=== PATIENT | female | born 1935 | race Caucasian/White ===

== ENCOUNTER → 2016-07-03 | Outpatient (CLI) | payer MEDICARE ==
--- NOTE | 2016-07-03 12:00 | FL ---
EXAMINATION: Cervical and Thoracic Esophagram DATE OF EXAM: 07/03/2016 11:25 AM CLINICAL INDICATION: 80-year-old female with dysphagia, throat irritation, trouble swallowing and cou ghing for a few months. COMPARISON: 03/28/2016 Total Fluoroscopy Time: 2 minutes. FINDINGS: The swallowing mechanism is normal and hypopharyngeal anatomy is preserved. The thoracic portion shows similar prominent contour bulge at the level of the AP window, likely norm al for this patient. Mild tertiary peristalsis is again demonstrated. There is otherwise normal cours e and caliber. The mucosa is normal and no persistent filling defect is encountered. No hiatal hernia is present. No gastroesophageal reflux is identified during the course of the exam. Reflux could not be elicited with Valsalva or positional maneuvers. IMPRESSION: Minimal tertiary peristaltic contractions. Otherwise, no specific abnormality seen.
== END | disposition home or self-care (01) ==
LOC: RADFLWHC 10:50
PROVIDERS: ATTEND Internal Medicine Gastroenterology
DX: R13.10 Dysphagia, unspecified (principal)
CPT/HCPCS: 74220

== ENCOUNTER 2016-10-05 13:24 | Emergency (ER) | payer MEDICARE ==
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
--- NOTE | 2016-10-05 14:16 | CT ---
EXAMINATION TYPE: CT brain jessicaine wo con DATE OF EXAM: 10/05/2016 2:01 PM COMPARISON: 08/27/2012 CT brain HISTORY: fall, large laceration above left eye CT DLP: total 1827.6 mGycm Automated exposure control for dose reduction was used. TECHNIQUE: CT scan of the head and cervical spine are performed without contrast. FINDINGS: There is cerebral cortical atrophy. There is no mass effect nor midline shift. There is n o sign of intracranial hemorrhage. Calvarium is intact. There is mild soft tissue swelling over the l eft frontal bone. The cervical vertebra are fairly normal alignment. There are mild spondylotic changes. There is mild hypertrophic facet arthropathy in the lower cervical spine. Skull base appears intact. There is no ev idence of fracture. There is 3 mm anterior subluxation of C7 in relation to T1. IMPRESSION: Laceration deformity of the left frontal scalp region. No intracranial abnormality. Cerebral atrophy. Brain is unchanged compared to old exam. Spondylotic mild changes in the cervical spine. No fracture.
--- NOTE | 2016-10-05 14:18 | CT ---
EXAMINATION TYPE: CT facial bones wo con DATE OF EXAM: 10/05/2016 2:02 PM COMPARISON: NONE HISTORY: fall, large laceration above left eye CT DLP: total 1827.6 mGycm Automated exposure control for dose reduction was used. TECHNIQUE: CT scan of the sinuses is performed without contrast, axial images are obtained, coronal r eformatted images are also reviewed. FINDINGS: Orbital margins are intact. There is no sign of a blowout fracture. There is fairly normal development and aeration of the paranasal sinuses. Maxilla is intact. There is narrowing and spurring at the temporomandibular joints. Mandible is intact. Zygomatic arches appear normal. There is slight deformity of the nasal bone on the left side suspicious for nondisplaced fracture. There is no evide nce of orbital mass. There is left frontal scalp deformity. IMPRESSION: Laceration deformity of the left frontal scalp region. There is probably a nondisplaced f racture left side of the nasal bone.
--- NOTE | 2016-10-05 14:41 | XR ---
EXAMINATION TYPE: XR chest 2V DATE OF EXAM: 10/05/2016 2:38 PM COMPARISON: 03/05/2015 HISTORY: Pain TECHNIQUE: Frontal and lateral views of the chest are obtained. FINDINGS: Heart is enlarged. There is mild pulmonary vascular congestion. There are no hilar masses. Thoracic aorta is atheromatous. Bony thorax is intact. IMPRESSION: Cardiomegaly and mild heart failure. There is no significant change compared to last exa m. Pulmonary fibrosis.
[2016-10-05 16:11] VITALS: BP 95/76; PULSE 76; RESP 16; TEMP 98
== END 2016-10-05 16:08 | disposition home or self-care (01) ==
LOC: EC 13:24
DX: S01.81XA Laceration without foreign body of other part of head, initial encounter (principal); I27.2 Other secondary pulmonary hypertension; Z87.891 Personal history of nicotine dependence; Z96.652 Presence of left artificial knee joint; Z79.899 Other long term (current) drug therapy; W01.198A Fall on same level from slipping, tripping and stumbling with subsequent striking against other object, initial encounter; Y92.89 Other specified places as the place of occurrence of the external cause
CPT/HCPCS: 12013; 70450; 70486; 71020; 72125; 99284

== ENCOUNTER 2016-10-14 11:42 | Emergency (ER) | payer MEDICARE ==
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
--- NOTE | 2016-10-14 12:53 | XR ---
EXAMINATION TYPE: XR ribs LT w pa chest x-ray DATE OF EXAM ORDERED: 10/14/2016 12:46 PM HISTORY: Pain. COMPARISON: Previous study dated 10/05/2016. FINDINGS: The bones are osteopenic, likely on the basis of osteoporosis. The heart is enlarged. Lung volumes are prominent. There is linear atelectasis at the right lung base . Lungs are otherwise clear. There is some blunting of the left CP angle. I could not exclude a small effusion. No definite displaced rib fracture is seen. There are severe degenerative changes within t he lower dorsal and upper lumbar spines. IMPRESSION: 1. CARDIOMEGALY. 2. COPD. 3. RIGHT BASILAR ATELECTASIS. 4. I COULD NOT EXCLUDE A SMALL LEFT EFFUSION. 5. I DO NOT SEE A DISPLACED RIB FRACTURE AT THIS TIME.
[2016-10-14 13:48] VITALS: BP 102/61; PULSE 96; RESP 18; TEMP 97.9
== END 2016-10-14 13:47 | disposition home or self-care (01) ==
LOC: EC 11:42
DX: S20.212A Contusion of left front wall of thorax, initial encounter (principal); I27.2 Other secondary pulmonary hypertension; I48.91 Unspecified atrial fibrillation; Z79.899 Other long term (current) drug therapy; Z87.891 Personal history of nicotine dependence; W18.30XA Fall on same level, unspecified, initial encounter; Y93.89 Activity, other specified
CPT/HCPCS: 99283

== ENCOUNTER 2016-11-08 21:00 | Emergency (ER) | payer MEDICARE ==
[2016-11-08 21:18] VITALS: RESP 18
--- NOTE | 2016-11-08 21:44 | XR ---
EXAMINATION TYPE: XR chest 1V portable DATE OF EXAM: 11/08/2016 COMPARISON: 10/14/2016 INDICATION: Trauma TECHNIQUE: Single frontal view of the chest is obtained. FINDINGS: The heart size is enlarged. The pulmonary vasculature is normal. No suspicious infiltrates are evident. No pneumothorax is evident. Chronic rotator cuff tear is evident on the right. IMPRESSION: 1. Cardiomegaly. 2. No acute posttraumatic change is evident.
--- NOTE | 2016-11-08 21:45 | XR ---
EXAMINATION TYPE: XR shoulder limited LT DATE OF EXAM: 11/08/2016 COMPARISON: NONE HISTORY: Pain TECHNIQUE: Shoulder examined in 2 FINDINGS: The humeral head articulates with the glenoid. The acromio-clavicular junction is normal. No acute fractures or dislocations are evident. A follow up study can be performed 7-10 days from acute trauma for continued pain. IMPRESSION: 1. Normal two-view shoulder.
--- NOTE | 2016-11-08 21:46 | XR ---
EXAMINATION TYPE: XR knee limited LT DATE OF EXAM: 11/08/2016 COMPARISON: NONE HISTORY: Trauma fall TECHNIQUE: 2 view left knee FINDINGS: Tibial and femoral components remain in position. No acute fractures evident. Small joint f luid may be present. IMPRESSION: 1. Acute fracture not identified. Small joint effusion may be present.
--- NOTE | 2016-11-08 21:47 | XR ---
EXAMINATION TYPE: XR pelvis AP view DATE OF EXAM: 11/08/2016 CLINICAL HISTORY: Fall, pain TECHNIQUE: A single AP view of the pelvis is obtained. COMPARISON: None. FINDINGS: No acute fractures evident. Sacroiliac joints are normal. Degenerative changes are within t he lumbar spine. Degenerative changes are at the symphysis pubis. Some hyperostosis at the greater tr ochanter. IMPRESSION: 1. No acute osseous abnormality.
[2016-11-08] MEDS ORDERED: HYDROcodone/APAP 5-325MG 1 EACH TAB PO STA (21:56)
--- NOTE | 2016-11-08 21:59 | CT ---
EXAMINATION TYPE: CT brain wo con DATE OF EXAM: 11/08/2016 COMPARISON: 10/05/2016 INDICATION: Fall with head injury. DLP: 919.2 mGycm, Automated exposure control for dose reduction was used. CONTRAST: None CT of the brain is performed utilizing 3 mm thick sections through the posterior fossa and 3 mm thick sections through the remaining calvarium. Study is performed within 24 hours of arrival to the hosp [facility]. No abnormal hyperdensity is present to suggest an acute intracranial hemorrhage. No mass lesion is evident. No acute infarcts are evident. Mild white matter ischemic type changes may be present. Ventricles and sulci are appropriate for the patient age. Paranasal sinuses and mastoid air cells within the [id number] are clear. Mild soft tissue swelling is over the left frontal region. No significant change from October 12, 2016 is evident. IMPRESSIONS: 1. No acute intracranial hemorrhage. 2. No acute intracranial process. 3. Chronic white matter ischemic type changes
[2016-11-08 22:03] LABS: Basophils # (A) 0.1 k/uL (0-0.2); Basophils % (A) 1 %; CH 31.3; CHCM 32.8; Eosinophils # (A) 0.3 k/uL (0-0.7); Eosinophils % (A) 5 %; HCT 43.7 % (34.0-46.0); HGB 14.2 gm/dL (11.4-16.0); Luc # (Auto) 0.13; Luc % (Auto) 2; Lymphocytes # (A) 1.8 k/uL (1.0-4.8); Lymphocytes % (A) 34 %; MCH 31.2 pg (25.0-35.0); MCHC 32.6 g/dL (31.0-37.0); MCV 95.9 fL (80.0-100.0); Mean Platelet Volume 6.9; Monocytes # (A) 0.4 k/uL (0-1.0); Monocytes % (A) 7 %; Neutrophils # (A) 2.8 k/uL (1.3-7.7); Neutrophils % (A) 51 %; RBC 4.56 m/uL (3.80-5.40); RDW 13.6 % (11.5-15.5); WBC 5.4 k/uL (3.8-10.6); WBC (Perox) 5.33
[2016-11-08 22:11] LABS: INR 3.2 (<1.1); Partial Thromboplastin Time 29.3 sec (22.0-30.0); Prothrombin Time 30.8 sec (9.0-12.0)
[2016-11-08 22:12] LABS: ALT 30 U/L (9-52); AST 30 U/L (14-36); Alcohol <10 mg/dL; Alkaline Phosphatase 73 U/L (38-126); Amylase 70 U/L (30-110); Anion Gap 11 mmol/L; Blood Urea Nitrogen 15 mg/dL (7-17); Calcium 9.3 mg/dL (8.4-10.2); Carbon Dioxide 27 mmol/L (22-30); Chloride 101 mmol/L (98-107); Glucose 94 mg/dL (74-99); Non-African American GFR(MDRD) >60 (>60 ml/min/1.73 sqM); Potassium 3.5 mmol/L (3.5-5.1); Sodium 139 mmol/L (137-145); Total Bilirubin 0.6 mg/dL (0.2-1.3); Total Protein 6.6 g/dL (6.3-8.2)
[2016-11-08 22:29] LABS: Creatine Kinase 106 U/L (30-135)
[2016-11-08 22:41] LABS: Creatine Kinase MB 2.2 ng/mL (0.0-2.4); Troponin I <0.012 ng/mL (0.000-0.034)
--- NOTE | 2016-11-08 23:38 | ED ---
Fall HPI - General Chief Complaint: Fall Stated Complaint: left shoulder injury/fall Time Seen by Provider: 11/08/16 21:09 Source: patient Mode of arrival: wheelchair - History of Present Illness Initial Comments: This patient is an 80-year-old woman who presents to be evaluated after she had a fall at home. Patient reports slipping on steps and falling down one step. There was no loss consciousness. They did note some swelling. The patient's main complaint is of some swelling and pain over the anterior aspect of the knee. There is also a little bit of pain to the anterior aspect of the shoulder. Patient denies chest pain, dyspnea, diaphoresis, nausea or vomiting. 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, by family Place Fall Occurred: home Loss of Consciousness: none Prolonged Down Time?: no Symptoms Prior to Fall: none Severity: mild Quality: dull Context: tripped/slipped Associated Symptoms: headache - Related Data Home Medications Medication Instructions Recorded Confirmed Ambrisentan [Letairis] 5 mg PO DAILY 03/04/15 11/08/16 Atenolol 25 mg PO DAILY 03/04/15 11/08/16 Calcium Carbonate [Calcium] 600 mg PO DAILY 03/04/15 11/08/16 Furosemide [Lasix] 20 mg PO DAILY 03/04/15 11/08/16 Glucosamine-Chondr 500-400Mg 1 tab PO DAILY 03/04/15 11/08/16 Multivitamins, Thera [Multivitamin 1 tab PO DAILY 03/04/15 11/08/16 (formulary)] Potassium 99 mg PO DAILY 03/04/15 11/08/16 Sildenafil [Revatio] 20 mg PO TID 03/04/15 11/08/16 Verapamil HCl [Verapamil ER] 180 mg PO BID 03/04/15 11/08/16 Escitalopram [Lexapro] 5 mg PO DAILY 10/05/16 11/08/16 Vit C/E/Zn/Coppr/Lutein/Zeaxan 1 cap PO DAILY 10/05/16 11/08/16 [Preservision Areds 2 Softgel] Donepezil [Aricept] 10 mg PO HS 11/08/16 11/08/16 Previous Rx's Medication Instructions Recorded Warfarin [Coumadin] 5 mg PO DAILY #7 tab 03/07/15 traMADol HCl [Ultram] 50 mg PO Q6H PRN #24 tab 11/08/16 Allergies Allergy/AdvReac Type Severity Reaction Status Date / Time No Known Allergies Allergy Verified 11/08/16 22:07 Review of Systems ROS Statement: Those systems with pertinent positive or pertinent negative responses have been documented in the HPI. ROS Other: All systems not noted in ROS Statement are negative. Constitutional: Denies: fever, chills, weakness Eyes: Denies: vision change ENT: Denies: ear pain, hearing loss, epistaxis Respiratory: Denies: cough, dyspnea Cardiovascular: Denies: chest pain, palpitations, syncope Gastrointestinal: Denies: abdominal pain, vomiting Musculoskeletal: Reports: as per HPI. 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 History of Any Multi-Drug Resistant Organisms: None Reported Past Surgical History: Joint Replacement, Orthopedic Surgery, Tonsillectomy Additional Past Surgical History / Comment(s): Broken Femur; L Knee replacement ; L arm plates and screws Past Anesthesia/Blood Transfusion Reactions: No Reported Reaction Past Psychological History: No Psychological Hx Reported Smoking Status: Former smoker Past Alcohol Use History: None Reported Past Drug Use History: None Reported - Past Family History Mother Family Medical History: Cancer Additional Family Medical History / Comment(s): breast cancer General Exam Limitations: no limitations General appearance: alert, in no apparent distress Head exam: Present: normocephalic, other (Scalp contusion) Eye exam: Present: normal appearance, PERRL. Absent: scleral icterus, conjunctival injection ENT exam: Present: normal oropharynx Neck exam: Present: normal inspection, full ROM. Absent: tenderness Respiratory exam: Present: normal lung sounds bilaterally. Absent: respiratory distress, wheezes, rales, rhonchi, stridor, chest wall tenderness Cardiovascular Exam: Present: regular rate, irregular rhythm, normal heart sounds. Absent: systolic murmur, diastolic murmur, rubs, gallop GI/Abdominal exam: Present: soft. Absent: distended, tenderness, guarding, rebound Extremities exam: Present: full ROM, tenderness, normal capillary refill, other (Contusion to the anterior aspect of the knee. No palpable deformity or step- off.) Back exam: Present: normal inspection. Absent: CVA tenderness (R), CVA tenderness (L) Neurological exam: Present: alert, CN II-XII intact. Absent: motor sensory deficit Skin exam: Present: warm, dry, intact, normal color. Absent: rash Course Vital Signs 11/08/16 11/09/16 21:08 00:06 Temperature 97.5 F L 97.9 F Pulse Rate 78 76 Respiratory 18 18 Rate Blood Pressure 131/84 119/75 O2 Sat by Pulse 94 L 92 L Oximetry Medical Decision Making - Medical Decision Making This patient is an 80-year-old woman presenting following a slip and fall from the first step. Patient is taking Coumadin and this was therefore made a trauma category 2. Discussed the case with trauma surgery and workup per their recommendations. The workup is negative and the patient did want to go home. Discussed return parameters. They will have close follow-up with the primary physician to ensure that there is no delayed development of any symptoms. - Lab Data Result diagrams: 11/08/16 21:50 11/08/16 21:50 Lab Results 11/08/16 11/08/16 11/08/16 Range/Units 21:50 21:50 21:50 WBC 5.4 (3.8-10.6) k/uL RBC 4.56 (3.80-5.40) m/uL Hgb 14.2 (11.4-16.0) gm/dL Hct 43.7 (34.0-46.0) % MCV 95.9 (80.0-100.0) fL MCH 31.2 (25.0-35.0) pg MCHC 32.6 (31.0-37.0) g/dL RDW 13.6 (11.5-15.5) % Plt Count 207 (150-450) k/uL Neutrophils % 51 % Lymphocytes % 34 % Monocytes % 7 % Eosinophils % 5 % Basophils % 1 % Neutrophils # 2.8 (1.3-7.7) k/uL Lymphocytes # 1.8 (1.0-4.8) k/uL Monocytes # 0.4 (0-1.0) k/uL Eosinophils # 0.3 (0-0.7) k/uL Basophils # 0.1 (0-0.2) k/uL PT (9.0-12.0) sec INR (<1.1) APTT (22.0-30.0) sec Sodium 139 (137-145) mmol/L Potassium 3.5 (3.5-5.1) mmol/L Chloride 101 (98-107) mmol/L Carbon Dioxide 27 (22-30) mmol/L Anion Gap 11 mmol/L BUN 15 (7-17) mg/dL Creatinine 0.66 (0.52-1.04) mg/dL Est GFR (MDRD) Af Amer >60 (>60 ml/min/1.73 sqM) Est GFR (MDRD) Non-Af >60 (>60 ml/min/1.73 sqM) Glucose 94 (74-99) mg/dL Plasma Lactic Acid Alvin (0.7-2.0) mmol/L Calcium 9.3 (8.4-10.2) mg/dL Total Bilirubin 0.6 (0.2-1.3) mg/dL AST 30 (14-36) U/L ALT 30 (9-52) U/L Alkaline Phosphatase 73 (38-126) U/L Total Creatine Kinase (30-135) U/L CK-MB (CK-2) (0.0-2.4) ng/mL CK-MB (CK-2) Rel Index Troponin I (0.000-0.034) ng/mL Total Protein 6.6 (6.3-8.2) g/dL Albumin 4.3 (3.5-5.0) g/dL Amylase 70 (30-110) U/L Lipase 307 H (23-300) U/L Serum Alcohol <10 mg/dL Blood Type O Positive Blood Type Recheck O Pos Antibody Screen NEGATIVE Spec Expiration Date 11/11/2016 - 234911/08/16 11/08/16 11/08/16 Range/Units 21:50 21:50 21:50 WBC (3.8-10.6) k/uL RBC (3.80-5.40) m/uL Hgb (11.4-16.0) gm/dL Hct (34.0-46.0) % MCV (80.0-100.0) fL MCH (25.0-35.0) pg MCHC (31.0-37.0) g/dL RDW (11.5-15.5) % Plt Count (150-450) k/uL Neutrophils % % Lymphocytes % % Monocytes % % Eosinophils % % Basophils % % Neutrophils # (1.3-7.7) k/uL Lymphocytes # (1.0-4.8) k/uL Monocytes # (0-1.0) k/uL Eosinophils # (0-0.7) k/uL Basophils # (0-0.2) k/uL PT 30.8 H (9.0-12.0) sec INR 3.2 (<1.1) APTT 29.3 (22.0-30.0) sec Sodium (137-145) mmol/L Potassium (3.5-5.1) mmol/L Chloride (98-107) mmol/L Carbon Dioxide (22-30) mmol/L Anion Gap mmol/L BUN (7-17) mg/dL Creatinine (0.52-1.04) mg/dL Est GFR (MDRD) Af Amer (>60 ml/min/1.73 sqM) Est GFR (MDRD) Non-Af (>60 ml/min/1.73 sqM) Glucose (74-99) mg/dL Plasma Lactic Acid Alvin 1.2 (0.7-2.0) mmol/L Calcium (8.4-10.2) mg/dL Total Bilirubin (0.2-1.3) mg/dL AST (14-36) U/L ALT (9-52) U/L Alkaline Phosphatase (38-126) U/L Total Creatine Kinase 106 (30-135) U/L CK-MB (CK-2) 2.2 (0.0-2.4) ng/mL CK-MB (CK-2) Rel Index 2.1 Troponin I <0.012 (0.000-0.034) ng/mL Total Protein (6.3-8.2) g/dL Albumin (3.5-5.0) g/dL Amylase (30-110) U/L Lipase (23-300) U/L Serum Alcohol mg/dL Blood Type Blood Type Recheck Antibody Screen Spec Expiration Date - EKG Data -: EKG Interpreted by Me EKG shows normal: axis (Normal), intervals (Normal), ST-T waves (Normal) Rate: normal Interpretation: other (Patient's underlying rhythm appears to be atrial fibrillation with good rate control.) Critical Care Time Critical Care Time: Yes (30 minutes) Disposition Clinical Impression: Fall, Multiple contusions Disposition: HOME SELF-CARE Condition: Fair Instructions: Fall Prevention for Older Adults (ED), Contusion in Adults (ED) Prescriptions: traMADol HCl [Ultram] 50 mg PO Q6H PRN #24 tab PRN Reason: Pain Referrals: Viola Robledo MD [Primary Care Provider] - 1-2 days
[2016-11-09 00:07] VITALS: BP 119/75; PULSE 76; TEMP 97.9
--- NOTE | 2016-11-12 01:30 | CDI ---
Documentation Clarification OP Dear Sy PACHECO MD Please do addendum to ED report for HPI and physical exam. Thank you, Leonor Mercado Band Saw Operator Cake Cutting If you have any question, Please contact switchboard manager at [phone] [facility]
== END 2016-11-09 00:23 | disposition home or self-care (01) ==
LOC: EC 21:00
DX: S00.03XA Contusion of scalp, initial encounter (principal); S80.02XA Contusion of left knee, initial encounter; S49.92XA Unspecified injury of left shoulder and upper arm, initial encounter; I48.91 Unspecified atrial fibrillation; I27.2 Other secondary pulmonary hypertension; Z87.891 Personal history of nicotine dependence; Z79.899 Other long term (current) drug therapy; W10.9XXA Fall (on) (from) unspecified stairs and steps, initial encounter; Y92.009 Unspecified place in unspecified non-institutional (private) residence as the place of occurrence of the external cause
CPT/HCPCS: 36415; 70450; 71010; 72170; 80053; 80320; 82150; 82550; 82553; 83605; 83690; 84484; 85025; 85610; 85730; 86850; 86900; 86901; 93005; 99284

== ENCOUNTER 2017-06-19 14:13 | Emergency (ER) | payer MEDICARE ==
[2017-06-19 14:57] LABS: Partial Thromboplastin Time 37.5 sec (22.0-30.0); Prothrombin Time 77.5 sec (9.0-12.0)
[2017-06-19 14:59] LABS: INR 8.4 (<1.2)
--- NOTE | 2017-06-19 15:39 | ED ---
General Adult HPI - General Source: patient, family Mode of arrival: ambulatory Limitations: no limitations <Kyle Blackwood - Last Filed: 06/19/17 15:48> <Jay Jay Centeno - Last Filed: 06/19/17 18:22> - General Chief complaint: Recheck/Abnormal Lab/Rx Stated complaint: coumadin levels-sent by - History of Present Illness Initial comments: This 81-year-old white female presents with a complaint of an elevated INR level. She does take Coumadin daily. The patient/family relates that it apparently was elevated several weeks ago and her dose was cut in 2 weeks ago. They're unsure of the exact milligrams strength that she is currently taking. Her pills come in a blister pack and she denies taking more medication than she should have. She does have a history of dementia however but other family members are present to help with history. She relates that 2 days ago she ended up getting some blood around her left eye which is consistent with a some conjunctival hemorrhage. She denies any visual abnormalities. She denies any other bleeding. There hasn't been any hematuria, blood in stool, black tarry stools, or nosebleeds. He has no other symptoms. She states that she feels fine. She had her blood drawn this morning and her INR apparently was 8.4. Dr. Mary Robledo's office did call her and tell her to come to the ER. They are unsure why she is on the Coumadin but believe it is due to a heart and/or lung problems. It does appear that she has atrial fibrillation per EKG. They also relate that she has had blood clots in the past. The Coumadin dosing is done through the primary care physician's office and not the cardiology office. No other complaints or modifying factors. (Kyle Blackwood) - Related Data Home Medications Medication Instructions Recorded Confirmed Atenolol 25 mg PO DAILY 03/04/15 06/19/17 Calcium Carbonate [Calcium] 600 mg PO DAILY 03/04/15 06/19/17 Furosemide [Lasix] 20 mg PO DAILY 03/04/15 06/19/17 Glucosamine-Chondr 500-400Mg 1 tab PO DAILY 03/04/15 06/19/17 Multivitamins, Thera [Multivitamin 1 tab PO DAILY 03/04/15 06/19/17 (formulary)] Potassium 99 mg PO DAILY 03/04/15 06/19/17 Sildenafil [Revatio] 20 mg PO TID 03/04/15 06/19/17 Verapamil HCl [Verapamil ER] 180 mg PO BID 03/04/15 06/19/17 Escitalopram [Lexapro] 5 mg PO DAILY 10/05/16 06/19/17 Vit C/E/Zn/Coppr/Lutein/Zeaxan 1 cap PO DAILY 10/05/16 06/19/17 [Preservision Areds 2 Softgel] Donepezil [Aricept] 10 mg PO HS 11/08/16 06/19/17 Warfarin Sodium [Coumadin] 2.5 mg PO CARTER 06/19/17 06/19/17 Previous Rx's Medication Instructions Recorded Warfarin [Coumadin] 5 mg PO DAILY #7 tab 03/07/15 Allergies Allergy/AdvReac Type Severity Reaction Status Date / Time No Known Allergies Allergy Verified 06/19/17 15:14 Review of Systems ROS Other: All systems not noted in ROS Statement are negative. <Kyle Blackwood - Last Filed: 06/19/17 15:48> ROS Other: All systems not noted in ROS Statement are negative. <Jay Jay Centeno - Last Filed: 06/19/17 18:22> ROS Statement: Those systems with pertinent positive or pertinent negative responses have been documented in the HPI. 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 History of Any Multi-Drug Resistant Organisms: None Reported Past Surgical History: Joint Replacement, Orthopedic Surgery, Tonsillectomy Additional Past Surgical History / Comment(s): Broken Femur; L Knee replacement ; L arm plates and screws Past Anesthesia/Blood Transfusion Reactions: No Reported Reaction Past Psychological History: No Psychological Hx Reported Smoking Status: Former smoker Past Alcohol Use History: None Reported Past Drug Use History: None Reported - Past Family History Mother Family Medical History: Cancer Additional Family Medical History / Comment(s): breast cancer <Kyle Blackwood - Last Filed: 06/19/17 15:48> General Exam Limitations: no limitations <Kyle Blackwood - Last Filed: 06/19/17 15:48> <Jay aJy Centeno - Last Filed: 06/19/17 18:22> - General Exam Comments Initial Comments: GENERAL: The patient is well nourished and well hydrated. VITAL SIGNS: Heart rate, blood pressure, respiratory rate reviewed as recorded in nurse's notes. EYES: Pupils are round and reactive. Extraocular movements are intact. No conjunctival / lid redness or swelling. There is a large left subconjunctival hemorrhage noted. ENT: No external evidence of injury, swelling, or ecchymosis. Airway is patent. Throat is clear. NECK: Nontender. No swelling or evidence of injury. No subcutaneous emphysema. Trachea is midline. No thyroid mass. HEART: Regular rate and rhythm. Good peripheral pulses. LUNGS/CHEST: Breath sounds clear and equal bilaterally. No rales, rhonchi, or wheezes. No ecchymosis, subcutaneous emphysema, or tenderness. ABDOMEN: Abdomen soft without tenderness. No palpable masses or organomegaly. No peritoneal signs. No abdominal wall swelling or ecchymosis. EXTREMITIES: No extremity tenderness. Normal muscle tone and function. No thoracolumbar tenderness. NEUROLOGIC: Sensation is grossly intact. Cranial nerve exam reveals face is symmetrical, tongue is midline, speech is clear. SKIN: No abrasions or ecchymosis is noted. No induration or masses noted. PSYCHIATRIC: Alert and and in no distress, seems slightly demented. Appropriate behavior and judgment. (Kyle Blackwood) Vital Signs 06/19/17 06/19/17 14:18 18:04 Temperature 97.2 F L 98.2 F Pulse Rate 69 74 Respiratory 17 16 Rate Blood Pressure 129/89 124/73 O2 Sat by Pulse 96 94 L Oximetry Medical Decision Making <Kyle Blackwood - Last Filed: 06/19/17 15:48> - Lab Data Result diagrams: 06/19/17 15:35 06/19/17 15:35 <Jay Jay Centeno - Last Filed: 06/19/17 18:22> - Medical Decision Making The patient was seen and examined. Laboratory from this a.m. does show that the INR is 8.4. Additional diagnostics are ordered and are pending. Further care will be passed to oncoming physician. The EKG shows evidence of atrial fibrillation at a rate of 91. There is a QRS duration of 82 and a QTc interval 450. The EKG does not show any acute ST-T wave changes. (Kyle Blackwood) Medical decision making; this is an 81-year-old female here with family. At the officer INR level was elevated. She was sent to the hospital. Our lab reported 9.6 as an outpatient lab she was then told to come to the emergency room. Repeat INR was 8.4. White count 8.8 hemoglobin 14 hematocrit 44. The patient had small subconjunctival hemorrhage no other bleeding. No bruising, no dark stools etc. The patient's steady on her feet. She is on Coumadin for A. fib. I discussed the case with Dr. Leo on-call for Dr. Viola Brandon. He recommends vitamin K in emergency room and then she'll follow up in office tomorrow for repeat INR. She's not to take any Coumadin until instructed to do so by his office. This was explained to the family at bedside. Dr. Centeno ( Jay Jay Centeno) - Lab Data Lab Results 06/19/17 06/19/17 06/19/17 Range/Units 14:25 15:35 15:35 WBC 8.8 (3.8-10.6) k/uL RBC 4.70 (3.80-5.40) m/uL Hgb 14.6 (11.4-16.0) gm/dL Hct 44.4 (34.0-46.0) % MCV 94.5 (80.0-100.0) fL MCH 31.0 (25.0-35.0) pg MCHC 32.8 (31.0-37.0) g/dL RDW 14.2 (11.5-15.5) % Plt Count 297 (150-450) k/uL Neutrophils % 68 % Lymphocytes % 20 % Monocytes % 7 % Eosinophils % 4 % Basophils % 1 % Neutrophils # 6.0 (1.3-7.7) k/uL Lymphocytes # 1.7 (1.0-4.8) k/uL Monocytes # 0.6 (0-1.0) k/uL Eosinophils # 0.3 (0-0.7) k/uL Basophils # 0.1 (0-0.2) k/uL PT 77.5 H (9.0-12.0) sec INR 8.4 H* (<1.2) APTT 37.5 H (22.0-30.0) sec Sodium 141 (137-145) mmol/L Potassium 4.5 (3.5-5.1) mmol/L Chloride 103 (98-107) mmol/L Carbon Dioxide 29 (22-30) mmol/L Anion Gap 9 mmol/L BUN 21 H (7-17) mg/dL Creatinine 0.69 (0.52-1.04) mg/dL Est GFR (MDRD) Af Amer >60 (>60 ml/min/1.73 sqM) Est GFR (MDRD) Non-Af >60 (>60 ml/min/1.73 sqM) Glucose 94 (74-99) mg/dL Calcium 9.8 (8.4-10.2) mg/dL Disposition <Kyle Blackwood - Last Filed: 06/19/17 15:48> Time of Disposition: 18:22 <Jay Jay Centeno - Last Filed: 06/19/17 18:22> Clinical Impression: Coagulopathy, Subconjunctival bleed, Warfarin-induced coagulopathy Disposition: HOME SELF-CARE Condition: Fair Instructions: Warfarin (By mouth) Additional Instructions: Follow up in office tomorrow for repeat INR. Do not take Coumadin until instructed to do so by your family doctor, return emergency room if you have any evidence of bleeding Referrals: Viola Robledo MD [Primary Care Provider] - 1-2 days
[2017-06-19 15:49] LABS: Basophils # (A) 0.1 k/uL (0-0.2); Basophils % (A) 1 %; Eosinophils # (A) 0.3 k/uL (0-0.7); Eosinophils % (A) 4 %; HCT 44.4 % (34.0-46.0); HGB 14.6 gm/dL (11.4-16.0); Lymphocytes # (A) 1.7 k/uL (1.0-4.8); Lymphocytes % (A) 20 %; MCHC 32.8 g/dL (31.0-37.0); MCV 94.5 fL (80.0-100.0); Mean Platelet Volume 7.1; Monocytes # (A) 0.6 k/uL (0-1.0); Monocytes % (A) 7 %; Neutrophils % (A) 68 %; Platelet Count 297 k/uL (150-450); RDW 14.2 % (11.5-15.5); WBC 8.8 k/uL (3.8-10.6)
[2017-06-19 15:57] LABS: Anion Gap 9 mmol/L; Blood Urea Nitrogen 21 mg/dL (7-17); Calcium 9.8 mg/dL (8.4-10.2); Carbon Dioxide 29 mmol/L (22-30); Chloride 103 mmol/L (98-107); Glucose 94 mg/dL (74-99); Potassium 4.5 mmol/L (3.5-5.1); Sodium 141 mmol/L (137-145)
[2017-06-19] MEDS ORDERED: PHYTONADIONE 5 MG in SODIUM CHLORIDE 0.9% 50 ML IVPB STA (17:33)
[2017-06-19 18:04] VITALS: BP 124/73; PULSE 74; RESP 16; TEMP 98.2
== END 2017-06-19 18:35 | disposition home or self-care (01) ==
LOC: EC 14:13
DX: D68.8 Other specified coagulation defects (principal); H11.32 Conjunctival hemorrhage, left eye; I48.91 Unspecified atrial fibrillation; I27.20 Pulmonary hypertension, unspecified; Z87.891 Personal history of nicotine dependence; Z79.01 Long term (current) use of anticoagulants; Z79.899 Other long term (current) drug therapy
CPT/HCPCS: 36415; 93005; 80048; 85025; 85610; 85730; 99283; 96365; J3430

== ENCOUNTER 2017-06-22 20:46 | Emergency (ER) | payer MEDICARE ==
[2017-06-22 21:15] VITALS: BP 130/68; PULSE 68; RESP 16; TEMP 97.4
--- NOTE | 2017-06-22 21:39 | ED ---
Extremity Problem HPI - General Chief complaint: Extremity Problem,Nontraumatic Stated complaint: hand pain Time Seen by Provider: 06/22/17 21:25 Source: patient, RN notes reviewed Mode of arrival: ambulatory Limitations: no limitations - History of Present Illness Initial comments: This is an 81-year-old female who presents to the emergency department with chief complaint of right hand and wrist pain. Patient states that the pain developed last night while she was sleeping. She woke up at 4 AM and was unable to sleep due to the pain. Patient states that she has arthritis and had this same issue in her left hand 2 weeks ago. She was seen by Dr. Gonzalez who gave her a steroid injection which improved the pain in her left hand. Patient denies any specific injuries or trauma. Denies fever, chills, chest pain, shortness of breath, abdominal pain, nausea or vomiting, constipation or diarrhea, dysuria or hematuria, numbness or tingling, headache or vision changes. - Related Data Home Medications Medication Instructions Recorded Confirmed Atenolol 25 mg PO DAILY 03/04/15 06/19/17 Calcium Carbonate [Calcium] 600 mg PO DAILY 03/04/15 06/19/17 Furosemide [Lasix] 20 mg PO DAILY 03/04/15 06/19/17 Glucosamine-Chondr 500-400Mg 1 tab PO DAILY 03/04/15 06/19/17 Multivitamins, Thera [Multivitamin 1 tab PO DAILY 03/04/15 06/19/17 (formulary)] Potassium 99 mg PO DAILY 03/04/15 06/19/17 Sildenafil [Revatio] 20 mg PO TID 03/04/15 06/19/17 Verapamil HCl [Verapamil ER] 180 mg PO BID 03/04/15 06/19/17 Escitalopram [Lexapro] 5 mg PO DAILY 10/05/16 06/19/17 Vit C/E/Zn/Coppr/Lutein/Zeaxan 1 cap PO DAILY 10/05/16 06/19/17 [Preservision Areds 2 Softgel] Donepezil [Aricept] 10 mg PO HS 11/08/16 06/19/17 Warfarin Sodium [Coumadin] 2.5 mg PO CARTER 06/19/17 06/19/17 Previous Rx's Medication Instructions Recorded Warfarin [Coumadin] 5 mg PO DAILY #7 tab 03/07/15 Allergies Allergy/AdvReac Type Severity Reaction Status Date / Time No Known Allergies Allergy Verified 06/19/17 15:14 Review of Systems ROS Statement: Those systems with pertinent positive or pertinent negative responses have been documented in the HPI. ROS Other: All systems not noted in ROS Statement are negative. 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 History of Any Multi-Drug Resistant Organisms: None Reported Past Surgical History: Joint Replacement, Orthopedic Surgery, Tonsillectomy Additional Past Surgical History / Comment(s): Broken Femur; L Knee replacement ; L arm plates and screws Past Anesthesia/Blood Transfusion Reactions: No Reported Reaction Past Psychological History: No Psychological Hx Reported Smoking Status: Former smoker Past Alcohol Use History: None Reported Past Drug Use History: None Reported - Past Family History Mother Family Medical History: Cancer Additional Family Medical History / Comment(s): breast cancer General Exam - General Exam Comments Initial Comments: General: Awake and alert, well-developed; in no apparent distress. is at bedside. HEENT: Head atraumatic, normocephalic. Pupils are equal, round and reactive to light. Extraocular movements intact. Oropharynx moist without erythema or exudate. Neck: Supple. Normal ROM. Cardiovascular: Regular rate and rhythm. No murmurs, rubs or gallops. Chest symmetrical. Respiratory: Lungs clear to auscultation bilaterally. No wheezes, rales or rhonchi. Normal respiratory effort with no use of accessory muscles. Musculoskeletal: Limited range of motion of right wrist due to pain. There is generalized swelling over the left wrist and hand. Tenderness on palpation of left wrist and thumb. Lateral deviation of digits at the MCP joints. Sensation is intact. Radial pulses are 2+ equal and palpable bilaterally. Skin: [place], warm and dry without rashes or lesions. Neurological: Alert and oriented x3. CN II-XII grossly intact. Speech is fluent and answers are appropriate. No focal neuro deficits. Psychiatric: Normal mood and affect. No overt signs of depression or anxiety noted. Limitations: no limitations Course Vital Signs 06/22/17 21:11 Temperature 97.4 F L Pulse Rate 68 Respiratory 16 Rate Blood Pressure 130/68 O2 Sat by Pulse 97 Oximetry Medical Decision Making - Medical Decision Making This is an 81-year-old female who presents to the emergency department with chief complaint of right hand and wrist pain. Patient denies any specific injury or trauma. X-ray did reveal evidence of osteoarthritis and degenerative changes. No acute fractures or dislocations. Patient will be given pain medication. Recommended follow-up with Dr. Gonzalez tomorrow morning. Patient is in agreement with plan and voices understanding. She is in no acute distress. All questions answered. - Radiology Data Radiology results: report reviewed X-ray right wrist and right hand impression: 1. There is no acute fracture or dislocation in the right wrist or hand. 2. Findings most consistent with osteoarthritis without radiographic evidence of erosive osteoarthritis most pronounced within the second distal interphalangeal joint with surrounding soft tissue swelling. 3. Calcification of the triangular fibrocartilage which can be seen in CPPD or other arthropathies. 4. Generalized osseous demineralization. Disposition Clinical Impression: Osteoarthritis Disposition: HOME SELF-CARE Condition: Good Instructions: Osteoarthritis (ED) Additional Instructions: Please follow-up with Dr. Gonzalez tomorrow morning. Please take medications as prescribed. Please follow up with primary care provider within 1-2 days. Return to emergency department if symptoms should worsen or any concerns arise. Referrals: Viola Robledo MD [Primary Care Provider] - 1-2 days Time of Disposition: 22:04
--- NOTE | 2017-06-22 21:53 | XR ---
EXAMINATION TYPE: XR wrist complete RT, XR hand complete RT DATE OF EXAM: 06/22/2017 CLINICAL HISTORY: Right wrist and hand pain with no known injury TECHNIQUE: Frontal, lateral and oblique images of the right wrist and hand are obtained. Scaphoid vi ew was also obtained. COMPARISON: None FINDINGS: There is no acute fracture/dislocation evident in the right wrist or hand. Extensive degen erative changes are seen at the second distal interphalangeal joint with surrounding soft tissue swel ling of the entirety of the digit. There is slight radial subluxation without dislocation at the dist al interphalangeal joint. Joint space narrowing, overhanging edges of marginal osteophytes, and oppos ing surface sclerosis are seen. No erosions. Calcifications of the triangular fibrocartilage are also seen. There is generalized osseous demineralization. Similar degenerative changes but to a much less er degree are seen at the first metacarpal phalangeal joint and fifth distal interphalangeal joint mi ld opposing surface sclerosis is seen of the first, third, and fourth distal interphalangeal joints. Well-circumscribed 3 mm osseous lesion within the proximal phalanx of the fifth digit may represent a bone island. Diffuse mild soft tissue swelling of the wrist is noted. IMPRESSION: 1. There is no acute fracture or dislocation in the right wrist or hand. 2. Findings most consistent with osteoarthritis without radiographic evidence of erosive osteoarthrit is most pronounced within the second distal interphalangeal joint with surrounding soft tissue swelli ng. 3. Calcification of the triangular fibrocartilage which can be seen in CPPD or other arthropathies. 4. Generalized osseous demineralization.
[2017-06-22] MEDS ORDERED: ACET/COD 300 MG/30 MG STARTER PACK 6 TAB BTL PO STA (22:02)
== END 2017-06-22 22:16 | disposition home or self-care (01) ==
LOC: EC 20:46
DX: M19.041 Primary osteoarthritis, right hand (principal); I48.91 Unspecified atrial fibrillation; I27.20 Pulmonary hypertension, unspecified; J84.10 Pulmonary fibrosis, unspecified; Z87.891 Personal history of nicotine dependence; Z96.652 Presence of left artificial knee joint; Z79.01 Long term (current) use of anticoagulants; Z79.899 Other long term (current) drug therapy
CPT/HCPCS: 99283

== ENCOUNTER → 2017-06-23 | Outpatient (CLI) | payer MEDICARE ==
[2017-06-23 13:26] LABS: Basophils # (A) 0.1 k/uL (0-0.2); Basophils % (A) 1 %; Eosinophils # (A) 0.1 k/uL (0-0.7); Eosinophils % (A) 1 %; HCT 45.1 % (34.0-46.0); HGB 14.2 gm/dL (11.4-16.0); Lymphocytes # (A) 1.1 k/uL (1.0-4.8); Lymphocytes % (A) 12 %; MCH 30.3 pg (25.0-35.0); MCHC 31.6 g/dL (31.0-37.0); MCV 95.9 fL (80.0-100.0); Mean Platelet Volume 6.4; Monocytes # (A) 0.7 k/uL (0-1.0); Monocytes % (A) 8 %; Neutrophils # (A) 7.4 k/uL (1.3-7.7); Neutrophils % (A) 79 %; Platelet Count 254 k/uL (150-450); RDW 12.6 % (11.5-15.5); WBC 9.4 k/uL (3.8-10.6)
[2017-06-23 13:31] LABS: ALT 28 U/L (9-52); AST 22 U/L (14-36); Anion Gap 8 mmol/L; Blood Urea Nitrogen 14 mg/dL (7-17); C Reactive Protein 19.8 mg/L (<10.0); Carbon Dioxide 31 mmol/L (22-30); Chloride 98 mmol/L (98-107); Creatine Kinase 46 U/L (30-135); Glucose 96 mg/dL (74-99); Potassium 4.2 mmol/L (3.5-5.1); Sodium 137 mmol/L (137-145); Uric Acid 4.2 mg/dL (3.7-7.4)
[2017-06-23 15:27] LABS: Erythrocyte Sedimentation Rate 8 mm/hr (0-20)
[2017-06-23 19:26] LABS: Rheumatoid Factor 8 IU/mL (0-15)
[2017-06-23 20:20] LABS: Cyclic Citrullinated Pep IgG NEGATIVE (NEGATIVE)
[2017-06-24 05:06] LABS: Angiotensin-1 Converting Enz. 51 U/L (8-52)
[2017-06-24 11:25] LABS: HLA B27 NEGATIVE
== END ==
LOC: LABWHC1 11:49
PROVIDERS: ATTEND Orthopaedic Surgery
DX: M25.531 Pain in right wrist (principal); M02.8 Other reactive arthropathies; M12.831 Other specific arthropathies, not elsewhere classified, right wrist
CPT/HCPCS: 36415; 80048; 82164; 82550; 83520; 84450; 84460; 84550; 85025; 85652; 86038; 86140; 86200; 86431; 86812

== ENCOUNTER 2018-02-18 03:37 | Emergency (ER) | payer MEDICARE ==
--- NOTE | 2018-02-18 04:31 | ED ---
General Adult HPI - General Chief complaint: Upper Respiratory Infection Stated complaint: RADHA,COUGH Time Seen by Provider: 02/18/18 04:30 Source: patient, family Mode of arrival: wheelchair Limitations: no limitations - History of Present Illness Initial comments: Jewels is an 82-year-old female with past medical history of atrial fibrillation , pulmonary embolism and pulmonary hypertension who presents the emergency department today for evaluation of progressively worsening active cough. She reports that over the past 2 days she's developed progressively worsening cough. She reports that she is coughing up green sputum. Patient reports that she usually wears oxygen at night but has felt progressively slightly more short of breath so she's been wearing her oxygen more frequently. She reports that she feels more short of breath with laying flat when she feels more postnasal drip and coughing. Reports subjective fevers but no documented fevers at home. She denies any nausea vomiting chest pain palpitations. Patient reports she has been absolutely compliant with all of her home medications. She has not missed any doses. - Related Data Home Medications Medication Instructions Recorded Confirmed Atenolol 25 mg PO DAILY 03/04/15 02/18/18 Calcium Carbonate [Calcium] 600 mg PO DAILY 03/04/15 02/18/18 Furosemide [Lasix] 20 mg PO DAILY 03/04/15 02/18/18 Glucosamine-Chondr 500-400Mg 1 tab PO DAILY 03/04/15 02/18/18 Multivitamins, Thera [Multivitamin 1 tab PO DAILY 03/04/15 02/18/18 (formulary)] Sildenafil [Revatio] 20 mg PO TID 03/04/15 02/18/18 Verapamil HCl [Verapamil ER] 180 mg PO BID 03/04/15 02/18/18 Escitalopram [Lexapro] 5 mg PO DAILY 10/05/16 02/18/18 Donepezil [Aricept] 10 mg PO HS 11/08/16 02/18/18 Albuterol Sulfate [Proair Hfa] 1 - 2 puff INHALATION Q6HR PRN 02/18/18 02/18/18 Apixaban [Eliquis] 2.5 mg PO BID 02/18/18 02/18/18 Allergies Allergy/AdvReac Type Severity Reaction Status Date / Time No Known Allergies Allergy Verified 06/19/17 15:14 Review of Systems ROS Statement: Those systems with pertinent positive or pertinent negative responses have been documented in the HPI. ROS Other: All systems not noted in ROS Statement are negative. 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 History of Any Multi-Drug Resistant Organisms: None Reported Past Surgical History: Joint Replacement, Orthopedic Surgery, Tonsillectomy Additional Past Surgical History / Comment(s): Broken Femur; L Knee replacement ; L arm plates and screws Past Anesthesia/Blood Transfusion Reactions: No Reported Reaction Past Psychological History: No Psychological Hx Reported Smoking Status: Former smoker Past Alcohol Use History: None Reported Past Drug Use History: None Reported - Past Family History Mother Family Medical History: Cancer Additional Family Medical History / Comment(s): breast cancer General Exam - General Exam Comments Initial Comments: GENERAL: Patient is well-developed and well-nourished. Patient is nontoxic and well- hydrated and is in no distress. Patient wearing oxygen HENT: Normocephalic, Atraumatic. Neck is soft and supple. No significant lymphadenopathy is noted. Oropharynx is clear. Moist mucous membranes. Neck has full range of motion without eliciting any pain. EYES: The sclera were anicteric and conjunctiva were pink and moist. Extraocular movements were intact and pupils were equal round and reactive to light. Eyelids were unremarkable. PULMONARY: Crackles at bilateral bases CARDIOVASCULAR: There is a regular rate and rhythm without any murmurs gallops or rubs. Systolic murmur ABDOMEN: Soft and nontender with normal bowel sounds. SKIN: Skin is clear with no lesions or rashes and otherwise unremarkable. NEUROLOGIC: Patient is alert and oriented x3. Cranial nerves II through XII are grossly intact. Motor and sensory are also intact. Normal speech, volume and content. Symmetrical smile. MUSCULOSKELETAL: Normal extremities with adequate strength and full range of motion. No lower extremity swelling or edema. No calf tenderness. LYMPHATICS: No significant lymphadenopathy is noted PSYCHIATRIC: Normal psychiatric evaluation. Limitations: no limitations Limitations: no limitations Course Vital Signs 02/18/18 02/18/18 02/18/18 03:39 05:17 06:06 Temperature 98.5 F Pulse Rate 72 70 73 Respiratory 20 16 16 Rate Blood Pressure 110/72 106/58 O2 Sat by Pulse 91 L 97 97 Oximetry 02/18/18 06:52 Temperature 98.1 F Pulse Rate 73 Respiratory 16 Rate Blood Pressure 110/65 O2 Sat by Pulse 96 Oximetry Medical Decision Making - Medical Decision Making Labs and imaging consistent with CHF IV lasix ordered Results discussed with patient and family, agreeable with plan for IV lasix and discharge home Will contact Director Supply Chain today for follow up Return parameters discussed Discharged home in stable condition - Lab Data Result diagrams: 02/18/18 04:55 02/18/18 04:55 Lab Results 02/18/18 02/18/18 02/18/18 Range/Units 04:55 04:55 04:55 WBC 8.5 (3.8-10.6) k/uL RBC 4.04 (3.80-5.40) m/uL Hgb 12.2 (11.4-16.0) gm/dL Hct 38.7 (34.0-46.0) % MCV 95.8 (80.0-100.0) fL MCH 30.3 (25.0-35.0) pg MCHC 31.6 (31.0-37.0) g/dL RDW 13.2 (11.5-15.5) % Plt Count 191 (150-450) k/uL Neutrophils % 75 % Lymphocytes % 13 % Monocytes % 8 % Eosinophils % 2 % Basophils % 1 % Neutrophils # 6.4 (1.3-7.7) k/uL Lymphocytes # 1.1 (1.0-4.8) k/uL Monocytes # 0.7 (0-1.0) k/uL Eosinophils # 0.2 (0-0.7) k/uL Basophils # 0.1 (0-0.2) k/uL PT (9.0-12.0) sec INR (<1.2) APTT (22.0-30.0) sec Sodium 138 (137-145) mmol/L Potassium 4.3 (3.5-5.1) mmol/L Chloride 103 (98-107) mmol/L Carbon Dioxide 28 (22-30) mmol/L Anion Gap 7 mmol/L BUN 15 (7-17) mg/dL Creatinine 0.63 (0.52-1.04) mg/dL Est GFR (CKD-EPI)AfAm >90 (>60 ml/min/1.73 sqM) Est GFR (CKD-EPI)NonAf 83 (>60 ml/min/1.73 sqM) Glucose 95 (74-99) mg/dL Plasma Lactic Acid Alvin (0.7-2.0) mmol/L Calcium 9.5 (8.4-10.2) mg/dL Total Bilirubin 0.5 (0.2-1.3) mg/dL AST 27 (14-36) U/L ALT 32 (9-52) U/L Alkaline Phosphatase 48 (38-126) U/L Total Creatine Kinase 66 (30-135) U/L CK-MB (CK-2) 1.1 (0.0-2.4) ng/mL CK-MB (CK-2) Rel Index 1.7 Troponin I <0.012 (0.000-0.034) ng/mL NT-Pro-B Natriuret Pep pg/mL Total Protein 5.8 L (6.3-8.2) g/dL Albumin 3.5 (3.5-5.0) g/dL Urine Color Urine Appearance (Clear) Urine pH (5.0-8.0) Ur Specific [place] (1.001-1.035) Urine Protein (Negative) Urine Glucose (UA) (Negative) Urine Ketones (Negative) Urine Blood (Negative) Urine Nitrite (Negative) Urine Bilirubin (Negative) Urine Urobilinogen (<2.0) mg/dL Ur Leukocyte Esterase (Negative) 02/18/18 02/18/18 02/18/18 Range/Units 04:55 04:55 04:55 WBC (3.8-10.6) k/uL RBC (3.80-5.40) m/uL Hgb (11.4-16.0) gm/dL Hct (34.0-46.0) % MCV (80.0-100.0) fL MCH (25.0-35.0) pg MCHC (31.0-37.0) g/dL RDW (11.5-15.5) % Plt Count (150-450) k/uL Neutrophils % % Lymphocytes % % Monocytes % % Eosinophils % % Basophils % % Neutrophils # (1.3-7.7) k/uL Lymphocytes # (1.0-4.8) k/uL Monocytes # (0-1.0) k/uL Eosinophils # (0-0.7) k/uL Basophils # (0-0.2) k/uL PT 10.7 (9.0-12.0) sec INR 1.1 (<1.2) APTT 22.2 (22.0-30.0) sec Sodium (137-145) mmol/L Potassium (3.5-5.1) mmol/L Chloride (98-107) mmol/L Carbon Dioxide (22-30) mmol/L Anion Gap mmol/L BUN (7-17) mg/dL Creatinine (0.52-1.04) mg/dL Est GFR (CKD-EPI)AfAm (>60 ml/min/1.73 sqM) Est GFR (CKD-EPI)NonAf (>60 ml/min/1.73 sqM) Glucose (74-99) mg/dL Plasma Lactic Acid Alvin 1.3 (0.7-2.0) mmol/L Calcium (8.4-10.2) mg/dL Total Bilirubin (0.2-1.3) mg/dL AST (14-36) U/L ALT (9-52) U/L Alkaline Phosphatase (38-126) U/L Total Creatine Kinase (30-135) U/L CK-MB (CK-2) (0.0-2.4) ng/mL CK-MB (CK-2) Rel Index Troponin I (0.000-0.034) ng/mL NT-Pro-B Natriuret Pep 2530 pg/mL Total Protein (6.3-8.2) g/dL Albumin (3.5-5.0) g/dL Urine Color Urine Appearance (Clear) Urine pH (5.0-8.0) Ur Specific [place] (1.001-1.035) Urine Protein (Negative) Urine Glucose (UA) (Negative) Urine Ketones (Negative) Urine Blood (Negative) Urine Nitrite (Negative) Urine Bilirubin (Negative) Urine Urobilinogen (<2.0) mg/dL Ur Leukocyte Esterase (Negative) 02/18/18 Range/Units 06:03 WBC (3.8-10.6) k/uL RBC (3.80-5.40) m/uL Hgb (11.4-16.0) gm/dL Hct (34.0-46.0) % MCV (80.0-100.0) fL MCH (25.0-35.0) pg MCHC (31.0-37.0) g/dL RDW (11.5-15.5) % Plt Count (150-450) k/uL Neutrophils % % Lymphocytes % % Monocytes % % Eosinophils % % Basophils % % Neutrophils # (1.3-7.7) k/uL Lymphocytes # (1.0-4.8) k/uL Monocytes # (0-1.0) k/uL Eosinophils # (0-0.7) k/uL Basophils # (0-0.2) k/uL PT (9.0-12.0) sec INR (<1.2) APTT (22.0-30.0) sec Sodium (137-145) mmol/L Potassium (3.5-5.1) mmol/L Chloride (98-107) mmol/L Carbon Dioxide (22-30) mmol/L Anion Gap mmol/L BUN (7-17) mg/dL Creatinine (0.52-1.04) mg/dL Est GFR (CKD-EPI)AfAm (>60 ml/min/1.73 sqM) Est GFR (CKD-EPI)NonAf (>60 ml/min/1.73 sqM) Glucose (74-99) mg/dL Plasma Lactic Acid Alvin (0.7-2.0) mmol/L Calcium (8.4-10.2) mg/dL Total Bilirubin (0.2-1.3) mg/dL AST (14-36) U/L ALT (9-52) U/L Alkaline Phosphatase (38-126) U/L Total Creatine Kinase (30-135) U/L CK-MB (CK-2) (0.0-2.4) ng/mL CK-MB (CK-2) Rel Index Troponin I (0.000-0.034) ng/mL NT-Pro-B Natriuret Pep pg/mL Total Protein (6.3-8.2) g/dL Albumin (3.5-5.0) g/dL Urine Color Yellow Urine Appearance Clear (Clear) Urine pH 7.0 (5.0-8.0) Ur Specific [place] 1.015 (1.001-1.035) Urine Protein Negative (Negative) Urine Glucose (UA) Negative (Negative) Urine Ketones Negative (Negative) Urine Blood Negative (Negative) Urine Nitrite Negative (Negative) Urine Bilirubin Negative (Negative) Urine Urobilinogen <2.0 (<2.0) mg/dL Ur Leukocyte Esterase Negative (Negative) - EKG Data EKG Comments: EKG obtained at 5:09 AM, rate is 73, rhythm is atrial fibrillation, no acute ST elevations or depressions no evidence of acute ischemia or infarction Disposition Clinical Impression: CHF (congestive heart failure) Disposition: HOME SELF-CARE Instructions: Heart Failure (DC) Additional Instructions: Clear filling hauler weaving's office today to discuss symptoms and follow up Is patient prescribed a controlled substance at d/c from ED?: No Referrals: Viola Robledo MD [Primary Care Provider] - 1-2 days [facility] [Provider Group] - 1-2 days Time of Disposition: 06:45
[2018-02-18 05:18] VITALS: RESP 16
[2018-02-18 05:35] LABS: Basophils # (A) 0.1 k/uL (0-0.2); Basophils % (A) 1 %; Eosinophils # (A) 0.2 k/uL (0-0.7); Eosinophils % (A) 2 %; HCT 38.7 % (34.0-46.0); HGB 12.2 gm/dL (11.4-16.0); Lymphocytes # (A) 1.1 k/uL (1.0-4.8); Lymphocytes % (A) 13 %; MCH 30.3 pg (25.0-35.0); MCHC 31.6 g/dL (31.0-37.0); MCV 95.8 fL (80.0-100.0); Mean Platelet Volume 6.9; Monocytes # (A) 0.7 k/uL (0-1.0); Monocytes % (A) 8 %; Neutrophils # (A) 6.4 k/uL (1.3-7.7); Neutrophils % (A) 75 %; Platelet Count 191 k/uL (150-450); RBC 4.04 m/uL (3.80-5.40); RDW 13.2 % (11.5-15.5); WBC 8.5 k/uL (3.8-10.6)
[2018-02-18 05:40] LABS: INR 1.1 (<1.2); Partial Thromboplastin Time 22.2 sec (22.0-30.0); Prothrombin Time 10.7 sec (9.0-12.0)
[2018-02-18 05:41] LABS: ALT 32 U/L (9-52); AST 27 U/L (14-36); Albumin 3.5 g/dL (3.5-5.0); Alkaline Phosphatase 48 U/L (38-126); Anion Gap 7 mmol/L; Blood Urea Nitrogen 15 mg/dL (7-17); Calcium 9.5 mg/dL (8.4-10.2); Carbon Dioxide 28 mmol/L (22-30); Chloride 103 mmol/L (98-107); Glucose 95 mg/dL (74-99); Potassium 4.3 mmol/L (3.5-5.1); Sodium 138 mmol/L (137-145); Total Bilirubin 0.5 mg/dL (0.2-1.3); Total Protein 5.8 g/dL (6.3-8.2)
[2018-02-18 05:55] LABS: Creatine Kinase 66 U/L (30-135)
--- NOTE | 2018-02-18 06:04 | XR ---
EXAMINATION TYPE: XR chest 2V DATE OF EXAM: 02/18/2018 COMPARISON: 09/17/2017 HISTORY: Atrial fibrillation TECHNIQUE: Frontal and lateral views of the chest are obtained. FINDINGS: Heart is enlarged. There is mild pulmonary congestion. There is slight blunting of the lef t costophrenic angle. There are chest leads. There is some pulmonary interstitial mild edema. IMPRESSION: There is evidence of mild heart failure. Cardiomegaly. Heart failure appears new compare d to old exam.
[2018-02-18 06:06] LABS: Creatine Kinase MB 1.1 ng/mL (0.0-2.4); Troponin I <0.012 ng/mL (0.000-0.034)
[2018-02-18 06:08] VITALS: PULSE 73
[2018-02-18 06:15] LABS: Appearance,Urine Clear (Clear); Bilirubin,Urine Negative (Negative); Blood,Urine Negative (Negative); Color,Urine Yellow; Glucose,Urine (UA) Negative (Negative); Ketones,Urine Negative (Negative); Leukocyte Esterase,Urine Negative (Negative); Nitrite,Urine Negative (Negative); Protein,Urine Negative (Negative); Specific Gravity,Urine 1.015 (1.001-1.035); Urobilinogen,Urine <2.0 mg/dL (<2.0)
[2018-02-18] MEDS ORDERED: FUROSEMIDE 10 MG/ML 4 ML VIAL IV ONE (06:42)
[2018-02-18 06:54] VITALS: BP 110/65; TEMP 98.1
== END 2018-02-18 07:03 | disposition home or self-care (01) ==
LOC: EC 03:37
DX: I50.9 Heart failure, unspecified (principal); I48.91 Unspecified atrial fibrillation; I27.20 Pulmonary hypertension, unspecified; Z87.891 Personal history of nicotine dependence; Z79.01 Long term (current) use of anticoagulants; Z79.899 Other long term (current) drug therapy; Z87.39 Personal history of other diseases of the musculoskeletal system and connective tissue; Z99.81 Dependence on supplemental oxygen
CPT/HCPCS: 36415; 71046; 80053; 81003; 82550; 82553; 83605; 83880; 84484; 85025; 85610; 85730; 87040; 87086; 93005; 96374; 99285

== ENCOUNTER 2018-11-10 07:59 | Inpatient (IN) | payer MEDICARE ==
--- NOTE | 2018-11-10 08:32 | ED ---
SOB HPI - General Chief Complaint: Shortness of Breath Stated Complaint: SOB Time Seen by Provider: 11/10/18 08:19 Source: patient, RN notes reviewed Mode of arrival: wheelchair - History of Present Illness Initial Comments: This is a 82-year-old female history of pulmonary fibrosis other medical issues who this morning was demonstrating weakness shortness of breath and chills. She denies any overt cough or phlegm production dysuria hematuria headache dizziness blurry vision loss of function to her upper or lower extremities or any other complaints. She does states she just doesn't feel well patient does use oxygen at night and does use inhalers she denies any increased use. MD Complaint: shortness of breath - Related Data Home Medications Medication Instructions Recorded Confirmed Atenolol 25 mg PO DAILY 03/04/15 11/10/18 Furosemide [Lasix] 20 mg PO BID 03/04/15 11/10/18 Sildenafil [Revatio] 20 mg PO TID 03/04/15 11/10/18 Verapamil HCl [Verapamil ER] 180 mg PO BID 03/04/15 11/10/18 Escitalopram [Lexapro] 5 mg PO DAILY 10/05/16 11/10/18 Albuterol Sulfate [Proair Hfa] 1 - 2 puff INHALATION RT-QID PRN 02/18/18 11/10/18 Apixaban [Eliquis] 2.5 mg PO BID 02/18/18 11/10/18 Memantine [Namenda] 10 mg PO BID 11/10/18 11/10/18 Allergies Allergy/AdvReac Type Severity Reaction Status Date / Time No Known Allergies Allergy Verified 11/10/18 10:00 Review of Systems ROS Statement: Those systems with pertinent positive or pertinent negative responses have been documented in the HPI. ROS Other: All systems not noted in ROS Statement are negative. 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 History of Any Multi-Drug Resistant Organisms: None Reported Past Surgical History: Joint Replacement, Orthopedic Surgery, Tonsillectomy Additional Past Surgical History / Comment(s): Broken Femur; L Knee replacement; L arm plates and screws Past Anesthesia/Blood Transfusion Reactions: No Reported Reaction Past Psychological History: No Psychological Hx Reported Smoking Status: Former smoker Past Alcohol Use History: None Reported Past Drug Use History: None Reported - Past Family History Mother Family Medical History: Cancer Additional Family Medical History / Comment(s): breast cancer General Exam - General Exam Comments Initial Comments: This is a well-developed asthenic awake alert oriented 3 General appearance: alert, anxious, in distress Head exam: Present: atraumatic, normocephalic, normal inspection Eye exam: Present: normal appearance, PERRL, EOMI. Absent: scleral icterus, conjunctival injection, periorbital swelling ENT exam: Present: mucous membranes dry Neck exam: Present: normal inspection. Absent: tenderness, meningismus, lymphadenopathy Respiratory exam: Present: decreased breath sounds, other (Tachypnea). Absent: respiratory distress, wheezes, rales, rhonchi, stridor Cardiovascular Exam: Present: irregular rhythm, normal heart sounds. Absent: systolic murmur, diastolic murmur, rubs, gallop, clicks GI/Abdominal exam: Present: soft, normal bowel sounds. Absent: distended, ten derness, guarding, rebound, rigid Extremities exam: Present: normal inspection, full ROM, normal capillary refill. Absent: tenderness, pedal edema, joint swelling, calf tenderness Back exam: Present: normal inspection Neurological exam: Present: alert, oriented X3, CN II-XII intact Psychiatric exam: Present: normal affect, normal mood Skin exam: Present: warm, dry, intact, normal color. Absent: rash Course Vital Signs 11/10/18 11/10/18 11/10/18 08:09 08:41 08:43 Temperature 97.8 F Pulse Rate 70 80 Respiratory 28 H 22 16 Rate Blood Pressure 113/67 115/90 O2 Sat by Pulse 99 98 Oximetry 11/10/18 11/10/18 11/10/18 08:57 09:06 09:36 Temperature Pulse Rate 67 89 Respiratory 22 26 H Rate Blood Pressure 115/69 124/77 O2 Sat by Pulse 100 98 Oximetry 11/10/18 10:18 Temperature Pulse Rate 99 Respiratory 24 Rate Blood Pressure 125/67 O2 Sat by Pulse 99 Oximetry - Reevaluation(s) Reevaluation #1: 11/10/18 10:42 I did reevaluate patient periodically the patient did demonstrate continuation of her dyspnea though her saturations did improve with repositioning of the pulse oximetry probe. X-ray showed cardiomegaly no definite interstitial markings however the BNP was markedly elevated consistent with CHF. Reevaluation #2: 11/10/18 10:43 The patient did demonstrate some evidence of hyperventilation and anxiety. She was treated for this. Reevaluation #3: 11/10/18 10:48 night monitor indications dysrhythmia patient does have atrial fibrillation the rate was about 66 on my initial evaluation. PVCs noted Reevaluation #4: 11/10/18 10:53 Case is discussed with Dr. House Medical Decision Making - Lab Data Result diagrams: 11/10/18 08:32 11/10/18 08:32 Lab Results 11/10/18 11/10/18 11/10/18 Range/Units 08:32 08:32 08:32 WBC 6.5 (3.8-10.6) k/uL RBC 4.79 (3.80-5.40) m/uL Hgb 14.2 (11.4-16.0) gm/dL Hct 44.2 (34.0-46.0) % MCV 92.2 (80.0-100.0) fL MCH 29.7 (25.0-35.0) pg MCHC 32.2 (31.0-37.0) g/dL RDW 14.4 (11.5-15.5) % Plt Count 222 (150-450) k/uL Neutrophils % 70 % Lymphocytes % 18 % Monocytes % 7 % Eosinophils % 2 % Basophils % 1 % Neutrophils # 4.5 (1.3-7.7) k/uL Lymphocytes # 1.2 (1.0-4.8) k/uL Monocytes # 0.5 (0-1.0) k/uL Eosinophils # 0.1 (0-0.7) k/uL Basophils # 0.1 (0-0.2) k/uL PT (9.0-12.0) sec INR (<1.2) APTT (22.0-30.0) sec Sodium 141 (137-145) mmol/L Potassium 3.3 L (3.5-5.1) mmol/L Chloride 104 (98-107) mmol/L Carbon Dioxide 28 (22-30) mmol/L Anion Gap 9 mmol/L BUN 19 H (7-17) mg/dL Creatinine 0.78 (0.52-1.04) mg/dL Est GFR (CKD-EPI)AfAm 81 (>60 ml/min/1.73 sqM) Est GFR (CKD-EPI)NonAf 70 (>60 ml/min/1.73 sqM) Glucose 80 (74-99) mg/dL Calcium 9.5 (8.4-10.2) mg/dL Magnesium 2.1 (1.6-2.3) mg/dL Total Bilirubin 0.6 (0.2-1.3) mg/dL AST 23 (14-36) U/L ALT 19 (9-52) U/L Alkaline Phosphatase 47 (38-126) U/L Troponin I (0.000-0.034) ng/mL NT-Pro-B Natriuret Pep 5160 pg/mL Total Protein 6.3 (6.3-8.2) g/dL Albumin 4.2 (3.5-5.0) g/dL 11/10/18 11/10/18 Range/Units 08:32 08:32 WBC (3.8-10.6) k/uL RBC (3.80-5.40) m/uL Hgb (11.4-16.0) gm/dL Hct (34.0-46.0) % MCV (80.0-100.0) fL MCH (25.0-35.0) pg MCHC (31.0-37.0) g/dL RDW (11.5-15.5) % Plt Count (150-450) k/uL Neutrophils % % Lymphocytes % % Monocytes % % Eosinophils % % Basophils % % Neutrophils # (1.3-7.7) k/uL Lymphocytes # (1.0-4.8) k/uL Monocytes # (0-1.0) k/uL Eosinophils # (0-0.7) k/uL Basophils # (0-0.2) k/uL PT 10.7 (9.0-12.0) sec INR 1.0 (<1.2) APTT 22.2 (22.0-30.0) sec Sodium (137-145) mmol/L Potassium (3.5-5.1) mmol/L Chloride (98-107) mmol/L Carbon Dioxide (22-30) mmol/L Anion Gap mmol/L BUN (7-17) mg/dL Creatinine (0.52-1.04) mg/dL Est GFR (CKD-EPI)AfAm (>60 ml/min/1.73 sqM) Est GFR (CKD-EPI)NonAf (>60 ml/min/1.73 sqM) Glucose (74-99) mg/dL Calcium (8.4-10.2) mg/dL Magnesium (1.6-2.3) mg/dL Total Bilirubin (0.2-1.3) mg/dL AST (14-36) U/L ALT (9-52) U/L Alkaline Phosphatase (38-126) U/L Troponin I <0.012 (0.000-0.034) ng/mL NT-Pro-B Natriuret Pep pg/mL Total Protein (6.3-8.2) g/dL Albumin (3.5-5.0) g/dL - EKG Data -: EKG Interpreted by Me (Atrial fibrillation rate of 66 QRS 90 QT since QTC 40/503 nonspecific anter) - Radiology Data Radiology results: report reviewed (Cardiomegaly no definite increased markings), image reviewed Critical Care Time Critical Care Time: Yes Critical Care Time: 33 minutes of critical care time which includes initial presentation with history physical labs x-rays several reevaluation patient responsive therapy discuss with the patient family members regarding findings discussed with the admitting physician review of old charting that was available admission orders and documentation of the above Disposition Clinical Impression: Systolic congestive heart failure, Adult respiratory distress syndrome, Hyperventilation syndrome, Hypokalemia Disposition: ADMITTED IP TO THIS HOSP Condition: Fair Referrals: Emmanuel Rodney MD [Primary Care Provider] - 1-2 days
[2018-11-10] MEDS ORDERED: IPRATROPIUM-ALBUTEROL 3 ML NEB INHALATION STA (08:33)
--- NOTE | 2018-11-10 08:59 | XR ---
EXAMINATION TYPE: XR chest 2V DATE OF EXAM: 11/10/2018 COMPARISON: Chest x-ray February 18, 2018 HISTORY: Shortness of breath for 3 days. TECHNIQUE: Frontal and lateral views of the chest are obtained. FINDINGS: Elevated left hemidiaphragm is redemonstrated. There is chronic parenchymal changes without suspicious focal air space opacity, pleural effusion, or pneumothorax seen. The cardiac silhouette size is enlarged with atherosclerotic aorta. The osseous structures remain demineralized. Underlyin g dextroconvex scoliosis is redemonstrated. IMPRESSION: Cardiomegaly and chronic changes without acute pulmonary process.
[2018-11-10 09:06] LABS: Basophils # (A) 0.1 k/uL (0-0.2); Basophils % (A) 1 %; Eosinophils # (A) 0.1 k/uL (0-0.7); Eosinophils % (A) 2 %; HCT 44.2 % (34.0-46.0); HGB 14.2 gm/dL (11.4-16.0); Lymphocytes # (A) 1.2 k/uL (1.0-4.8); Lymphocytes % (A) 18 %; MCH 29.7 pg (25.0-35.0); MCHC 32.2 g/dL (31.0-37.0); MCV 92.2 fL (80.0-100.0); Mean Platelet Volume 7.3; Monocytes # (A) 0.5 k/uL (0-1.0); Monocytes % (A) 7 %; Neutrophils # (A) 4.5 k/uL (1.3-7.7); Neutrophils % (A) 70 %; Platelet Count 222 k/uL (150-450); RBC 4.79 m/uL (3.80-5.40); RDW 14.4 % (11.5-15.5); WBC 6.5 k/uL (3.8-10.6)
[2018-11-10 09:08] LABS: Partial Thromboplastin Time 22.2 sec (22.0-30.0); Prothrombin Time 10.7 sec (9.0-12.0)
[2018-11-10 09:11] LABS: Albumin 4.2 g/dL (3.5-5.0); Calcium 9.5 mg/dL (8.4-10.2); Magnesium 2.1 mg/dL (1.6-2.3); Potassium 3.3 mmol/L (3.5-5.1); Total Bilirubin 0.6 mg/dL (0.2-1.3); Total Protein 6.3 g/dL (6.3-8.2)
[2018-11-10] MEDS ORDERED: FUROSEMIDE 10 MG/ML 4 ML VIAL IV STA (09:52)
[2018-11-10] MEDS ORDERED: LORazepam 2 MG/ML INJ IV STA (09:56)
[2018-11-10] MEDS: SODIUM CHLORIDE 0.9% 1,000 ML IV SCH (11:34)
[2018-11-10] MEDS: IPRATROPIUM-ALBUTEROL 3 ML NEB INHALATION SCH ×4 (14:04→23:24)
[2018-11-10] MEDS: SILDENAFIL 20 MG TAB PO SCH ×2 (15:35→21:27)
[2018-11-10] MEDS ORDERED: Potassium Replacement Protocol 1 EACH MISC MISCELLANE PRN ×2 (17:33→17:37)
[2018-11-10] MEDS: POTASSIUM CHLORIDE ER 20 MEQ TAB.ER PO SCH ×2 (17:55→19:17)
[2018-11-10] MEDS ORDERED: FUROSEMIDE 20 MG TAB PO SCH (21:00)
[2018-11-10] MEDS: APIXABAN 2.5 MG TABLET PO SCH (21:27)
[2018-11-10] MEDS: MEMANTINE 10 MG TAB PO SCH (21:27)
[2018-11-10] MEDS: FUROSEMIDE 10 MG/ML 4 ML VIAL IV SCH (21:27)
[2018-11-10] MEDS: VERAPAMIL SR 180 MG TABLET.ER PO SCH (21:27)
[2018-11-10 22:13] VITALS: RESP 18
--- NOTE | 2018-11-10 23:37 | HP ---
HISTORY AND PHYSICAL DATE OF SERVICE: 11/10/2018 CHIEF COMPLAINTS: Shortness of breath. HISTORY OF PRESENT ILLNESS: This 82-year-old woman with a past medical history of multiple medical problems including pulmonary fibrosis, atrial fibrillation, dementia, history of CHF, history of hypertension, history of chronic hypoxic respiratory failure, history of cardiac catheterization, being followed by Dr. Viola Robledo and Dr. Rodney in the outpatient setting was complaining of shortness of breath. The patient had some chills. No cough or sputum was reported. The patient has some dementia and unable to give a coherent history. Most of the history taken from my discussion with staff and review of chart and discussion with the ER physician. The initial white count is normal. Potassium is 3.3. The patient also had a chest x-ray done which reviewed personally by me showed some chronic changes without much acute changes. The patient was given some diuretics and admitted for further evaluation and treatment. There is no history of fever, rigors, chills at this time. NT proBNP is elevated 5160. PAST MEDICAL HISTORY: History of atrial fibrillation, history of dementia, history of memory impairment, history of pulmonary fibrosis, chronic respiratory failure, depression. MEDICATIONS: Prior to admission: 1. Lexapro 5 mg p.o. daily. 2. Atenolol 25 mg p.o. daily. 3. Eliquis 2.5 mg p.o. b.i.d. 4. Verapamil 180 mg p.o. b.i.d. 5. Revatio 20 mg p.o. t.i.d. 6. Namenda 10 mg p.o. b.i.d. 7. Lasix 20 mg p.o. b.i.d. 8. ProAir HFA 1-2 puffs q.i.d. p.r.n. ALLERGIES: None. FAMILY HISTORY: History of breast cancer in the family. SOCIAL HISTORY: Previous history of smoking. No history of alcohol intake. REVIEW OF SYSTEMS: Review of systems could not be taken because of the change in mental status, baseline mental status. PHYSICAL EXAMINATION: Patient is conscious and confused. Pulse 86, blood pressure 101/65, respiration 18, temperature 98.5. Pulse ox 100 percent on non-rebreather mask. HEENT: Conjunctivae normal. Oral mucosa moist. NECK is no jugular venous distention. No carotid bruit. No lymph node enlargement. Accessory muscle respirations acting, breathing efforts are markedly increased. CARDIOVASCULAR system: S1, S2 muffled. RESPIRATORY: Breath sounds diminished in the bases. Bilateral scattered rhonchi and basilar crackles also heard. ABDOMEN: Soft, nontender. No mass palpable. LEGS: No edema. No swelling. NERVOUS SYSTEM: Higher functions as mentioned earlier. Moves all 4 limbs. No focal motor or sensory deficits. LYMPHATICS: No lymph nodes palpable in the neck, axillae or groin. JOINTS: No deforming arthropathy. LABS: At this time shows WBC 6.5, hemoglobin 14.2, potassium 3.3. ASSESSMENT: 1. Shortness of breath, possible congestive heart failure acute exacerbation with acute on chronic systolic dysfunction ejection fraction 40-45 percent. 2. Pulmonary fibrosis. 3. Hypokalemia. 4. History of atrial fibrillation. 5. Dementia. 6. Pulmonary hypertension. 7. Chronic hypoxic respiratory failure on home O2. 8. Severe tricuspid regurgitation. 9. Mild aortic stenosis. 10.History of degenerative joint disease. 11.History of pulmonary embolism. 12.History of superficial deep vein thromboses. 13.History of cardiac catheterization. 14.History of depression. 15.History of degenerative joint disease. RECOMMENDATIONS AND DISCUSSION: In this 82 -year-old woman who presented with multiple complex medical issues, We will monitor the patient closely. Continue the current medications, management and symptomatic treatment. I would recommend bronchodilators. I would also recommend cautious diuretics. Cardiology and Pulmonology consultations. 2D echo with Doppler. Guarded prognosis because of multiple complex medical issues. Further recommendations to follow. A copy of this dictation being forwarded to Dr. Viola Robledo who is the primary physician. MMODL / IJN: [id number] /
[2018-11-11] MEDS: IPRATROPIUM-ALBUTEROL 3 ML NEB INHALATION SCH ×4 (04:11→16:35)
[2018-11-11 07:04] LABS: Basophils # (A) 0.1 k/uL (0-0.2); Basophils % (A) 1 %; Eosinophils # (A) 0.2 k/uL (0-0.7); Eosinophils % (A) 3 %; HCT 43.3 % (34.0-46.0); HGB 13.8 gm/dL (11.4-16.0); Lymphocytes # (A) 1.3 k/uL (1.0-4.8); Lymphocytes % (A) 21 %; MCH 29.7 pg (25.0-35.0); MCHC 31.8 g/dL (31.0-37.0); MCV 93.3 fL (80.0-100.0); Mean Platelet Volume 7.3; Monocytes # (A) 0.5 k/uL (0-1.0); Monocytes % (A) 7 %; Neutrophils # (A) 4.2 k/uL (1.3-7.7); Neutrophils % (A) 67 %; Platelet Count 211 k/uL (150-450); RBC 4.63 m/uL (3.80-5.40); RDW 13.8 % (11.5-15.5); WBC 6.3 k/uL (3.8-10.6)
[2018-11-11 07:22] LABS: Calcium 9.1 mg/dL (8.4-10.2)
[2018-11-11] MEDS: VERAPAMIL SR 180 MG TABLET.ER PO SCH (08:06)
[2018-11-11] MEDS: APIXABAN 2.5 MG TABLET PO SCH (08:06)
[2018-11-11] MEDS: FUROSEMIDE 10 MG/ML 4 ML VIAL IV SCH (08:07)
[2018-11-11] MEDS: MEMANTINE 10 MG TAB PO SCH (08:07)
[2018-11-11] MEDS: SILDENAFIL 20 MG TAB PO SCH ×2 (08:07→15:58)
[2018-11-11 08:14] VITALS: TEMP 98.2
[2018-11-11] MEDS ORDERED: ATENOLOL 25 MG TAB PO SCH (09:00)
[2018-11-11] MEDS ORDERED: ESCITALOPRAM 5 MG TAB PO SCH (09:00)
--- NOTE | 2018-11-11 10:59 | P.CRDCN ---
History of Present Illness Consult date: 11/11/18 Requesting physician: Noble Reece Consult reason: congestive heart failure Chief complaint: Shortness of breath History of present illness: This is an 82-year-old female with known history of paroxysmal atrial fibrillation, pulmonary hypertension, maintained on a Revatio, history of pu lmonary fibrosis, dementia, hypertension, who presented to the hospital with symptoms of progressively worsening shortness of breath. Her initial chest x- ray on presentation here showed cardiomegaly and chronic changes without any acute pulmonary process. EKG showed atrial fibrillation with a controlled ventricular response. Blood pressure 106/70 with a heart rate in the 70s to 80s, 99% on 2 L of oxygen. White blood cell count 6.3, hemoglobin 13.8, platelet count 211. Sodium 143, potassium 4.0, BUN 17 and creatinine 0.8. BNP level 5160 with a troponin of 0.012. Patient was initiated on IV Lasix in the emergency room, diuresed well through the night last night. At the time of my examination this morning she is sitting up in a chair, has no peripheral edema, denies any shortness of breath and appears to be quite comfortable. Past Medical History Past Medical History: Atrial Fibrillation, Dementia, Hearing Disorder / Deafness, Memory Impairment, Pneumonia, Respiratory Disorder Additional Past Medical History / Comment(s): Pulmonary fibrosis, pulmonary HTN, O2 at HS, moderate to severe mitral valve regurgitation, severe tricuspid regurgitation, mild aortic stenosis, DDD, spondylosis, scoliosis, bulging discs, PE in lungs 15 yrs ago, superficial DVTs, varicosities, mild dementia, [place] bilaterally History of Any Multi-Drug Resistant Organisms: None Reported Past Surgical History: Appendectomy, Heart Catheterization, Joint Replacement, Orthopedic Surgery, Tonsillectomy Additional Past Surgical History / Comment(s): L femur fracture with ORIF, L arm fracture with ORIF plate/screws, bilateral rotator cuff repairs, bilateral feet hammer toe corrections, epidural back injections, bilateral cataract removals with lens implants, colonoscopy Past Anesthesia/Blood Transfusion Reactions: No Reported Reaction Smoking Status: Former smoker - Past Family History Father Family Medical History: Musculoskeletal Disorder, Neurologic Disorder Additional Family Medical History / Comment(s): Parkinson's disease. Mother Family Medical History: Cancer Additional Family Medical History / Comment(s): breast cancer Medications and Allergies Home Medications Medication Instructions Recorded Confirmed Type Atenolol 25 mg PO DAILY 03/04/15 11/10/18 History Furosemide [Lasix] 20 mg PO BID 03/04/15 11/10/18 History Sildenafil [Revatio] 20 mg PO TID 03/04/15 11/10/18 History Verapamil HCl [Verapamil ER] 180 mg PO BID 03/04/15 11/10/18 History Escitalopram [Lexapro] 5 mg PO DAILY 10/05/16 11/10/18 History Albuterol Sulfate [Proair Hfa] 1 - 2 puff INHALATION RT-QID PRN 02/18/18 11/10/18 History Apixaban [Eliquis] 2.5 mg PO BID 02/18/18 11/10/18 History Memantine [Namenda] 10 mg PO BID 11/10/18 11/10/18 History Allergies Allergy/AdvReac Type Severity Reaction Status Date / Time No Known Allergies Allergy Verified 11/10/18 10:00 Physical Exam Vitals: Vital Signs Temp Pulse Pulse Resp BP Pulse Ox 11/11/18 08:34 85 11/11/18 08:16 83 93 L 11/11/18 08:00 98.2 F 76 18 105/72 99 11/11/18 04:00 97.4 F L 90 18 115/70 96 11/11/18 00:07 98.3 F 113 H 18 98/66 96 11/10/18 21:03 99 11/10/18 20:52 97 97 11/10/18 20:00 97.9 F 89 18 127/73 99 11/10/18 17:15 87 20 111/68 99 11/10/18 15:28 86 18 11/10/18 15:24 98.5 F 86 18 101/65 100 11/10/18 15:20 93 11/10/18 15:08 93 11/10/18 12:00 97.8 F 80 18 108/72 100 Intake and Output 11/10/18 11/11/18 11/11/18 22:59 06:59 14:59 Intake Total 222 360 Output Total 300 Balance -78 360 Intake: Oral 222 360 Output: Urine 300 Other: Weight 51.8 kg PHYSICAL EXAMINATION: GENERAL: 82-year-old female in no acute distress at the time of my examination HEENT: Head is atraumatic, normocephalic. Pupils equal, round. Sclera anicteric. Conjunctiva are clear. Mucous membranes of the mouth are moist. Neck is supple. There is no elevated jugular venous pressure. No carotid bruit is heard. HEART EXAMINATION: Heart S1 and S2 irregularly irregular systolic murmur. CHEST EXAMINATION: Lungs are clear to auscultation and precussion. No chest wall tenderness is noted on palpation or with deep breathing. ABDOMEN: Soft, nontender. Bowel sounds are heard. No organomegaly noted. EXTREMITIES: 2+ peripheral pulses with no evidence of peripheral edema and no calf tenderness noted. NEUROLOGIC patient is awake, alert and oriented 1 . . Results 11/11/18 06:52 11/11/18 06:52 CBC 11/11/18 Range/Units 06:52 WBC 6.3 (3.8-10.6) k/uL RBC 4.63 (3.80-5.40) m/uL Hgb 13.8 (11.4-16.0) gm/dL Hct 43.3 (34.0-46.0) % Plt Count 211 (150-450) k/uL Comprehensive Metabolic Panel 11/11/18 Range/Units 06:52 Sodium 143 (137-145) mmol/L Potassium 4.0 (3.5-5.1) mmol/L Chloride 104 (98-107) mmol/L Carbon Dioxide 35 H (22-30) mmol/L BUN 17 (7-17) mg/dL Creatinine 0.80 (0.52-1.04) mg/dL Glucose 94 (74-99) mg/dL Calcium 9.1 (8.4-10.2) mg/dL Current Medications Generic Name Dose Route Start Last Admin Trade Name Freq PRN Reason Stop Dose Admin Albuterol/Ipratropium 3 ml 11/10/18 12:00 11/11/18 08:16 Duoneb 0.5 Mg-3 Mg/3 Ml Soln INHALATION 3 ml RT-Q4H RIKKI Administration Apixaban 2.5 mg 11/10/18 21:00 11/11/18 08:06 Eliquis PO 2.5 mg BID RIKKI Administration Atenolol 25 mg 11/11/18 09:00 Tenormin PO DAILY RIKKI Escitalopram Oxalate 5 mg 11/11/18 09:00 11/11/18 08:07 Lexapro PO 5 mg DAILY RIKKI Administration Furosemide 40 mg 11/10/18 21:00 11/11/18 08:07 Lasix IV 40 mg Q12H RIKKI Administration Sodium Chloride 1,000 mls @ 20 mls/hr 11/10/18 11:00 11/10/18 11:34 Saline 0.9% IV Not Given .Q24H RIKKI Memantine 10 mg 11/10/18 21:00 11/11/18 08:07 Namenda PO 10 mg BID RIKKI Administration Miscellaneous Information 1 each 11/10/18 17:33 Potassium Per Protocol MISCELLANE DAILY PRN Per Protocol Protocol Miscellaneous Information 1 each 11/10/18 17:37 Potassium Per Protocol MISCELLANE DAILY PRN Per Protocol Protocol Sildenafil Citrate 20 mg 11/10/18 16:00 11/11/18 08:07 Revatio PO 20 mg TID RIKKI Administration Verapamil HCl 180 mg 11/10/18 21:00 11/11/18 08:06 Isoptin Sr PO 180 mg BID RIKKI Administration Intake and Output 11/10/18 11/11/18 11/11/18 22:59 06:59 14:59 Intake Total 222 360 Output Total 300 Balance -78 360 Intake: Oral 222 360 Output: Urine 300 Other: Weight 51.8 kg 11/11/18 06:52 11/11/18 06:52 EKG Interpretations (text) EKG shows atrial fibrillation with a controlled ventricular response. Assessment and Plan Plan: Assessment and plan #1 systolic congestive heart failure acute on chronic #2 pulmonary fibrosis with a primary pulmonary hypertension #3 hypokalemia #4 paroxysmal atrial fibrillation #5 dementia #6 severe mitral regurgitation and tricuspid regurg #7 history of pulmonary embolism and superficial DVT Plan We will discontinue the IV Lasix and placed the patient back on diuretics as she was on at home. Obtain a repeat echocardiogram with Doppler study. LV function in 2015 was documented to be 45-50%. Further recommendations to follow. DNP note has been reviewed, I agree with a documented findings and plan of care. Patient was seen and examined.
[2018-11-11 11:11] VITALS: BMI 22.3
[2018-11-11] MEDS: SODIUM CHLORIDE 0.9% 1,000 ML IV SCH (12:09)
[2018-11-11 12:39] VITALS: PULSE 130
[2018-11-11 12:52] VITALS: BP 104/66
[2018-11-11] MEDS ORDERED: FUROSEMIDE 20 MG TAB PO SCH (16:00)
--- NOTE | 2018-11-11 20:52 | DS ---
DISCHARGE SUMMARY DATE OF SERVICE: 11/11/2018. FINAL DIAGNOSES: 1. Shortness of breath, possible congestive heart failure acute exacerbation, acute on chronic systolic dysfunction ejection fraction 40-45 percent. 2. Pulmonary fibrosis. 3. Hypokalemia. 4. History atrial fibrillation. 5. Dementia. 6. Pulmonary hypertension. 7. Chronic hypoxic respiratory on home O2. 8. Severe tricuspid regurgitation. 9. Moderate mild aortic stenosis. 10.History of degenerative joint disease. 11.History of pulmonary embolism. 12.History of superficial deep vein thromboses. 13.History of cardiac catheterization. 14.History of depression. 15.History of degenerative joint disease. DISCHARGE DISPOSITION: The patient will be discharged in stable condition with guarded prognosis. HISTORY OF PRESENT ILLNESS: This 82-year-old woman with a past medical history of multiple medical problems was admitted with CHF acute exacerbation. The patient treated with diuretics. Patient improved significantly. Cardiology saw the patient. The patient is extremely keen on going home. Patient and family extremely keen on going home. The patient being discharged in stable with guarded prognosis. On exam, vitals are stable. Cardio system: S1, S2. Respirations: Few scattered rhonchi. ABDOMEN: Soft. NERVOUS SYSTEM: No focal deficits. Okay with cardiology for discharge. DISCHARGE INSTRUCTIONS/MEDICATION: 1. Diet is cardiac diet. 2. Activity limited until followup. 3. Follow up with Dr. Viola Robledo in 2-3 days. 4. Follow up with Dr. Rodney. 5. Follow up with Cardiology as recommended. DISCHARGE MEDICATIONS: 1. Atenolol 25 mg p.o. daily. 2. Eliquis 2.5 mg p.o. b.i.d. 3. Lasix 20 mg p.o. b.i.d. 4. Lexapro 5 mg p.o. daily. 5. Namenda 10 mg p.o. b.i.d. 6. Revatio 20 mg p.o. t.i.d. 7. Verapamil 180 mg p.o. b.i.d. 8. ProAir HFA 1 to 2 puffs daily q.i.d. Once again, the patient being discharged in stable condition. Guarded prognosis. MMODL / IJN: [id number] /
== END 2018-11-11 16:22 | disposition home or self-care (01) | DRG 292 ==
LOC: EC 07:59 → 3SCARD 10:54
PROVIDERS: ADMIT Internal Medicine; ATTEND Internal Medicine
DX: I11.0 Hypertensive heart disease with heart failure (principal); J96.11 Chronic respiratory failure with hypoxia; I50.23 Acute on chronic systolic (congestive) heart failure; J84.10 Pulmonary fibrosis, unspecified; M41.9 Scoliosis, unspecified; I08.3 Combined rheumatic disorders of mitral, aortic and tricuspid valves; I48.0 Paroxysmal atrial fibrillation; F03.90 Unspecified dementia, unspecified severity, without behavioral disturbance, psychotic disturbance, mood disturbance, and anxiety; H91.93 Unspecified hearing loss, bilateral; E87.6 Hypokalemia; F32.9 Major depressive disorder, single episode, unspecified; M47.9 Spondylosis, unspecified; Z79.01 Long term (current) use of anticoagulants; Z79.899 Other long term (current) drug therapy; Z86.711 Personal history of pulmonary embolism; Z87.891 Personal history of nicotine dependence; Z96.652 Presence of left artificial knee joint; Z99.81 Dependence on supplemental oxygen; Z90.49 Acquired absence of other specified parts of digestive tract; Z98.42 Cataract extraction status, left eye; Z98.41 Cataract extraction status, right eye; Z96.1 Presence of intraocular lens; Z80.3 Family history of malignant neoplasm of breast; Z82.0 Family history of epilepsy and other diseases of the nervous system
CPT/HCPCS: 36415; 71046; 80048; 80053; 83735; 83880; 84484; 85025; 85610; 85730; 93005; 94640; 94760; 96374; 96375; 99285

== ENCOUNTER 2019-04-22 09:39 | Emergency (ER) | payer MEDICARE ==
[2019-04-22 09:52] VITALS: TEMP 98.3
[2019-04-22] MEDS ORDERED: LORazepam 2 MG/ML INJ IV STA (10:05)
[2019-04-22] MEDS ORDERED: SODIUM CHLORIDE 0.9% 500 ML 500 ML IV STA (10:06)
--- NOTE | 2019-04-22 10:14 | ED ---
General Adult HPI - General Chief complaint: Shortness of Breath Stated complaint: RADHA Time Seen by Provider: 04/22/19 09:45 Source: patient, family, RN notes reviewed, old records reviewed Mode of arrival: wheelchair Limitations: altered mental status (Patient has significant dementia so though she is altered it is no different than her baseline) - History of Present Illness Initial comments: This is an 83-year-old female presents emergency Department with a past medical history significant for anxiety and dementia. According to the at night when she sleeps she is on oxygen. Today the woke up at 5:00 and was trying to make a pump. I even though she no longer has the mental capacity to do so accordingly to and the patient got extremely anxious. She tried to lay down in bed but it did not help and she became more more anxious to the point where the thought he needed to bring the patient in to the hospital. Tyler soler did at one point time complaining of difficulty breathing though she is no longer complaining that. Patient is a very poor historian. and son are with the patient currently patient denies any recent fever chills or cough. They deny any complaints of chest pain. The patient never look like she was in any respiratory distress according to them. Patient had no vomiting or diarrhea. Patient denies any headache. - Related Data Home Medications Medication Instructions Recorded Confirmed Atenolol 25 mg PO DAILY 03/04/15 11/10/18 Furosemide [Lasix] 20 mg PO BID 03/04/15 11/10/18 Sildenafil [Revatio] 20 mg PO TID 03/04/15 11/10/18 Verapamil HCl [Verapamil ER] 180 mg PO BID 03/04/15 11/10/18 Escitalopram [Lexapro] 5 mg PO DAILY 10/05/16 11/10/18 Apixaban [Eliquis] 2.5 mg PO BID 02/18/18 11/10/18 Memantine [Namenda] 10 mg PO BID 11/10/18 11/10/18 Previous Rx's Medication Instructions Recorded Albuterol Sulfate [Proair Hfa] 1 - 2 puff INHALATION RT-QID #1 11/11/18 Allergies Allergy/AdvReac Type Severity Reaction Status Date / Time No Known Allergies Allergy Verified 04/22/19 09:48 Review of Systems ROS Statement: Those systems with pertinent positive or pertinent negative responses have been documented in the HPI. ROS Other: All systems not noted in ROS Statement are negative. Past Medical History Past Medical History: Atrial Fibrillation, Dementia, Hearing Disorder / Deafness, Memory Impairment, Pneumonia, Respiratory Disorder Additional Past Medical History / Comment(s): Pulmonary fibrosis, pulmonary HTN, O2 at HS, moderate to severe mitral valve regurgitation, severe tricuspid regurgitation, mild aortic stenosis, DDD, spondylosis, scoliosis, bulging discs, PE in lungs 15 yrs ago, superficial DVTs, varicosities, mild dementia, [place] bilaterally History of Any Multi-Drug Resistant Organisms: None Reported Past Surgical History: Appendectomy, Heart Catheterization, Joint Replacement, Orthopedic Surgery, Tonsillectomy Additional Past Surgical History / Comment(s): L femur fracture with ORIF, L arm fracture with ORIF plate/screws, bilateral rotator cuff repairs, bilateral feet hammer toe corrections, epidural back injections, bilateral cataract removals with lens implants, colonoscopy Past Anesthesia/Blood Transfusion Reactions: No Reported Reaction Past Psychological History: Depression Smoking Status: Former smoker Past Alcohol Use History: None Reported Past Drug Use History: None Reported - Past Family History Father Family Medical History: Musculoskeletal Disorder, Neurologic Disorder Additional Family Medical History / Comment(s): Parkinson's disease. Mother Family Medical History: Cancer Additional Family Medical History / Comment(s): breast cancer General Exam - General Exam Comments Initial Comments: GENERAL: Patient is well-developed and well-nourished. Patient is nontoxic and well- hydrated and is in mild distress. ENT: Neck is soft and supple. No significant lymphadenopathy is noted. Oropharynx is clear. Moist mucous membranes. Neck has full range of motion without eliciting any pain. EYES: The sclera were anicteric and conjunctiva were pink and moist. Extraocular movements were intact and pupils were equal round and reactive to light. Eyelids were unremarkable. PULMONARY: Unlabored respirations. Good breath sounds bilaterally. No audible rales rhonchi or wheezing was noted. CARDIOVASCULAR: There is a regular rate and rhythm without any murmurs gallops or rubs. ABDOMEN: Soft and nontender with normal bowel sounds. No palpable organomegaly was noted. There is no palpable pulsatile mass. SKIN: Skin is clear with no lesions or rashes and otherwise unremarkable. NEUROLOGIC: Patient is alert and oriented 1. Cranial nerves II through XII are grossly intact. Motor and sensory are also intact. Normal speech, volume and content. Symmetrical smile. MUSCULOSKELETAL: Normal extremities with adequate strength and full range of motion. LYMPHATICS: No significant lymphadenopathy is noted PSYCHIATRIC: Unable to assess secondary to dementia Limitations: no limitations Course Vital Signs 04/22/19 04/22/19 09:48 11:00 Temperature 98.3 F Pulse Rate 67 70 Respiratory 24 18 Rate Blood Pressure 114/65 111/84 O2 Sat by Pulse 96 96 Oximetry Medical Decision Making - Medical Decision Making EKG shows atrial fibrillation at 74 bpm QRS is 78 QT interval is 450 QTC is 499. Patient's EKG shows no ST segment elevation or depression. Chest x-ray shows no acute changes. I went back in the room patient was feeling better had no complaints at this time wanted to go home because he believe this was her typical anxiety. states she goes through this every single day today was a little bit worse she got up at 5:00 and try to pick those pies - Lab Data Result diagrams: 04/22/19 10:34 04/22/19 10:34 Lab Results 04/22/19 04/22/19 04/22/19 Range/Units 10:34 10:34 10:34 WBC 4.7 (3.8-10.6) k/uL RBC 4.22 (3.80-5.40) m/uL Hgb 13.0 (11.4-16.0) gm/dL Hct 39.0 (34.0-46.0) % MCV 92.3 (80.0-100.0) fL MCH 30.8 (25.0-35.0) pg MCHC 33.3 (31.0-37.0) g/dL RDW 12.5 (11.5-15.5) % Plt Count 240 (150-450) k/uL Neutrophils % 68 % Lymphocytes % 22 % Monocytes % 6 % Eosinophils % 2 % Basophils % 1 % Neutrophils # 3.2 (1.3-7.7) k/uL Lymphocytes # 1.1 (1.0-4.8) k/uL Monocytes # 0.3 (0-1.0) k/uL Eosinophils # 0.1 (0-0.7) k/uL Basophils # 0.0 (0-0.2) k/uL PT (9.0-12.0) sec INR (<1.2) APTT (22.0-30.0) sec Sodium 141 (137-145) mmol/L Potassium 3.4 L (3.5-5.1) mmol/L Chloride 104 (98-107) mmol/L Carbon Dioxide 29 (22-30) mmol/L Anion Gap 8 mmol/L BUN 11 (7-17) mg/dL Creatinine 0.61 (0.52-1.04) mg/dL Est GFR (CKD-EPI)AfAm >90 (>60 ml/min/1.73 sqM) Est GFR (CKD-EPI)NonAf 83 (>60 ml/min/1.73 sqM) Glucose 93 (74-99) mg/dL Calcium 9.3 (8.4-10.2) mg/dL Magnesium 2.0 (1.6-2.3) mg/dL Total Bilirubin 0.9 (0.2-1.3) mg/dL AST 34 (14-36) U/L ALT 45 (9-52) U/L Alkaline Phosphatase 67 (38-126) U/L Troponin I (0.000-0.034) ng/mL NT-Pro-B Natriuret Pep 2350 pg/mL Total Protein 6.0 L (6.3-8.2) g/dL Albumin 3.7 (3.5-5.0) g/dL 04/22/19 04/22/19 Range/Units 10:34 10:34 WBC (3.8-10.6) k/uL RBC (3.80-5.40) m/uL Hgb (11.4-16.0) gm/dL Hct (34.0-46.0) % MCV (80.0-100.0) fL MCH (25.0-35.0) pg MCHC (31.0-37.0) g/dL RDW (11.5-15.5) % Plt Count (150-450) k/uL Neutrophils % % Lymphocytes % % Monocytes % % Eosinophils % % Basophils % % Neutrophils # (1.3-7.7) k/uL Lymphocytes # (1.0-4.8) k/uL Monocytes # (0-1.0) k/uL Eosinophils # (0-0.7) k/uL Basophils # (0-0.2) k/uL PT 11.0 (9.0-12.0) sec INR 1.0 (<1.2) APTT 23.9 (22.0-30.0) sec Sodium (137-145) mmol/L Potassium (3.5-5.1) mmol/L Chloride (98-107) mmol/L Carbon Dioxide (22-30) mmol/L Anion Gap mmol/L BUN (7-17) mg/dL Creatinine (0.52-1.04) mg/dL Est GFR (CKD-EPI)AfAm (>60 ml/min/1.73 sqM) Est GFR (CKD-EPI)NonAf (>60 ml/min/1.73 sqM) Glucose (74-99) mg/dL Calcium (8.4-10.2) mg/dL Magnesium (1.6-2.3) mg/dL Total Bilirubin (0.2-1.3) mg/dL AST (14-36) U/L ALT (9-52) U/L Alkaline Phosphatase (38-126) U/L Troponin I <0.012 (0.000-0.034) ng/mL NT-Pro-B Natriuret Pep pg/mL Total Protein (6.3-8.2) g/dL Albumin (3.5-5.0) g/dL Disposition Clinical Impression: Anxiety Disposition: HOME SELF-CARE Condition: Good Instructions (If sedation given, give patient instructions): Anxiety (ED) Is patient prescribed a controlled substance at d/c from ED?: No Referrals: Emmanuel Rodney MD [Primary Care Provider] - 1-2 days Time of Disposition: 12:21
[2019-04-22 10:46] LABS: Basophils % (A) 1 %; Eosinophils # (A) 0.1 k/uL (0-0.7); Eosinophils % (A) 2 %; Lymphocytes # (A) 1.1 k/uL (1.0-4.8); Lymphocytes % (A) 22 %; MCH 30.8 pg (25.0-35.0); MCHC 33.3 g/dL (31.0-37.0); MCV 92.3 fL (80.0-100.0); Mean Platelet Volume 6.2; Monocytes # (A) 0.3 k/uL (0-1.0); Monocytes % (A) 6 %; Neutrophils # (A) 3.2 k/uL (1.3-7.7); Neutrophils % (A) 68 %; Platelet Count 240 k/uL (150-450); RBC 4.22 m/uL (3.80-5.40); RDW 12.5 % (11.5-15.5); WBC 4.7 k/uL (3.8-10.6)
[2019-04-22 10:54] LABS: Partial Thromboplastin Time 23.9 sec (22.0-30.0)
--- NOTE | 2019-04-22 10:55 | XR ---
EXAMINATION TYPE: XR chest 2V DATE OF EXAM: 04/22/2019 COMPARISON: Prior chest x-ray November 10, 2018. HISTORY: Chest pain. TECHNIQUE: Frontal and lateral views of the chest are obtained. FINDINGS: There is chronic parenchymal change in elevated left hemidiaphragm without new suspicious focal air space opacity, pleural effusion, or pneumothorax seen. The cardiac silhouette size remains enlarged with atherosclerotic aorta. The osseous structures remain demineralized. Underlying scoli osis is present. High riding humeral head suggests chronic rotator cuff tear. IMPRESSION: Chronic changes and cardiomegaly without acute pulmonary process. No significant change from prior.
[2019-04-22 11:00] LABS: ALT 45 U/L (9-52); AST 34 U/L (14-36); African American GFR (CKD) >90 (>60 ml/min/1.73 sqM); Albumin 3.7 g/dL (3.5-5.0); Alkaline Phosphatase 67 U/L (38-126); Anion Gap 8 mmol/L; Blood Urea Nitrogen 11 mg/dL (7-17); Calcium 9.3 mg/dL (8.4-10.2); Carbon Dioxide 29 mmol/L (22-30); Chloride 104 mmol/L (98-107); Glucose 93 mg/dL (74-99); Non-African American GFR(CKD) 83 (>60 ml/min/1.73 sqM); Potassium 3.4 mmol/L (3.5-5.1); Sodium 141 mmol/L (137-145); Total Bilirubin 0.9 mg/dL (0.2-1.3)
[2019-04-22 11:01] VITALS: RESP 18
[2019-04-22 12:57] VITALS: BP 122/78; PULSE 64
== END 2019-04-22 12:40 | disposition home or self-care (01) ==
LOC: EC 09:39
DX: F41.9 Anxiety disorder, unspecified (principal); R06.02 Shortness of breath; I34.0 Nonrheumatic mitral (valve) insufficiency; I07.1 Rheumatic tricuspid insufficiency; I48.91 Unspecified atrial fibrillation; F03.90 Unspecified dementia, unspecified severity, without behavioral disturbance, psychotic disturbance, mood disturbance, and anxiety; I27.20 Pulmonary hypertension, unspecified; I35.0 Nonrheumatic aortic (valve) stenosis; F32.9 Major depressive disorder, single episode, unspecified; Z86.718 Personal history of other venous thrombosis and embolism; Z95.818 Presence of other cardiac implants and grafts; Z96.698 Presence of other orthopedic joint implants; Z87.01 Personal history of pneumonia (recurrent); Z87.891 Personal history of nicotine dependence; Z79.01 Long term (current) use of anticoagulants; Z79.899 Other long term (current) drug therapy; Z53.29 Procedure and treatment not carried out because of patient's decision for other reasons
CPT/HCPCS: 36415; 71046; 80053; 83735; 83880; 84484; 85025; 85610; 85730; 93005; 99285

== ENCOUNTER → 2019-06-16 | Outpatient (CLI) | payer MEDICARE ==
--- NOTE | 2019-06-17 13:37 | MM ---
Reason for exam: screening (asymptomatic). Last mammogram was performed 3 years and 9 months ago. History: Patient is postmenopausal. Family history of breast cancer in mother at age 70. Physical Findings: A clinical breast exam by your physician is recommended on an annual basis and results should be correlated with mammographic findings. MG Screening Mammo w CAD Bilateral CC and MLO view(s) were taken. Prior study comparison: September 27, 2015, bilateral MG 3d screening mammo w/cad. September 21, 2014, bilateral MG screening mammo w CAD. The breast tissue is heterogeneously dense. This may lower the sensitivity of mammography. Stable benign calcifications. There is no discrete abnormality. No significant changes when compared with prior studies. ASSESSMENT: Benign, BI-RAD 2 RECOMMENDATION: Routine screening mammogram of both breasts in 1 year.
== END | disposition home or self-care (01) ==
LOC: RADMAMWWP 14:33
PROVIDERS: ATTEND Family Medicine
DX: Z12.31 Encounter for screening mammogram for malignant neoplasm of breast (principal)
CPT/HCPCS: 77067

== ENCOUNTER 2019-08-06 06:14 | Emergency (ER) | payer MEDICARE ==
[2019-08-06 06:21] VITALS: TEMP 97.6
[2019-08-06] MEDS ORDERED: SODIUM CHLORIDE 0.9% 1,000 ML IV STA (06:32)
--- NOTE | 2019-08-06 06:36 | ED ---
General Adult HPI - General Chief complaint: Shortness of Breath Stated complaint: SOB Time Seen by Provider: 08/06/19 06:25 Source: patient, EMS, RN notes reviewed, old records reviewed Mode of arrival: EMS Limitations: language barrier, altered mental status, physical limitation - History of Present Illness Initial comments: Patient is a 83-year-old female with a history of atrial fibrillation, dementia, memory impairment respiratory disorder primary fibrosis. She presents today with worsening shortness of breath this morning. EMS reported that upon arrival Patient was sick to get significant appear to be suffering from acute anxiety. Patient's breathing down with coaching techniques and patient's been more comfortable since this time. Patient states she has no chest pain at this time. She does not typically wear oxygen. She does have dementia and lives with her . - Related Data Home Medications Medication Instructions Recorded Confirmed Atenolol 25 mg PO DAILY 03/04/15 11/10/18 Furosemide [Lasix] 20 mg PO BID 03/04/15 11/10/18 Sildenafil [Revatio] 20 mg PO TID 03/04/15 11/10/18 Verapamil HCl [Verapamil ER] 180 mg PO BID 03/04/15 11/10/18 Escitalopram [Lexapro] 5 mg PO DAILY 10/05/16 11/10/18 Apixaban [Eliquis] 2.5 mg PO BID 02/18/18 11/10/18 Memantine [Namenda] 10 mg PO BID 11/10/18 11/10/18 Previous Rx's Medication Instructions Recorded Albuterol Sulfate [Proair Hfa] 1 - 2 puff INHALATION RT-QID #1 11/11/18 Allergies Allergy/AdvReac Type Severity Reaction Status Date / Time No Known Allergies Allergy Verified 04/22/19 09:48 Review of Systems ROS Statement: Those systems with pertinent positive or pertinent negative responses have been documented in the HPI. ROS Other: All systems not noted in ROS Statement are negative. Past Medical History Past Medical History: Atrial Fibrillation, Dementia, Hearing Disorder / Deafness, Memory Impairment, Pneumonia, Respiratory Disorder Additional Past Medical History / Comment(s): Pulmonary fibrosis, pulmonary HTN, O2 at HS, moderate to severe mitral valve regurgitation, severe tricuspid regurgitation, mild aortic stenosis, DDD, spondylosis, scoliosis, bulging discs, PE in lungs 15 yrs ago, superficial DVTs, varicosities, mild dementia, [place] bilaterally History of Any Multi-Drug Resistant Organisms: None Reported Past Surgical History: Appendectomy, Heart Catheterization, Joint Replacement, Orthopedic Surgery, Tonsillectomy Additional Past Surgical History / Comment(s): L femur fracture with ORIF, L arm fracture with ORIF plate/screws, bilateral rotator cuff repairs, bilateral feet hammer toe corrections, epidural back injections, bilateral cataract removals with lens implants, colonoscopy Past Anesthesia/Blood Transfusion Reactions: No Reported Reaction Past Psychological History: Depression Smoking Status: Former smoker Past Alcohol Use History: None Reported Past Drug Use History: None Reported - Past Family History Father Family Medical History: Musculoskeletal Disorder, Neurologic Disorder Additional Family Medical History / Comment(s): Parkinson's disease. Mother Family Medical History: Cancer Additional Family Medical History / Comment(s): breast cancer General Exam - General Exam Comments Initial Comments: 83-year-old female. Alert and oriented to self. Suffers from dementia. No distress. Limitations: language barrier, altered mental status, physical limitation General appearance: alert, in no apparent distress, anxious Head exam: Present: atraumatic, normocephalic, normal inspection Eye exam: Present: normal appearance, PERRL, EOMI. Absent: scleral icterus, conjunctival injection, periorbital swelling ENT exam: Present: normal exam, mucous membranes moist Neck exam: Present: normal inspection. Absent: tenderness, meningismus, lymphadenopathy Respiratory exam: Present: normal lung sounds bilaterally. Absent: respiratory distress, wheezes, rales, rhonchi, stridor Cardiovascular Exam: Present: regular rate, normal rhythm, normal heart sounds. Absent: systolic murmur, diastolic murmur, rubs, gallop, clicks Extremities exam: Present: normal inspection, full ROM, normal capillary refill. Absent: tenderness, pedal edema, joint swelling, calf tenderness Back exam: Present: normal inspection Neurological exam: Present: alert, oriented X3, CN II-XII intact Psychiatric exam: Present: normal affect, normal mood Skin exam: Present: warm, dry, intact, normal color. Absent: rash Course Vital Signs 08/06/19 08/06/19 06:16 06:59 Temperature 97.6 F Pulse Rate 63 72 Respiratory 16 16 Rate Blood Pressure 98/72 100/65 O2 Sat by Pulse 95 94 L Oximetry EKG Findings - EKG Comments: EKG Findings:: EKG shows atrial fibrillation, anteroseptal infarct age undetermined. Ventricular rate of 73 bpm. All as undetected. Q spiritism 90 ms. QT QTc is 07/27/1937/482 ms. Medical Decision Making - Medical Decision Making 83-year-old female presents emergency room today with difficulty breathing from initial presentation concerning for anxiety exacerbation. Her breathing had normalized after coaching by EMS staff. Patient does have a history of pulmo nary fibrosis and CHF. Clinical exam her lungs were essentially clear. She has no significant wheezing. Patient is resting comfortably in bed. At this time patient's labwork was reviewed including troponin in this is negative. Patient's chest x-ray shows a large heart but no signs of acute heart failure. Patient BNP is 2000. At this time a reevaluated the Patient with her present and she continued plan no shortness of breath or chest pain. He does agree that seems to be related to anxiety. Patient was advised to follow-up with primary care doctor but otherwise be stable for discharge home. Discussed the case with Dr. Garibay. - Lab Data Result diagrams: 08/06/19 06:23 08/06/19 06:23 Lab Results 08/06/19 08/06/19 08/06/19 Range/Units 06:23 06:23 06:23 WBC 6.0 (3.8-10.6) k/uL RBC 4.50 (3.80-5.40) m/uL Hgb 13.3 (11.4-16.0) gm/dL Hct 41.7 (34.0-46.0) % MCV 92.6 (80.0-100.0) fL MCH 29.6 (25.0-35.0) pg MCHC 31.9 (31.0-37.0) g/dL RDW 12.8 (11.5-15.5) % Plt Count 192 (150-450) k/uL Neutrophils % 64 % Lymphocytes % 24 % Monocytes % 7 % Eosinophils % 2 % Basophils % 1 % Neutrophils # 3.8 (1.3-7.7) k/uL Lymphocytes # 1.5 (1.0-4.8) k/uL Monocytes # 0.4 (0-1.0) k/uL Eosinophils # 0.2 (0-0.7) k/uL Basophils # 0.1 (0-0.2) k/uL PT 10.7 (9.0-12.0) sec INR 1.0 (<1.2) APTT 22.6 (22.0-30.0) sec Sodium 139 (137-145) mmol/L Potassium 3.6 (3.5-5.1) mmol/L Chloride 103 (98-107) mmol/L Carbon Dioxide 30 (22-30) mmol/L Anion Gap 6 mmol/L BUN 20 H (7-17) mg/dL Creatinine 0.73 (0.52-1.04) mg/dL Est GFR (CKD-EPI)AfAm 87 (>60 ml/min/1.73 sqM) Est GFR (CKD-EPI)NonAf 76 (>60 ml/min/1.73 sqM) Glucose 95 (74-99) mg/dL Plasma Lactic Acid Alvin (0.7-2.0) mmol/L Calcium 9.2 (8.4-10.2) mg/dL Magnesium 2.0 (1.6-2.3) mg/dL Total Bilirubin 0.3 (0.2-1.3) mg/dL AST 25 (14-36) U/L ALT 16 (4-34) U/L Alkaline Phosphatase 67 (38-126) U/L Troponin I (0.000-0.034) ng/mL NT-Pro-B Natriuret Pep pg/mL Total Protein 6.2 L (6.3-8.2) g/dL Albumin 3.8 (3.5-5.0) g/dL 08/06/19 08/06/19 08/06/19 Range/Units 06:23 06:23 06:23 WBC (3.8-10.6) k/uL RBC (3.80-5.40) m/uL Hgb (11.4-16.0) gm/dL Hct (34.0-46.0) % MCV (80.0-100.0) fL MCH (25.0-35.0) pg MCHC (31.0-37.0) g/dL RDW (11.5-15.5) % Plt Count (150-450) k/uL Neutrophils % % Lymphocytes % % Monocytes % % Eosinophils % % Basophils % % Neutrophils # (1.3-7.7) k/uL Lymphocytes # (1.0-4.8) k/uL Monocytes # (0-1.0) k/uL Eosinophils # (0-0.7) k/uL Basophils # (0-0.2) k/uL PT (9.0-12.0) sec INR (<1.2) APTT (22.0-30.0) sec Sodium (137-145) mmol/L Potassium (3.5-5.1) mmol/L Chloride (98-107) mmol/L Carbon Dioxide (22-30) mmol/L Anion Gap mmol/L BUN (7-17) mg/dL Creatinine (0.52-1.04) mg/dL Est GFR (CKD-EPI)AfAm (>60 ml/min/1.73 sqM) Est GFR (CKD-EPI)NonAf (>60 ml/min/1.73 sqM) Glucose (74-99) mg/dL Plasma Lactic Acid Alvin 1.3 (0.7-2.0) mmol/L Calcium (8.4-10.2) mg/dL Magnesium (1.6-2.3) mg/dL Total Bilirubin (0.2-1.3) mg/dL AST (14-36) U/L ALT (4-34) U/L Alkaline Phosphatase (38-126) U/L Troponin I <0.012 (0.000-0.034) ng/mL NT-Pro-B Natriuret Pep 2170 pg/mL Total Protein (6.3-8.2) g/dL Albumin (3.5-5.0) g/dL - Radiology Data Radiology results: report reviewed No acute changes. Marked cardiomegaly. Disposition Clinical Impression: Anxiety, Shortness of breath Disposition: HOME SELF-CARE Condition: Good Instructions (If sedation given, give patient instructions): Generalized Anxiety Disorder (ED) Additional Instructions: Please follow up with family doctor if symptoms have not improved over the next two days. Please return to the emergency room if your symptoms increase or w orsen or for any other concerns. Is patient prescribed a controlled substance at d/c from ED?: No Referrals: Viola Robledo MD [Primary Care Provider] - 1-2 days Time of Disposition: 07:57
[2019-08-06 06:47] LABS: Basophils # (A) 0.1 k/uL (0-0.2); Basophils % (A) 1 %; Eosinophils # (A) 0.2 k/uL (0-0.7); Eosinophils % (A) 2 %; HCT 41.7 % (34.0-46.0); HGB 13.3 gm/dL (11.4-16.0); Lymphocytes # (A) 1.5 k/uL (1.0-4.8); Lymphocytes % (A) 24 %; MCH 29.6 pg (25.0-35.0); MCHC 31.9 g/dL (31.0-37.0); MCV 92.6 fL (80.0-100.0); Mean Platelet Volume 7.8; Monocytes # (A) 0.4 k/uL (0-1.0); Monocytes % (A) 7 %; Neutrophils # (A) 3.8 k/uL (1.3-7.7); Neutrophils % (A) 64 %; Platelet Count 192 k/uL (150-450); RDW 12.8 % (11.5-15.5)
[2019-08-06 06:55] LABS: Albumin 3.8 g/dL (3.5-5.0); Calcium 9.2 mg/dL (8.4-10.2); Potassium 3.6 mmol/L (3.5-5.1); Total Bilirubin 0.3 mg/dL (0.2-1.3); Total Protein 6.2 g/dL (6.3-8.2)
[2019-08-06 06:57] LABS: Partial Thromboplastin Time 22.6 sec (22.0-30.0); Prothrombin Time 10.7 sec (9.0-12.0)
--- NOTE | 2019-08-06 07:10 | XR ---
EXAM: XR Chest, 2 Views CLINICAL HISTORY: difficulty breathing TECHNIQUE: Frontal and lateral views of the chest. COMPARISON: April 22, 2019. FINDINGS: Lungs: Mild chronic changes are seen in the lung bases. Pleural space: Unremarkable. No pneumothorax. No pleural fluid. Heart: Marked cardiomegaly. Mediastinum: Unremarkable. Bones/joints: Unremarkable. No acute abnormalities. Other findings: There is no significant change. No acute infiltration. IMPRESSION: No acute changes. Marked cardiomegaly.
[2019-08-06 08:08] VITALS: BP 111/78; PULSE 68; RESP 18
== END 2019-08-06 08:05 | disposition home or self-care (01) ==
LOC: EC 06:14
DX: F41.9 Anxiety disorder, unspecified (principal); I51.7 Cardiomegaly; F03.90 Unspecified dementia, unspecified severity, without behavioral disturbance, psychotic disturbance, mood disturbance, and anxiety; I48.91 Unspecified atrial fibrillation; H91.93 Unspecified hearing loss, bilateral; I27.20 Pulmonary hypertension, unspecified; F32.9 Major depressive disorder, single episode, unspecified; Z87.891 Personal history of nicotine dependence; Z79.01 Long term (current) use of anticoagulants; Z79.899 Other long term (current) drug therapy; Z99.81 Dependence on supplemental oxygen; Z86.79 Personal history of other diseases of the circulatory system; Z87.39 Personal history of other diseases of the musculoskeletal system and connective tissue; Z96.698 Presence of other orthopedic joint implants
CPT/HCPCS: 36415; 71046; 80053; 83605; 83735; 83880; 84484; 85025; 85610; 85730; 93005; 96360; 99285

== ENCOUNTER 2019-11-19 16:30 | Inpatient (IN) | payer MEDICARE ==
[2019-11-19] MEDS ORDERED: MORPHINE SULFATE 4 MG/ML SYRINGE IVP STA ×2 (17:27→20:06)
--- NOTE | 2019-11-19 17:39 | ED ---
Fall HPI - General Chief Complaint: Fall Stated Complaint: fall/knee pain Time Seen by Provider: 11/19/19 17:08 Source: patient Mode of arrival: ambulatory - History of Present Illness Initial Comments: Patient is an 83-year-old female with history of a. fib and stage I Alzheimer's presenting to the emergency department with a chief complaint of a fall. is present in the room to answer questions. Patient states she was attempting to get out of the car when she lost her footing and it inverted both of her feet. States she also took a fall on the left knee and left elbow. States she tends to bruise easily because she is on Eliquis. Patient reports no swelling of the left foot but nothing on the elbow or knee. Reports limited range of motion in the foot due to pain. Denies any head injury or loss of consciousness at time of incident. Denies any light headedness, dizziness, nausea or vomiting. Denies any headaches, blurry vision, one-sided weakness or paresthesias. - Related Data Home Medications Medication Instructions Recorded Confirmed Atenolol 25 mg PO DAILY 03/04/15 11/10/18 Furosemide [Lasix] 20 mg PO BID 03/04/15 11/10/18 Sildenafil [Revatio] 20 mg PO TID 03/04/15 11/10/18 Verapamil HCl [Verapamil ER] 180 mg PO BID 03/04/15 11/10/18 Escitalopram [Lexapro] 5 mg PO DAILY 10/05/16 11/10/18 Apixaban [Eliquis] 2.5 mg PO BID 02/18/18 11/10/18 Memantine [Namenda] 10 mg PO BID 11/10/18 11/10/18 Previous Rx's Medication Instructions Recorded Albuterol Sulfate [Proair Hfa] 1 - 2 puff INHALATION RT-QID #1 11/11/18 Allergies Allergy/AdvReac Type Severity Reaction Status Date / Time No Known Allergies Allergy Verified 11/19/19 16:56 Review of Systems ROS Statement: Those systems with pertinent positive or pertinent negative responses have been documented in the HPI. ROS Other: All systems not noted in ROS Statement are negative. Past Medical History Past Medical History: Atrial Fibrillation, Dementia, Hearing Disorder / Deafness, Memory Impairment, Pneumonia, Respiratory Disorder Additional Past Medical History / Comment(s): Pulmonary fibrosis, pulmonary HTN, O2 at HS, moderate to severe mitral valve regurgitation, severe tricuspid regurgitation, mild aortic stenosis, DDD, spondylosis, scoliosis, bulging discs, PE in lungs 15 yrs ago, superficial DVTs, varicosities, mild dementia, [place] bilaterally History of Any Multi-Drug Resistant Organisms: None Reported Past Surgical History: Appendectomy, Heart Catheterization, Joint Replacement, Orthopedic Surgery, Tonsillectomy Additional Past Surgical History / Comment(s): L femur fracture with ORIF, L arm fracture with ORIF plate/screws, bilateral rotator cuff repairs, bilateral feet hammer toe corrections, epidural back injections, bilateral cataract removals with lens implants, colonoscopy Past Anesthesia/Blood Transfusion Reactions: No Reported Reaction Past Psychological History: Depression Smoking Status: Former smoker Past Alcohol Use History: None Reported Past Drug Use History: None Reported - Past Family History Father Family Medical History: Musculoskeletal Disorder, Neurologic Disorder Additional Family Medical History / Comment(s): Parkinson's disease. Mother Family Medical History: Cancer Additional Family Medical History / Comment(s): breast cancer General Exam Limitations: no limitations General appearance: alert, in no apparent distress Head exam: Present: atraumatic, normocephalic, normal inspection Eye exam: Present: normal appearance, PERRL, EOMI Pupils: Present: normal accommodation ENT exam: Present: normal exam, normal oropharynx, mucous membranes moist, TM's normal bilaterally, normal external ear exam Neck exam: Present: normal inspection, full ROM. Absent: tenderness Respiratory exam: Present: normal lung sounds bilaterally. Absent: respiratory distress, wheezes Cardiovascular Exam: Present: regular rate, normal rhythm, normal heart sounds Extremities exam: Present: tenderness (Midfoot and fifth metatarsal tenderness. Mild tenderness of the malleoli.), normal capillary refill, joint swelling, other. Absent: normal inspection (Multiple ecchymotic regions on bilateral feet , left knee and elbow. Moderate swelling on the left foot and ankle. Abrasion to left knee. Small hematoma on the proximal forearm left.), full ROM (Limited range of motion with plantar and dorsiflexion in the left foot due to pain.), calf tenderness Back exam: Present: normal inspection, full ROM Neurological exam: Present: alert, oriented X3 Psychiatric exam: Present: normal affect, normal mood Skin exam: Present: warm, dry, intact, normal color Course Vital Signs 06/11/19/19 11/19/19 16:54 20:17 21:30 Temperature 98.4 F Pulse Rate 89 118 H 112 H Respiratory 16 22 18 Rate Blood Pressure 135/66 151/103 142/102 O2 Sat by Pulse 95 93 L Oximetry Medical Decision Making - Medical Decision Making Patient is an 83-year-old female with history of A. fib and stage I all symptoms presenting to emergency Department with a chief complaint of a fall. On exam patient appears to have multiple bruises and feet, knee and elbow. X-rays of bilateral feet and ankles reveals no fractures. Patient was initially given morphine for pain but she continued to complain of pain. Subsequently a CT of left foot was ordered and we are most of the swelling is located which revealed soft tissue swelling along with a nondisplaced cuboidal bone fracture. There is also mildly displaced fracture of the medial aspect of the navicular bone. CT of the brain and C-spine is unremarkable. Patient has full range of motion of the left elbow although during her hospital stay, the hematoma has gradually increased in size. X-ray of the left knee reveals small joint effusion that is a change from the most recent exam. CBC and CMP are unremarkable. Patient was given more analgesia while in the ED. The pain is not fully subsiding. EKG also reveals A. fib with RVR. Patient started on metoprolol. Patient will be admitted for further medical management. Case discussed with Admitting is Dr toney. Orthopedics consulted. - Lab Data Result diagrams: 11/19/19 17:53 11/19/19 17:53 Lab Results 11/19/19 11/19/19 Range/Units 17:53 17:53 WBC 7.8 (3.8-10.6) k/uL RBC 4.30 (3.80-5.40) m/uL Hgb 13.0 (11.4-16.0) gm/dL Hct 41.3 (34.0-46.0) % MCV 96.0 (80.0-100.0) fL MCH 30.3 (25.0-35.0) pg MCHC 31.5 (31.0-37.0) g/dL RDW 13.7 (11.5-15.5) % Plt Count 205 (150-450) k/uL Neutrophils % 71 % Lymphocytes % 17 % Monocytes % 7 % Eosinophils % 2 % Basophils % 1 % Neutrophils # 5.6 (1.3-7.7) k/uL Lymphocytes # 1.3 (1.0-4.8) k/uL Monocytes # 0.6 (0-1.0) k/uL Eosinophils # 0.2 (0-0.7) k/uL Basophils # 0.1 (0-0.2) k/uL Sodium 139 (137-145) mmol/L Potassium 4.4 (3.5-5.1) mmol/L Chloride 103 (98-107) mmol/L Carbon Dioxide 29 (22-30) mmol/L Anion Gap 7 mmol/L BUN 19 H (7-17) mg/dL Creatinine 0.74 (0.52-1.04) mg/dL Est GFR (CKD-EPI)AfAm 86 (>60 ml/min/1.73 sqM) Est GFR (CKD-EPI)NonAf 75 (>60 ml/min/1.73 sqM) Glucose 98 (74-99) mg/dL Calcium 9.8 (8.4-10.2) mg/dL Total Bilirubin 0.4 (0.2-1.3) mg/dL AST 28 (14-36) U/L ALT 17 (4-34) U/L Alkaline Phosphatase 75 (38-126) U/L Total Protein 6.9 (6.3-8.2) g/dL Albumin 4.3 (3.5-5.0) g/dL Disposition Clinical Impression: Fall, Fracture of navicular bone of foot, Cuboid fracture, Atrial fibrillation with RVR Disposition: ADMITTED IP TO THIS HOSP Condition: Fair Instructions (If sedation given, give patient instructions): Fall Prevention (ED) Additional Instructions: Patient will be admitted Is patient prescribed a controlled substance at d/c from ED?: No Referrals: Viola Robledo MD [Primary Care Provider] - 1-2 days Time of Disposition: 22:41
[2019-11-19 18:02] LABS: Basophils # (A) 0.1 k/uL (0-0.2); Basophils % (A) 1 %; Eosinophils # (A) 0.2 k/uL (0-0.7); Eosinophils % (A) 2 %; HCT 41.3 % (34.0-46.0); Lymphocytes # (A) 1.3 k/uL (1.0-4.8); Lymphocytes % (A) 17 %; MCH 30.3 pg (25.0-35.0); MCHC 31.5 g/dL (31.0-37.0); Mean Platelet Volume 7.4; Monocytes # (A) 0.6 k/uL (0-1.0); Monocytes % (A) 7 %; Neutrophils # (A) 5.6 k/uL (1.3-7.7); Neutrophils % (A) 71 %; Platelet Count 205 k/uL (150-450); RDW 13.7 % (11.5-15.5); WBC 7.8 k/uL (3.8-10.6)
[2019-11-19 18:12] LABS: Albumin 4.3 g/dL (3.5-5.0); Calcium 9.8 mg/dL (8.4-10.2); Potassium 4.4 mmol/L (3.5-5.1); Total Bilirubin 0.4 mg/dL (0.2-1.3); Total Protein 6.9 g/dL (6.3-8.2)
--- NOTE | 2019-11-19 19:13 | XR ---
EXAMINATION TYPE: XR ankle complete bilateral DATE OF EXAM: 11/19/2019 COMPARISON: NONE HISTORY: Pain TECHNIQUE: 3 views each ankle FINDINGS: There is some osteopenia. There is soft tissue swelling around the left ankle. Ankle mortis e is intact bilaterally. I see no fracture. IMPRESSION: Mild left side soft tissue swelling. No fracture seen of the left and right ankle.
--- NOTE | 2019-11-19 19:15 | XR ---
EXAMINATION TYPE: XR knee complete LT DATE OF EXAM: 11/19/2019 COMPARISON: 11/08/2016 HISTORY: Pain TECHNIQUE: 3 views FINDINGS: There is left knee prosthesis. Components appear in anatomic position. There is small knee joint effusion. There is vascular calcification. IMPRESSION: Small joint effusion unchanged. No fracture seen. There is clearing of the soft tissue sw elling anterior to the patella compared to old exam.
--- NOTE | 2019-11-19 19:18 | XR ---
EXAMINATION TYPE: XR foot complete bilateral DATE OF EXAM: 11/19/2019 COMPARISON: NONE HISTORY: Pain TECHNIQUE: 3 views each foot FINDINGS: There is osteopenia. Metatarsals appear intact. I see no fracture nor dislocation. There ar e no erosions. Tarsal bones appear intact. IMPRESSION: No fracture seen of the right and left foot.
[2019-11-19] MEDS ORDERED: ACET/COD 300 MG/30 MG STARTER PACK 6 TAB BTL PO STA (20:06)
--- NOTE | 2019-11-19 21:18 | CT ---
EXAMINATION TYPE: CT brain cspine wo con DATE OF EXAM: 11/19/2019 COMPARISON: 10/05/2016 HISTORY: fall Headache. Neck pain CT DLP: 1271.8 mGycm Automated exposure control for dose reduction was used. There is cerebral cortical atrophy. There is no mass effect nor midline shift. There is no sign of in tracranial hemorrhage. The calvarium is intact. There is no evidence of cerebral edema. Cervical vertebra have normal alignment. There is degenerative disc space narrowing throughout the ce rvical spine with spurring of the endplates. Facet joints are intact. The skull base is intact. Tempo ral bones are intact. IMPRESSION: Cerebral atrophy. No acute intracranial abnormality. Mild spondylotic changes in the cervical spine. No fracture. No change compared to old exam.
--- NOTE | 2019-11-19 21:51 | CT ---
EXAMINATION TYPE: CT foot LT wo con DATE OF EXAM: 11/19/2019 COMPARISON: None HISTORY: left foot pain, bruising, and swelling following fall CT DLP: 49.4 mGycm Automated exposure control for dose reduction was used. Multiple axial sections were obtained from the distal tibia to the bottom of the foot without contras t. There is osteopenia. Metatarsals appear intact. There is some soft tissue swelling around the foot. T here is nondisplaced fracture of the cuboidal bone. There is a minimally displaced 11 mm chip fractur e of the medial aspect of the navicular. Ankle mortise is anatomic. There is no evidence of a soft ti ssue mass. I see no focal bone destruction. IMPRESSION: Soft tissue swelling. Nondisplaced cuboidal bone fracture. Mildly displaced fracture of the medial as pect of the navicular.
[2019-11-19] MEDS ORDERED: IBUPROFEN 400 MG TAB PO PRN (22:29)
[2019-11-19] MEDS ORDERED: NALOXONE 0.4 MG/ML 1 ML VIAL IV PRN (22:29)
[2019-11-19] MEDS ORDERED: LORazepam 2 MG/ML INJ IV PRN (22:29)
[2019-11-19] MEDS ORDERED: ACETAMINOPHEN TAB 325 MG TAB PO PRN (22:29)
[2019-11-19] MEDS ORDERED: ONDANSETRON 4 MG/2 ML VIAL IVP PRN (22:29)
[2019-11-19] MEDS ORDERED: METOPROLOL SUCCINATE (ER) 25 MG TAB.ER.24H PO ONE (23:00)
[2019-11-19] MEDS: HYDROmorphone 0.5 MG/0.5 ML SYRINGE IVP PRN (23:16)
[2019-11-20] MEDS: SODIUM CHLORIDE 0.9% 1,000 ML IV SCH ×2 (01:34→13:08)
[2019-11-20] MEDS: HYDROmorphone 0.5 MG/0.5 ML SYRINGE IVP PRN ×2 (03:14→07:40)
[2019-11-20 07:23] LABS: Magnesium 2.2 mg/dL (1.6-2.3); Potassium 4.5 mmol/L (3.5-5.1)
[2019-11-20] MEDS: atenoloL 25 MG TAB PO SCH (07:56)
[2019-11-20] MEDS: VERAPAMIL SR 180 MG TABLET.ER PO SCH ×2 (07:57→20:03)
--- NOTE | 2019-11-20 08:32 | P.CNOR ---
<Adriana Sellers - Last Filed: 11/20/19 08:26> History of Present Illness - HPI Consult date: 11/20/19 History of present illness: This is an 83-year-old female who is admitted after a fall. Orthopedics is consulted due to left foot fracture. Patient's past medical history is significant for atrial fibrillation and Alzheimer's. Patient is a poor historian and there is no family present in the room. Per the emergency room note, the patient had a fall getting out of a car on 11/19/2019. X-rays and CT scan done in the emergency room revealed nondisplaced cuboidal bone fracture and mildly displaced fracture of the medial aspect of the navicular of the left foot . Patient is seen and evaluated at bedside today. Patient does complain of pain in the left foot today. Patient denies pain in the left knee and elbow this morning. Patient denies any fever/chills, numbness, weakness, tingling, abdominal pain, shortness of breath or chest pain. Review of Systems See HPI. Past Medical History Past Medical History: Atrial Fibrillation, Dementia, Hearing Disorder / Deafness, Memory Impairment, Pneumonia, Respiratory Disorder Additional Past Medical History / Comment(s): Pulmonary fibrosis, pulmonary HTN, O2 at HS, moderate to severe mitral valve regurgitation, severe tricuspid regurgitation, mild aortic stenosis, DDD, spondylosis, scoliosis, bulging discs, PE in lungs 15 yrs ago, superficial DVTs, varicosities, mild dementia, CADDO porsha aterally History of Any Multi-Drug Resistant Organisms: None Reported Past Surgical History: Appendectomy, Heart Catheterization, Joint Replacement, O rthopedic Surgery, Tonsillectomy Additional Past Surgical History / Comment(s): L femur fracture with ORIF, L arm fracture with ORIF plate/screws, bilateral rotator cuff repairs, bilateral feet hammer toe corrections, epidural back injections, bilateral cataract removals with lens implants, colonoscopy Past Anesthesia/Blood Transfusion Reactions: No Reported Reaction Past Psychological History: Depression Additional Psychological History / Comment(s): Pt resides with her spouse. She uses no assistive device. She no longer drives. She receives her medication in blister packs and spouse assists her with medications too. She wears oxygen at HS. Normally, she is able to perform her own hygiene and dress herself. Smoking Status: Former smoker Past Alcohol Use History: None Reported Additional Past Alcohol Use History / Comment(s): Pt started smoking in 1949 and quit in 1974. Past Drug Use History: None Reported - Past Family History Father Family Medical History: Musculoskeletal Disorder, Neurologic Disorder Additional Family Medical History / Comment(s): Parkinson's disease. Mother Family Medical History: Cancer Additional Family Medical History / Comment(s): breast cancer Medications and Allergies Home Medications Medication Instructions Recorded Confirmed Type Atenolol 25 mg PO DAILY 03/04/15 11/19/19 History Furosemide [Lasix] 20 mg PO BID 03/04/15 11/19/19 History Sildenafil [Revatio] 20 mg PO TID 03/04/15 11/19/19 History Verapamil HCl [Verapamil ER] 180 mg PO BID 03/04/15 11/19/19 History Escitalopram [Lexapro] 5 mg PO DAILY 10/05/16 11/19/19 History Apixaban [Eliquis] 2.5 mg PO BID 02/18/18 11/19/19 History Memantine [Namenda] 10 mg PO BID 11/10/18 11/19/19 History Albuterol Sulfate [Ventolin HFA] 2 puff INHALATION RT-Q4H PRN 11/19/19 11/19/19 History Donepezil HCl [Aricept] 10 mg PO HS 11/19/19 11/19/19 History LORazepam [Ativan] 0.5 mg PO Q8H PRN 11/19/19 11/19/19 History Lisinopril [Zestril] 2.5 mg PO DAILY 11/19/19 11/19/19 History Allergies Allergy/AdvReac Type Severity Reaction Status Date / Time No Known Allergies Allergy Verified 11/19/19 16:56 Physical Examination On exam patient is lying in bed in no acute distress. Patient is alert, but confused. There is swelling of the left foot and ankle along with ecchymosis. There is a small abrasion over the left knee. Patient does attempt to actively flex the left knee, but range of motion is limited due to pain. Compartments are soft. Dorsalis pedis pulse is 2+. Capillary refill is normal at less than 2 seconds. Sensation intact. Neurovascular status and circulatory status are intact. Exam of the head, neck, right upper extremity and right lower extremity are within normal limits. There is a hematoma over the left elbow. Patient has full active and passive range of motion of the left elbow without pain. There is no tenderness to palpation. Skin is intact. Results X-rays of bilateral feet and CT of left foot reveals soft tissue swelling. Nondisplaced cuboidal bone fracture. Mildly displaced fracture of the medial aspect of the navicular. X-rays of the left knee dated 11/19/2019 shows small joint effusion unchanged. No fracture seen. There is clearing of the soft tissue swelling anterior to the patella compared to old exam. X-rays of bilateral ankle stated 11/19/2019 shows: Mild left-sided soft tissue swelling. No fracture seen of the left and right ankle. - Labs Labs: Abnormal Lab Results - Last 24 Hours (Table) 11/19/19 Range/Units 17:53 BUN 19 H (7-17) mg/dL H & H 11/19/19 Range/Units 17:53 Hgb 13.0 (11.4-16.0) gm/dL Hct 41.3 (34.0-46.0) % Result Diagrams: 11/19/19 17:53 11/20/19 06:21 Assessment and Plan (1) Atrial fibrillation with RVR Current Visit: Yes Status: Acute Code(s): I48.91 - UNSPECIFIED ATRIAL F IBRILLATION SNOMED Code(s): 168119935640456 (2) Cuboid fracture Current Visit: Yes Status: Acute Code(s): S92.213A - DISP FX OF CUBOID BONE OF UNSP FOOT, INIT FOR CLOS FX SNOMED Code(s): 410629756 (3) Fall Current Visit: Yes Status: Acute Code(s): W19.XXXA - UNSPECIFIED FALL, INITIAL ENCOUNTER SNOMED Code(s): 4742010 (4) Fracture of navicular bone of foot Current Visit: Yes Status: Acute Code(s): S92.253A - DISP FX OF NAVICULAR OF UNSP FOOT, INIT FOR CLOS FX SNOMED Code(s): 154216821 Plan: 1. Recommend nonweightbearing with premium equalizer boot to the left lower extremity. 2. Rest, ice and elevation. 3. No surgical intervention planned. Will continue to follow the patient closely. <Doyle Jorge - Last Filed: 11/20/19 20:49> Results - Labs Labs: H & H 11/19/19 Range/Units 17:53 Hgb 13.0 (11.4-16.0) gm/dL Hct 41.3 (34.0-46.0) % Result Diagrams: 11/19/19 17:53 11/20/19 06:21 Assessment and Plan Plan: Reviewed and agree with above (amendments/corrections noted below). The patient was subsequently seen and examined by me as well. S: The patient is confused but pleasantly interactive. No family is present at bedside. Discussed with RN. O: The foot is significantly edematous and ecchymotic. The tissues are somewhat tense but only mildly tender to palpation. Small blisters are beginning to form. She is able to perform limited active dorsiflexion and plantar flexion with no obvious demonstration of pain. A: Nondisplaced left cuboid fracture and minimally displaced left navicular fracture status post fall on 11/19/19. Dementia P: Continue ice, elevation and as-needed pain management. Okay to leave the boot off while in bed but it should be reapplied during transfers. We will continue to follow her while inpatient and make further recommendations as appropriate. Thank you for allowing us to participate in the care of this patient. Doyle Jorge D.O. [facility]
[2019-11-20] MEDS: MORPHINE SULFATE 4 MG/ML SYRINGE IV PRN ×2 (09:21→13:01)
[2019-11-20] MEDS: FUROSEMIDE 20 MG TAB PO SCH ×2 (13:01→20:03)
[2019-11-20] MEDS: MEMANTINE 10 MG TAB PO SCH ×2 (13:01→20:03)
[2019-11-20] MEDS: ESCITALOPRAM 5 MG TAB PO SCH (14:04)
[2019-11-20] MEDS ORDERED: LORazepam 0.5 MG TAB PO PRN (15:05)
[2019-11-20] MEDS ORDERED: ALBUTEROL HFA INHALER INHALATION PRN (15:05)
--- NOTE | 2019-11-20 15:31 | XR ---
EXAMINATION TYPE: XR chest 1V portable DATE OF EXAM: 11/20/2019 COMPARISON: 08/06/2019 HISTORY: Difficulty breathing pulmonary fibrosis. TECHNIQUE: FINDINGS: Heart is enlarged. There is no heart failure. Costophrenic angles are clear. There are ches t leads. There is thoracic dextroscoliosis. Thoracic aorta is atheromatous. IMPRESSION: Cardiomegaly. No active cardiopulmonary disease. There is clearing of mild pulmonary leigh estion compared to old exam.
[2019-11-20] MEDS: SILDENAFIL 20 MG TAB PO SCH ×2 (16:22→20:03)
--- NOTE | 2019-11-20 16:32 | HP ---
HISTORY AND PHYSICAL DATE OF SERVICE: 11/20/2019 CHIEF COMPLAINT: Syncope, fall and as well as fractured foot. HISTORY OF PRESENT ILLNESS: This 83-year-old woman with a past medical history of multiple medical problems including atrial fibrillation, history of dementia, history of memory impairment, history of pulmonary fibrosis, pulmonary hypertension, cardiac catheterization, being followed by Dr. Viola Robledo in the outpatient setting, apparently had a fall. The patient was attempting to get out of the car and the patient lost footing and inverted the left foot and the patient was having significant pain and swelling. Foot CT was also done after the x-rays showed nondisplaced cuboidal bone fracture, mildly displaced fracture of the medial aspect of the navicular also. After admission the patient had multiple other Cardiology and showed 2.5 second pause and suspected source of ventricular tachycardia. The patient was monitored closely and is being transferred to [facility] at this time. The CT scan showed only cerebral atrophy. PAST MEDICAL HISTORY: history of atrial fibrillation, dementia, hearing defect, pneumonia, respiratory. PAST SURGICAL HISTORY: Appendectomy. HOME MEDICATIONS: 1. Verapamil ER 180 mg b.i.d. 2.10 mg p.o. t.i.d. 3. Namenda 10 mg p.o. b.i.d. 4. Zestril 2.5 mg p.o. daily. 5. Ativan 0.5 mg q.8 p.r.n. 6. Lasix 20 mg p.o. b.i.d. 7. Lexapro 5 mg p.o. daily. 8. Aricept 10 mg q.h.s. 9. Atenolol 25 mg b.i.d. 10.Eliquis 2.5 mg b.i.d. 11.Albuterol two puffs q.4 p.r.n. ALLERGIES: None. FAMILY HISTORY: History of breast cancer in the family. SOCIAL HISTORY: Previous history of smoking. No history of alcohol intake. REVIEW OF SYSTEMS: Review of systems could not be taken because of change in mental status. PHYSICAL EXAMINATION: The patient is conscious, confused. Pulse 123, irregular. Blood pressure 127/83, respirations 16, temperature 98.6, pulse ox 94% on 4 L. HEENT: Conjunctivae normal. Oral mucosa moist. NECK: No jugular venous distention. No lymph node enlargement. CARDIOVASCULAR: S1, S2 irregular, tachycardiac. No S3, no S4, RESPIRATORY: Diminished breath sounds at the bases. Scattered rhonchi and crackles. ABDOMEN: Soft, nontender. No mass palpable. LEGS: No edema, no swelling. NERVOUS SYSTEM: Higher functions mentioned earlier. Moves all four limbs. No focal motor or sensory deficits. LYMPHATICS: No lymph node in neck or axilla. SKIN: No rash. JOINTS: No active deforming arthropathy. LABS: CBC within normal. BUN is 19. Coronavirus not detected. Otherwise, other x- rays and CT scan reviewed personally. ASSESSMENT: 1. Atrial fibrillation with fast ventricular rate. 2. History of syncope, possibly cardiac arrhythmia. 3. Fall and left foot fracture of the cuboidal bone and medial aspect of the navicular. 4. History of dementia. 5. Change in mental status, acute on chronic metabolic encephalopathy. 6. History of hearing defect. 7. History of pneumonia. 8. History of pulmonary fibrosis. 9. Chronic hypoxic respiratory failure. 10.Moderate to severe mitral regurgitation. 11.Severe tricuspid regurgitation. 12.Mild aortic stenosis. 13.Degenerative joint disease. 14.History of pulmonary embolism. 15.History of superficial deep venous thromboses. 16.History of appendectomy. 17.History of cardiac catheterization. 18.History of depression. 19.Gait dysfunction. 20.FULL CODE. RECOMMENDATIONS AND DISCUSSION: In this 83-year-old woman who presented with multiple complex medical issues, we will monitor the patient closely, continue the current management, continue symptomatic treatment. I would also recommend a baseline chest x-ray and monitor closely. The patient was started on symptomatic treatment and verapamil SR. Guarded prognosis. Further recommendations to follow. MMODL / IJN: [id number] / MTDD
[2019-11-20] MEDS: DONEPEZIL 10 MG TAB PO SCH (20:03)
--- NOTE | 2019-11-20 20:41 | CONS ---
CONSULTATION This is an 83-year-old lady who is admitted to hospital having had a fall with injury to the left ankle and knee with extensive ecchymoses. Cardiology is consulted because of history of atrial fibrillation. The patient has history of Alzheimer's disease. She has left foot swelling. I am not able to obtain any information from her. The patient has had runs of nonsustained VT and also has atrial fibrillation with episodes of 2.5 second pauses. At the time of my evaluation, she is in atrial fibrillation with controlled ventricular rate. Resting comfortably. PAST MEDICAL HISTORY: Significant for permanent atrial fibrillation, hypertension, Alzheimer's. CURRENT MEDICATIONS: Include Lasix 20 b.i.d., sildenafil, atrial 25 daily, verapamil, Lexapro, Eliquis, Namenda. ALLERGIES: No known drug allergies. FAMILY HISTORY: Negative for premature coronary artery disease. SOCIAL HISTORY: Negative for current smoking, EtOH abuse, or drug abuse. REVIEW OF SYSTEMS: I am not able to obtain from the patient who is sleeping. PAST SURGICAL HISTORY: Significant for appendectomy, tonsillectomy. EXAM: Rate is 122 beats per minute, blood pressure is 127/80, respiratory is 16. Chest exam reveals diminished air entry with occasional rhonchi. Heart exam reveals first and second heart sounds, irregular rhythm and a systolic murmur at the left lower sternal border. Abdomen is soft. Exam of extremities reveal ecchymosis and edema with the left ankle. Pulses are diminished but palpable. LABS: Show a hemoglobin of 13, platelet count is 205, potassium is 4.4. Creatinine is 0.7. ASSESSMENT: 1. Permanent atrial fibrillation. 2. Nonsustained VT. 3. Pauses. PLAN: Patient will resume the Ten[place]. Continue the Zestril. I will obtain a 2D echo to assess her LV function. MMODL / IJN: [id number] /
[2019-11-21] MEDS: SODIUM CHLORIDE 0.9% 1,000 ML IV SCH ×2 (00:17→16:51)
[2019-11-21 07:37] LABS: African American GFR (CKD) >90 (>60 ml/min/1.73 sqM); Anion Gap 11 mmol/L; Blood Urea Nitrogen 13 mg/dL (7-17); Calcium 8.8 mg/dL (8.4-10.2); Carbon Dioxide 20 mmol/L (22-30); Chloride 105 mmol/L (98-107); Glucose 82 mg/dL (74-99); Non-African American GFR(CKD) 88 (>60 ml/min/1.73 sqM); Potassium 4.8 mmol/L (3.5-5.1); Sodium 136 mmol/L (137-145)
--- NOTE | 2019-11-21 07:49 | ECHOF ---
Referral Reason:nsvt MEASUREMENTS -------- HEIGHT: 154.9 cm WEIGHT: 54.4 kg BP: 123/83 RVIDd: 3.8 cm (< 3.3) IVSd: 1.1 cm (0.6 - 1.1) LVIDd: 4.4 cm (3.9 - 5.3) LVPWd: 1.1 cm (0.6 - 1.1) IVSs: 1.5 cm LVIDs: 3.8 cm LVPWs: 1.5 cm LA Diam: 4.3 cm (2.7 - 3.8) LAESV Index (A-L): 76.55 ml/m Ao Diam: 3.2 cm (2.0 - 3.7) AV Cusp: 2.1 cm (1.5 - 2.6) MV EXCURSION: 22.126 mm (> 18.000) MV EF SLOPE: 188 mm/s (70 - 150) EPSS: 0.6 cm RAP: 5.00 mmHg RVSP: 48.91 mmHg FINDINGS -------- Atrial fibrillation. This was a technically good study. The left ventricular size is normal. There is borderline concentric left ventricular hypertrophy. Overall left ventricular systolic function is moderate-severely impaired with, an EF between 30 - 35 %. The right ventricle is moderate to severely enlarged. LA is severely dilated >40 ml/m2 The right atrium is mildly enlarged. Interatrial and interventricular septum intact. There is mild aortic valve sclerosis. [id number] mitral regurgitation is present. Severe tricuspid regurgitation present. There is moderate to severe pulmonary hypertension. Moderate pulmonic regurgitation. The aortic root size is normal. Normal inferior vena cava with less than 50% inspiratory collapse consistent with estimated right atr ial pressure of 15 mmHg. The inferior vena cava is mildly dilated. There is no pericardial effusion. CONCLUSIONS -------- 1. Atrial fibrillation. 2. This was a technically good study. 3. The left ventricular size is normal. 4. There is borderline concentric left ventricular hypertrophy. 5. Overall left ventricular systolic function is moderate-severely impaired with, an EF between 30 - 35 %. 6. The right ventricle is moderate to severely enlarged. 7. LA is severely dilated >40 ml/m2 8. The right atrium is mildly enlarged. 9. Interatrial and interventricular septum intact. 10. There is mild aortic valve sclerosis. 11. Njvtfuvs-hu-tydlxg mitral regurgitation is present. 12. Severe tricuspid regurgitation present. 13. There is moderate to severe pulmonary hypertension. 14. Moderate pulmonic regurgitation. 15. The aortic root size is normal. 16. Normal inferior vena cava with less than 50% inspiratory collapse consistent with estimated right atrial pressure of 15 mmHg. 17. The inferior vena cava is mildly dilated. 18. There is no pericardial effusion. SHANK BREAKER: Kalani Bear RDCS
[2019-11-21] MEDS: MEMANTINE 10 MG TAB PO SCH ×2 (08:53→20:29)
[2019-11-21] MEDS: FUROSEMIDE 20 MG TAB PO SCH ×2 (08:53→20:29)
[2019-11-21] MEDS: ESCITALOPRAM 5 MG TAB PO SCH (08:53)
[2019-11-21] MEDS: VERAPAMIL SR 180 MG TABLET.ER PO SCH (08:53)
[2019-11-21] MEDS: atenoloL 25 MG TAB PO SCH (08:53)
[2019-11-21] MEDS: SILDENAFIL 20 MG TAB PO SCH ×3 (08:53→20:29)
[2019-11-21 08:54] LABS: Basophils # (A) 0.1 k/uL (0-0.2); Basophils % (A) 1 %; Eosinophils # (A) 0.1 k/uL (0-0.7); Eosinophils % (A) 1 %; HCT 36.9 % (34.0-46.0); HGB 12.2 gm/dL (11.4-16.0); Lymphocytes % (A) 11 %; MCH 32.3 pg (25.0-35.0); MCHC 33.1 g/dL (31.0-37.0); MCV 97.5 fL (80.0-100.0); Mean Platelet Volume 9.7; Monocytes # (A) 1.1 k/uL (0-1.0); Monocytes % (A) 12 %; Neutrophils # (A) 6.8 k/uL (1.3-7.7); Neutrophils % (A) 74 %; Platelet Count 137 k/uL (150-450); RBC 3.79 m/uL (3.80-5.40); RDW 13.7 % (11.5-15.5); WBC 9.2 k/uL (3.8-10.6)
--- NOTE | 2019-11-21 08:59 | P.PN ---
Subjective Progress Note Date: 11/21/19 This is an 83-year-old female with a past medical history significant for atrial fibrillation and Alzheimer's disease. Patient is admitted to the hospital after a fall. Orthopedics is following for a left foot fracture. Patient denies any pain in the left foot today. Patient denies any fever/chills, numbness, weakness, tingling, abdominal pain, shortness of breath or chest pain. Objective - Vital Signs Vital signs: Vital Signs Temp 97 F L 11/21/19 07:38 Pulse 105 H 11/21/19 07:38 Resp 16 11/21/19 07:38 BP 135/77 11/21/19 07:38 Pulse Ox 99 11/21/19 07:38 Intake & Output 11/20/19 11/21/19 11/21/19 18:59 06:59 18:59 Intake Total 690 160 180 Output Total 1300 700 Balance -610 -540 180 Weight 61 kg Intake: Intake, IV Titration 450 160 Amount Sodium Chloride 0.9% 1, 450 160 000 ml @ 20 mls/hr IV . Q24H [facility] Rx#:[id number] Oral 240 180 Output: Urine 1200 700 Straight 750 Post Void Residual 100 Other: Voiding Method Bedpan Bedpan - Exam On exam patient is resting comfortably in bed in no acute distress. There is swelling and ecchymosis over the left foot and ankle. Skin is intact. There is a small blister over the dorsal aspect of the left great toe. Dorsalis pedis pulse is 2+. The left lower extremity is warm and well perfused. There mild tenderness to palpation over the left ankle and foot. No tenderness to palpation over the left knee. Small abrasion over the left knee. Neurovascular status and circulatory status are intact. - Labs CBC & Chem 7: 11/19/19 17:53 11/21/19 06:32 Labs: Abnormal Lab Results - Last 24 Hours (Table) 11/21/19 Range/Units 06:32 Sodium 136 L (137-145) mmol/L Carbon Dioxide 20 L (22-30) mmol/L Microbiology - Last 24 Hours (Table) 11/20/19 17:15 Urine Culture - Preliminary Urine,Catheterized Assessment and Plan (1) Atrial fibrillation with RVR Current Visit: Yes Status: Acute Code(s): I48.91 - UNSPECIFIED ATRIAL FIBRILLATION SNOMED Code(s): 633388965819721 (2) Cuboid fracture Current Visit: Yes Status: Acute Code(s): S92.213A - DISP FX OF CUBOID BONE OF UNSP FOOT, INIT FOR CLOS FX SNOMED Code(s): 559170191 (3) Fall Current Visit: Yes Status: Acute Code(s): W19.XXXA - UNSPECIFIED FALL, INITIAL ENCOUNTER SNOMED Code(s): 1871122 (4) Fracture of navicular bone of foot Current Visit: Yes Status: Acute Code(s): S92.253A - DISP FX OF NAVICULAR OF UNSP FOOT, INIT FOR CLOS FX SNOMED Code(s): 572771134 Plan: 1. Recommend nonweightbearing with premium equalizer boot to the left lower extremity. 2. Rest, ice and elevation. 3. No surgical intervention planned. Will continue to follow the patient closely.
--- NOTE | 2019-11-21 11:56 | P.PN ---
Subjective Progress Note Date: 11/21/19 This is a pleasant 83-year-old female minute to the hospital after experiencing a fall with injury to the left ankle and knee with extensive ecchymosis and swelling. She was seen in consultation yesterday by Dr. Helms because of history of atrial fibrillation. Patient is quite confused this morn ing, she continues to be in atrial fibrillation her heart rate this morning in the 60s. Blood pressure 135/70 she said no further documented nonsustained ventricular tachycardia. Echo showed an ejection fraction of 30-35% with moderate to severe MR, severe TR, and moderate to severe pulmonary hypertension. Patient was on verapamil which we will discontinue, we'll increase her dose of beta clive. White blood cell count 9.2, hemoglobin 12.2, platelet count 137. Sodium 136, potassium 4.8, BUN 13 and creatinine 0.5. Objective - Vital Signs Vital signs: Vital Signs Temp 97 F L 11/21/19 07:38 Pulse 105 H 11/21/19 07:38 Resp 16 11/21/19 07:38 BP 135/77 11/21/19 07:38 Pulse Ox 99 11/21/19 07:38 Intake & Output 11/20/19 11/21/19 11/21/19 18:59 06:59 18:59 Intake Total 690 160 180 Output Total 1300 700 300 Balance -610 -540 -120 Weight 61 kg Intake: Intake, IV Titration 450 160 Amount Sodium Chloride 0.9% 1, 450 160 000 ml @ 20 mls/hr IV . Q24H [facility] Rx#:[id number] Oral 240 180 Output: Urine 1200 700 300 Straight 750 Post Void Residual 100 Other: Voiding Method Bedpan Bedpan - Exam PHYSICAL EXAMINATION: GENERAL: 83-year-old female in no acute distress at the time of my examination HEENT: Head is atraumatic, normocephalic. Pupils equal, round. Sclera an icteric. Conjunctiva are clear. Mucous membranes of the mouth are moist. Neck is supple. There is no elevated jugular venous pressure.] No carotid bruit is heard. HEART EXAMINATION: Heart S1-S2 irregularly irregular a systolic murmur is heard CHEST EXAMINATION: Lungs are clear to auscultation and precussion. No chest wall tenderness is noted on palpation or with deep breathing. ABDOMEN: Soft, nontender. Bowel sounds are heard. No organomegaly noted. EXTREMITIES: 2+ peripheral pulses with patient does have significant swelling to her left lower extremity with a lot of ecchymosis. Significant ecchymosis and swelling to the left arm as well. . NEUROLOGIC [patient is awake, very confused - Labs CBC & Chem 7: 11/21/19 06:32 11/21/19 06:32 Labs: Abnormal Lab Results - Last 24 Hours (Table) 11/21/19 11/21/19 Range/Units 06:32 06:32 RBC 3.79 L (3.80-5.40) m/uL Plt Count 137 L (150-450) k/uL Monocytes # 1.1 H (0-1.0) k/uL Sodium 136 L (137-145) mmol/L Carbon Dioxide 20 L (22-30) mmol/L Microbiology - Last 24 Hours (Table) 11/20/19 17:15 Urine Culture - Preliminary Urine,Catheterized Assessment and Plan Plan: Assessment and plan #1 fall #2 atrial fibrillation, persistent, rate under good control #3 run of nonsustained ventricular tachycardia #4 Alzheimer's disease #5 severe pulmonary hypertension, on sildenafil Plan Echocardiogram with Doppler study was performed which revealed an ejection fraction of 30-35% with moderate to severe mitral regurgitation, severe TR and severe pulmonary hypertension. We will increase her dose of beta clive today. Discontinue verapamil. Continue lisinopril. DNP note has been reviewed, I agree with a documented findings and plan of care. Patient was seen and examined.
--- NOTE | 2019-11-21 15:48 | PN ---
PROGRESS NOTE DATE OF SERVICE: 11/21/2019 This 83-year-old woman admitted with falls had multiple cardiac arrhythmias including chronic atrial fibrillation, sinus pause and nonsustained ventricular tachycardia. The patient had ejection fraction about 35-40 percent indicating chronic systolic dysfunction. The patient has significant hematoma fracture of the left foot and multiple hematomas elsewhere as well. Otherwise, moderate to severe mitral regurgitation, severe tricuspid regurgitation, moderate pulmonary regurgitation was also noted in the 2D echocardiogram. Patient being closely monitored. Cardiology following the patient closely. Patient monitored on telemetry. Past medical history reviewed. REVIEW OF SYSTEMS: Cardiovascular system: As mentioned earlier. GI no nausea or vomiting. no dysuria. NERVOUS SYSTEM: No numbness or weakness. CURRENT MEDICATIONS: Reviewed and include: Tylenol, [place], Lexapro, Lasix, Dilaudid, Motrin, Zestril, Ativan, Namenda, Narcan and Revatio. PHYSICAL EXAM: Patient is alert, oriented x2. Pulse 57. Blood pressure 107/56, respirations 16, temperature 98 degrees, pulse ox 97% on 5 L. HEENT: Conjunctivae normal. NECK: No JVD. CARDIOVASCULAR: S1, S2 muffled. RESPIRATORY: Breath sounds diminished in the bases. A few scattered rhonchi and crackles. ABDOMEN: Soft, nontender. LEGS are no edema. No swelling. NERVOUS SYSTEM: Diffusely weak. LABS: WBC 9.2, hemoglobin 12.2, sodium 136. ASSESSMENT: 1. Atrial fibrillation with fast ventricular rate, present on admission. 2. Syncope, possibly cardiac arrhythmia. 3. Prolonged pauses with 2.5 seconds with nonsustained ventricular tachycardia. 4. History of fall and left foot fracture of the cuboidal bone and medial aspect of the navicular. 5. Severe gait dysfunction. 6. History of dementia. 7. Congestive heart failure with chronic systolic dysfunction, EF 35-40 percent. 8. Multivalvular heart disease including moderate to severe mitral regurgitation, severe tricuspid regurgitation and severe pulmonary hypertension and moderate pulmonary regurgitation. 9. History of hearing defect. 10.History of pneumonia. 11.History of pulmonary fibrosis. 12.History of chronic hypoxic respiratory failure. 13.Mild aortic stenosis. 14.Degenerative joint disease. 15.History of pulmonary embolism. 16.History of superficial deep vein thrombosis. 17.History of appendectomy. 18.History of cardiac catheterization. 19.History of depression. 20.Gait dysfunction. 21.FULL CODE. RECOMMENDATIONS AND DISCUSSION: Continue current medications, and symptomatic treatment. PT/OT evaluation, possible ECF rehab. Closely follow with multiple consultants. Initiate the anticoagulation in the next 24-48 hours. There is no excessive bleeding. Otherwise, prognosis guarded because of multiple complex medical issues. Further recommendations to follow. MMODL / IJN: [id number] / MTDD
[2019-11-21] MEDS: DONEPEZIL 10 MG TAB PO SCH (20:29)
[2019-11-22 06:49] LABS: African American GFR (CKD) >90 (>60 ml/min/1.73 sqM); Anion Gap 3 mmol/L; Blood Urea Nitrogen 16 mg/dL (7-17); Calcium 8.8 mg/dL (8.4-10.2); Carbon Dioxide 32 mmol/L (22-30); Chloride 101 mmol/L (98-107); Glucose 103 mg/dL (74-99); Non-African American GFR(CKD) 81 (>60 ml/min/1.73 sqM); Potassium 3.8 mmol/L (3.5-5.1); Sodium 136 mmol/L (137-145)
[2019-11-22 06:51] LABS: Basophils % (A) 1 %; Eosinophils # (A) 0.1 k/uL (0-0.7); Eosinophils % (A) 2 %; HCT 35.9 % (34.0-46.0); HGB 11.9 gm/dL (11.4-16.0); Lymphocytes % (A) 13 %; MCH 32.2 pg (25.0-35.0); MCHC 33.1 g/dL (31.0-37.0); MCV 97.1 fL (80.0-100.0); Mean Platelet Volume 7.6; Monocytes # (A) 0.9 k/uL (0-1.0); Monocytes % (A) 11 %; Neutrophils # (A) 6.1 k/uL (1.3-7.7); Neutrophils % (A) 73 %; Platelet Count 186 k/uL (150-450); RDW 13.6 % (11.5-15.5); WBC 8.3 k/uL (3.8-10.6)
[2019-11-22] MEDS: FUROSEMIDE 20 MG TAB PO SCH ×2 (09:14→19:43)
[2019-11-22] MEDS: SPIRONOLACTONE 25 MG TAB PO SCH (09:14)
[2019-11-22] MEDS: atenoloL 50 MG TAB PO SCH (09:14)
[2019-11-22] MEDS: SILDENAFIL 20 MG TAB PO SCH ×3 (09:15→19:43)
[2019-11-22] MEDS: ESCITALOPRAM 5 MG TAB PO SCH (09:15)
[2019-11-22] MEDS: MEMANTINE 10 MG TAB PO SCH ×2 (09:16→19:43)
--- NOTE | 2019-11-22 10:39 | P.PN ---
Subjective Progress Note Date: 11/22/19 This is a pleasant 83-year-old female minute to the hospital after experiencing a fall with injury to the left ankle and knee with extensive ecchymosis and swelling. She was seen in consultation yesterday by Dr. Helms because of history of atrial fibrillation. Patient is quite confused this morn ing, she continues to be in atrial fibrillation her heart rate this morning in the 60s. Blood pressure 135/70 she said no further documented nonsustained ventricular tachycardia. Echo showed an ejection fraction of 30-35% with moderate to severe MR, severe TR, and moderate to severe pulmonary hypertension. Patient was on verapamil which we will discontinue, we'll increase her dose of beta clive. White blood cell count 9.2, hemoglobin 12.2, platelet count 137. Sodium 136, potassium 4.8, BUN 13 and creatinine 0.5. 11/22/2019 Patient was seen and examined this morning, blood pressure 110/70, heart rate 108, 92% on 4 L of oxygen. White blood cell count 8.3, hemoglobin 11.9, platelet count 186. Sodium 136, potassium 3.8, BUN 16, creatinine 0.6. Objective - Vital Signs Vital signs: Vital Signs Temp 98.6 F 11/22/19 09:09 Pulse 119 H 11/22/19 09:09 Resp 16 11/22/19 09:09 BP 109/79 11/22/19 09:09 Pulse Ox 92 L 11/22/19 09:09 Intake & Output 11/21/19 11/22/19 11/22/19 18:59 06:59 18:59 Intake Total 420 160 Output Total 300 1100 Balance 120 -940 Weight 62.3 kg Intake: Intake, IV Titration 160 Amount Sodium Chloride 0.9% 1, 160 000 ml @ 20 mls/hr IV . Q24H [facility] Rx#:[id number] Oral 420 Output: Urine 300 1100 Straight 400 Other: Voiding Method Bedpan # Voids 2 1 - Exam PHYSICAL EXAMINATION: GENERAL: 83-year-old female in no acute distress at the time of my examination HEENT: Head is atraumatic, normocephalic. Pupils equal, round. Sclera anic teric. Conjunctiva are clear. Mucous membranes of the mouth are moist. Neck is supple. There is no elevated jugular venous pressure.] No carotid bruit is heard. HEART EXAMINATION: Heart S1-S2 irregularly irregular a systolic murmur is heard CHEST EXAMINATION: Lungs are clear to auscultation and precussion. No chest wall tenderness is noted on palpation or with deep breathing. ABDOMEN: Soft, nontender. Bowel sounds are heard. No organomegaly noted. EXTREMITIES: 2+ peripheral pulses with patient does have significant swelling to her left lower extremity with a lot of ecchymosis. Significant ecchymosis and swelling to the left arm as well. . NEUROLOGIC [patient is awake, very confused - Labs CBC & Chem 7: 11/22/19 05:34 11/22/19 05:34 Labs: Abnormal Lab Results - Last 24 Hours (Table) 11/22/19 11/22/19 Range/Units 05:34 05:34 RBC 3.70 L (3.80-5.40) m/uL Sodium 136 L (137-145) mmol/L Carbon Dioxide 32 H (22-30) mmol/L Glucose 103 H (74-99) mg/dL Microbiology - Last 24 Hours (Table) 11/20/19 17:15 Urine Culture - Final Urine,Catheterized Assessment and Plan Plan: Assessment and plan #1 fall #2 atrial fibrillation, persistent, rate under good control #3 run of nonsustained ventricular tachycardia #4 Alzheimer's disease #5 severe pulmonary hypertension, on sildenafil Plan From cardiology's perspective, we'll continue current medications and add Aldactone to her medication regime. She may be able to be discharged once cleared by primary. We'll make a follow-up appointment in the office post discharge. DNP note has been reviewed, I agree with a documented findings and plan of care. Patient was seen and examined.
[2019-11-22] MEDS ORDERED: LORazepam 2 MG/ML INJ IV PRN (11:56)
[2019-11-22] MEDS: HYDROcodone/APAP 5-325MG 1 EACH TAB PO PRN (17:42)
[2019-11-22 19:42] VITALS: RESP 18
[2019-11-22] MEDS: DONEPEZIL 10 MG TAB PO SCH (19:43)
[2019-11-22] MEDS: APIXABAN 2.5 MG TABLET PO SCH (19:43)
--- NOTE | 2019-11-22 20:41 | PN ---
PROGRESS NOTE DATE OF SERVICE: 11/22/2019 This 83-year-old woman who was admitted with cardiac arrhythmia also had significant fracture of the left foot and hematoma also. The patient is being closely monitored with telemetry. Cardiology is following the patient closely. The patient had persistent atrial fibrillation, rate controlled. No chest pain. No palpitations. No fever. PHYSICAL EXAMINATION: Alert and oriented x2. Pulse 89, blood pressure 90/55, respiration 18, temperature 98.2, pulse ox 97% on 4 L. HEENT: Conjunctivae normal. NECK: No jugular venous distention. CARDIOVASCULAR SYSTEM: S1, S2 muffled. RESPIRATORY SYSTEM: Breath sounds diminished at the bases. ABDOMEN: Soft, non-tender. NERVOUS SYSTEM: No focal deficit. LEGS: Left foot fracture. LABS: WBC 8.3, hemoglobin 11.9, sodium 136. ASSESSMENT: 1. Atrial fibrillation with fast ventricular rate, present on admission. 2. Syncope; possibly cardiac arrhythmia. 3. Prolonged pauses of 2.5 seconds with non-sustained ventricular tachycardia. 4. History of fall and left foot fracture of the cuboid bone as well as medial navicular. 5. Severe gait dysfunction. 6. History of dementia. 7. Congestive heart failure with chronic systolic dysfunction, ejection fraction 35% to 40%. 8. Multivalvular disease, including moderate to severe mitral regurgitation, severe tricuspid regurgitation, severe pulmonary hypertension and moderate pulmonary regurgitation. 9. History of hearing defect. 10.Pneumonia. 11.History of pulmonary fibrosis. 12.History of chronic hypoxic respiratory failure. 13.Mild aortic stenosis. 14.Degenerative joint disease. 15.History of pulmonary embolism. 16.Superficial deep venous thrombosis. 17.History of appendectomy. 18.History of cardiac catheterization. 19.History of depression. 20.Gait dysfunction. 21.FULL CODE. RECOMMENDATIONS AND DISCUSSION: In this 83-year-old woman who presented with multiple complex medical issues, at this time I recommend to continue the current medications, continue with symptomatic treatment. Otherwise at this time I recommend initiating Eliquis. Continue to monitor. Repeat labs will be ordered for tomorrow. Otherwise, PT/OT evaluation, possible ECF rehab. Closely follow with Cardiology. Guarded prognosis. Further recommendations to follow. MMODL / IJN: [id number] /
[2019-11-22] MEDS ORDERED: risperiDONE 0.25 MG TAB PO SCH (21:00)
[2019-11-23] MEDS: SODIUM CHLORIDE 0.9% 1,000 ML IV SCH (02:10)
[2019-11-23] MEDS: HYDROcodone/APAP 5-325MG 1 EACH TAB PO PRN (06:58)
[2019-11-23] MEDS: SILDENAFIL 20 MG TAB PO SCH (08:48)
[2019-11-23] MEDS: ESCITALOPRAM 5 MG TAB PO SCH (08:48)
[2019-11-23] MEDS: MEMANTINE 10 MG TAB PO SCH (08:48)
[2019-11-23] MEDS: APIXABAN 2.5 MG TABLET PO SCH (08:48)
[2019-11-23] MEDS: SPIRONOLACTONE 25 MG TAB PO SCH (08:48)
[2019-11-23] MEDS: atenoloL 50 MG TAB PO SCH (08:48)
[2019-11-23] MEDS: FUROSEMIDE 20 MG TAB PO SCH (08:48)
[2019-11-23 09:05] LABS: Basophils # (A) 0.1 k/uL (0-0.2); Basophils % (A) 1 %; Eosinophils # (A) 0.1 k/uL (0-0.7); Eosinophils % (A) 2 %; HCT 37.7 % (34.0-46.0); HGB 11.8 gm/dL (11.4-16.0); Lymphocytes % (A) 13 %; MCHC 31.4 g/dL (31.0-37.0); MCV 95.6 fL (80.0-100.0); Mean Platelet Volume 8.2; Monocytes # (A) 0.7 k/uL (0-1.0); Monocytes % (A) 9 %; Neutrophils # (A) 5.4 k/uL (1.3-7.7); Neutrophils % (A) 73 %; Platelet Count 199 k/uL (150-450); RBC 3.94 m/uL (3.80-5.40); RDW 13.5 % (11.5-15.5); WBC 7.4 k/uL (3.8-10.6)
[2019-11-23 09:14] LABS: African American GFR (CKD) >90 (>60 ml/min/1.73 sqM); Anion Gap 4 mmol/L; Blood Urea Nitrogen 13 mg/dL (7-17); Calcium 8.5 mg/dL (8.4-10.2); Carbon Dioxide 29 mmol/L (22-30); Chloride 104 mmol/L (98-107); Glucose 98 mg/dL (74-99); Non-African American GFR(CKD) 90 (>60 ml/min/1.73 sqM); Potassium 3.6 mmol/L (3.5-5.1); Sodium 137 mmol/L (137-145)
--- NOTE | 2019-11-23 10:26 | P.PN ---
Subjective Progress Note Date: 11/23/19 This is a pleasant 83-year-old female minute to the hospital after experiencing a fall with injury to the left ankle and knee with extensive ecchymosis and swelling. She was seen in consultation yesterday by Dr. Helms because of history of atrial fibrillation. Patient is quite confused this morn ing, she continues to be in atrial fibrillation her heart rate this morning in the 60s. Blood pressure 135/70 she said no further documented nonsustained ventricular tachycardia. Echo showed an ejection fraction of 30-35% with moderate to severe MR, severe TR, and moderate to severe pulmonary hypertension. Patient was on verapamil which we will discontinue, we'll increase her dose of beta clive. White blood cell count 9.2, hemoglobin 12.2, platelet count 137. Sodium 136, potassium 4.8, BUN 13 and creatinine 0.5. 11/22/2019 Patient was seen and examined this morning, blood pressure 110/70, heart rate 108, 92% on 4 L of oxygen. White blood cell count 8.3, hemoglobin 11.9, platelet count 186. Sodium 136, potassium 3.8, BUN 16, creatinine 0.6. 11/23 2019 Patient seen and examined this morning, blood pressure 107/70, 98/60, heart rate in the 90s, 97% on 4 L of oxygen. White blood cell count 7.4, hemoglobin 11.8, platelet count 199. Sodium 137, potassium 3.6, BUN 13, creatinine 0.4. Objective - Vital Signs Vital signs: Vital Signs Temp 98.2 F 11/22/19 19:39 Pulse 98 11/23/19 04:00 Resp 18 11/23/19 04:00 BP 98/62 11/23/19 04:00 Pulse Ox 97 11/23/19 04:00 Intake & Output 11/22/19 11/23/19 11/23/19 18:59 06:59 18:59 Intake Total 100 180 Output Total 1300 Balance -1200 180 Intake: Oral 100 180 Output: Urine 1300 Other: Voiding Method Bedpan Bedpan # Voids 2 1 1 - Exam PHYSICAL EXAMINATION: GENERAL: 83-year-old female in no acute distress at the time of my examination HEENT: Head is atraumatic, normocephalic. Pupils equal, round. Sclera anicteric. Conjunctiva are clear. Mucous membranes of the mouth are moist. Neck is supple. There is no elevated jugular venous pressure.] No carotid bruit is heard. HEART EXAMINATION: Heart S1-S2 irregularly irregular a systolic murmur is heard CHEST EXAMINATION: Lungs are clear to auscultation and precussion. No chest wall tenderness is noted on palpation or with deep breathing. ABDOMEN: Soft, nontender. Bowel sounds are heard. No organomegaly noted. EXTREMITIES: 2+ peripheral pulses with patient does have significant swelling to her left lower extremity with a lot of ecchymosis. Significant ecchymosis and swelling to the left arm as well. . NEUROLOGIC [patient is awake, very confused - Labs CBC & Chem 7: 11/23/19 07:54 11/23/19 07:54 Labs: Abnormal Lab Results - Last 24 Hours (Table) 11/23/19 Range/Units 07:54 Creatinine 0.48 L (0.52-1.04) mg/dL Assessment and Plan Plan: Assessment and plan #1 fall #2 atrial fibrillation, persistent, rate under good control #3 run of nonsustained ventricular tachycardia #4 Alzheimer's disease #5 severe pulmonary hypertension, on sildenafil Plan From cardiology's perspective, we'll continue current medications . She may be able to be discharged once cleared by primary. We'll make a follow-up appointment in the office post discharge. DNP note has been reviewed, I agree with a documented findings and plan of care. Patient was seen and examined.
[2019-11-23 10:55] VITALS: BP 104/63; PULSE 90; TEMP 97.9
--- NOTE | 2019-11-23 10:58 | P.PN ---
Subjective Progress Note Date: 11/23/19 Principal diagnosis: Left foot fracture Patient is 83 yo female seen at bedside today. We are following her for left foot fracture. She has been placed in an equalizer boot and worked with PT. She has no new complaints today. She denies foot pain currently. She denies numbness, tingling, calf pain, chest pain or shortness of breath. Objective - Vital Signs Vital signs: Vital Signs Temp 98.2 F 11/22/19 19:39 Pulse 98 11/23/19 04:00 Resp 18 11/23/19 04:00 BP 98/62 11/23/19 04:00 Pulse Ox 97 11/23/19 04:00 Intake & Output 11/22/19 11/23/19 11/23/19 18:59 06:59 18:59 Intake Total 100 180 Output Total 1300 Balance -1200 180 Intake: Oral 100 180 Output: Urine 1300 Other: Voiding Method Bedpan Bedpan # Voids 2 1 1 - Exam On exam patient is resting comfortably in bed in no acute distress. There is swelling and ecchymosis over the left foot and ankle. Skin is intact. There is a small blister over the dorsal aspect of the left great toe. Dorsalis pedis pulse is 2+. The left lower extremity is warm and well perfused. There mild tenderness to palpation over the left ankle and foot. No tenderness to palpation over the left knee. Small abrasion over the left knee. Neurovascular status and circul atory status are intact. Calf is SNT - Constitutional General appearance: Present: no acute distress - Labs CBC & Chem 7: 11/23/19 07:54 11/23/19 07:54 Labs: Abnormal Lab Results - Last 24 Hours (Table) 11/23/19 Range/Units 07:54 Creatinine 0.48 L (0.52-1.04) mg/dL Assessment and Plan (1) Cuboid fracture Narrative/Plan: No plans for surgical intervention. Continue rest, elevation, ice and boot. She can be discharged from orthopedic standpoint and may follow up as an outpatient in one week with Dr. Jorge. Current Visit: Yes Status: Acute Priority: Medium Code(s): S92.213A - DISP FX OF CUBOID BONE OF UNSP FOOT, INIT FOR CLOS FX SNOMED Code(s): 238170506 Time with Patient: Less than 30
--- NOTE | 2019-11-23 14:02 | P.DS ---
Providers Date of admission: 11/21/19 14:23 Attending physician: Noble Reece Consults: 11/19/19 22:29 Consult Physician Stat Consulting Provider: Doyle Jorge Consult Reason/Comments: Navicular and cuboid bone fracture Do you want consulting provider notified?: Yes 11/20/19 06:07 Consult Physician Routine Consulting Provider: Tru Kraus Consult Reason/Comments: Run of 8 VT, afib Do you want consulting provider notified?: Yes, Notify in am Primary care physician: [facility] Course: 83-year-old pleasant female admitted for the cuboid fracture no surgical intervention is being planned and patient is being discharged to [facility] with follow-up with orthopedic surgery as an outpatient in the patient is requiring physical therapy at this time patient was also treated with for atrial fibrillation with rapid ventricular rate presently rate controlled. Patient also has severe pulmonary hypertension. PHYSICAL EXAMINATION: GENERAL: The patient is alert and oriented x3, not in any acute distress. Well developed, well nourished. HEENT: Pupils are round and equally reacting to light. EOMI. No scleral icterus. No conjunctival pallor. Normocephalic, atraumatic. No pharyngeal erythema. No thyromegaly. CARDIOVASCULAR: S1 and S2 present. No murmurs, rubs, or gallops. PULMONARY: Chest is clear to auscultation, no wheezing or crackles. ABDOMEN: Soft, nontender, nondistended, normoactive bowel sounds. No palpable organomegaly. MUSCULOSKELETAL: No joint swelling or deformity. EXTREMITIES: No cyanosis, clubbing, or pedal edema. NEUROLOGICAL: Gross neurological examination did not reveal any focal deficits. SKIN: No rashes. Assessment and plan -Cuboid fracture -Persistent A. fib presently rate controlled -Alzheimer's disease -Severe pulmonary hypertension -generalized weakness from deconditioning -Severe mitral regurgitation tricuspid liver regurgitation -The start failure chronic systolic dysfunction without any acute exacerbation if of around 30-35% Patient Condition at Discharge: Fair Plan - Discharge Summary Discharge Rx Participant: No New Discharge Prescriptions: New Spironolactone [Aldactone] 25 mg PO DAILY tab risperiDONE [RisperDAL] 0.125 mg PO HS PRN #20 tab PRN Reason: Agitation Acetaminophen Tab [Tylenol] 650 mg PO Q6HR PRN tab PRN Reason: Mild Pain Or Fever > 100.5 Metoprolol Succinate [Toprol XL] 100 mg PO DAILY #10 tab Continue Furosemide [Lasix] 20 mg PO BID Sildenafil [Revatio] 20 mg PO TID Verapamil HCl [Verapamil ER] 180 mg PO BID Escitalopram [Lexapro] 5 mg PO DAILY Apixaban [Eliquis] 2.5 mg PO BID Memantine [Namenda] 10 mg PO BID Albuterol Sulfate [Ventolin HFA] 2 puff INHALATION RT-Q4H PRN PRN Reason: Shortness Of Breath Donepezil HCl [Aricept] 10 mg PO HS Lisinopril [Zestril] 2.5 mg PO DAILY Discontinued Atenolol 25 mg PO DAILY LORazepam [Ativan] 0.5 mg PO Q8H PRN PRN Reason: Anxiety Discharge Medication List Furosemide [Lasix] 20 mg PO BID 03/04/15 [History] Sildenafil [Revatio] 20 mg PO TID 03/04/15 [History] Verapamil HCl [Verapamil ER] 180 mg PO BID 03/04/15 [History] Escitalopram [Lexapro] 5 mg PO DAILY 10/05/16 [History] Apixaban [Eliquis] 2.5 mg PO BID 02/18/18 [History] Memantine [Namenda] 10 mg PO BID 11/10/18 [History] Albuterol Sulfate [Ventolin HFA] 2 puff INHALATION RT-Q4H PRN 11/19/19 [History] Donepezil HCl [Aricept] 10 mg PO HS 11/19/19 [History] Lisinopril [Zestril] 2.5 mg PO DAILY 11/19/19 [History] Acetaminophen Tab [Tylenol] 650 mg PO Q6HR PRN tab 11/23/19 [Rx] Metoprolol Succinate [Toprol XL] 100 mg PO DAILY #10 tab 11/23/19 [Rx] Spironolactone [Aldactone] 25 mg PO DAILY tab 11/23/19 [Rx] risperiDONE [RisperDAL] 0.125 mg PO HS PRN #20 tab 11/23/19 [Rx] Follow up Appointment(s)/Referral(s): Neymar Piper MD [STAFF PHYSICIAN] - 1-2 Days Viola Robledo MD [Primary Care Provider] - 1-2 days [facility], [NON-STAFF] - Doyle Jorge DO [Medical Doctor] - 1 Week [facility] [NON-STAFF] - (Please contact for questions regarding equalizer boot. ) Patient Instructions/Handouts: Fall Prevention (ED) Activity/Diet/Wound Care/Special Instructions: Patient will be admitted Elevation left foot Ice to left foot 15 mins, 3 times per day boot to left foot when ambulating, Non weightbearing F/U with Dr. Jorge in office Discharge Disposition: TRANSFER TO SNF/ECF
== END 2019-11-23 15:35 | DRG 562 ==
LOC: EC 16:30 → 4SSUR 22:20 → 3SCARD 11-20 13:20 → OBSVTOIN 11-21 14:23
PROVIDERS: ADMIT Hospitalist; ATTEND Hospitalist
DX: S92.212A Displaced fracture of cuboid bone of left foot, initial encounter for closed fracture (principal); G93.41 Metabolic encephalopathy; I48.21 Permanent atrial fibrillation; J96.11 Chronic respiratory failure with hypoxia; I50.22 Chronic systolic (congestive) heart failure; I47.2 Ventricular tachycardia; G30.9 Alzheimer's disease, unspecified; I27.20 Pulmonary hypertension, unspecified; M19.90 Unspecified osteoarthritis, unspecified site; H91.90 Unspecified hearing loss, unspecified ear; J84.10 Pulmonary fibrosis, unspecified; F02.80 Dementia in other diseases classified elsewhere, unspecified severity, without behavioral disturbance, psychotic disturbance, mood disturbance, and anxiety; M41.9 Scoliosis, unspecified; Z96.1 Presence of intraocular lens; F32.9 Major depressive disorder, single episode, unspecified; R26.9 Unspecified abnormalities of gait and mobility; S92.252A Displaced fracture of navicular [scaphoid] of left foot, initial encounter for closed fracture; I37.1 Nonrheumatic pulmonary valve insufficiency; I11.0 Hypertensive heart disease with heart failure; W19.XXXA Unspecified fall, initial encounter; I08.1 Rheumatic disorders of both mitral and tricuspid valves; Z11.59 Encounter for screening for other viral diseases; Z79.899 Other long term (current) drug therapy; Z79.01 Long term (current) use of anticoagulants; Z86.711 Personal history of pulmonary embolism; Z87.891 Personal history of nicotine dependence; Z87.01 Personal history of pneumonia (recurrent); Z90.49 Acquired absence of other specified parts of digestive tract; Z90.89 Acquired absence of other organs; Z98.890 Other specified postprocedural states; Z98.42 Cataract extraction status, left eye; Z98.41 Cataract extraction status, right eye; Z82.0 Family history of epilepsy and other diseases of the nervous system; Z80.3 Family history of malignant neoplasm of breast; X50.1XXA Overexertion from prolonged static or awkward postures, initial encounter
CPT/HCPCS: 36415; 70450; 71045; 72125; 80048; 80053; 83735; 84132; 85025; 87086; 93005; 93306; 96374; 96375; 96376; 99285

== ENCOUNTER 2021-12-28 17:14 | Inpatient (IN) | payer MEDICARE ==
[2021-12-28] MEDS ORDERED: SODIUM CHLORIDE 0.9% 1,000 ML IV STA ×2 (17:23→19:21)
[2021-12-28 17:49] LABS: Basophils % (A) 0 %; Eosinophils # (A) 0.1 k/uL (0-0.7); Eosinophils % (A) 1 %; HCT 42.2 % (34.0-46.0); Hypochromasia Slight; Lymphocytes # (A) 0.5 k/uL (1.0-4.8); Lymphocytes % (A) 4 %; MCH 29.9 pg (25.0-35.0); MCHC 30.9 g/dL (31.0-37.0); MCV 96.7 fL (80.0-100.0); Mean Platelet Volume 7.5; Monocytes # (A) 0.6 k/uL (0-1.0); Monocytes % (A) 5 %; Neutrophils # (A) 12.3 k/uL (1.3-7.7); Neutrophils % (A) 90 %; Platelet Count 222 k/uL (150-450); RBC 4.36 m/uL (3.80-5.40); RDW 13.2 % (11.5-15.5); WBC 13.7 k/uL (3.8-10.6)
[2021-12-28 17:57] LABS: Ionized Calcium 4.7 mg/dL (4.5-5.3)
--- NOTE | 2021-12-28 17:58 | XR ---
EXAMINATION TYPE: XR chest 1V portable DATE OF EXAM: 12/28/2021 COMPARISON: 11/20/2019 HISTORY: Pain TECHNIQUE: Single view FINDINGS: Heart is enlarged. There is mild pulmonary congestion. There is slight blunting left costop hrenic angle. Thoracic aorta is atheromatous. IMPRESSION: Cardiomegaly. Mild thoracic dextroscoliosis. No heart failure seen. No significant change . Pleural scarring lateral left lung base.
--- NOTE | 2021-12-28 17:59 | ED ---
General Adult HPI - General Chief complaint: Weakness Stated complaint: WEAKNESS Time Seen by Provider: 12/28/21 17:19 Source: EMS Mode of arrival: EMS Limitations: no limitations - History of Present Illness Initial comments: Dictation was produced using [employer] dictation software. please excuse any grammatical, word or spelling errors. Chief Complaint: 85-year-old female presents to the emergency department for weakness History of Present Illness: To 85-year-old female she presents to the emergency department with son and . 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 Lives out of town. The last time he saw the patient was 2 months ago. States that he came down to visit is that patient was significantly weak. at the bedside is a poor historian however reports that patient has been showing signs of weakness for the last 3-4 days. Patient has history of dementia. Patient is a complaining of back pain. She has history of chronic back pain. The ROS documented in this emergency department record has been reviewed and confirmed by me. Those systems with pertinent positive or negative responses have been documented in the HPI. All other systems are other negative and/or noncontributory. PHYSICAL EXAM: General Impression: Alert and oriented, mildly lethargic HEENT: Normocephalic atraumatic, extra-ocular movements intact, pupils equal and reactive to light bilaterally, dry mucous membranes Cardiovascular: Heart regular rate and rhythm Chest: Lungs clear to auscultation bilaterally, no retractions, no tachypnea Abdomen: abdomen soft, non-tender, non-distended, no organomegaly Musculoskeletal: Pulses present and equal in all extremities, no peripheral edema Motor: no focal deficits noted Neurological: CN II-XII grossly intact, no focal motor or sensory deficits noted Skin: Intact with no visualized rashes Psych: Normal affect and mood ED course: 85-year-old female presents emergency department for acute weakness. Vital signs upon arrival shows blood pressure of 72/43, O2 saturation 90% on room air. Normal heart rate. Patient was given 2 L normal saline bolus with no improvement of blood pressure. Central venous catheter was placed with ultrasound guidance to the right groin. Patient started on Levophed. Laboratory evaluation obtained. CBC shows mild leukocytosis at 13.7. Coag panel is normal. Metabolic panel shows lactic acidosis 3.7. 4 panel are PCR is negative. Pending urine studies. Chest x-ray is unremarkable. There is cardiomegaly. Computed tomography scan of brain is unremarkable. Computed tomography scan of the chest and pelvis was obtained showing severe cardiomegaly, pulmonary hypertension, left ventral hernia. No acute processes noted. The patient be admitted to ICU with consultation to infectious disease. Case discussed with Dr. Kyle Santizo is willing to accept patient's care to the ICU. Patient started on broad spectrum antibiotics. Infectious disease be consulted. Patient admitted to [facility] hospitalist group. EKG interpretation: Ventricular rate 72, A. fib, QS 101, QTc 447. No NC prolonga tion, no QTC prolongation, no ST or T-wave changes noted. - Related Data Home Medications Medication Instructions Recorded Confirmed Furosemide [Lasix] 20 mg PO BID 03/04/15 11/19/19 Sildenafil [Revatio] 20 mg PO TID 03/04/15 11/19/19 Verapamil HCl [Verapamil ER] 180 mg PO BID 03/04/15 11/19/19 Escitalopram [Lexapro] 5 mg PO DAILY 10/05/16 11/19/19 Apixaban [Eliquis] 2.5 mg PO BID 02/18/18 11/19/19 Memantine [Namenda] 10 mg PO BID 11/10/18 11/19/19 Albuterol Sulfate [Ventolin HFA] 2 puff INHALATION RT-Q4H PRN 11/19/19 11/19/19 Donepezil HCl [Aricept] 10 mg PO HS 11/19/19 11/19/19 lisinopriL [Zestril] 2.5 mg PO DAILY 11/19/19 11/19/19 Previous Rx's Medication Instructions Recorded Acetaminophen Tab [Tylenol] 650 mg PO Q6HR PRN tab 11/23/19 Metoprolol Succinate [Toprol XL] 100 mg PO DAILY #10 tab 11/23/19 Spironolactone [Aldactone] 25 mg PO DAILY tab 11/23/19 risperiDONE [RisperDAL] 0.125 mg PO HS PRN #20 tab 11/23/19 Allergies Allergy/AdvReac Type Severity Reaction Status Date / Time No Known Allergies Allergy Verified 12/28/21 17:37 Review of Systems ROS Statement: Those systems with pertinent positive or pertinent negative responses have been documented in the HPI. ROS Other: All systems not noted in ROS Statement are negative. Past Medical History Past Medical History: Atrial Fibrillation, Dementia, Hearing Disorder / De afness, Memory Impairment, Pneumonia, Respiratory Disorder Additional Past Medical History / Comment(s): Pulmonary fibrosis, pulmonary HTN, O2 at HS, moderate to severe mitral valve regurgitation, severe tricuspid regurgitation, mild aortic stenosis, DDD, spondylosis, scoliosis, bulging discs, PE in lungs 15 yrs ago, superficial DVTs, varicosities, mild dementia, [place] bilat erally History of Any Multi-Drug Resistant Organisms: None Reported Past Surgical History: Appendectomy, Heart Catheterization, Joint Replacement, Orthopedic Surgery, Tonsillectomy Additional Past Surgical History / Comment(s): L femur fracture with ORIF, L arm fracture with ORIF plate/screws, bilateral rotator cuff repairs, bilateral feet hammer toe corrections, epidural back injections, bilateral cataract removals with lens implants, colonoscopy Past Anesthesia/Blood Transfusion Reactions: No Reported Reaction Past Psychological History: Depression Smoking Status: Former smoker Past Alcohol Use History: Occasional Past Drug Use History: None Reported - Past Family History Father Family Medical History: Musculoskeletal Disorder, Neurologic Disorder Additional Family Medical History / Comment(s): Parkinson's disease. Mother Family Medical History: Cancer Additional Family Medical History / Comment(s): breast cancer General Exam Limitations: no limitations Course Vital Signs 12/28/21 12/28/21 12/28/21 17:28 18:44 19:07 Pulse Rate 74 69 73 Respiratory 16 16 16 Rate Blood Pressure 72/43 72/54 71/54 O2 Sat by Pulse 90 L 94 L 97 Oximetry Procedures - Central Line Placement Right Femoral Consent Obtained: verbal consent, written consent Patient Placed on Monitor/Pulse Ox: Yes MD Prep: mask Local Anesthesia Used: Lidocaine 2% Ultrasound Used for Placement: Yes Central Line Lumen Inserted: triple Bloods Obtained for Lab: No Central Line Position: good blood return, all ports aspirated, flushed, capped, sutured in place with 3-0 nylon Dressing Applied: Tegaderm Post Procedure X-Ray: tip of catheter in good position Patient Tolerated Procedure: well Complications: none Medical Decision Making - Lab Data Result diagrams: 12/28/21 17:25 12/28/21 17:25 Lab Results 12/28/21 12/28/21 12/28/21 Range/Units 17:25 17:25 17:25 WBC 13.7 H (3.8-10.6) k/uL RBC 4.36 (3.80-5.40) m/uL Hgb 13.0 (11.4-16.0) gm/dL Hct 42.2 (34.0-46.0) % MCV 96.7 (80.0-100.0) fL MCH 29.9 (25.0-35.0) pg MCHC 30.9 L (31.0-37.0) g/dL RDW 13.2 (11.5-15.5) % Plt Count 222 (150-450) k/uL MPV 7.5 Neutrophils % 90 % Lymphocytes % 4 % Monocytes % 5 % Eosinophils % 1 % Basophils % 0 % Neutrophils # 12.3 H (1.3-7.7) k/uL Lymphocytes # 0.5 L (1.0-4.8) k/uL Monocytes # 0.6 (0-1.0) k/uL Eosinophils # 0.1 (0-0.7) k/uL Basophils # 0.0 (0-0.2) k/uL Hypochromasia Slight PT (9.0-12.0) sec INR (<1.2) APTT (22.0-30.0) sec Sodium 139 (137-145) mmol/L Potassium 3.9 (3.5-5.1) mmol/L Chloride 105 (98-107) mmol/L Carbon Dioxide 25 (22-30) mmol/L Anion Gap 9 mmol/L BUN 21 H (7-17) mg/dL Creatinine 1.00 (0.52-1.04) mg/dL Est GFR (CKD-EPI)AfAm 59 (>60 ml/min/1.73 sqM) Est GFR (CKD-EPI)NonAf 51 (>60 ml/min/1.73 sqM) Glucose 211 H (74-99) mg/dL Lactic Ac Sepsis Rflx Plasma Lactic Acid Alvin 3.7 H* (0.7-2.0) mmol/L Calcium 9.0 (8.4-10.2) mg/dL Ionized Calcium Anjana 4.7 (4.5-5.3) mg/dL Magnesium 2.0 (1.6-2.3) mg/dL Total Bilirubin 0.6 (0.2-1.3) mg/dL AST 23 (14-36) U/L ALT 16 (4-34) U/L Alkaline Phosphatase 62 (38-126) U/L Creatine Kinase 87 (30-135) U/L Troponin I (0.000-0.034) ng/mL Total Protein 6.2 L (6.3-8.2) g/dL Albumin 3.9 (3.5-5.0) g/dL Influenza Type A (PCR) (Not Detectd) Influenza Type B (PCR) (Not Detectd) RSV (PCR) (Not Detectd) SARS-CoV-2 (PCR) (Not Detectd) 12/28/21 12/28/21 12/28/21 Range/Units 17:25 17:25 18:23 WBC (3.8-10.6) k/uL RBC (3.80-5.40) m/uL Hgb (11.4-16.0) gm/dL Hct (34.0-46.0) % MCV (80.0-100.0) fL MCH (25.0-35.0) pg MCHC (31.0-37.0) g/dL RDW (11.5-15.5) % Plt Count (150-450) k/uL MPV Neutrophils % % Lymphocytes % % Monocytes % % Eosinophils % % Basophils % % Neutrophils # (1.3-7.7) k/uL Lymphocytes # (1.0-4.8) k/uL Monocytes # (0-1.0) k/uL Eosinophils # (0-0.7) k/uL Basophils # (0-0.2) k/uL Hypochromasia PT 12.5 H (9.0-12.0) sec INR 1.2 H (<1.2) APTT 22.9 (22.0-30.0) sec Sodium (137-145) mmol/L Potassium (3.5-5.1) mmol/L Chloride (98-107) mmol/L Carbon Dioxide (22-30) mmol/L Anion Gap mmol/L BUN (7-17) mg/dL Creatinine (0.52-1.04) mg/dL Est GFR (CKD-EPI)AfAm (>60 ml/min/1.73 sqM) Est GFR (CKD-EPI)NonAf (>60 ml/min/1.73 sqM) Glucose (74-99) mg/dL Lactic Ac Sepsis Rflx Y Plasma Lactic Acid Alvin (0.7-2.0) mmol/L Calcium (8.4-10.2) mg/dL Ionized Calcium Anjana (4.5-5.3) mg/dL Magnesium (1.6-2.3) mg/dL Total Bilirubin (0.2-1.3) mg/dL AST (14-36) U/L ALT (4-34) U/L Alkaline Phosphatase (38-126) U/L Creatine Kinase (30-135) U/L Troponin I 0.025 (0.000-0.034) ng/mL Total Protein (6.3-8.2) g/dL Albumin (3.5-5.0) g/dL Influenza Type A (PCR) (Not Detectd) Influenza Type B (PCR) (Not Detectd) RSV (PCR) (Not Detectd) SARS-CoV-2 (PCR) (Not Detectd) 12/28/21 Range/Units Unknown WBC (3.8-10.6) k/uL RBC (3.80-5.40) m/uL Hgb (11.4-16.0) gm/dL Hct (34.0-46.0) % MCV (80.0-100.0) fL MCH (25.0-35.0) pg MCHC (31.0-37.0) g/dL RDW (11.5-15.5) % Plt Count (150-450) k/uL MPV Neutrophils % % Lymphocytes % % Monocytes % % Eosinophils % % Basophils % % Neutrophils # (1.3-7.7) k/uL Lymphocytes # (1.0-4.8) k/uL Monocytes # (0-1.0) k/uL Eosinophils # (0-0.7) k/uL Basophils # (0-0.2) k/uL Hypochromasia PT (9.0-12.0) sec INR (<1.2) APTT (22.0-30.0) sec Sodium (137-145) mmol/L Potassium (3.5-5.1) mmol/L Chloride (98-107) mmol/L Carbon Dioxide (22-30) mmol/L Anion Gap mmol/L BUN (7-17) mg/dL Creatinine (0.52-1.04) mg/dL Est GFR (CKD-EPI)AfAm (>60 ml/min/1.73 sqM) Est GFR (CKD-EPI)NonAf (>60 ml/min/1.73 sqM) Glucose (74-99) mg/dL Lactic Ac Sepsis Rflx Plasma Lactic Acid Alvin (0.7-2.0) mmol/L Calcium (8.4-10.2) mg/dL Ionized Calcium Anjana (4.5-5.3) mg/dL Magnesium (1.6-2.3) mg/dL Total Bilirubin (0.2-1.3) mg/dL AST (14-36) U/L ALT (4-34) U/L Alkaline Phosphatase (38-126) U/L Creatine Kinase (30-135) U/L Troponin I (0.000-0.034) ng/mL Total Protein (6.3-8.2) g/dL Albumin (3.5-5.0) g/dL Influenza Type A (PCR) Not Detected (Not Detectd) Influenza Type B (PCR) Not Detected (Not Detectd) RSV (PCR) Not Detected (Not Detectd) SARS-CoV-2 (PCR) Not Detected (Not Detectd) Critical Care Time Critical Care Time: Yes Total Critical Care Time: 33 Disposition Clinical Impression: Hypotension Disposition: ADMITTED IP TO THIS [facility] Condition: Critical Is patient prescribed a controlled substance at d/c from ED?: No Referrals: Viola Robledo MD [Primary Care Provider] - 1-2 days Decision Time: 21:12
[2021-12-28 18:03] LABS: INR 1.2 (<1.2); Partial Thromboplastin Time 22.9 sec (22.0-30.0); Prothrombin Time 12.5 sec (9.0-12.0)
[2021-12-28 18:06] LABS: Albumin 3.9 g/dL (3.5-5.0); Potassium 3.9 mmol/L (3.5-5.1); Total Bilirubin 0.6 mg/dL (0.2-1.3); Total Protein 6.2 g/dL (6.3-8.2)
--- NOTE | 2021-12-28 18:56 | CT ---
EXAMINATION TYPE: CT brain wo con DATE OF EXAM: 12/28/2021 COMPARISON: 11/19/2019 HISTORY: Weakness Hx dementia CT DLP: 1115.4 mGycm Automated exposure control for dose reduction was used. Images of the brain obtained with no contrast. There is cerebral cortical atrophy. There is no mass effect or midline shift. No sign of intracranial hemorrhage. Calvarium is intact. There is normal aeration of the mastoid sinuses. IMPRESSION: Cerebral atrophy. No acute intracranial abnormality. No change.
--- NOTE | 2021-12-28 19:27 | CT ---
EXAMINATION TYPE: CT ChestAbdPelvis w con DATE OF EXAM: 12/28/2021 COMPARISON: 09/08/2009 and 03/28/2010 HISTORY: Weakness, Hx pulmonary fibrosis, Afib, appy. Hx dementia. CT DLP: 829 mGycm Automated exposure control for dose reduction was used. CONTRAST: Performed with IV Contrast, patient injected with 80 mL of Isovue 300. There is extensive coarse interstitial density in the lungs. Heart is moderately enlarged. There are multiple calcified splenic granulomata. No pericardial effusion. No mediastinal adenopathy. Thoracic aorta is atheromatous. There are no hilar masses. There is no evidence of filling defect in the pulmo nary arteries. There is bronchial cartilage calcification. Liver spleen pancreas gallbladder appear intact. The bile ducts are nondilated. There is no adrenal m ass. Bladder distends smoothly. There is large left-sided inguinal hernia that appears to contain kemal e incarcerated small bowel. No bowel obstruction. Kidneys have normal size. No hydronephrosis. Ureter s are not dilated. There is evidence for vascular calcification in the abdomen and pelvis. There are numerous sigmoid diverticula. No diverticulitis. There is multilevel spondylotic changes in the lumba r spine. There is levoscoliotic deformity. There is some spinal stenosis at L3-4 and L4-5. There is l ateral subluxation of L4 to the left of L5. No compression fracture. The sternum is intact. IMPRESSION: Severe cardiomegaly. Pulmonary interstitial fibrotic changes. No pleural fluid seen to suggest left h eart failure. Atherosclerotic vascular disease. Large pulmonary arteries consistent with pulmonary hy pertension. There is large right ventricle. Sigmoid diverticulosis without diverticulitis. Large left inguinal hernia. No bowel obstruction. Left side inguinal hernia significantly increased compared to the old exam. Cardiomegaly increased co mpared to old exam. Pulmonary fibrosis progressed slightly compared to old exam.
[2021-12-28] MEDS ORDERED: VANCOMYCIN IV PER PHARMACY 1 EACH MISC MISCELLANE PRN (20:52)
[2021-12-28] MEDS ORDERED: NOREPINEPHRINE 32 MG in SODIUM CHLORIDE 0.9% 218 ML IV ONE (21:00)
[2021-12-28] MEDS ORDERED: NALOXONE 0.4 MG/ML 1 ML VIAL IV PRN (21:10)
[2021-12-28] MEDS ORDERED: ACETAMINOPHEN TAB 325 MG TAB PO PRN (21:10)
[2021-12-28] MEDS ORDERED: VANCOMYCIN 1,250 MG in SODIUM CHLORIDE 0.9% 250 ML IVPB ONE (22:00)
[2021-12-28] MEDS: SODIUM CHLORIDE 0.9% 1,000 ML IV SCH ×2 (22:11→23:43)
[2021-12-28 22:24] LABS: Appearance,Urine Clear (Clear); Bacteria,Urine Rare /hpf; Bilirubin,Urine Negative (Negative); Blood,Urine Small (Negative); Color,Urine Yellow; Glucose,Urine (UA) Negative (Negative); Hyaline Casts,Urine 5 /lpf (0-2); Ketones,Urine Negative (Negative); Leukocyte Esterase,Urine Negative (Negative); Mucus,Urine Rare /hpf; Nitrite,Urine Negative (Negative); PH, Urine 5.5 (5.0-8.0); Protein,Urine 1+ (Negative); RBC,Urine 6 /hpf (0-5); Squamous Epithelial Cell,Urine 1 /hpf (0-4); WBC,Urine 4 /hpf (0-5)
[2021-12-28 22:33] LABS: Glucose,Whole Blood 135 mg/dL (70-110)
[2021-12-28 22:37] LABS: Specific Gravity,Urine 1.049 (1.001-1.035)
[2021-12-29 07:31] LABS: Basophils # (A) 0.1 k/uL (0-0.2); Basophils % (A) 0 %; Eosinophils # (A) 0.2 k/uL (0-0.7); Eosinophils % (A) 2 %; HCT 44.2 % (34.0-46.0); HGB 13.4 gm/dL (11.4-16.0); Hypochromasia Slight; Lymphocytes # (A) 0.8 k/uL (1.0-4.8); Lymphocytes % (A) 7 %; MCH 29.7 pg (25.0-35.0); MCHC 30.4 g/dL (31.0-37.0); MCV 97.9 fL (80.0-100.0); Mean Platelet Volume 7.8; Monocytes # (A) 0.8 k/uL (0-1.0); Monocytes % (A) 7 %; Neutrophils % (A) 83 %; Platelet Count 201 k/uL (150-450); RBC 4.51 m/uL (3.80-5.40); RDW 13.3 % (11.5-15.5); WBC 12.1 k/uL (3.8-10.6)
[2021-12-29 07:40] LABS: Albumin 3.5 g/dL (3.5-5.0); Calcium 8.4 mg/dL (8.4-10.2); Potassium 3.9 mmol/L (3.5-5.1); Total Bilirubin 0.6 mg/dL (0.2-1.3); Total Protein 5.9 g/dL (6.3-8.2)
[2021-12-29] MEDS ORDERED: LACTATED RINGERS 1,000 ML IV SCH (09:00)
[2021-12-29] MEDS: LACTATED RINGERS 1,000 ML IV SCH ×2 (10:09→19:01)
[2021-12-29] MEDS: PANTOPRAZOLE 40 MG/10 ML VIAL IV SCH (10:10)
--- NOTE | 2021-12-29 10:51 | P.CNPUL ---
History of Present Illness Consult date: 12/29/21 Requesting physician: Dread Yu Reason for consult: other Chief complaint: Sepsis with hypotension. History of present illness: Pulmonary consult dated 12/29/2021. 85-year-old female seen in room 252, ICU. She was admitted to the hospital on December 28 with sepsis and hypotension, of unclear etiology. The patient was seen in the emergency room, and apparently came in with weakness. She is a very poor historian with underlying dementia. For that reason, not much history could be obtained. Anyway, she was found to be hypotensive in the emergency room, and started on norepinephrine and was given fluids. She apparently has a history of CVA, dementia, oxygen use at nighttime, previous tobacco use, atrial fibrillation, and CHF. Currently, the patient's on 4 L nasal cannula. She's getting saline at 100 mL an hour, norepinephrine at 1.71 mcg/m. White count 12.1, hemoglobin 13.4, hematocrit 44.2, platelet count 201,000. Sodium 143, potassium 3.9, chlorides 112, CO2 28, with BUN of 22 and creatinine 0.82. Initial lactic acid was 2.4, with a follow-up lactic acid of 1.7. Cortisol level was 30. Urine suggests the possibility of a urinary tract infection. The patient is on vancomycin and ceftriaxone. Review of Systems REVIEW OF SYSTEMS: CONSTITUTIONAL: Weakness. NEUROLOGIC: [ Negative.] HEENT: [ Negative.] CARDIAC: [Negative.] PULMONARY: [Negative.] GI: [Negative.] : [Negative.] RHEUMATOLOGIC: [ Negative.] IMMUNOLOGIC: Sepsis. ENDOCRINE: [Negative. ] DERMATOLOGIC: [Negative.] Past Medical History Past Medical History: Atrial Fibrillation, Dementia, Hearing Disorder / Deafness, Memory Impairment, Pneumonia, Respiratory Disorder Additional Past Medical History / Comment(s): Pulmonary fibrosis, pulmonary HTN, O2 at HS, moderate to severe mitral valve regurgitation, severe tricuspid regurgitation, mild aortic stenosis, DDD, spondylosis, scoliosis, bulging discs, PE in lungs 15 yrs ago, superficial DVTs, varicosities, mild dementia, [place] bilaterally History of Any Multi-Drug Resistant Organisms: None Reported Past Surgical History: Appendectomy, Heart Catheterization, Joint Replacement, Orthopedic Surgery, Tonsillectomy Additional Past Surgical History / Comment(s): L femur fracture with ORIF, L arm fracture with ORIF plate/screws, bilateral rotator cuff repairs, bilateral feet hammer toe corrections, epidural back injections, bilateral cataract removals with lens implants, colonoscopy Past Anesthesia/Blood Transfusion Reactions: No Reported Reaction Past Psychological History: Depression Smoking Status: Former smoker Past Alcohol Use History: Occasional Past Drug Use History: None Reported - Past Family History Father Family Medical History: Musculoskeletal Disorder, Neurologic Disorder Additional Family Medical History / Comment(s): Parkinson's disease. Mother Family Medical History: Cancer Additional Family Medical History / Comment(s): breast cancer Medications and Allergies Home Medications Medication Instructions Recorded Confirmed Type Furosemide [Lasix] 20 mg PO BID 03/04/15 12/28/21 History Sildenafil [Revatio] 20 mg PO TID 03/04/15 12/28/21 History Verapamil HCl [Verapamil ER] 180 mg PO BID 03/04/15 12/28/21 History Escitalopram [Lexapro] 5 mg PO DAILY 10/05/16 12/28/21 History Apixaban [Eliquis] 2.5 mg PO BID 02/18/18 12/28/21 History Memantine [Namenda] 10 mg PO BID 11/10/18 12/28/21 History Donepezil HCl [Aricept] 10 mg PO HS 11/19/19 12/28/21 History lisinopriL [Zestril] 2.5 mg PO DAILY 11/19/19 12/28/21 History atenoloL [Tenormin] 25 mg PO DAILY 12/28/21 12/28/21 History Allergies Allergy/AdvReac Type Severity Reaction Status Date / Time No Known Allergies Allergy Verified 12/28/21 17:37 Physical Exam Osteopathic Statement: *. No significant issues noted on an osteopathic structural exam other than those noted in the History and Physical/Consult. Vitals: Vital Signs Temp Pulse Pulse Resp BP Pulse Ox 12/29/21 07:00 81 0 L 101/74 91 L 12/29/21 06:50 87 10 L 108/68 97 12/29/21 06:40 98 16 97/71 95 12/29/21 06:30 78 10 L 102/77 93 L 12/29/21 06:20 90 15 102/77 93 L 12/29/21 06:10 77 12 110/77 94 L 12/29/21 06:00 77 17 104/74 99 12/29/21 05:40 74 15 108/74 99 12/29/21 05:30 76 14 100/82 92 L 12/29/21 05:20 80 18 100/82 90 L 12/29/21 05:10 84 16 100/70 97 12/29/21 05:00 72 13 98/75 96 12/29/21 04:50 81 16 98/75 93 L 12/29/21 04:40 73 10 L 108/69 96 12/29/21 04:30 77 14 104/82 99 12/29/21 04:20 76 15 99 12/29/21 04:10 76 12 108/84 98 12/29/21 04:00 98.1 F 66 71 12 110/80 99 12/29/21 03:50 77 12 102/89 97 12/29/21 03:40 79 8 L 100/84 89 L 12/29/21 03:30 75 14 104/80 94 L 12/29/21 03:20 68 16 104/80 94 L 12/29/21 03:10 73 16 107/81 94 L 12/29/21 03:00 71 12 101/72 95 12/29/21 02:50 70 13 101/72 88 L 12/29/21 02:40 67 10 L 99/70 97 12/29/21 02:30 70 12 92/71 97 12/29/21 02:20 70 13 92/71 99 12/29/21 02:10 73 12 98/76 97 12/29/21 02:00 67 12 95/69 97 12/29/21 01:50 70 14 95/69 97 12/29/21 01:40 88 16 75/64 95 12/29/21 01:30 77 15 102/72 97 12/29/21 01:20 77 12 102/72 95 06 01:10 66 14 105/67 97 12/29/21 01:00 68 13 98/68 94 L 12/29/21 00:50 66 11 L 98/68 97 12/29/21 00:40 68 14 90/67 97 06 00:30 70 12 88/64 94 L 12/29/21 00:20 67 13 88/64 98 12/29/21 00:10 66 12 88/68 94 L 12/29/21 00:00 97.6 F 72 73 16 96/70 97 12/28/21 23:50 72 14 96/70 98 12/28/21 23:40 72 16 80/67 12/28/21 23:30 70 17 80/61 12/28/21 23:20 72 12 80/61 12/28/21 23:11 67 14 79/63 12/28/21 23:10 61 12 79/63 12/28/21 23:00 78 14 98/73 98 12/28/21 22:50 73 2 L 98/73 12/28/21 22:40 98.4 F 73 18 89/59 95 12/28/21 22:20 79 13 78/61 99 12/28/21 22:10 80 16 89/73 96 12/28/21 22:00 73 7 L 88/62 99 12/28/21 21:50 58 L 25 H 88/62 100 12/28/21 21:40 71 19 72/49 99 12/28/21 21:30 71 18 77/54 97 12/28/21 21:20 69 28 H 77/54 98 12/28/21 21:10 75 27 H 73/54 84 L 12/28/21 21:00 68 15 76/59 95 12/28/21 20:50 67 14 76/59 91 L 12/28/21 20:40 73 18 72/57 96 12/28/21 20:30 67 16 81/61 93 L 12/28/21 20:20 64 35 H 81/61 93 L 12/28/21 20:10 67 31 H 78/57 64 L 12/28/21 20:00 69 12 78/49 70 L 12/28/21 19:50 71 15 73/41 96 12/28/21 19:40 64 18 67/48 90 L 12/28/21 19:30 81 19 70/47 96 12/28/21 19:20 67 25 H 70/47 97 12/28/21 19:10 67 19 71/54 97 12/28/21 19:07 73 16 71/54 97 12/28/21 19:00 86 20 73/52 84 L 12/28/21 18:50 76 17 72/54 96 12/28/21 18:44 69 16 72/54 94 L 12/28/21 18:40 72 19 95 12/28/21 18:30 72 12 73/53 95 12/28/21 18:20 72 12 73/53 95 12/28/21 18:10 75 12 72/53 94 L 12/28/21 18:00 72 12 75/55 92 L 12/28/21 17:28 74 16 72/43 90 L Intake and Output 12/28/21 12/29/21 12/29/21 22:59 06:59 14:59 Intake Total 350.507 919.648 Output Total 100 485 Balance 250.507 434.648 Intake: Intake, IV Titration 350.507 919.648 Amount Norepinephrine 32 mg In 0.507 19.648 Sodium Chloride 0.9% 218 ml @ 0.05 MCG/KG/MIN 1. 382 mls/hr IV .Q24H [facility] Rx#:[id number] Sodium Chloride 0.9% 1, 100 900 000 ml @ 100 mls/hr IV . Q10H [facility] Rx#:[id number] Vancomycin 1,250 mg In 250 Sodium Chloride 0.9% 250 ml @ 125 mls/hr IVPB Q24H [facility] Rx#:[id number] Output: Urine 100 485 Other: Voiding Method Indwelling Catheter Weight 58.967 kg 57.8 kg No acute distress, confused. HEENT examination is grossly unremarkable. Neck supple. Full range of motion. No adenopathy thyromegaly or neck vein distention. Cardiovascular examination reveals regular rhythm rate. S1-S2 normal. No S3 or S4. No discernible murmur noted. Heart rate 81 bpm. Lungs reveal mostly clear breath sounds. Mild scattered rhonchi. No wheezes or crackles. Saturations 95-97%. Abdomen soft bowel sounds are heard. No masses or tenderness. Extremities are intact. No cyanosis clubbing or edema. Skin is without rash or lesion. Neurologic examination is brief but nonfocal. Results - Laboratory Findings CBC and BMP: 12/29/21 07:11 12/29/21 07:11 PT/INR, D-dimer PT 12.5 sec (9.0-12.0) H 12/28/21 17:25 INR 1.2 (<1.2) H 12/28/21 17:25 Abnormal lab findings: Abnormal Labs 08/10/1412/28/21 12/28/21 17:25 17:25 17:25 WBC 13.7 H MCHC 30.9 L Neutrophils # 12.3 H Lymphocytes # 0.5 L PT INR Chloride BUN 21 H Glucose 211 H POC Glucose (mg/dL) Plasma Lactic Acid Alvin 3.7 H* Total Protein 6.2 L Ur Specific Mathews Urine Protein Urine Blood Urine RBC Urine Bacteria Hyaline Casts Urine Mucus 12/28/21 12/28/21 12/28/21 17:25 21:59 22:07 WBC MCHC Neutrophils # Lymphocytes # PT 12.5 H INR 1.2 H Chloride BUN Glucose POC Glucose (mg/dL) Plasma Lactic Acid Alvin 2.4 H* Total Protein Ur Specific Mathews 1.049 H Urine Protein 1+ H Urine Blood Small H Urine RBC 6 H Urine Bacteria Rare H Hyaline Casts 5 H Urine Mucus Rare H 12/28/21 12/29/21 12/29/21 22:32 07:11 07:11 WBC 12.1 H MCHC 30.4 L Neutrophils # 10.0 H Lymphocytes # 0.8 L PT INR Chloride 112 H BUN 22 H Glucose 120 H POC Glucose (mg/dL) 135 H Plasma Lactic Acid Alvin Total Protein 5.9 L Ur Specific Mathews Urine Protein Urine Blood Urine RBC Urine Bacteria Hyaline Casts Urine Mucus - Diagnostic Findings Chest x-ray: image reviewed CT scan - chest: image reviewed Assessment and Plan Assessment: Possible sepsis with hypotension, source unclear. History of CVA. History of severe dementia. Previous history of tobacco use, rule out COPD. History of atrial fibrillation. History of home oxygen use, at nighttime. Plan: Plan dated 12/29/2021. The patient is to have the saline changed to lactated Ringer's, and she will receive 1 L of lactated Ringer's bolus. We'll add Rocephin to the vancomycin. We'll get a stat cortisol level. Additional recommendations and suggestions are forthcoming. The source of her infection may be the urinary tract. CAT scan of the brain was negative. Computed tomography scan of the chest abdomen and pelvis does have lots of chronic issues, but nothing obvious or acute. Time with Patient: Greater than 30
[2021-12-29] MEDS ORDERED: VANCOMYCIN 1,250 MG in SODIUM CHLORIDE 0.9% 250 ML IVPB SCH (12:00)
--- NOTE | 2021-12-29 15:09 | P.HPIM ---
History of Present Illness H&P Date: 12/29/21 Chief Complaint: Weakness 85-year-old female, with history of CVA, dementia, atrial fibrillation and CHF, she presents to the emergency department with son and . is a 88-year-old male that is patient's primary physician advisor. Lives out of town. The last time he saw the patient was 2 months ago. States that he came down to visit is that patient was significantly weak. at the bedside is a poor historian however reports that patient has been showing signs of weakness for the last 3-4 days. Patient has history of dementia. Patient is a complaining of back pain. She has history of chronic back pain. Patient was found to be hypotensive in ED and was placed on norepinephrine; blood work revealed White count 12.1, hemoglobin 13.4, hematocrit 44.2, platelet count 201,000. Sodium 143, potassium 3.9, chlorides 112, CO2 28, with BUN of 22 and creatinine 0.82. Initial lactic acid was 2.4, with a follow-up lactic acid of 1.7. Cortisol level was 30. Urine suggests the possibility of a urinary tract infection. The patient is on vancomycin and ceftriaxone. Review of Systems ROS unobtainable: due to mental status Past Medical History Past Medical History: Atrial Fibrillation, Dementia, Hearing Disorder / Deafness, Memory Impairment, Pneumonia, Respiratory Disorder Additional Past Medical History / Comment(s): Pulmonary fibrosis, pulmonary HTN, O2 at HS, moderate to severe mitral valve regurgitation, severe tricuspid regurgitation, mild aortic stenosis, DDD, spondylosis, scoliosis, bulging discs, PE in lungs 15 yrs ago, superficial DVTs, varicosities, mild dementia, [place] bilaterally History of Any Multi-Drug Resistant Organisms: None Reported Past Surgical History: Appendectomy, Heart Catheterization, Joint Replacement, Orthopedic Surgery, Tonsillectomy Additional Past Surgical History / Comment(s): L femur fracture with ORIF, L arm fracture with ORIF plate/screws, bilateral rotator cuff repairs, bilateral feet hammer toe corrections, epidural back injections, bilateral cataract removals with lens implants, colonoscopy Past Anesthesia/Blood Transfusion Reactions: No Reported Reaction Past Psychological History: Depression Smoking Status: Former smoker Past Alcohol Use History: Occasional Past Drug Use History: None Reported - Past Family History Father Family Medical History: Musculoskeletal Disorder, Neurologic Disorder Additional Family Medical History / Comment(s): Parkinson's disease. Mother Family Medical History: Cancer Additional Family Medical History / Comment(s): breast cancer Medications and Allergies Home Medications Medication Instructions Recorded Confirmed Type Furosemide [Lasix] 20 mg PO BID 03/04/15 12/28/21 History Sildenafil [Revatio] 20 mg PO TID 03/04/15 12/28/21 History Verapamil HCl [Verapamil ER] 180 mg PO BID 03/04/15 12/28/21 History Escitalopram [Lexapro] 5 mg PO DAILY 10/05/16 12/28/21 History Apixaban [Eliquis] 2.5 mg PO BID 02/18/18 12/28/21 History Memantine [Namenda] 10 mg PO BID 11/10/18 12/28/21 History Donepezil HCl [Aricept] 10 mg PO HS 11/19/19 12/28/21 History lisinopriL [Zestril] 2.5 mg PO DAILY 11/19/19 12/28/21 History atenoloL [Tenormin] 25 mg PO DAILY 12/28/21 12/28/21 History Allergies Allergy/AdvReac Type Severity Reaction Status Date / Time No Known Allergies Allergy Verified 12/28/21 17:37 Physical Exam Vitals: Vital Signs Temp Pulse Pulse Resp BP Pulse Ox 12/29/21 07:00 81 0 L 101/74 91 L 12/29/21 06:50 87 10 L 108/68 97 12/29/21 06:40 98 16 97/71 95 12/29/21 06:30 78 10 L 102/77 93 L 12/29/21 06:20 90 15 102/77 93 L 12/29/21 06:10 77 12 110/77 94 L 12/29/21 06:00 77 17 104/74 99 12/29/21 05:40 74 15 108/74 99 12/29/21 05:30 76 14 100/82 92 L 12/29/21 05:20 80 18 100/82 90 L 12/29/21 05:10 84 16 100/70 97 12/29/21 05:00 72 13 98/75 96 12/29/21 04:50 81 16 98/75 93 L 12/29/21 04:40 73 10 L 108/69 96 12/29/21 04:30 77 14 104/82 99 12/29/21 04:20 76 15 99 12/29/21 04:10 76 12 108/84 98 12/29/21 04:00 98.1 F 66 71 12 110/80 99 12/29/21 03:50 77 12 102/89 97 12/29/21 03:40 79 8 L 100/84 89 L 12/29/21 03:30 75 14 104/80 94 L 12/29/21 03:20 68 16 104/80 94 L 12/29/21 03:10 73 16 107/81 94 L 12/29/21 03:00 71 12 101/72 95 12/29/21 02:50 70 13 101/72 88 L 12/29/21 02:40 67 10 L 99/70 97 12/29/21 02:30 70 12 92/71 97 12/29/21 02:20 70 13 92/71 99 12/29/21 02:10 73 12 98/76 97 12/29/21 02:00 67 12 95/69 97 12/29/21 01:50 70 14 95/69 97 12/29/21 01:40 88 16 75/64 95 12/29/21 01:30 77 15 102/72 97 12/29/21 01:20 77 12 102/72 95 12/29/21 01:10 66 14 105/67 97 12/29/21 01:00 68 13 98/68 94 L 12/29/21 00:50 66 11 L 98/68 97 12/29/21 00:40 68 14 90/67 97 12/29/21 00:30 70 12 88/64 94 L 12/29/21 00:20 67 13 88/64 98 12/29/21 00:10 66 12 88/68 94 L 12/29/21 00:00 97.6 F 72 73 16 96/70 97 12/28/21 23:50 72 14 96/70 98 12/28/21 23:40 72 16 80/67 12/28/21 23:30 70 17 80/61 05 23:20 72 12 80/61 12/28/21 23:11 67 14 79/63 12/28/21 23:10 61 12 79/63 12/28/21 23:00 78 14 98/73 98 08/05/22 22:50 73 2 L 98/73 12/28/21 22:40 98.4 F 73 18 89/59 95 12/28/21 22:20 79 13 78/61 99 12/28/21 22:10 80 16 89/73 96 12/28/21 22:00 73 7 L 88/62 99 12/28/21 21:50 58 L 25 H 88/62 100 12/28/21 21:40 71 19 72/49 99 12/28/21 21:30 71 18 77/54 97 12/28/21 21:20 69 28 H 77/54 98 12/28/21 21:10 75 27 H 73/54 84 L 12/28/21 21:00 68 15 76/59 95 12/28/21 20:50 67 14 76/59 91 L 12/28/21 20:40 73 18 72/57 96 12/28/21 20:30 67 16 81/61 93 L 12/28/21 20:20 64 35 H 81/61 93 L 12/28/21 20:10 67 31 H 78/57 64 L 12/28/21 20:00 69 12 78/49 70 L 12/28/21 19:50 71 15 73/41 96 12/28/21 19:40 64 18 67/48 90 L 12/28/21 19:30 81 19 70/47 96 12/28/21 19:20 67 25 H 70/47 97 12/28/21 19:10 67 19 71/54 97 12/28/21 19:07 73 16 71/54 97 12/28/21 19:00 86 20 73/52 84 L 12/28/21 18:50 76 17 72/54 96 12/28/21 18:44 69 16 72/54 94 L 12/28/21 18:40 72 19 95 12/28/21 18:30 72 12 73/53 95 12/28/21 18:20 72 12 73/53 95 12/28/21 18:10 75 12 72/53 94 L 12/28/21 18:00 72 12 75/55 92 L 12/28/21 17:28 74 16 72/43 90 L Intake and Output 12/28/21 12/29/21 12/29/21 22:59 06:59 14:59 Intake Total 350.507 919.648 Output Total 100 485 Balance 250.507 434.648 Intake: Intake, IV Titration 350.507 919.648 Amount Norepinephrine 32 mg In 0.507 19.648 Sodium Chloride 0.9% 218 ml @ 0.05 MCG/KG/MIN 1. 382 mls/hr IV .Q24H ONE Rx#:[id number] Sodium Chloride 0.9% 1, 100 900 000 ml @ 100 mls/hr IV . Q10H RIKKI Rx#:[id number] Vancomycin 1,250 mg In 250 Sodium Chloride 0.9% 250 ml @ 125 mls/hr IVPB Q24H [facility]KKI Rx#:[id number] Output: Urine 100 485 Other: Voiding Method Indwelling Catheter Weight 58.967 kg 57.8 kg PHYSICAL EXAMINATION: GENERAL: The patient is alert and oriented x3, not in any acute distress. Well developed, well nourished. HEENT: Pupils are round and equally reacting to light. EOMI. No scleral icterus. No conjunctival pallor. Normocephalic, atraumatic. No pharyngeal erythema. No thyromegaly. CARDIOVASCULAR: S1 and S2 present. No murmurs, rubs, or gallops. PULMONARY: Chest is clear to auscultation, no wheezing or crackles. ABDOMEN: Soft, nontender, nondistended, normoactive bowel sounds. No palpable organomegaly. MUSCULOSKELETAL: No joint swelling or deformity. EXTREMITIES: No cyanosis, clubbing, or pedal edema. NEUROLOGICAL: Gross neurological examination did not reveal any focal deficits. SKIN: No rashes. Results CBC & Chem 7: 12/29/21 07:11 12/29/21 07:11 Labs: Abnormal Lab Results - Last 24 Hours (Table) 12/28/21 12/28/21 12/28/21 Range/Units 17:25 17:25 17:25 WBC 13.7 H (3.8-10.6) k/uL MCHC 30.9 L (31.0-37.0) g/dL Neutrophils # 12.3 H (1.3-7.7) k/uL Lymphocytes # 0.5 L (1.0-4.8) k/uL PT (9.0-12.0) sec INR (<1.2) Chloride (98-107) mmol/L BUN 21 H (7-17) mg/dL Glucose 211 H (74-99) mg/dL POC Glucose (mg/dL) (70-110) mg/dL Plasma Lactic Acid Alvin 3.7 H* (0.7-2.0) mmol/L Total Protein 6.2 L (6.3-8.2) g/dL Ur Specific [place] (1.001-1.035) Urine Protein (Negative) Urine Blood (Negative) Urine RBC (0-5) /hpf Urine Bacteria (None) /hpf Hyaline Casts (0-2) /lpf Urine Mucus (None) /hpf 12/28/21 12/28/21 12/28/21 Range/Units 17:25 21:59 22:07 WBC (3.8-10.6) k/uL MCHC (31.0-37.0) g/dL Neutrophils # (1.3-7.7) k/uL Lymphocytes # (1.0-4.8) k/uL PT 12.5 H (9.0-12.0) sec INR 1.2 H (<1.2) Chloride (98-107) mmol/L BUN (7-17) mg/dL Glucose (74-99) mg/dL POC Glucose (mg/dL) (70-110) mg/dL Plasma Lactic Acid Alvin 2.4 H* (0.7-2.0) mmol/L Total Protein (6.3-8.2) g/dL Ur Specific [place] 1.049 H (1.001-1.035) Urine Protein 1+ H (Negative) Urine Blood Small H (Negative) Urine RBC 6 H (0-5) /hpf Urine Bacteria Rare H (None) /hpf Hyaline Casts 5 H (0-2) /lpf Urine Mucus Rare H (None) /hpf 12/28/21 12/29/21 12/29/21 Range/Units 22:32 07:11 07:11 WBC 12.1 H (3.8-10.6) k/uL MCHC 30.4 L (31.0-37.0) g/dL Neutrophils # 10.0 H (1.3-7.7) k/uL Lymphocytes # 0.8 L (1.0-4.8) k/uL PT (9.0-12.0) sec INR (<1.2) Chloride 112 H (98-107) mmol/L BUN 22 H (7-17) mg/dL Glucose 120 H (74-99) mg/dL POC Glucose (mg/dL) 135 H (70-110) mg/dL Plasma Lactic Acid Alvin (0.7-2.0) mmol/L Total Protein 5.9 L (6.3-8.2) g/dL Ur Specific [place] (1.001-1.035) Urine Protein (Negative) Urine Blood (Negative) Urine RBC (0-5) /hpf Urine Bacteria (None) /hpf Hyaline Casts (0-2) /lpf Urine Mucus (None) /hpf Assessment and Plan Assessment: 1. Possible sepsis; source unclear - Patient has been pancultured; white blood count slowly trending down; has been started on IV Rocephin and vancomycin - We will monitor CBC, CRP and pro-calcitonin; follow-up on urine and blood culture - Consult ID for further recommendations 2. Hypotension; likely related to sepsis; currently on IV fluids in form of lactated Ringer's 3. Lactic acidosis; progressive trending down from 2.4 upon admission down to 120 4. Possible UTI; patient has been placed on IV Rocephin; we will monitor urine culture and make further adjustments 5. Mild renal injury/dehydration; continue with IV fluids as indicated above; we will monitor renal function and electrolytes; avoid hypotension and nephrotoxins 6. History of CVA, atrial fibrillation, severe dementia
--- NOTE | 2021-12-29 20:44 | P.CONS ---
History of Present Illness - Reason for Consult Consult date: 12/29/21 SIRS Requesting physician: Julio Clark - Chief Complaint Weakness x few days - History of Present Illness Patient is 85-year-old female with multiple comorbidities presenting to the ER yesterday afternoon for evaluation of weakness symptom has been going on for about 3 to 4 days before presentation to the hospital patient on arrival to the ER was afebrile and no fever have been recorded subsequently patient was hypotensive requiring pressor support and slightly tachycardic for the patient has been admitted to the ICU patient also have a white count of 13.7 with a left shift did have elevated BUN and creatinine was normal did have elevated lactic acid level enzymes are normal urine has been negative influenza and SARS-CoV-2 testing was negative patient did have a chest x-ray cardiomegaly no heart failure were seen patient did have a CT of the chest abdominal pelvis severe cardiomegaly pulmonary interstitial fibrotic changes large pulmonary artery suggestive of pulmonary hypertension no bowel obstruction or diverticulitis left inguinal hernia slight increase compared to old exam patient did have blood cultures drawn which Were positive with gram-positive cocci patient is currently being treated with Rocephin and vancomycin infectious disease was consulted for further management of antibiotic therapy most of the information has been obtain ed from review the chart and talking to nursing staff as the patient has not was having a good historian Review of Systems Positive points mentioned in history of present illness complete review could not be obtained because of his underlying medical condition Past Medical History Past Medical History: Atrial Fibrillation, Dementia, Hearing Disorder / Deafness, Memory Impairment, Pneumonia, Respiratory Disorder Additional Past Medical History / Comment(s): Pulmonary fibrosis, pulmonary HTN, O2 at HS, moderate to severe mitral valve regurgitation, severe tricuspid regurgitation, mild aortic stenosis, DDD, spondylosis, scoliosis, bulging discs, PE in lungs 15 yrs ago, superficial DVTs, varicosities, mild dementia, [place] bilaterally History of Any Multi-Drug Resistant Organisms: None Reported Past Surgical History: Appendectomy, Heart Catheterization, Joint Replacement, Orthopedic Surgery, Tonsillectomy Additional Past Surgical History / Comment(s): L femur fracture with ORIF, L arm fracture with ORIF plate/screws, bilateral rotator cuff repairs, bilateral feet hammer toe corrections, epidural back injections, bilateral cataract removals with lens implants, colonoscopy Past Anesthesia/Blood Transfusion Reactions: No Reported Reaction Past Psychological History: Depression Smoking Status: Former smoker Past Alcohol Use History: Occasional Past Drug Use History: None Reported - Past Family History Father Family Medical History: Musculoskeletal Disorder, Neurologic Disorder Additional Family Medical History / Comment(s): Parkinson's disease. Mother Family Medical History: Cancer Additional Family Medical History / Comment(s): breast cancer Medications and Allergies Home Medications Medication Instructions Recorded Confirmed Type Furosemide [Lasix] 20 mg PO BID 03/04/15 12/28/21 History Sildenafil [Revatio] 20 mg PO TID 03/04/15 12/28/21 History Verapamil HCl [Verapamil ER] 180 mg PO BID 03/04/15 12/28/21 History Escitalopram [Lexapro] 5 mg PO DAILY 10/05/16 12/28/21 History Apixaban [Eliquis] 2.5 mg PO BID 02/18/18 12/28/21 History Memantine [Namenda] 10 mg PO BID 11/10/18 12/28/21 History Donepezil HCl [Aricept] 10 mg PO HS 11/19/19 12/28/21 History lisinopriL [Zestril] 2.5 mg PO DAILY 11/19/19 12/28/21 History atenoloL [Tenormin] 25 mg PO DAILY 12/28/21 12/28/21 History Allergies Allergy/AdvReac Type Severity Reaction Status Date / Time No Known Allergies Allergy Verified 12/28/21 17:37 Physical Exam Vitals: Vital Signs Temp Pulse Pulse Resp BP Pulse Ox 12/29/21 07:00 81 0 L 101/74 91 L 12/29/21 06:50 87 10 L 108/68 97 12/29/21 06:40 98 16 97/71 95 12/29/21 06:30 78 10 L 102/77 93 L 12/29/21 06:20 90 15 102/77 93 L 12/29/21 06:10 77 12 110/77 94 L 12/29/21 06:00 77 17 104/74 99 12/29/21 05:40 74 15 108/74 99 12/29/21 05:30 76 14 100/82 92 L 12/29/21 05:20 80 18 100/82 90 L 12/29/21 05:10 84 16 100/70 97 12/29/21 05:00 72 13 98/75 96 12/29/21 04:50 81 16 98/75 93 L 12/29/21 04:40 73 10 L 108/69 96 12/29/21 04:30 77 14 104/82 99 12/29/21 04:20 76 15 99 12/29/21 04:10 76 12 108/84 98 12/29/21 04:00 98.1 F 66 71 12 110/80 99 12/29/21 03:50 77 12 102/89 97 12/29/21 03:40 79 8 L 100/84 89 L 12/29/21 03:30 75 14 104/80 94 L 12/29/21 03:20 68 16 104/80 94 L 12/29/21 03:10 73 16 107/81 94 L 12/29/21 03:00 71 12 101/72 95 12/29/21 02:50 70 13 101/72 88 L 12/29/21 02:40 67 10 L 99/70 97 12/29/21 02:30 70 12 92/71 97 12/29/21 02:20 70 13 92/71 99 12/29/21 02:10 73 12 98/76 97 12/29/21 02:00 67 12 95/69 97 12/29/21 01:50 70 14 95/69 97 12/29/21 01:40 88 16 75/64 95 12/29/21 01:30 77 15 102/72 97 12/29/21 01:20 77 12 102/72 95 12/29/21 01:10 66 14 105/67 97 12/29/21 01:00 68 13 98/68 94 L 12/29/21 00:50 66 11 L 98/68 97 12/29/21 00:40 68 14 90/67 97 12/29/21 00:30 70 12 88/64 94 L 12/29/21 00:20 67 13 88/64 98 12/29/21 00:10 66 12 88/68 94 L 12/29/21 00:00 97.6 F 72 73 16 96/70 97 12/28/21 23:50 72 14 96/70 98 12/28/21 23:40 72 16 80/67 12/28/21 23:30 70 17 80/61 12/28/21 23:20 72 12 80/61 12/28/21 23:11 67 14 79/63 12/28/21 23:10 61 12 79/63 12/28/21 23:00 78 14 98/73 98 12/28/21 22:50 73 2 L 98/73 12/28/21 22:40 98.4 F 73 18 89/59 95 12/28/21 22:20 79 13 78/61 99 12/28/21 22:10 80 16 89/73 96 12/28/21 22:00 73 7 L 88/62 99 12/28/21 21:50 58 L 25 H 88/62 100 12/28/21 21:40 71 19 72/49 99 12/28/21 21:30 71 18 77/54 97 12/28/21 21:20 69 28 H 77/54 98 12/28/21 21:10 75 27 H 73/54 84 L 12/28/21 21:00 68 15 76/59 95 12/28/21 20:50 67 14 76/59 91 L 12/28/21 20:40 73 18 72/57 96 12/28/21 20:30 67 16 81/61 93 L 12/28/21 20:20 64 35 H 81/61 93 L 12/28/21 20:10 67 31 H 78/57 64 L 12/28/21 20:00 69 12 78/49 70 L 12/28/21 19:50 71 15 73/41 96 12/28/21 19:40 64 18 67/48 90 L 12/28/21 19:30 81 19 70/47 96 12/28/21 19:20 67 25 H 70/47 97 12/28/21 19:10 67 19 71/54 97 12/28/21 19:07 73 16 71/54 97 12/28/21 19:00 86 20 73/52 84 L 12/28/21 18:50 76 17 72/54 96 12/28/21 18:44 69 16 72/54 94 L 12/28/21 18:40 72 19 95 12/28/21 18:30 72 12 73/53 95 12/28/21 18:20 72 12 73/53 95 12/28/21 18:10 75 12 72/53 94 L 12/28/21 18:00 72 12 75/55 92 L 12/28/21 17:28 74 16 72/43 90 L Intake and Output 12/28/21 12/29/21 12/29/21 22:59 06:59 14:59 Intake Total 350.507 919.648 Output Total 100 485 Balance 250.507 434.648 Intake: Intake, IV Titration 350.507 919.648 Amount Norepinephrine 32 mg In 0.507 19.648 Sodium Chloride 0.9% 218 ml @ 0.05 MCG/KG/MIN 1. 382 mls/hr IV .Q24H ONE Rx#:[id number] Sodium Chloride 0.9% 1, 100 900 000 ml @ 100 mls/hr IV . Q10H [facility]I Rx#:[id number] Vancomycin 1,250 mg In 250 Sodium Chloride 0.9% 250 ml @ 125 mls/hr IVPB Q24H [facility]I Rx#:[id number] Output: Urine 100 485 Other: Voiding Method Indwelling Catheter Weight 58.967 kg 57.8 kg GENERAL DESCRIPTION: Elderly female lying in bed, no distress. No tachypnea or accessory muscle of respiration use. HEENT: Shows Pallor , no scleral icterus. Oral mucous membrane is dry. No pharyngeal erythema or thrush NECK: Trachea central, no thyromegaly. LUNGS: Unlabored breathing. Decreased present at the base. No wheeze or crackle. HEART: S1, S2, regular rate and rhythm. No loud murmur ABDOMEN: Soft, no tenderness , guarding or rigidity, no organomegaly EXTREMITIES: No edema of feet. SKIN: No rash, no masses palpable. NEUROLOGICAL: The patient is awake, alert, oriented x1, mood and affect normal. Results CBC & Chem 7: 12/29/21 07:11 12/29/21 07:11 Labs: Abnormal Lab Results - Last 24 Hours (Table) 12/28/21 12/28/21 12/28/21 Range/Units 17:25 17:25 17:25 WBC 13.7 H (3.8-10.6) k/uL MCHC 30.9 L (31.0-37.0) g/dL Neutrophils # 12.3 H (1.3-7.7) k/uL Lymphocytes # 0.5 L (1.0-4.8) k/uL PT (9.0-12.0) sec INR (<1.2) Chloride (98-107) mmol/L BUN 21 H (7-17) mg/dL Glucose 211 H (74-99) mg/dL POC Glucose (mg/dL) (70-110) mg/dL Plasma Lactic Acid Alvin 3.7 H* (0.7-2.0) mmol/L Total Protein 6.2 L (6.3-8.2) g/dL Ur Specific [place] (1.001-1.035) Urine Protein (Negative) Urine Blood (Negative) Urine RBC (0-5) /hpf Urine Bacteria (None) /hpf Hyaline Casts (0-2) /lpf Urine Mucus (None) /hpf 12/28/21 12/28/21 12/28/21 Range/Units 17:25 21:59 22:07 WBC (3.8-10.6) k/uL MCHC (31.0-37.0) g/dL Neutrophils # (1.3-7.7) k/uL Lymphocytes # (1.0-4.8) k/uL PT 12.5 H (9.0-12.0) sec INR 1.2 H (<1.2) Chloride (98-107) mmol/L BUN (7-17) mg/dL Glucose (74-99) mg/dL POC Glucose (mg/dL) (70-110) mg/dL Plasma Lactic Acid Alvin 2.4 H* (0.7-2.0) mmol/L Total Protein (6.3-8.2) g/dL Ur Specific [place] 1.049 H (1.001-1.035) Urine Protein 1+ H (Negative) Urine Blood Small H (Negative) Urine RBC 6 H (0-5) /hpf Urine Bacteria Rare H (None) /hpf Hyaline Casts 5 H (0-2) /lpf Urine Mucus Rare H (None) /hpf 12/28/21 12/29/21 12/29/21 Range/Units 22:32 07:11 07:11 WBC 12.1 H (3.8-10.6) k/uL MCHC 30.4 L (31.0-37.0) g/dL Neutrophils # 10.0 H (1.3-7.7) k/uL Lymphocytes # 0.8 L (1.0-4.8) k/uL PT (9.0-12.0) sec INR (<1.2) Chloride 112 H (98-107) mmol/L BUN 22 H (7-17) mg/dL Glucose 120 H (74-99) mg/dL POC Glucose (mg/dL) 135 H (70-110) mg/dL Plasma Lactic Acid [place] (0.7-2.0) mmol/L Total Protein 5.9 L (6.3-8.2) g/dL Ur Specific [place] (1.001-1.035) Urine Protein (Negative) Urine Blood (Negative) Urine RBC (0-5) /hpf Urine Bacteria (None) /hpf Hyaline Casts (0-2) /lpf Urine Mucus (None) /hpf Assessment and Plan (1) SIRS (systemic inflammatory response syndrome) Current Visit: Yes Status: Acute Code(s): R65.10 - SIRS OF NON-INFECTIOUS ORIGIN W/O ACUTE ORGAN DYSFUNCTION SNOMED Code(s): 380594487 (2) Bacteremia Current Visit: Yes Status: Acute Code(s): R78.81 - BACTEREMIA SNOMED Code(s): 2170891 Plan: 1patient has been brought to the hospital with weakness patient was noticed to have elevated white count and elevated lactic acid patient also have hypotension requiring pressor support she did have a CT of the chest abdominal pelvis not showing any acute abnormality did have a right inguinal hernia but no evidence of any bowel herniation now with evidence of gram-positive bacteremia questionable skin contaminant versus real pathogen. 2patient to continue with the vancomycin however we will switch Rocephin to Unasyn while waiting for the condition to stabilize and culture to finalize. 3gentle IV fluid. 4blood cultures will be repeated document clearance of bacteremia. We will follow on clinical condition and cultures to further adjust medication if needed Thank you for this consultation will follow this patient along with you
[2021-12-30] MEDS: AMPICILLIN-SULBACTAM 3 GM in SODIUM CHLORIDE 0.9% 100 ML IVPB SCH ×5 (00:40→23:58)
[2021-12-30] MEDS: LACTATED RINGERS 1,000 ML IV SCH ×3 (05:22→23:59)
[2021-12-30 07:32] LABS: Basophils # (A) 0.1 k/uL (0-0.2); Basophils % (A) 1 %; Eosinophils # (A) 0.2 k/uL (0-0.7); Eosinophils % (A) 2 %; HCT 43.3 % (34.0-46.0); HGB 13.3 gm/dL (11.4-16.0); Hypochromasia Moderate; Lymphocytes # (A) 0.4 k/uL (1.0-4.8); Lymphocytes % (A) 4 %; MCH 30.5 pg (25.0-35.0); MCHC 30.8 g/dL (31.0-37.0); MCV 98.8 fL (80.0-100.0); Mean Platelet Volume 7.9; Monocytes # (A) 0.6 k/uL (0-1.0); Monocytes % (A) 6 %; Neutrophils # (A) 7.7 k/uL (1.3-7.7); Neutrophils % (A) 86 %; Platelet Count 184 k/uL (150-450); RBC 4.38 m/uL (3.80-5.40); RDW 13.1 % (11.5-15.5)
[2021-12-30 07:53] LABS: African American GFR (CKD) >90 (>60 ml/min/1.73 sqM); Anion Gap 3 mmol/L; Blood Urea Nitrogen 13 mg/dL (7-17); Calcium 8.8 mg/dL (8.4-10.2); Carbon Dioxide 28 mmol/L (22-30); Chloride 110 mmol/L (98-107); Glucose 145 mg/dL (74-99); Non-African American GFR(CKD) 82 (>60 ml/min/1.73 sqM); Potassium 3.8 mmol/L (3.5-5.1); Sodium 141 mmol/L (137-145)
--- NOTE | 2021-12-30 08:31 | P.PN ---
Subjective Progress Note Date: 12/30/21 Principal diagnosis: Sepsis. Pulmonary consult dated 12/29/2021. 85-year-old female seen in room 252, ICU. She was admitted to the hospital on December 28 with sepsis and hypotension, of unclear etiology. The patient was seen in the emergency room, and apparently came in with weakness. She is a very poor historian with underlying dementia. For that reason, not much history could be obtained. Anyway, she was found to be hypotensive in the emergency room, and started on norepinephrine and was given fluids. She apparently has a history of CVA, dementia, oxygen use at nighttime, previous tobacco use, atrial fibrillation, and CHF. Currently, the patient's on 4 L nasal cannula. She's getting saline at 100 mL an hour, norepinephrine at 1.71 mcg/m. White count 12.1, hemoglobin 13.4, hematocrit 44.2, platelet count 201,000. Sodium 143, potassium 3.9, chlorides 112, CO2 28, with BUN of 22 and creatinine 0.82. Initial lactic acid was 2.4, with a follow-up lactic acid of 1.7. Cortisol level was 30. Urine suggests the possibility of a urinary tract infection. The patient is on vancomycin and ceftriaxone. Progress note dated 12/30/2021. 85-year-old female seen yesterday in consultation, room 252. Currently, she is doing much better. She's on 4 L nasal cannula. He is getting lactated Ringer's at 100 mL an hour. Blood cultures show a coag-negative staph. She's currently on Unasyn and vancomycin as per infectious diseases. Ceftriaxone was discontinued. She has been weaned off norepinephrine. White count 9, hemoglobin 13.3, hematocrit 43.3, platelet count 284,000. Sodium 141, potassium 3.8, chlorides 110, CO2 28, BUN 13, creatinine 0.62. Calcium is 8.8. Blood cultures show coag-negative staph. Objective - Vital Signs Vital signs: Vital Signs Temp 97.5 F L 12/30/21 04:00 Pulse 115 H 12/30/21 07:00 Resp 16 12/30/21 07:00 BP 105/83 12/30/21 07:00 Pulse Ox 96 12/30/21 07:00 FiO2 Intake & Output 12/29/21 12/30/21 12/30/21 18:59 06:59 18:59 Intake Total 2819.743 1301.187 Output Total 125 415 Balance 2694.743 886.187 Weight 59 kg Intake: IV 400 1300 Sodium Chloride 0.9% 1, 400 1300 000 ml @ 100 mls/hr IV . Q10H [facility] Rx#:[id number] Intake, IV Titration 2059.743 1.187 Amount Lactated Ringers 1,000 ml 500 @ 100 mls/hr IV .Q10H [facility] Rx#:[id number] Lactated Ringers 1,000 ml 1000 @ 999 mls/hr IV .Q1H1M [facility] Rx#:[id number] Norepinephrine 32 mg In 9.743 1.187 Sodium Chloride 0.9% 218 ml @ 0.05 MCG/KG/MIN 1. 382 mls/hr IV .Q24H [facility] Rx#:[id number] Sodium Chloride 0.9% 1, 200 000 ml @ 100 mls/hr IV . Q10H [facility] Rx#:[id number] Vancomycin 1,250 mg In 250 Sodium Chloride 0.9% 250 ml @ 125 mls/hr IVPB Q24H [facility] Rx#:[id number] cefTRIAXone 1 gm In 100 Sodium Chloride 0.9% 50 ml @ 100 mls/hr IVPB Q24HR [facility] Rx#:[id number] Oral 360 Output: Urine 125 415 Other: Voiding Method Indwelling Catheter Indwelling Catheter - Exam No acute distress, less confused, on 4 L. HEENT examination is grossly unremarkable. Neck supple. Full range of motion. No adenopathy thyromegaly or neck vein distention. Cardiovascular examination reveals regular rhythm rate. S1-S2 normal. No S3 or S4. No discernible murmur noted. Heart rate 110 bpm. Lungs reveal mostly clear breath sounds. Mild scattered rhonchi. No wheezes or crackles. Saturations 96%. Abdomen soft bowel sounds are heard. No masses or tenderness. Extremities are intact. No cyanosis clubbing or edema. Skin is without rash or lesion. Neurologic examination is brief but nonfocal. - Labs CBC & Chem 7: 12/30/21 07:15 12/30/21 07:15 Labs: Abnormal Lab Results - Last 24 Hours (Table) 12/30/21 12/30/21 Range/Units 07:15 07:15 MCHC 30.8 L (31.0-37.0) g/dL Lymphocytes # 0.4 L (1.0-4.8) k/uL Chloride 110 H (98-107) mmol/L Glucose 145 H (74-99) mg/dL Microbiology - Last 24 Hours (Table) 12/28/21 20:58 Blood Culture Gram Stain - Preliminary Blood Blood Culture - Preliminary Coagulase Negative Staph 12/28/21 20:50 Blood Culture Gram Stain - Preliminary Blood 12/28/21 20:50 Blood Culture - Final Blood 12/28/21 20:58 Blood Culture - Final Blood Assessment and Plan Assessment: Possible sepsis with hypotension, source unclear. Blood cultures positive for coag negative staphylococci. History of CVA. History of severe dementia. Previous history of tobacco use, rule out COPD. History of atrial fibrillation. History of home oxygen use, at nighttime. Plan: Plan dated 12/29/2021. The patient is to have the saline changed to lactated Ringer's, and she will receive 1 L of lactated Ringer's bolus. We'll add Rocephin to the vancomycin. We'll get a stat cortisol level. Additional recommendations and suggestions are forthcoming. The source of her infection may be the urinary tract. CAT scan of the brain was negative. Computed tomography scan of the chest abdomen and pelvis does have lots of chronic issues, but nothing obvious or acute. Plan dated 12/30/2021. The patient's doing very well. She's been weaned off her norepinephrine. She's on 4 L nasal cannula. She is a bit less confused today. She's currently on Un asyn and vancomycin as per infectious diseases. Blood cultures were positive for quite negative staph. We will continue to follow. The patient can be transferred out of the intensive care unit. Prognosis is guarded. Time with Patient: Less than 30
[2021-12-30] MEDS: PANTOPRAZOLE 40 MG/10 ML VIAL IV SCH (09:13)
[2021-12-30] MEDS ORDERED: DILTIAZEM 125 MG in SODIUM CHLORIDE 0.9% 100 ML IV SCH (10:30)
[2021-12-30] MEDS: APIXABAN 2.5 MG TABLET PO SCH ×2 (10:48→20:29)
[2021-12-30] MEDS ORDERED: VANCOMYCIN 1,000 MG in SODIUM CHLORIDE 0.9% 250 ML IVPB SCH (12:00)
[2021-12-30] MEDS: atenoloL 25 MG TAB PO SCH (12:02)
[2021-12-30] MEDS ORDERED: DEXTROSE 5% IN WATER 100 ML with AMIODARONE 150 MG IV ONE (12:48)
[2021-12-30] MEDS ORDERED: AMIODARONE 360 MG in DEXTROSE 5% IN WATER 200 ML IV ONE ×2 (12:49)
--- NOTE | 2021-12-30 12:55 | P.CRDCN ---
History of Present Illness Consult date: 12/30/21 History of present illness: This is an 85-year-old female patient who requested to see in the intensive care unit for further evaluation of atrial fibrillation. The patient does have severe underlying dementia and also does have history of stroke and she is extremely poor historian. Beside that she does have permanent atrial fibrillation on oral anticoagulation. Also she does have history of cardiomyopathy with EF between 30-35% based on echocardiogram in 2019 and also she has valvular heart disease with severe mitral and tricuspid regurgitation and severe pulmonary hypertension. The history was taken from the chart as well as from the nurse taking care of the patient. The patient presented to the emergency department 2 days ago with generalized weakness and she was found to be hypotensive. She was diagnosed with sepsis. She underwent a blood culture came in to be positive. Subsequently because of that the patient was admitted to the intensive care unit where she was started on norepinephrine. 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 Her pressure was soft. We consulted to see the patient because she went into rapid ventricular response. Subsequently she was started on Cardizem IV. The patient was seen and evaluated at bedside and definitely she is unable to provide any history. She is not in any pain or distress. She remains hemodynamically stable with soft blood pressure at this point. She is on oral anticoagulation. Past Medical History Past Medical History: Atrial Fibrillation, Dementia, Hearing Disorder / Deafness, Memory Impairment, Pneumonia, Respiratory Disorder Additional Past Medical History / Comment(s): Pulmonary fibrosis, pulmonary HTN, O2 at HS, moderate to severe mitral valve regurgitation, severe tricuspid regurgitation, mild aortic stenosis, DDD, spondylosis, scoliosis, bulging discs, PE in lungs 15 yrs ago, superficial DVTs, varicosities, mild dementia, [place] bilaterally History of Any Multi-Drug Resistant Organisms: None Reported Past Surgical History: Appendectomy, Heart Catheterization, Joint Replacement, Orthopedic Surgery, Tonsillectomy Additional Past Surgical History / Comment(s): L femur fracture with ORIF, L arm fracture with ORIF plate/screws, bilateral rotator cuff repairs, bilateral feet hammer toe corrections, epidural back injections, bilateral cataract removals with lens implants, colonoscopy Past Anesthesia/Blood Transfusion Reactions: No Reported Reaction Past Psychological History: Depression Smoking Status: Former smoker Past Alcohol Use History: Occasional Past Drug Use History: None Reported - Past Family History Father Family Medical History: Musculoskeletal Disorder, Neurologic Disorder Additional Family Medical History / Comment(s): Parkinson's disease. Mother Family Medical History: Cancer Additional Family Medical History / Comment(s): breast cancer Medications and Allergies Home Medications Medication Instructions Recorded Confirmed Type Furosemide [Lasix] 20 mg PO BID 03/04/15 12/28/21 History Sildenafil [Revatio] 20 mg PO TID 03/04/15 12/28/21 History Verapamil HCl [Verapamil ER] 180 mg PO BID 03/04/15 12/28/21 History Escitalopram [Lexapro] 5 mg PO DAILY 10/05/16 12/28/21 History Apixaban [Eliquis] 2.5 mg PO BID 02/18/18 12/28/21 History Memantine [Namenda] 10 mg PO BID 11/10/18 12/28/21 History Donepezil HCl [Aricept] 10 mg PO HS 11/19/19 12/28/21 History lisinopriL [Zestril] 2.5 mg PO DAILY 11/19/19 12/28/21 History atenoloL [Tenormin] 25 mg PO DAILY 12/28/21 12/28/21 History Allergies Allergy/AdvReac Type Severity Reaction Status Date / Time No Known Allergies Allergy Verified 12/28/21 17:37 Physical Exam Vitals: Vital Signs Temp Pulse Pulse Resp BP Pulse Ox 12/30/21 12:00 98.2 F 124 H 16 100/88 96 12/30/21 11:00 125 H 21 112/83 12/30/21 10:00 151 H 15 103/88 12/30/21 09:00 125 H 15 114/86 12/30/21 08:00 97.8 F 142 H 26 H 107/86 94 L 12/30/21 07:00 115 H 16 105/83 96 12/30/21 06:30 118 H 19 12/30/21 06:00 133 H 20 117/82 96 12/30/21 05:30 149 H 20 115/88 12/30/21 05:00 121 H 20 101/75 96 12/30/21 04:30 125 H 20 12/30/21 04:00 97.5 F L 115 H 120 H 18 107/84 96 12/30/21 03:30 121 H 19 105/60 12/30/21 03:00 115 H 14 108/88 12/30/21 02:30 112 H 17 109/83 95 12/30/21 02:15 105 H 25 H 109/83 12/30/21 02:00 108 H 16 113/74 91 L 12/30/21 01:45 110 H 15 96/83 12/30/21 01:30 115 H 16 90/65 97 12/30/21 01:15 110 H 18 88/75 12/30/21 01:00 110 H 16 101/71 99 12/30/21 00:45 115 H 16 92/64 95 12/30/21 00:30 113 H 16 91/61 95 12/30/21 00:15 110 H 14 99/74 95 12/30/21 00:00 97.7 F 110 H 114 H 14 95 12/29/21 23:45 115 H 14 97/68 95 12/29/21 23:30 104 H 10 L 94/77 95 12/29/21 23:15 106 H 15 86/70 90 L 12/29/21 23:00 101 H 14 82/59 93 L 12/29/21 22:45 93 16 81/63 91 L 12/29/21 22:30 115 H 18 94/68 97 12/29/21 22:29 120 H 14 94/68 91 L 12/29/21 22:15 117 H 19 104/89 98 12/29/21 22:00 115 H 14 92/76 94 L 12/29/21 21:45 105 H 12 93/72 94 L 12/29/21 21:30 104 H 14 95/72 98 12/29/21 21:15 92 15 100/89 95 12/29/21 21:00 92 27 H 87/69 12/29/21 20:45 92 15 110/74 95 12/29/21 20:30 105 H 17 86/60 94 L 12/29/21 20:15 95 15 97/77 95 12/29/21 20:00 97.0 F L 98 116 H 15 93/65 99 12/29/21 19:45 95 18 108/80 98 12/29/21 19:30 104 H 18 97/71 94 L 12/29/21 19:15 104 H 19 94/65 97 12/29/21 19:00 103 H 14 91/64 12/29/21 18:45 98 15 93/67 12/29/21 18:30 96 14 100/71 12/29/21 18:15 105 H 16 96/62 12/29/21 18:00 103 H 16 97/62 12/29/21 17:45 100 17 123/91 12/29/21 17:30 116 H 23 109/78 12/29/21 17:15 121 H 18 91/75 12/29/21 17:00 113 H 17 93/80 12/29/21 16:45 123 H 12 118/84 12/29/21 16:30 101 H 22 111/87 12/29/21 16:15 104 H 13 118/78 12/29/21 16:00 97.0 F L 18 111/99 93 L 12/29/21 15:45 96 14 105/76 12/29/21 15:30 92 14 102/70 12/29/21 15:15 98 14 12/29/21 15:00 101 H 15 102/90 12/29/21 14:45 94 17 111/84 12/29/21 14:30 12 116/101 87 L 12/29/21 14:15 87 11 L 95/71 12/29/21 14:00 76 16 90/73 12/29/21 13:45 86 15 106/90 93 L 12/29/21 13:30 75 14 89/70 12/29/21 13:15 83 11 L 98/74 12/29/21 13:00 14 103/73 Intake and Output 12/29/21 12/30/21 12/30/21 22:59 06:59 14:59 Intake Total 802.866 965 3988 Output Total 245 295 155 Balance 557.501 833 0258 Intake: IV 800 900 850 Ampicillin-Sulbactam 3 gm 100 In Sodium Chloride 0.9% 100 ml @ 200 mls/hr IVPB Q6HR [facility] Rx#:[id number] Lactated Ringers 1,000 ml 500 @ 100 mls/hr IV .Q10H [facility] Rx#:[id number] Sodium Chloride 0.9% 1, 800 900 000 ml @ 100 mls/hr IV . Q10H [facility] Rx#:[id number] Vancomycin 1,000 mg In 250 Sodium Chloride 0.9% 250 ml @ 125 mls/hr IVPB Q12H [facility] Rx#:[id number] Intake, IV Titration 2.911 Amount Norepinephrine 32 mg In 2.911 Sodium Chloride 0.9% 218 ml @ 0.05 MCG/KG/MIN 1. 382 mls/hr IV .Q24H [facility] Rx#:[id number] Oral 600 Output: Urine 245 295 155 Other: Voiding Method Indwelling Catheter Indwelling Catheter Indwelling Catheter Weight 59 kg - Constitutional General appearance: no acute distress - Respiratory Respiratory: bilateral: diminished - Cardiovascular Rhythm: irregularly irregular Abnormal Heart Sounds: systolic murmur Results 12/30/21 07:15 12/30/21 07:15 CBC 12/30/21 Range/Units 07:15 WBC 9.0 (3.8-10.6) k/uL RBC 4.38 (3.80-5.40) m/uL Hgb 13.3 (11.4-16.0) gm/dL Hct 43.3 (34.0-46.0) % Plt Count 184 (150-450) k/uL Comprehensive Metabolic Panel 12/30/21 Range/Units 07:15 Sodium 141 (137-145) mmol/L Potassium 3.8 (3.5-5.1) mmol/L Chloride 110 H (98-107) mmol/L Carbon Dioxide 28 (22-30) mmol/L BUN 13 (7-17) mg/dL Creatinine 0.62 (0.52-1.04) mg/dL Glucose 145 H (74-99) mg/dL Calcium 8.8 (8.4-10.2) mg/dL Current Medications Generic Name Dose Route Start Last Admin Trade Name Freq PRN Reason Stop Dose Admin Acetaminophen 650 mg 12/28/21 21:10 Acetaminophen Tab 325 Mg Tab PO Q4HR PRN Fever and/or Mild Pain Apixaban 2.5 mg 12/30/21 09:45 12/30/21 10:48 Apixaban 2.5 Mg Tablet PO 2.5 mg BID [facility] Administration Protocol Atenolol 25 mg 12/30/21 09:45 12/30/21 12:02 Atenolol 25 Mg Tab PO 25 mg DAILY [facility] Administration Donepezil HCl 10 mg 12/30/21 21:00 Donepezil 10 Mg Tab PO HS [facility] Escitalopram Oxalate 5 mg 12/31/21 09:00 Escitalopram 5 Mg Tab PO DAILY [facility] Lactated Ringer's 1,000 mls @ 100 mls/hr 12/29/21 09:00 12/30/21 05:22 Lactated Ringers IV 100 mls/hr .Q10H [facility] Administration Ampicillin Sodium/Sulbactam 100 mls @ 200 mls/hr 12/30/21 00:00 12/30/21 12:01 Sodium 3 gm/ Sodium Chloride IVPB 200 mls/hr Q6HR [facility] Administration Protocol Vancomycin HCl 1,000 mg/ 250 mls @ 125 mls/hr 12/30/21 12:00 12/30/21 12:01 Sodium Chloride IVPB 125 mls/hr Q12H [facility] Administration Amiodarone HCl 150 mg/ 103 mls @ 618 mls/hr 12/30/21 12:48 Dextrose/Water IV 12/30/21 12:57 .Q10M [facility] Protocol Amiodarone HCl 360 mg/ 200 mls @ 33.333 mls/hr 12/30/21 12:49 Dextrose/Water IV 12/30/21 18:48 .Q6H ONE Protocol 1 MG/MIN Amiodarone HCl 450 mg/ 250 mls @ 16.667 mls/hr 12/30/21 13:00 Dextrose/Water IV 12/31/21 06:59 .Q15H [facility] Protocol 0.5 MG/MIN Naloxone HCl 0.2 mg 12/28/21 21:10 Naloxone 0.4 Mg/Ml 1 Ml Vial IV Q2M PRN Opioid Reversal Pantoprazole Sodium 40 mg 12/29/21 09:00 12/30/21 09:13 Pantoprazole 40 Mg/10 Ml Vial IV 40 mg DAILY [facility] Administration Sildenafil Citrate 20 mg 12/30/21 16:00 Sildenafil 20 Mg Tab PO TID [facility] Intake and Output 12/29/21 12/30/21 12/30/21 22:59 06:59 14:59 Intake Total 802.605 964 2510 Output Total 245 295 155 Balance 557.524 702 1704 Intake: IV 800 900 850 Ampicillin-Sulbactam 3 gm 100 In Sodium Chloride 0.9% 100 ml @ 200 mls/hr IVPB Q6HR [facility] Rx#:[id number] Lactated Ringers 1,000 ml 500 @ 100 mls/hr IV .Q10H [facility] Rx#:[id number] Sodium Chloride 0.9% 1, 800 900 000 ml @ 100 mls/hr IV . Q10H [facility] Rx#:[id number] Vancomycin 1,000 mg In 250 Sodium Chloride 0.9% 250 ml @ 125 mls/hr IVPB Q12H [facility] Rx#:[id number] Intake, IV Titration 2.911 Amount Norepinephrine 32 mg In 2.911 Sodium Chloride 0.9% 218 ml @ 0.05 MCG/KG/MIN 1. 382 mls/hr IV .Q24H [facility] Rx#:[id number] Oral 600 Output: Urine 245 295 155 Other: Voiding Method Indwelling Catheter Indwelling Catheter Indwelling Catheter Weight 59 kg 12/30/21 07:15 12/30/21 07:15 Assessment and Plan Assessment: Assessment #1 sepsis with positive blood culture #2 hypotension secondary to sepsis. The pressure has improved #3 permanent atrial fibrillation. The A. fib currently is uncontrolled #4 marginally low blood pressure #5 known severe cardiomyopathy #6 valvular heart disease with mitral regurgitation and pulmonary hypertension and also tricuspid regurgitation Plan #1 DC Cardizem IV in the light of known severe cardiomyopathy #2 start the patient on amiodarone with bolus and drip #3 consider switching the patient to oral amiodarone down the line 4 continue the current dose of oral anticoagulation #5 obtain an echocardiogram was Doppler #6 follow-up with the patient
--- NOTE | 2021-12-30 14:29 | P.PN ---
Subjective Progress Note Date: 12/30/21 Principal diagnosis: Possible sepsis with hypotension, source unclear. Blood cultures positive for coag negative staphylococci Atrial fibrillation with RVR 85-year-old female, with history of CVA, dementia, atrial fibrillation and CHF, she presents to the emergency department with son and . is a 88-year-old male that is patient's primary nonfarm animal caretaker. Lives out of town. The last time he saw the patient was 2 months ago. States that he came down to visit is that patient was significantly weak. at the bedside is a poor historian however reports that patient has been showing signs of weakness for the last 3-4 days. Patient has history of dementia. Patient is a complaining of back pain. She has history of chronic back pain. Patient was found to be hypotensive in ED and was placed on norepinephrine; blood work revealed White count 12.1, hemoglobin 13.4, hematocrit 44.2, platelet count 201,000. Sodium 143, potassium 3.9, chlorides 112, CO2 28, with BUN of 22 and creatinine 0.82. Initial lactic acid was 2.4, with a follow-up lactic acid of 1.7. Cortisol level was 30. Urine suggests the possibility of a urinary tract infection. The patient is on vancomycin and ceftriaxone. Patient has history of permanent atrial fibrillation; currently atrial fibrillation with RVR; cardiology has been consulted and recommending to discontinue Cardizem given severe cardiomyopathy; patient is started on IV amiodarone bolus and drip with plans to switch to oral amiodarone once stable; patient remains on oral anticoagulation; 2-D echo is ordered Objective - Vital Signs Vital signs: Vital Signs Temp 97.8 F 12/30/21 08:00 Pulse 125 H 12/30/21 09:00 Resp 15 12/30/21 09:00 BP 114/86 12/30/21 09:00 Pulse Ox 94 L 12/30/21 08:00 FiO2 Intake & Output 12/29/21 12/30/21 12/30/21 18:59 06:59 18:59 Intake Total 2819.743 1301.187 550 Output Total 125 415 75 Balance 2694.743 886.187 475 Weight 59 kg Intake: IV 400 1300 200 Lactated Ringers 1,000 ml 200 @ 100 mls/hr IV .Q10H [facility] Rx#:[id number] Sodium Chloride 0.9% 1, 400 1300 000 ml @ 100 mls/hr IV . Q10H [facility] Rx#:[id number] Intake, IV Titration 2059.743 1.187 Amount Lactated Ringers 1,000 ml 500 @ 100 mls/hr IV .Q10H [facility] Rx#:[id number] Lactated Ringers 1,000 ml 1000 @ 999 mls/hr IV .Q1H1M [facility] Rx#:[id number] Norepinephrine 32 mg In 9.743 1.187 Sodium Chloride 0.9% 218 ml @ 0.05 MCG/KG/MIN 1. 382 mls/hr IV .Q24H [facility] Rx#:[id number] Sodium Chloride 0.9% 1, 200 000 ml @ 100 mls/hr IV . Q10H [facility] Rx#:[id number] Vancomycin 1,250 mg In 250 Sodium Chloride 0.9% 250 ml @ 125 mls/hr IVPB Q24H [facility] Rx#:[id number] cefTRIAXone 1 gm In 100 Sodium Chloride 0.9% 50 ml @ 100 mls/hr IVPB Q24HR [facility] Rx#:[id number] Oral 360 350 Output: Urine 125 415 75 Other: Voiding Method Indwelling Catheter Indwelling Catheter Indwelling Catheter - Exam PHYSICAL EXAMINATION: GENERAL: The patient is alert and oriented x3, not in any acute distress. Well developed, well nourished. HEENT: Pupils are round and equally reacting to light. EOMI. No scleral icterus. No conjunctival pallor. Normocephalic, atraumatic. No pharyngeal erythema. No thyromegaly. CARDIOVASCULAR: S1 and S2 present. No murmurs, rubs, or gallops. PULMONARY: Chest is clear to auscultation, no wheezing or crackles. ABDOMEN: Soft, nontender, nondistended, normoactive bowel sounds. No palpable organomegaly. MUSCULOSKELETAL: No joint swelling or deformity. EXTREMITIES: No cyanosis, clubbing, or pedal edema. NEUROLOGICAL: Gross neurological examination did not reveal any focal deficits. SKIN: No rashes. - Labs CBC & Chem 7: 12/30/21 07:15 12/30/21 07:15 Labs: Abnormal Lab Results - Last 24 Hours (Table) 12/30/21 12/30/21 Range/Units 07:15 07:15 MCHC 30.8 L (31.0-37.0) g/dL Lymphocytes # 0.4 L (1.0-4.8) k/uL Chloride 110 H (98-107) mmol/L Glucose 145 H (74-99) mg/dL Microbiology - Last 24 Hours (Table) 12/28/21 20:58 Blood Culture Gram Stain - Preliminary Blood Blood Culture - Preliminary Coagulase Negative Staph 12/28/21 20:50 Blood Culture Gram Stain - Preliminary Blood 12/28/21 20:50 Blood Culture - Final Blood 12/28/21 20:58 Blood Culture - Final Blood Assessment and Plan Assessment: 1. Possible sepsis; source unclear - Patient has been pancultured; white blood count slowly trending down; has been started on IV Rocephin and vancomycin - We will monitor CBC, CRP and pro-calcitonin; follow-up on urine and blood culture - Consult ID for further recommendations 2. Hypotension; likely related to sepsis; currently on IV fluids in form of lactated Ringer's 3. Lactic acidosis; progressive trending down from 2.4 upon admission down to 120 4. Possible UTI; patient has been placed on IV Rocephin; we will monitor urine culture and make further adjustments 5. Mild renal injury/dehydration; continue with IV fluids as indicated above; we will monitor renal function and electrolytes; avoid hypotension and nephrotoxins 6. History of CVA, atrial fibrillation, severe dementia
[2021-12-30] MEDS: SILDENAFIL 20 MG TAB PO SCH ×2 (17:16→22:31)
[2021-12-30] MEDS ORDERED: AMIODARONE 450 MG in DEXTROSE 5% IN WATER 250 ML IV SCH ×2 (19:00)
[2021-12-30] MEDS: DONEPEZIL 10 MG TAB PO SCH (20:29)
[2021-12-31] MEDS: AMPICILLIN-SULBACTAM 3 GM in SODIUM CHLORIDE 0.9% 100 ML IVPB SCH ×4 (06:23→23:04)
[2021-12-31 06:44] LABS: Basophils % (A) 0 %; Eosinophils # (A) 0.3 k/uL (0-0.7); Eosinophils % (A) 4 %; HCT 41.9 % (34.0-46.0); Hypochromasia Slight; Lymphocytes # (A) 0.4 k/uL (1.0-4.8); Lymphocytes % (A) 6 %; MCH 29.9 pg (25.0-35.0); MCV 96.5 fL (80.0-100.0); Mean Platelet Volume 7.8; Monocytes # (A) 0.4 k/uL (0-1.0); Monocytes % (A) 6 %; Neutrophils # (A) 6.3 k/uL (1.3-7.7); Neutrophils % (A) 83 %; Platelet Count 180 k/uL (150-450); RBC 4.34 m/uL (3.80-5.40); WBC 7.6 k/uL (3.8-10.6)
[2021-12-31 07:06] LABS: African American GFR (CKD) >90 (>60 ml/min/1.73 sqM); Anion Gap 1 mmol/L; Blood Urea Nitrogen 7 mg/dL (7-17); Calcium 8.2 mg/dL (8.4-10.2); Carbon Dioxide 29 mmol/L (22-30); Chloride 106 mmol/L (98-107); Glucose 110 mg/dL (74-99); Non-African American GFR(CKD) 83 (>60 ml/min/1.73 sqM); Potassium 3.3 mmol/L (3.5-5.1); Sodium 136 mmol/L (137-145)
[2021-12-31] MEDS ORDERED: Potassium Replacement Protocol 1 EACH MISC MISCELLANE PRN (07:09)
--- NOTE | 2021-12-31 07:21 | P.PN ---
Subjective Progress Note Date: 12/31/21 PROGRESS NOTE The patient is an 86-year-old female who presented with change in mental status, sepsis. She has a known history of atrial fibrillation and had episodes of atrial fibrillation with rapid ventricle response. She continues to be on IV amiodarone, her ventricular response is controlled. There is no evidence of malignant arrhythmia. Hemodynamically she is stable on no pressors. She contin ues to be confused but that's her baseline. Her urinary output is good. She has a prior history of cardiomyopathy with severe mitral and tricuspid regurgitation. Medications: IV amiodarone, Tenormin 25 mg daily, sildenafil, Eliquis 2.5 mg twice a day PHYSICAL EXAMINATION: Blood pressure 97/60 heart rate 85, awake confused LUNGS: Clear to auscultation HEART: Irregular rate and rhythm, S1, S2. No S3. Holosystolic murmur at the base ABDOMEN: Soft, nontender, no organomegaly EXTREMETIES: No edema LAB: Potassium 3.3, BUN 7, creatinine 0.58. Hemoglobin 13. Blood culture positive for coagulase-negative staph IMPRESSION: 1. Bacteremia with coagulase-negative staph on IV antibiotics 2. Chronic persistent atrial fibrillation, rate controlled, anticoagulated 3. 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 History of dementia PLAN: 1. Changed to oral amiodarone 2. Obtaining echocardiogram with Doppler 3. Depending on the blood pressure consider adding REBECCA inhibitor 4. Follow renal functions 5. Prognosis is guarded. Objective - Vital Signs Vital signs: Vital Signs Temp 97.6 F 12/31/21 05:00 Pulse 113 H 12/31/21 07:00 Resp 18 12/31/21 07:00 BP 97/65 12/31/21 07:00 Pulse Ox 97 12/31/21 05:00 FiO2 Intake & Output 12/30/21 12/31/21 12/31/21 18:59 06:59 18:59 Intake Total 2150 1500 Output Total 390 475 Balance 1760 1025 Weight 60 kg Intake: IV 1550 1500 Ampicillin-Sulbactam 3 gm 200 300 In Sodium Chloride 0.9% 100 ml @ 200 mls/hr IVPB Q6HR [facility] Rx#:[id number] Lactated Ringers 1,000 ml 1100 1200 @ 100 mls/hr IV .Q10H [facility] Rx#:[id number] Vancomycin 1,000 mg In 250 Sodium Chloride 0.9% 250 ml @ 125 mls/hr IVPB Q12H [facility] Rx#:[id number] Oral 600 Output: Urine 390 475 Other: Voiding Method Indwelling Catheter Indwelling Catheter - Labs CBC & Chem 7: 12/31/21 06:22 12/31/21 06:22 Labs: Abnormal Lab Results - Last 24 Hours (Table) 12/30/21 12/30/21 12/31/21 Range/Units 07:15 07:15 06:22 MCHC 30.8 L (31.0-37.0) g/dL Lymphocytes # 0.4 L 0.4 L (1.0-4.8) k/uL Sodium (137-145) mmol/L Potassium (3.5-5.1) mmol/L Chloride 110 H (98-107) mmol/L Glucose 145 H (74-99) mg/dL Calcium (8.4-10.2) mg/dL 12/31/21 Range/Units 06:22 MCHC (31.0-37.0) g/dL Lymphocytes # (1.0-4.8) k/uL Sodium 136 L (137-145) mmol/L Potassium 3.3 L (3.5-5.1) mmol/L Chloride (98-107) mmol/L Glucose 110 H (74-99) mg/dL Calcium 8.2 L (8.4-10.2) mg/dL Microbiology - Last 24 Hours (Table) 12/28/21 20:50 Blood Culture Gram Stain - Preliminary Blood Blood Culture - Preliminary Coagulase Negative Staph 12/28/21 20:58 Blood Culture Gram Stain - Preliminary Blood Blood Culture - Preliminary Coagulase Negative Staph
[2021-12-31] MEDS: POTASSIUM CHLORIDE 20 MEQ in WATER FOR INJECTION 1 100ML.BAG IVPB SCH ×2 (09:28→13:18)
[2021-12-31] MEDS: ESCITALOPRAM 5 MG TAB PO SCH (09:29)
[2021-12-31] MEDS: PANTOPRAZOLE 40 MG/10 ML VIAL IV SCH (09:29)
[2021-12-31] MEDS: SILDENAFIL 20 MG TAB PO SCH ×3 (09:29→21:14)
[2021-12-31] MEDS: APIXABAN 2.5 MG TABLET PO SCH ×2 (09:29→21:19)
[2021-12-31] MEDS: AMIODARONE 200 MG TAB PO SCH ×2 (09:29→21:19)
[2021-12-31] MEDS: LACTATED RINGERS 1,000 ML IV SCH (09:30)
[2021-12-31] MEDS: atenoloL 25 MG TAB PO SCH ×2 (09:36→17:27)
--- NOTE | 2021-12-31 11:30 | CA ---
Transthoracic Echo Report Name: Jewels Jackson Age: 86 Gender: F : 1935 Exam Date: 12/31/2021 07:47 Exam Location: [facility] Ht (in): 64 Wt (lb): 132 Ordering Physician: Tru Kraus MD ([id number]) Attending/Referring Phys: Coremaking Machine Operator Talia Palmer RDCS Procedure CPT: Indications: cardiac function/Afib Cardiac Hx: Technical Quality: Good Contrast 1: Total Dose (mL): Contrast 2: Total Dose (mL): MEASUREMENTS (Male / Female) Normal Values 2D ECHO LV Diastolic Diameter PLAX 3.4 cm 4.2 - 5.9 / 3.9 - 5.3 cm LV Systolic Diameter PLAX 2.4 cm IVS Diastolic Thickness 1.0 cm 0.6 - 1.0 / 0.6 - 0.9 cm LVPW Diastolic Thickness 1.1 cm 0.6 - 1.0 / 0.6 - 0.9 cm LV Relative Wall Thickness 0.6 RV Internal Dim ED PLAX 4.5 cm LA Volume 130.1 cm??? 18 - 58 / 22 - 52 cm??? M-MODE Aortic Root Diameter MM 3.0 cm LA Systolic Diameter MM 6.3 cm LA Ao Ratio MM 2.1 MV E Point Septal Separation 1.0 cm AV Cusp Separation MM 1.9 cm DOPPLER AV Peak Velocity 97.9 cm/s AV Peak Gradient 3.8 mmHg MV Area PHT 7.8 cm??? MR Peak Velocity 448.4 cm/s MR Peak Gradient 80.4 mmHg Mitral E Point Velocity 77.2 cm/s Mitral A Point Velocity 47.6 cm/s Mitral E to A Ratio 1.6 MV Deceleration Time 97.7 ms MV E' Velocity 3.1 cm/s Mitral E to MV E' Ratio 24.7 TR Peak Velocity 379.3 cm/s TR Peak Gradient 57.5 mmHg Right Ventricular Systolic Press 58.7 mmHg FINDINGS Left Ventricle Mildly increased posterior wall thickness. Grade 2 diastolic dysfunction. Left ventricular ejection fraction is estimated at 55-60 %. Left ventricular cavity size normal. Right Ventricle Moderate pulmonary hypertension. Moderate right ventricular dilatation. Right Atrium Severe right atrial dilatation. 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 Moderately increased left atrial area. Mitral Valve Moderate mitral regurgitation. Aortic Valve Trileaflet aortic valve. No regurge Tricuspid Valve Ycjzxmej-vy-obcrut tricuspid regurgitation. Pulmonic Valve Structurally normal pulmonic valve without significant stenosis. There is no pulmonic regurgitation. Pericardium Normal pericardium without effusion. Aorta Normal aortic root dimension. CONCLUSIONS Normal LV systolic function Moderate to severe pulmonary hypertension Severe biatrial enlargement Moderate mitral regurgitation Moderate to severe tricuspid regurgitation Previewed by: Dr. Kirt Dimas MD (Electronically Signed) Final Date: 31 December 2021 11:29
--- NOTE | 2021-12-31 13:44 | P.PN ---
Subjective Progress Note Date: 12/31/21 On today's evaluation of 12/31/2021, the patient is lethargic, cannot hold a conversation. She has dementia with impairment of cognitive functions the CAT scan of the brain showed cerebral atrophy. The patient remains on a lactated Ringer running at the rate of 100 mL an hour. Overall fluid balance has been +3.5 L over the past 48 hours and 2.7 L over the past 24 hours. Echocardiogram showed a normal LV function, moderate to severe degree of pulmonary hypertension, moderate mitral regurgitation, moderate to severe tricuspid regurgitation. The patient is afebrile. The patient is hemodynamically stable. Blood cultures 2 has been negative. The white cell count 7.6 with a hemoglobin 15.5 and a platelet count of 180. He is at 7 with a creatinine of 0.58 and a sodium level is at 136. No other significant events overnight. The patient has been already switched to oral amiodarone 400 mg by mouth twice a day. The patient is currently on IV Unasyn. There are 4 out of 4 blood culture that showed gram-positive cocci in chains. The first culture showed staph hemolyticus and the second culture showed coagulase-negative staph. Infectious diseases on the case regarding antibiotic management. The patient was on vancomycin initially switched to Rocephin milligrams Unasyn. Objective - Vital Signs Vital signs: Vital Signs Temp 97.6 F 12/31/21 05:00 Pulse 113 H 12/31/21 07:00 Resp 18 12/31/21 07:00 BP 97/65 12/31/21 07:00 Pulse Ox 98 12/31/21 07:24 FiO2 Intake & Output 12/30/21 12/31/21 12/31/21 18:59 06:59 18:59 Intake Total 2150 1500 Output Total 390 475 Balance 1760 1025 Weight 60 kg Intake: IV 1550 1500 Ampicillin-Sulbactam 3 gm 200 300 In Sodium Chloride 0.9% 100 ml @ 200 mls/hr IVPB Q6HR [facility] Rx#:[id number] Lactated Ringers 1,000 ml 1100 1200 @ 100 mls/hr IV .Q10H [facility] Rx#:[id number] Vancomycin 1,000 mg In 250 Sodium Chloride 0.9% 250 ml @ 125 mls/hr IVPB Q12H [facility] Rx#:[id number] Oral 600 Output: Urine 390 475 Other: Voiding Method Indwelling Catheter Indwelling Catheter - Exam GENERAL DESCRIPTION: Elderly female lying in bed, no distress. No tachypnea or accessory muscle of respiration use. The patient is calm and comfortable currently on 4 L O2 nasal cannula, breathing is nonlabored and the patient is resting comfortably. Head exam was generally normal. There was no scleral icterus or corneal arcus. Mucous membranes were moist. HEENT: Shows Pallor , no scleral icterus. Oral mucous membrane is dry. No pharyngeal erythema or thrush NECK: Trachea central, no thyromegaly. LUNGS: Unlabored breathing. Decreased present at the base. No wheeze or crackle. HEART: S1, S2, regular rate and rhythm. No loud murmur ABDOMEN: Soft, no tenderness , guarding or rigidity, no organomegaly EXTREMITIES: Examination of the extremities revealed easily palpable radial, femoral and pedal pulses. There was no cyanosis, clubbing or edema. Examination of the skin revealed no evidence of significant rashes, suspicious appearing nevi or other concerning lesions. NEUROLOGICAL: The patient is awake, alert, oriented x1, mood and affect normal. - Labs CBC & Chem 7: 12/31/21 06:22 12/31/21 06:22 Labs: Abnormal Lab Results - Last 24 Hours (Table) 12/31/21 12/31/21 Range/Units 06: 06:22 Lymphocytes # 0.4 L (1.0-4.8) k/uL Sodium 136 L (137-145) mmol/L Potassium 3.3 L (3.5-5.1) mmol/L Glucose 110 H (74-99) mg/dL Calcium 8.2 L (8.4-10.2) mg/dL Microbiology - Last 24 Hours (Table) 12/28/21 20:50 Blood Culture Gram Stain - Preliminary Blood Blood Culture - Preliminary Coagulase Negative Staph 12/28/21 20:58 Blood Culture Gram Stain - Preliminary Blood Blood Culture - Preliminary Coagulase Negative Staph Assessment and Plan Plan: sepsis with hypotension, source unclear. Blood cultures positive for coag negative staphylococci. The patient has 4 out of 4 blood cultures are positive for coagulase-negative staph and the patient is currently on IV Unasyn Altered mental status most likely secondary to metabolic encephalopathy, secondary to above History of CVA. History of severe dementia. There has been progressive loss in her cognitive functions over the years based on my personal observation on this patient and this is attributed to her underlying dementia. Previous history of tobacco use, rule out COPD. History of atrial fibrillation. The patient's rate is currently controlled. The patient was on a Cardizem drip and this was switched to amiodarone drip and currently the patient is going to be switched to oral amiodarone. History of home oxygen use, at nighttime. Mild lactic acidosis, improved and her lactic acid level is down to 1.7 Mild leukocytosis with a white cell count of 12.1, improvement in the white cell count is down to 7.6. Cardiomyopathy with an ejection fraction of 30-35% based on an earlier echocardiogram from 2019, repeat echocardiogram confirmed the presence of severe pulmonary hypertension, nevertheless, there has been improvement in the ventr icular ejection fraction and LV function was reported to be within normal limits. Severe mitral regurgitation/valvular heart disease along with tricuspid regurgitation and severe pulmonary hypertension, and the patient has been maintained on sildenafil 20 mg by mouth 3 times a day for many years in addition to long-term anticoagulation with Eliquis. Previous history of pulmonary embolism, the patient is on long-term anticoagulation with Eliquis Chronic hypoxic respiratory failure maintained on O2 at 2 L per minute nasal cannula History of pulmonary fibrosis, mild History of scoliosis/spondylosis/degenerative arthritis Impaired hearing Sigmoid diverticulosis without diverticulitis Large left inguinal hernia without evidence of any bowel obstruction Plan: IV Fluids of 40 ML an Hour monitor mentation monitor cultures and continue Unasyn for now increase his oral intake His mobility Customer Support Technician on the case Echo was noted We'll continue to follow DNR/DNI CODE STATUS
--- NOTE | 2021-12-31 13:53 | P.PN ---
Subjective Progress Note Date: 12/31/21 Principal diagnosis: Possible sepsis with hypotension, source unclear. Blood cultures positive for coag negative staphylococci Atrial fibrillation with RVR 85-year-old female, with history of CVA, dementia, atrial fibrillation and CHF, she presents to the emergency department with son and . is a 88-year-old male that is patient's primary ambulance dispatcher. Lives out of town. The last time he saw the patient was 2 months ago. States that he came down to visit is that patient was significantly weak. at the bedside is a poor historian however reports that patient has been showing signs of weakness for the last 3-4 days. Patient has history of dementia. Patient is a complaining of back pain. She has history of chronic back pain. Patient was found to be hypotensive in ED and was placed on norepinephrine; blood work revealed White count 12.1, hemoglobin 13.4, hematocrit 44.2, platelet count 201,000. Sodium 143, potassium 3.9, chlorides 112, CO2 28, with BUN of 22 and creatinine 0.82. Initial lactic acid was 2.4, with a follow-up lactic acid of 1.7. Cortisol level was 30. Urine suggests the possibility of a urinary tract infection. The patient is on vancomycin and ceftriaxone. Patient has history of permanent atrial fibrillation; currently atrial fibrillation with RVR; cardiology has been consulted and recommending to discontinue Cardizem given severe cardiomyopathy; patient is started on IV amiodarone bolus and drip with plans to switch to oral amiodarone once stable; patient remains on oral anticoagulation; 2-D echo is ordered 12/31/2021 Patient is seen and evaluated sitting up in bed with daughter at bedside. Patient is more awake and alert this morning -- The patient remains on a lactated Ringer running at the rate of 100 mL an hour. Echocardiogram showed a normal LV function, moderate to severe degree of pulmonary hypertension, moderate mitral regurgitation, moderate to severe tricuspid regurgitation. Blood cultures 2 has been negative. The white cell count 7.6 with a hemoglobin 15.5 and a platelet count of 180. He is at 7 with a creatinine of 0.58 and a sodium level is at 136. -- The patient has been already switched to oral amiodarone 400 mg by mouth twice a day. The patient is currently on IV Unasyn. There are 4 out of 4 blood culture that showed gram-positive cocci in chains. The first culture showed staph hemolyticus and the second culture showed coagulase-negative staph. Infectious diseases on the case regarding antibiotic management. The patient was on vancomycin initially switched to Rocephin milligrams Unasyn. Patient's CODE STATUS has been updated to DO NOT RESUSCITATE/DO NOT INTUBATE Objective - Vital Signs Vital signs: Vital Signs Temp 97.6 F 12/31/21 05:00 Pulse 113 H 12/31/21 07:00 Resp 18 12/31/21 07:00 BP 97/65 12/31/21 07:00 Pulse Ox 98 12/31/21 07:24 FiO2 Intake & Output 12/30/21 12/31/21 12/31/21 18:59 06:59 18:59 Intake Total 2150 1500 Output Total 390 475 Balance 1760 1025 Weight 60 kg Intake: IV 1550 1500 Ampicillin-Sulbactam 3 gm 200 300 In Sodium Chloride 0.9% 100 ml @ 200 mls/hr IVPB Q6HR [facility] Rx#:[id number] Lactated Ringers 1,000 ml 1100 1200 @ 100 mls/hr IV .Q10H [facility] Rx#:[id number] Vancomycin 1,000 mg In 250 Sodium Chloride 0.9% 250 ml @ 125 mls/hr IVPB Q12H [facility] Rx#:[id number] Oral 600 Output: Urine 390 475 Other: Voiding Method Indwelling Catheter Indwelling Catheter - Exam PHYSICAL EXAMINATION: GENERAL: The patient is alert and oriented x3, not in any acute distress. Well developed, well nourished. HEENT: Pupils are round and equally reacting to light. EOMI. No scleral icterus. No conjunctival pallor. Normocephalic, atraumatic. No pharyngeal erythema. No thyromegaly. CARDIOVASCULAR: S1 and S2 present. No murmurs, rubs, or gallops. PULMONARY: Chest is clear to auscultation, no wheezing or crackles. ABDOMEN: Soft, nontender, nondistended, normoactive bowel sounds. No palpable organomegaly. MUSCULOSKELETAL: No joint swelling or deformity. EXTREMITIES: No cyanosis, clubbing, or pedal edema. NEUROLOGICAL: Gross neurological examination did not reveal any focal deficits. SKIN: No rashes. - Labs CBC & Chem 7: 12/31/21 06:22 12/31/21 06:22 Labs: Abnormal Lab Results - Last 24 Hours (Table) 12/30/21 12/31/21 12/31/21 Range/Units 07:15 06:22 06:22 Lymphocytes # 0.4 L (1.0-4.8) k/uL Sodium 136 L (137-145) mmol/L Potassium 3.3 L (3.5-5.1) mmol/L Chloride 110 H (98-107) mmol/L Glucose 145 H 110 H (74-99) mg/dL Calcium 8.2 L (8.4-10.2) mg/dL Microbiology - Last 24 Hours (Table) 12/28/21 20:50 Blood Culture Gram Stain - Preliminary Blood Blood Culture - Preliminary Coagulase Negative Staph 12/28/21 20:58 Blood Culture Gram Stain - Preliminary Blood Blood Culture - Preliminary Coagulase Negative Staph Assessment and Plan Assessment: 1. Possible sepsis; source unclear - Patient has been pancultured; white blood count slowly trending down; has been started on IV Rocephin and vancomycin - We will monitor CBC, CRP and pro-calcitonin; follow-up on urine and blood culture - Consult ID for further recommendations 2. Hypotension; likely related to sepsis; currently on IV fluids in form of lactated Ringer's 3. Lactic acidosis; progressive trending down from 2.4 upon admission down to 120 4. Possible UTI; patient has been placed on IV Rocephin; we will monitor urine culture and make further adjustments 5. Mild renal injury/dehydration; continue with IV fluids as indicated above; we will monitor renal function and electrolytes; avoid hypotension and nephrotoxins 6. History of CVA, atrial fibrillation, severe dementia
[2021-12-31] MEDS: DONEPEZIL 10 MG TAB PO SCH (21:19)
--- NOTE | 2021-12-31 22:12 | P.PN ---
Subjective Progress Note Date: 12/30/21 Principal diagnosis: SIRS and bacteremia Patient is 85-year-old female with multiple comorbidities presenting to the ER yesterday afternoon for evaluation of weakness symptom has been going on for about 3 to 4 days before presentation to the hospital, patient was hypote nsive requiring admission to the ICU and subsequently did have a positive blood culture with gram-positive cocci finalizes staph epi. On today's evaluation that is 12/30/2021, the patient denies having any fever or any chills, the patient is slightly more awake and alert denies any chest pain or shortness of breath or cough no abdominal pain no diarrhea Objective - Vital Signs Vital signs: Vital Signs Temp 98.2 F 12/30/21 12:00 Pulse 123 H 12/30/21 13:00 Resp 18 12/30/21 13:00 BP 111/94 12/30/21 13:00 Pulse Ox 96 12/30/21 12:00 FiO2 Intake & Output 12/29/21 12/30/21 12/30/21 18:59 06:59 18:59 Intake Total 2819.743 4917.328 1298 Output Total 125 415 200 Balance 2694.743 015.440 4643 Weight 59 kg Intake: IV 400 1300 950 Ampicillin-Sulbactam 3 gm 100 In Sodium Chloride 0.9% 100 ml @ 200 mls/hr IVPB Q6HR [facility] Rx#:[id number] Lactated Ringers 1,000 ml 600 @ 100 mls/hr IV .Q10H [facility] Rx#:[id number] Sodium Chloride 0.9% 1, 400 1300 000 ml @ 100 mls/hr IV . Q10H [facility] Rx#:[id number] Vancomycin 1,000 mg In 250 Sodium Chloride 0.9% 250 ml @ 125 mls/hr IVPB Q12H [facility] Rx#:[id number] Intake, IV Titration 2059.743 1.187 Amount Lactated Ringers 1,000 ml 500 @ 100 mls/hr IV .Q10H [facility] Rx#:[id number] Lactated Ringers 1,000 ml 1000 @ 999 mls/hr IV .Q1H1M [facility] Rx#:[id number] Norepinephrine 32 mg In 9.743 1.187 Sodium Chloride 0.9% 218 ml @ 0.05 MCG/KG/MIN 1. 382 mls/hr IV .Q24H [facility] Rx#:[id number] Sodium Chloride 0.9% 1, 200 000 ml @ 100 mls/hr IV . Q10H [facility] Rx#:[id number] Vancomycin 1,250 mg In 250 Sodium Chloride 0.9% 250 ml @ 125 mls/hr IVPB Q24H [facility] Rx#:[id number] cefTRIAXone 1 gm In 100 Sodium Chloride 0.9% 50 ml @ 100 mls/hr IVPB Q24HR [facility] Rx#:[id number] Oral 360 600 Output: Urine 125 415 200 Other: Voiding Method Indwelling Catheter Indwelling Catheter Indwelling Catheter - Exam GENERAL DESCRIPTION: An elderly female lying in bed in no distress RESPIRATORY SYSTEM: Unlabored breathing , decreased breath sounds at bases HEART: S1 S2 regular rate and rhythm , ABDOMEN: Soft , no tenderness EXTREMITIES: No edema feet - Labs CBC & Chem 7: 12/31/21 06:22 12/31/21 06:22 Labs: Abnormal Lab Results - Last 24 Hours (Table) 12/30/21 12/30/21 Range/Units 07:15 07:15 MCHC 30.8 L (31.0-37.0) g/dL Lymphocytes # 0.4 L (1.0-4.8) k/uL Chloride 110 H (98-107) mmol/L Glucose 145 H (74-99) mg/dL Microbiology - Last 24 Hours (Table) 12/28/21 20:50 Blood Culture Gram Stain - Preliminary Blood Blood Culture - Preliminary Coagulase Negative Staph 12/28/21 20:58 Blood Culture Gram Stain - Preliminary Blood Blood Culture - Preliminary Coagulase Negative Staph 12/28/21 20:50 Blood Culture - Final Blood 12/28/21 20:58 Blood Culture - Final Blood Assessment and Plan (1) SIRS (systemic inflammatory response syndrome) Current Visit: Yes Status: Acute Code(s): R65.10 - SIRS OF NON-INFECTIOUS ORIGIN W/O ACUTE ORGAN DYSFUNCTION SNOMED Code(s): 284382754 (2) Bacteremia Current Visit: Yes Status: Acute Code(s): R78.81 - BACTEREMIA SNOMED Code(s): 7466560 Plan: 1patient has been brought to the hospital with weakness patient was noticed to have elevated white count and elevated lactic acid patient also have hypotension requiring pressor support she did have a CT of the chest abdominal pelvis not showing any acute abnormality did have a right inguinal hernia but no evidence of any bowel herniation now with evidence of gram-positive bacteremia questionable skin contaminant as has been finalized as staph epi vancomycin will be discontinued 2patient to continue with the Unasyn and monitor clinical course closely Time with Patient: Less than 30
--- NOTE | 2021-12-31 22:13 | P.PN ---
Subjective Progress Note Date: 12/31/21 Principal diagnosis: SIRS and bacteremia Patient is 85-year-old female with multiple comorbidities presenting to the ER yesterday afternoon for evaluation of weakness symptom has been going on for about 3 to 4 days before presentation to the hospital, patient was hypote nsive requiring admission to the ICU and subsequently did have a positive blood culture with gram-positive cocci finalizes staph epi. On today's evaluation that is , the patient remains to be afebrile, the patient is more awake and alert, the patient is breathing comfortably on room air denies any chest pain shortness of breath or cough no abdominal pain no diarrhea Objective - Vital Signs Vital signs: Vital Signs Temp 98.4 F 12/31/21 09:00 Pulse 105 H 12/31/21 11:00 Resp 15 12/31/21 11:00 BP 95/73 12/31/21 11:00 Pulse Ox 94 L 12/31/21 09:00 FiO2 Intake & Output 12/30/21 12/31/21 12/31/21 18:59 06:59 18:59 Intake Total 2150 1500 436.6 Output Total 390 475 140 Balance 1760 1025 296.6 Weight 60 kg Intake: IV 1550 1500 100 Ampicillin-Sulbactam 3 gm 200 300 In Sodium Chloride 0.9% 100 ml @ 200 mls/hr IVPB Q6HR RIKKI Rx#:[id number] Lactated Ringers 1,000 ml 1100 1200 100 @ 100 mls/hr IV .Q10H RIKKI Rx#:[id number] Vancomycin 1,000 mg In 250 Sodium Chloride 0.9% 250 ml @ 125 mls/hr IVPB Q12H RIKKI Rx#:[id number] Intake, IV Titration 236.6 Amount Amiodarone 450 mg In 16.6 Dextrose 5% in Water 250 ml @ 0.5 MG/MIN 16.667 mls/hr IV .Q15H RIKKI Rx#: [id number] Lactated Ringers 1,000 ml 120 @ 40 mls/hr IV .Q24H RIKKI Rx#:[id number] Potassium Chloride 20 meq 100 In Water For Injection 1 100ml.bag @ 50 mls/hr IVPB Q2H RIKKI Rx#: [id number] Oral 600 100 Output: Urine 390 475 140 Other: Voiding Method Indwelling Catheter Indwelling Catheter Indwelling Catheter - Exam GENERAL DESCRIPTION: An elderly female lying in bed in no distress RESPIRATORY SYSTEM: Unlabored breathing , decreased breath sounds at bases HEART: S1 S2 regular rate and rhythm , ABDOMEN: Soft , no tenderness EXTREMITIES: No edema feet - Labs CBC & Chem 7: 12/31/21 06:22 12/31/21 06:22 Labs: Abnormal Lab Results - Last 24 Hours (Table) 12/31/21 12/31/21 Range/Units 06:22 06:22 Lymphocytes # 0.4 L (1.0-4.8) k/uL Sodium 136 L (137-145) mmol/L Potassium 3.3 L (3.5-5.1) mmol/L Glucose 110 H (74-99) mg/dL Calcium 8.2 L (8.4-10.2) mg/dL Microbiology - Last 24 Hours (Table) 12/28/21 20:50 Blood Culture Gram Stain - Final Blood Blood Culture - Final Staphylococcus haemolyticus 12/28/21 20:58 Blood Culture Gram Stain - Preliminary Blood Blood Culture - Preliminary Coagulase Negative Staph Assessment and Plan (1) SIRS (systemic inflammatory response syndrome) Current Visit: Yes Status: Acute Code(s): R65.10 - SIRS OF NON-INFECTIOUS ORIGIN W/O ACUTE ORGAN DYSFUNCTION SNOMED Code(s): 164326924 (2) Bacteremia Current Visit: Yes Status: Acute Code(s): R78.81 - BACTEREMIA SNOMED Code(s): 8248846 Plan: 1patient has been brought to the hospital with weakness patient was noticed to have elevated white count and elevated lactic acid patient also have hypotension requiring pressor support she did have a CT of the chest abdominal pelvis not showing any acute abnormality did have a right inguinal hernia but no evidence of any bowel herniation now with evidence of gram-positive bacteremia ques tionable skin contaminant as has been finalized as staph epi vancomycin has been discontinued, repeat blood cultures has been out of those will be followed 2patient has shown clinical improvement and will continue with the Unasyn and monitor clinical course closely Time with Patient: Less than 30
[2022-01-01 06:25] LABS: HCT 42.2 % (34.0-46.0); HGB 13.1 gm/dL (11.4-16.0); Hypochromasia Slight; MCH 30.2 pg (25.0-35.0); MCV 97.5 fL (80.0-100.0); Mean Platelet Volume 8.1; Platelet Count 196 k/uL (150-450); RBC 4.33 m/uL (3.80-5.40); RDW 13.1 % (11.5-15.5); WBC 9.5 k/uL (3.8-10.6)
[2022-01-01] MEDS: AMPICILLIN-SULBACTAM 3 GM in SODIUM CHLORIDE 0.9% 100 ML IVPB SCH ×4 (06:26→23:37)
[2022-01-01 06:34] LABS: African American GFR (CKD) >90 (>60 ml/min/1.73 sqM); Anion Gap 2 mmol/L; Blood Urea Nitrogen 8 mg/dL (7-17); Calcium 8.3 mg/dL (8.4-10.2); Carbon Dioxide 28 mmol/L (22-30); Chloride 107 mmol/L (98-107); Glucose 96 mg/dL (74-99); Non-African American GFR(CKD) >90 (>60 ml/min/1.73 sqM); Sodium 137 mmol/L (137-145)
[2022-01-01 06:35] LABS: Potassium 4.6 mmol/L (3.5-5.1)
--- NOTE | 2022-01-01 08:09 | P.PN ---
Subjective Progress Note Date: 01/01/22 PROGRESS NOTE The patient is an 86-year-old female who presented with change in mental status, sepsis. She has a known history of atrial fibrillation and had episodes of atrial fibrillation with rapid ventricle response. She continues to be on IV amiodarone, her ventricular response is controlled. There is no evidence of malignant arrhythmia. Hemodynamically she is stable on no pressors. She contin ues to be confused but that's her baseline. Her urinary output is good. She has a prior history of cardiomyopathy with severe mitral and tricuspid regurgitation. January 01: The patient is awake, confused. Continues to be in atrial fibrillation with relatively controlled ventricular response. She had an echocardiogram yesterday that showed a normal systolic function was moderate mitral and moderate to severe tricuspid regurgitation with moderate to severe pulmonary hypertension. She had episodes of hypotension yesterday, better today. She is afebrile. Her ventricular response is in the 90s. Medications: amiodarone 200 mg twice a day, Tenormin 25 mg daily, sildenafil, Eliquis 2.5 mg twice a day PHYSICAL EXAMINATION: Blood pressure 103/70 heart rate 93, awake confused LUNGS: Clear to auscultation HEART: Irregular rate and rhythm, S1, S2. No S3. Holosystolic murmur at the apex, 3/6 ABDOMEN: Soft, nontender, no organomegaly EXTREMETIES: No edema LAB: Potassium 4.6, BUN 8, creatinine 0.42, white blood cell 9.5, hemoglobin 13.1. Blood cultures with Staphylococcus hemolyticus IMPRESSION: 1. Bacteremia with Staphylococcus hemolyticus on IV antibiotics 2. Chronic persistent atrial fibrillation, rate controlled, anticoagulated 3. 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 History of dementia PLAN: 1. Continue present therapy with beta clive and amiodarone 2. Continue anticoagulation 3. We will see her on an as needed basis, please feel free to call us for any question. Objective - Vital Signs Vital signs: Vital Signs Temp 97.8 F 01/01/22 04:00 Pulse 93 01/01/22 06:00 Resp 17 01/01/22 06:00 BP 103/79 01/01/22 06:00 Pulse Ox 94 L 01/01/22 06:00 FiO2 Intake & Output 12/31/21 01/01/22 01/01/22 18:59 06:59 18:59 Intake Total 1316.6 540 Output Total 360 360 Balance 956.6 180 Weight 61.4 kg Intake: IV 300 220 Ampicillin-Sulbactam 3 gm 200 100 In Sodium Chloride 0.9% 100 ml @ 200 mls/hr IVPB Q6HR RIKKI Rx#:[id number] Lactated Ringers 1,000 ml 100 @ 100 mls/hr IV .Q10H RIKKI Rx#:[id number] Lactated Ringers 1,000 ml 120 @ 40 mls/hr IV .Q24H RIKKI Rx#:[id number] Intake, IV Titration 616.6 320 Amount Amiodarone 450 mg In 16.6 Dextrose 5% in Water 250 ml @ 0.5 MG/MIN 16.667 mls/hr IV .Q15H RIKKI Rx#: [id number] Lactated Ringers 1,000 ml 400 320 @ 40 mls/hr IV .Q24H RIKKI Rx#:[id number] Potassium Chloride 20 meq 200 In Water For Injection 1 100ml.bag @ 50 mls/hr IVPB Q2H RIKKI Rx#: [id number] Oral 400 Output: Urine 360 360 Other: Voiding Method Indwelling Catheter Indwelling Catheter # Bowel Movements 1 1 - Labs CBC & Chem 7: 01/01/22 05:43 01/01/22 05:43 Labs: Abnormal Lab Results - Last 24 Hours (Table) 12/31/21 01/01/22 Range/Units 10:49 05:43 Creatinine 0.42 L (0.52-1.04) mg/dL Calcium 8.3 L (8.4-10.2) mg/dL Procalcitonin 0.13 H (0.02-0.09) ng/mL Microbiology - Last 24 Hours (Table) 12/28/21 20:58 Blood Culture Gram Stain - Final Blood Blood Culture - Final Staphylococcus haemolyticus 12/28/21 20:50 Blood Culture Gram Stain - Final Blood Blood Culture - Final Staphylococcus haemolyticus
[2022-01-01] MEDS: PANTOPRAZOLE 40 MG/10 ML VIAL IV SCH (09:20)
[2022-01-01] MEDS: AMIODARONE 200 MG TAB PO SCH ×2 (09:20→21:16)
[2022-01-01] MEDS: APIXABAN 2.5 MG TABLET PO SCH ×2 (09:20→21:15)
[2022-01-01] MEDS: ESCITALOPRAM 5 MG TAB PO SCH (09:20)
[2022-01-01] MEDS: SILDENAFIL 20 MG TAB PO SCH ×3 (09:20→21:22)
[2022-01-01] MEDS: atenoloL 25 MG TAB PO SCH (09:20)
--- NOTE | 2022-01-01 12:27 | P.PN ---
Subjective Progress Note Date: 01/01/22 On today's evaluation of 12/31/2021, the patient is lethargic, cannot hold a conversation. She has dementia with impairment of cognitive functions the CAT scan of the brain showed cerebral atrophy. The patient remains on a lactated Ringer running at the rate of 100 mL an hour. Overall fluid balance has been +3.5 L over the past 48 hours and 2.7 L over the past 24 hours. Echocardiogram showed a normal LV function, moderate to severe degree of pulmonary hypertension, moderate mitral regurgitation, moderate to severe tricuspid regurgitation. The patient is afebrile. The patient is hemodynamically stable. Blood cultures 2 has been negative. The white cell count 7.6 with a hemoglobin 15.5 and a platelet count of 180. He is at 7 with a creatinine of 0.58 and a sodium level is at 136. No other significant events overnight. The patient has been already switched to oral amiodarone 400 mg by mouth twice a day. The patient is currently on IV Unasyn. There are 4 out of 4 blood culture that showed gram-positive cocci in chains. The first culture showed staph hemolyticus and the second culture showed coagulase-negative staph. Infectious diseases on the case regarding antibiotic management. The patient was on vancomycin initially switched to Rocephin milligrams Unasyn. 01/01/2022, the patient is comfortable and she has no specific complaints. No fever or chills. As mentioned earlier, the patient has dementia and history provided by the patient is quite limited at this point in time. She is tolerating diet. She is hemodynamically stable. She remains on IV Zosyn. Repeat blood cultures of been ordered for this patient. Meanwhile, I blood work, the patient is a white cell count 9.5, and the patient's hemoglobin is at 15.1 with a platelet count of 196. Sodium level is at 137 be understanding of 4 and creatinine 0.9. The patient is in atrial fibrillation. The patient has a component of interstitial lung disease, moderate mitral regurgitation, severe tricuspid regurgitation, atrial fibrillation, severe pulmonary hypertension, and previous history of pulmonary embolism and the patient is maintained on anticoagulation with Eliquis 2.5 mg by mouth twice a day. She remains on sildenafil 20 mg by mouth 3 times a day. She is on oral amiodarone. Objective - Vital Signs Vital signs: Vital Signs Temp 97.2 F L 01/01/22 08:00 Pulse 85 01/01/22 11:00 Resp 16 01/01/22 11:00 BP 121/94 01/01/22 11:00 Pulse Ox 94 L 01/01/22 08:00 FiO2 Intake & Output 12/31/21 01/01/22 01/01/22 18:59 06:59 18:59 Intake Total 1316.6 540 450 Output Total 360 360 189 Balance 956.6 180 261 Weight 61.4 kg Intake: IV 300 220 200 Ampicillin-Sulbactam 3 gm 200 100 In Sodium Chloride 0.9% 100 ml @ 200 mls/hr IVPB Q6HR RIKKI Rx#:[id number] Lactated Ringers 1,000 ml 100 @ 100 mls/hr IV .Q10H RIKKI Rx#:[id number] Lactated Ringers 1,000 ml 120 200 @ 40 mls/hr IV .Q24H RIKKI Rx#:[id number] Intake, IV Titration 616.6 320 Amount Amiodarone 450 mg In 16.6 Dextrose 5% in Water 250 ml @ 0.5 MG/MIN 16.667 mls/hr IV .Q15H RIKKI Rx#: [id number] Lactated Ringers 1,000 ml 400 320 @ 40 mls/hr IV .Q24H RIKKI Rx#:[id number] Potassium Chloride 20 meq 200 In Water For Injection 1 100ml.bag @ 50 mls/hr IVPB Q2H [facility]KKI Rx#: [id number] Oral 400 250 Output: Urine 360 360 189 Other: Voiding Method Indwelling Catheter Indwelling Catheter Indwelling Catheter # Bowel Movements 1 1 - Exam GENERAL DESCRIPTION: Elderly female lying in bed, no distress. No tachypnea or accessory muscle of respiration use. The patient is calm and comfortable cur rently on 4 L O2 nasal cannula, breathing is nonlabored and the patient is resting comfortably. Head exam was generally normal. There was no scleral icterus or corneal arcus. Mucous membranes were moist. HEENT: Shows Pallor , no scleral icterus. Oral mucous membrane is dry. No pharyngeal erythema or thrush NECK: Trachea central, no thyromegaly. LUNGS: Unlabored breathing. Decreased present at the base. No wheeze or crackle. HEART: S1, S2, regular rate and rhythm. No loud murmur ABDOMEN: Soft, no tenderness , guarding or rigidity, no organomegaly EXTREMITIES: Examination of the extremities revealed easily palpable radial, femoral and pedal pulses. There was no cyanosis, clubbing or edema. Examination of the skin revealed no evidence of significant rashes, suspicious appearing nevi or other concerning lesions. NEUROLOGICAL: The patient is awake, alert, oriented x1, mood and affect normal. - Labs CBC & Chem 7: 01/01/22 05:43 01/01/22 05:43 Labs: Abnormal Lab Results - Last 24 Hours (Table) 12/31/21 01/01/22 Range/Units 10:49 05:43 Creatinine 0.42 L (0.52-1.04) mg/dL Calcium 8.3 L (8.4-10.2) mg/dL Procalcitonin 0.13 H (0.02-0.09) ng/mL Microbiology - Last 24 Hours (Table) 12/28/21 20:58 Blood Culture Gram Stain - Final Blood Blood Culture - Final Staphylococcus haemolyticus 12/28/21 20:50 Blood Culture Gram Stain - Final Blood Blood Culture - Final Staphylococcus haemolyticus Assessment and Plan Plan: sepsis with hypotension, source unclear. Blood cultures positive for coag negative staphylococci. The patient has 4 out of 4 blood cultures are positive for coagulase-negative staph and the patient is currently on IV Unasyn, repeat cultures were obtained today. The patient is currently afebrile the patient is hemodynamically stable remains on IV Unasyn. Altered mental status most likely secondary to metabolic encephalopathy, secondary to above, slightly more alert compared to yesterday moving all 4 extremities without any limitation History of CVA. History of severe dementia. There has been progressive loss in her cognitive functions over the years based on my personal observation on this patient and this is attributed to her underlying dementia. Previous history of tobacco use, rule out COPD. History of atrial fibrillation. The patient's rate is currently controlled. The patient was on a Cardizem drip and this was switched to amiodarone drip and currently the patient is going to be switched to oral amiodarone. History of home oxygen use, at nighttime. Mild lactic acidosis, improved and her lactic acid level is down to 1.7 Mild leukocytosis with a white cell count of 12.1, recovered and improved Cardiomyopathy with an ejection fraction of 30-35% based on an earlier echocardiogram from 2019, repeat echocardiogram confirmed the presence of severe pulmonary hypertension, nevertheless, there has been improvement in the ventricular ejection fraction and LV function was reported to be within normal limits. Severe mitral regurgitation/valvular heart disease along with tricuspid regurgitation and severe pulmonary hypertension, and the patient has been maintained on sildenafil 20 mg by mouth 3 times a day for many years in addition to long-term anticoagulation with Eliquis. Previous history of pulmonary embolism, the patient is on long-term anticoagulation with Eliquis Chronic hypoxic respiratory failure maintained on O2 at 2 L per minute nasal cannula History of pulmonary fibrosis, mild History of scoliosis/spondylosis/degenerative arthritis Impaired hearing Sigmoid diverticulosis without diverticulitis Large left inguinal hernia without evidence of any bowel obstruction Plan: IV Fluids of 40 ML an Hour monitor mentation repeat cultures and continue Unasyn for now increase his oral intake His mobility Saw Cleaner on the case Echo was noted We'll continue to follow DNR/DNI CODE STATUS Patient can be transferred out of the intensive care unit to a medical floor.
--- NOTE | 2022-01-01 14:51 | P.PN ---
Subjective Progress Note Date: 01/01/22 This is an 86 year old female with history of CVA, dementia, atrial fibrillation, CHF. She has been transitioned to oral amidarone, amiodarone gtt and cardizem gtt have been discontinued. Blood cultures showing staphylococcus haemolyticus and she continues on IV unasyn. Repeat cultures taken yesterday and also today. Pending clearance of bacteremia. Blood count today is normal, sodium 137, potassium 4.6. Procalcitonin 0.13. Patient is alert x 1, which is her baseline, she is pleasant, no acute complaints. She has been downgraded from the ICU today. Discharge planning for home with home care vs. SNF if patient requires IV antibiotics on discharge which family would like to avoid. Review of Systems Constitutional: Denied any fatigue denied any fever. Cardio vascular: denied any chest pain, palpitations Gastrointestinal: denied any nausea, vomiting, diarrhea Pulmonary: Denied any shortness of breath cough Neurologic denied any new focal deficits All inpatient medications were reviewed and appropriate changes in these medications as dictated in the interval history and assessment and plan. PHYSICAL EXAMINATION: GENERAL: The patient is alert and oriented x1, not in any acute distress. C onfused, Well developed, well nourished. HEENT: Pupils are round and equally reacting to light. EOMI. No scleral icterus. No conjunctival pallor. Normocephalic, atraumatic. No pharyngeal erythema. No thyromegaly. CARDIOVASCULAR: S1 and S2 present. No murmurs, rubs, or gallops. Irregular. PULMONARY: Chest is clear to auscultation, no wheezing or crackles. ABDOMEN: Soft, nontender, nondistended, normoactive bowel sounds. No palpable organomegaly. MUSCULOSKELETAL: No joint swelling or deformity. EXTREMITIES: No cyanosis, clubbing, or pedal edema. NEUROLOGICAL: Gross neurological examination did not reveal any focal deficits. SKIN: No rashes. Assessment and plan Assessment Staphylococcus hemolyticus bacteremia with unclear source of infection, repeat cultures are currently pending Sepsis with hypotension and lactic acidosis, source unclear Possible UTI, no complaints of dysuria, urine culture not done, patient is on antibiotics, WBC's have normalized Altered mental status likely a metabolic encephalopathy, patient is alert x 1, pleasantly confused, does have history of dementia Atrial fibrillation with RVR, rate now controlled on oral amiodarone Mild renal/injury History cardiomyopathy, with improved Ejection fraction History of atrial fibrillation, paroxysmal History of valvular heart disease, history of pulmonary hypertension Chronic hypoxic respiratory failure on home oxygen History of dementia History of CVA GI Prophylaxis DVT Prophylaxis Do Not Resuscitate Plan Continue IV antibiotics, repeat blood cultures pending Patient has been downgraded from intensive care unit Med surg with tele, continue tele monitoring for 24 hour hours, if heart rate remains controlled tele can be discontinued Transitioned to oral amiodarone Continue all other supportive care Discharge planning home with homecare/family support VS. rehab The impression and plan of care has been dictated by Jess Benjamin Nurse Practitioner as directed. Dr. Aimee MD I have performed a history and physical examination and medical decision making of this patient, discussed the same with the dictator, and agree with the dictators assessment and plan as written, documented as a scribe. Based on total visit time, I have performed more than 50% of this visit. Objective - Vital Signs Vital signs: Vital Signs Temp 97.2 F L 01/01/22 08:00 Pulse 85 01/01/22 11:00 Resp 16 01/01/22 11:00 BP 121/94 01/01/22 11:00 Pulse Ox 94 L 01/01/22 08:00 FiO2 Intake & Output 12/31/21 01/01/22 01/01/22 18:59 06:59 18:59 Intake Total 1316.6 540 450 Output Total 360 360 189 Balance 956.6 180 261 Weight 61.4 kg Intake: IV 300 220 200 Ampicillin-Sulbactam 3 gm 200 100 In Sodium Chloride 0.9% 100 ml @ 200 mls/hr IVPB Q6HR RIKKI Rx#:[id number] Lactated Ringers 1,000 ml 100 @ 100 mls/hr IV .Q10H RIKKI Rx#:[id number] Lactated Ringers 1,000 ml 120 200 @ 40 mls/hr IV .Q24H RIKKI Rx#:[id number] Intake, IV Titration 616.6 320 Amount Amiodarone 450 mg In 16.6 Dextrose 5% in Water 250 ml @ 0.5 MG/MIN 16.667 mls/hr IV .Q15H RIKKI Rx#: [id number] Lactated Ringers 1,000 ml 400 320 @ 40 mls/hr IV .Q24H RIKKI Rx#:[id number] Potassium Chloride 20 meq 200 In Water For Injection 1 100ml.bag @ 50 mls/hr IVPB Q2H RIKKI Rx#: [id number] Oral 400 250 Output: Urine 360 360 189 Other: Voiding Method Indwelling Catheter Indwelling Catheter Indwelling Catheter # Bowel Movements 1 1 - Labs CBC & Chem 7: 01/01/22 05:43 01/01/22 05:43 Labs: Abnormal Lab Results - Last 24 Hours (Table) 12/31/21 01/01/22 Range/Units 10:49 05:43 Creatinine 0.42 L (0.52-1.04) mg/dL Calcium 8.3 L (8.4-10.2) mg/dL Procalcitonin 0.13 H (0.02-0.09) ng/mL Microbiology - Last 24 Hours (Table) 12/31/21 10:50 Blood Culture - Preliminary Blood No Growth after 24 hours 12/31/21 10:49 Blood Culture - Preliminary Blood No Growth after 24 hours 12/28/21 20:58 Blood Culture Gram Stain - Final Blood Blood Culture - Final Staphylococcus haemolyticus 12/28/21 20:50 Blood Culture Gram Stain - Final Blood Blood Culture - Final Staphylococcus haemolyticus Assessment and Plan Time with Patient: Less than 30
[2022-01-01] MEDS: LACTATED RINGERS 1,000 ML IV SCH (18:02)
[2022-01-01] MEDS: DONEPEZIL 10 MG TAB PO SCH (21:16)
[2022-01-02] MEDS: AMPICILLIN-SULBACTAM 3 GM in SODIUM CHLORIDE 0.9% 100 ML IVPB SCH ×3 (05:05→18:21)
[2022-01-02 07:52] LABS: Basophils % (A) 0 %; Eosinophils # (A) 0.3 k/uL (0-0.7); Eosinophils % (A) 4 %; HCT 38.6 % (34.0-46.0); HGB 12.2 gm/dL (11.4-16.0); Hypochromasia Slight; Lymphocytes # (A) 0.6 k/uL (1.0-4.8); Lymphocytes % (A) 7 %; MCH 30.2 pg (25.0-35.0); MCHC 31.6 g/dL (31.0-37.0); MCV 95.5 fL (80.0-100.0); Mean Platelet Volume 7.7; Monocytes # (A) 0.4 k/uL (0-1.0); Monocytes % (A) 5 %; Neutrophils # (A) 6.8 k/uL (1.3-7.7); Neutrophils % (A) 83 %; Platelet Count 227 k/uL (150-450); RBC 4.04 m/uL (3.80-5.40); WBC 8.2 k/uL (3.8-10.6)
[2022-01-02 08:11] LABS: African American GFR (CKD) >90 (>60 ml/min/1.73 sqM); Anion Gap 8 mmol/L; Blood Urea Nitrogen 9 mg/dL (7-17); Calcium 8.4 mg/dL (8.4-10.2); Carbon Dioxide 26 mmol/L (22-30); Chloride 102 mmol/L (98-107); Glucose 103 mg/dL (74-99); Non-African American GFR(CKD) 82 (>60 ml/min/1.73 sqM); Potassium 3.4 mmol/L (3.5-5.1); Sodium 136 mmol/L (137-145)
[2022-01-02] MEDS: PANTOPRAZOLE 40 MG/10 ML VIAL IV SCH (09:42)
[2022-01-02] MEDS: atenoloL 25 MG TAB PO SCH (09:44)
[2022-01-02] MEDS: AMIODARONE 200 MG TAB PO SCH ×2 (09:44→21:36)
[2022-01-02] MEDS: APIXABAN 2.5 MG TABLET PO SCH (09:44)
[2022-01-02] MEDS: ESCITALOPRAM 5 MG TAB PO SCH (09:44)
[2022-01-02] MEDS: POTASSIUM CHLORIDE ER 20 MEQ TAB.ER PO SCH ×2 (09:44→11:57)
[2022-01-02] MEDS: SILDENAFIL 20 MG TAB PO SCH ×3 (09:44→21:36)
[2022-01-02] MEDS: LACTATED RINGERS 1,000 ML IV SCH (09:45)
--- NOTE | 2022-01-02 12:15 | P.PN ---
Subjective Progress Note Date: 01/02/22 On today's evaluation of 12/31/2021, the patient is lethargic, cannot hold a conversation. She has dementia with impairment of cognitive functions the CAT scan of the brain showed cerebral atrophy. The patient remains on a lactated Ringer running at the rate of 100 mL an hour. Overall fluid balance has been +3.5 L over the past 48 hours and 2.7 L over the past 24 hours. Echocardiogram showed a normal LV function, moderate to severe degree of pulmonary hypertension, moderate mitral regurgitation, moderate to severe tricuspid regurgitation. The patient is afebrile. The patient is hemodynamically stable. Blood cultures 2 has been negative. The white cell count 7.6 with a hemoglobin 15.5 and a platelet count of 180. He is at 7 with a creatinine of 0.58 and a sodium level is at 136. No other significant events overnight. The patient has been already switched to oral amiodarone 400 mg by mouth twice a day. The patient is currently on IV Unasyn. There are 4 out of 4 blood culture that showed gram-positive cocci in chains. The first culture showed staph hemolyticus and the second culture showed coagulase-negative staph. Infectious diseases on the case regarding antibiotic management. The patient was on vancomycin initially switched to Rocephin milligrams Unasyn. 01/01/2022, the patient is comfortable and she has no specific complaints. No fever or chills. As mentioned earlier, the patient has dementia and history provided by the patient is quite limited at this point in time. She is tolerating diet. She is hemodynamically stable. She remains on IV Zosyn. Repeat blood cultures of been ordered for this patient. Meanwhile, I blood work, the patient is a white cell count 9.5, and the patient's hemoglobin is at 15.1 with a platelet count of 196. Sodium level is at 137 be understanding of 4 and creatinine 0.9. The patient is in atrial fibrillation. The patient has a component of interstitial lung disease, moderate mitral regurgitation, severe tricuspid regurgitation, atrial fibrillation, severe pulmonary hypertension, and previous history of pulmonary embolism and the patient is maintained on anticoagulation with Eliquis 2.5 mg by mouth twice a day. She remains on sildenafil 20 mg by mouth 3 times a day. She is on oral amiodarone. 01/02/2022, condition essentially unchanged the patient is being transferred to a medical surgical floor. Mental status remains unchanged. She has advanced dementia. Repeat cultures are essentially negative for now. The blood work is also stable and the patient is afebrile hemodynamically stable. The white cell count is at 8.2 with hemoglobin of 12.6 and the sodium level is at 136 with a potassium of 3.4 chloride is 102 and a bicarb is 26 with a BUN of 9 and a creatinine of 0.5. The patient remains on IV Unasyn. The patient is on long- term and to coagulation with Eliquis regarding chronic atrial fibrillation and patient is also on amiodarone 200 mg by mouth twice a day and metoprolol 25 mg by mouth daily for rate control. She is tolerating diet. No nausea or emesis. No focal neurological deficit at this point in time. Objective - Vital Signs Vital signs: Vital Signs Temp 97.9 F 01/02/22 08:00 Pulse 93 01/02/22 10:02 Resp 12 01/02/22 02:00 BP 107/76 01/02/22 10:02 Pulse Ox 94 L 01/02/22 08:00 FiO2 Intake & Output 01/01/22 01/02/22 01/02/22 18:59 06:59 18:59 Intake Total 590 280 Output Total 189 0 Balance 401 280 Intake: IV 340 280 Ampicillin-Sulbactam 3 gm 200 In Sodium Chloride 0.9% 100 ml @ 200 mls/hr IVPB Q6HR RIKKI Rx#:[id number] Lactated Ringers 1,000 ml 340 80 @ 40 mls/hr IV .Q24H RIKKI Rx#:[id number] Oral 250 Output: Urine 189 0 Other: Voiding Method Indwelling Catheter Bedside Commode # Voids 1 1 # Bowel Movements 2 1 - Exam GENERAL DESCRIPTION: Elderly female lying in bed, no distress. No tachypnea or accessory muscle of respiration use. The patient is calm and comfortable currently on 4 L O2 nasal cannula, breathing is nonlabored and the patient is resting comfortably. Head exam was generally normal. There was no scleral icterus or corneal arcus. Mucous membranes were moist. HEENT: Shows Pallor , no scleral icterus. Oral mucous membrane is dry. No pharyngeal erythema or thrush NECK: Trachea central, no thyromegaly. LUNGS: Unlabored breathing. Decreased present at the base. No wheeze or crackle. HEART: S1, S2, regular rate and rhythm. No loud murmur ABDOMEN: Soft, no tenderness , guarding or rigidity, no organomegaly EXTREMITIES: Examination of the extremities revealed easily palpable radial, femoral and pedal pulses. There was no cyanosis, clubbing or edema. Examination of the skin revealed no evidence of significant rashes, suspicious appearing nevi or other concerning lesions. NEUROLOGICAL: The patient is awake, alert, oriented x1, mood and affect normal. - Labs CBC & Chem 7: 01/02/22 07:30 01/02/22 07:30 Labs: Abnormal Lab Results - Last 24 Hours (Table) 01/02/22 01/02/22 Range/Units 07:30 07:30 Lymphocytes # 0.6 L (1.0-4.8) k/uL Sodium 136 L (137-145) mmol/L Potassium 3.4 L (3.5-5.1) mmol/L Glucose 103 H (74-99) mg/dL Microbiology - Last 24 Hours (Table) 12/31/21 10:50 Blood Culture - Preliminary Blood No Growth after 24 hours 12/31/21 10:49 Blood Culture - Preliminary Blood No Growth after 24 hours Assessment and Plan Plan: sepsis with hypotension, source unclear. Blood cultures positive for coag negative staphylococci. The patient has 4 out of 4 blood cultures are positive for coagulase-negative staph and the patient is currently on IV Unasyn, repeat cultures were obtained today. The patient is currently afebrile the patient is hemodynamically stable remains on IV Unasyn. Repeat cultures were sent and there are negative thus far and the patient remains on IV Unasyn. No fever. No leukocytosis. No hemodynamic instability at this point in time. Altered mental status most likely secondary to metabolic encephalopathy, secondary to above, slightly more alert compared to yesterday moving all 4 extremities without any limitation History of CVA. History of severe dementia. There has been progressive loss in her cognitive functions over the years based on my personal observation on this patient and this is attributed to her underlying dementia. Previous history of tobacco use, rule out COPD. History of atrial fibrillation. The patient's rate is currently controlled. The patient was on a Cardizem drip and this was switched to amiodarone drip and currently the patient is going to be switched to oral amiodarone. History of home oxygen use, at nighttime. Mild lactic acidosis, improved and her lactic acid level is down to 1.7 Mild leukocytosis with a white cell count of 12.1, recovered and improved Cardiomyopathy with an ejection fraction of 30-35% based on an earlier echocardiogram from 2019, repeat echocardiogram confirmed the presence of severe pulmonary hypertension, nevertheless, there has been improvement in the ventricular ejection fraction and LV function was reported to be within normal limits. Severe mitral regurgitation/valvular heart disease along with tricuspid regurgitation and severe pulmonary hypertension, and the patient has been maintained on sildenafil 20 mg by mouth 3 times a day for many years in addition to long-term anticoagulation with Eliquis. Previous history of pulmonary embolism, the patient is on long-term antico agulation with Eliquis Chronic hypoxic respiratory failure maintained on O2 at 2 L per minute nasal cannula History of pulmonary fibrosis, mild History of scoliosis/spondylosis/degenerative arthritis Impaired hearing Sigmoid diverticulosis without diverticulitis Large left inguinal hernia without evidence of any bowel obstruction Plan: Clinically unchanged IV Fluids of 40 ML an Hour monitor mentation , mental status unchanged Continue Unasyn for now , repeat cultures are negative for now Increase his oral intake His mobility Windshield Repair Technician on the case Echo was noted We'll continue to follow DNR/DNI CODE STATUS Patient can be transferred out of the intensive care unit to a medical floor.
--- NOTE | 2022-01-02 14:15 | P.PN ---
Subjective Progress Note Date: 01/02/22 This is an 86 year old female with history of CVA, dementia, atrial fibrillation, CHF. She has been transitioned to oral amidarone, amiodarone gtt and cardizem gtt have been discontinued. Blood cultures showing staphylococcus haemolyticus and she continues on IV unasyn. Repeat cultures taken yesterday and also today. Pending clearance of bacteremia. Blood count today is normal, sodium 137, potassium 4.6. Procalcitonin 0.13. Patient is alert x 1, which is her baseline, she is pleasant, no acute complaints. She has been downgraded from the ICU today. Discharge planning for home with home care vs. SNF if patient requires IV antibiotics on discharge which family would like to avoid. 01/02/2022 Patient evaluated in intensive care unit as a medical surgical hold. Patient does have history of dementia she is alert x 1, pleasant. On exam abdomen is soft, and nontender with normoactive bowel sounds. Review of chest abdominal pelvis CT does show left side inguinal hernia with increased size from old exam with evidence for incarcerated small bowel. There is no bowel obstruction. Infectious disease requested surgical evaluation. Patient is scheduled for left inguinal hernia repair tomorrow with Dr Cardoza. Repeat blood culture preliminary so far negative. Patient continues on IV unasyn inpatient and recommendations for discharge on oral augmentin for 10 days post discharge. Patient remains afebrile, heart rate 93 she does have atrial fibrillation and remains on low dose eliquis which has been placed on hold. No white count, hgb 12.2, sodium 136, potassium 3.4, glucose 103, calcium 8.4. Patient is afebrile, blood pressure 107/76, 94% on 4L nasal cannula. Will order incentive spirometer. Review of Systems Constitutional: Denied any fatigue denied any fever. Cardio vascular: denied any chest pain, palpitations Gastrointestinal: denied any nausea, vomiting, diarrhea Pulmonary: Denied any shortness of breath cough Neurologic denied any new focal deficits All inpatient medications were reviewed and appropriate changes in these medications as dictated in the interval history and assessment and plan. PHYSICAL EXAMINATION: GENERAL: The patient is alert and oriented x1, not in any acute distress. Confused, Well developed, well nourished. HEENT: Pupils are round and equally reacting to light. EOMI. No scleral icterus. No conjunctival pallor. Normocephalic, atraumatic. No pharyngeal erythema. No thyromegaly. CARDIOVASCULAR: S1 and S2 present. No murmurs, rubs, or gallops. Irregular. PULMONARY: Chest is clear to auscultation, no wheezing or crackles. ABDOMEN: Soft, nontender, nondistended, normoactive bowel sounds. No palpable organomegaly. MUSCULOSKELETAL: No joint swelling or deformity. EXTREMITIES: No cyanosis, clubbing, or pedal edema. NEUROLOGICAL: Gross neurological examination did not reveal any focal deficits. SKIN: No rashes. Assessment and plan Assessment Staphylococcus hemolyticus bacteremia with unclear source of infection, repeat cultures are negative so far Sepsis with hypotension and lactic acidosis, source unclear Large left inguinal hernia with evidence for bowel incarceration, pending surgical repair Possible UTI, no complaints of dysuria, urine culture not done, patient is on antibiotics, WBC's have normalized Altered mental status likely a metabolic encephalopathy, patient is alert x 1, pleasantly confused, does have history of dementia Atrial fibrillation with RVR, rate now controlled on oral amiodarone Mild renal/injury resolved History cardiomyopathy, with improved Ejection fraction History of atrial fibrillation, paroxysmal History of valvular heart disease, history of pulmonary hypertension Chronic hypoxic respiratory failure on home oxygen History of dementia History of CVA GI Prophylaxis: IV protonix DVT Prophylaxis: Eliquis on hold Do Not Resuscitate Plan Eliquis on hold, patient will go for left inguinal hernia repair with Dr Cardoza tomorrow Continue IV antibiotics, repeat blood cultures pending Patient has been downgraded from intensive care unit to medical floor Transitioned to oral amiodarone Continue all other supportive care Discharge planning, tentative plan for home with homecare and family support on oral antibiotics The impression and plan of care has been dictated by Jess Benjamin, Nurse Practitioner as directed. Dr. Lacy MD I have performed a history and physical examination and medical decision making of this patient, discussed the same with the dictator, and agree with the dictators assessment and plan as written, documented as a scribe. Based on total visit time, I have performed more than 50% of this visit. Objective - Vital Signs Vital signs: Vital Signs Temp 97.9 F 01/02/22 08:00 Pulse 93 01/02/22 10:02 Resp 12 01/02/22 08:00 BP 107/76 01/02/22 10:02 Pulse Ox 94 L 01/02/22 08:00 FiO2 Intake & Output 01/01/22 01/02/22 01/02/22 18:59 06:59 18:59 Intake Total 590 280 260 Output Total 189 0 Balance 401 280 260 Intake: IV 340 280 260 Ampicillin-Sulbactam 3 gm 200 100 In Sodium Chloride 0.9% 100 ml @ 200 mls/hr IVPB Q6HR RIKKI Rx#:[id number] Lactated Ringers 1,000 ml 340 80 160 @ 40 mls/hr IV .Q24H RIKKI Rx#:[id number] Oral 250 Output: Urine 189 0 Other: Voiding Method Indwelling Catheter Bedside Commode Bedside Commode # Voids 1 1 1 # Bowel Movements 2 1 1 - Labs CBC & Chem 7: 01/02/22 07:30 01/02/22 07:30 Labs: Abnormal Lab Results - Last 24 Hours (Table) 01/02/22 01/02/22 Range/Units 07:30 07:30 Lymphocytes # 0.6 L (1.0-4.8) k/uL Sodium 136 L (137-145) mmol/L Potassium 3.4 L (3.5-5.1) mmol/L Glucose 103 H (74-99) mg/dL Microbiology - Last 24 Hours (Table) 12/31/21 10:49 Blood Culture - Preliminary Blood No Growth after 48 hours 12/31/21 10:50 Blood Culture - Preliminary Blood No Growth after 48 hours 01/01/22 09:47 Blood Culture - Preliminary Blood No Growth after 24 hours Assessment and Plan Time with Patient: Less than 30
--- NOTE | 2022-01-02 15:05 | P.PN ---
Subjective Progress Note Date: 01/01/22 Principal diagnosis: SIRS and bacteremia Patient is 85-year-old female with multiple comorbidities presenting to the ER yesterday afternoon for evaluation of weakness symptom has been going on for about 3 to 4 days before presentation to the hospital, patient was hypote nsive requiring admission to the ICU and subsequently did have a positive blood culture with gram-positive cocci finalizes staph epi. On today's evaluation that is 01/01/2022, , The patient continues to be afebrile, patient is more awake and alert the patient is breathing comfortably on room air, the patient denies having any chest pain or shortness of breath or cough no abdominal pain and no diarrhea has been reported Objective - Vital Signs Vital signs: Vital Signs Temp 97.2 F L 01/01/22 08:00 Pulse 85 01/01/22 11:00 Resp 16 01/01/22 11:00 BP 121/94 01/01/22 11:00 Pulse Ox 94 L 01/01/22 08:00 FiO2 Intake & Output 12/31/21 01/01/22 01/01/22 18:59 06:59 18:59 Intake Total 1316.6 540 450 Output Total 360 360 189 Balance 956.6 180 261 Weight 61.4 kg Intake: IV 300 220 200 Ampicillin-Sulbactam 3 gm 200 100 In Sodium Chloride 0.9% 100 ml @ 200 mls/hr IVPB Q6HR RIKKI Rx#:[id number] Lactated Ringers 1,000 ml 100 @ 100 mls/hr IV .Q10H RIKKI Rx#:[id number] Lactated Ringers 1,000 ml 120 200 @ 40 mls/hr IV .Q24H RIKKI Rx#:[id number] Intake, IV Titration 616.6 320 Amount Amiodarone 450 mg In 16.6 Dextrose 5% in Water 250 ml @ 0.5 MG/MIN 16.667 mls/hr IV .Q15H RIKKI Rx#: [id number] Lactated Ringers 1,000 ml 400 320 @ 40 mls/hr IV .Q24H RIKKI Rx#:[id number] Potassium Chloride 20 meq 200 In Water For Injection 1 100ml.bag @ 50 mls/hr IVPB Q2H RIKKI Rx#: [id number] Oral 400 250 Output: Urine 360 360 189 Other: Voiding Method Indwelling Catheter Indwelling Catheter Indwelling Catheter # Bowel Movements 1 1 - Exam GENERAL DESCRIPTION: An elderly female lying in bed in no distress RESPIRATORY SYSTEM: Unlabored breathing , decreased breath sounds at bases HEART: S1 S2 regular rate and rhythm , ABDOMEN: Soft , no tenderness EXTREMITIES: No edema feet - Labs CBC & Chem 7: 01/02/22 07:30 01/02/22 07:30 Labs: Abnormal Lab Results - Last 24 Hours (Table) 12/31/21 01/01/22 Range/Units 10:49 05:43 Creatinine 0.42 L (0.52-1.04) mg/dL Calcium 8.3 L (8.4-10.2) mg/dL Procalcitonin 0.13 H (0.02-0.09) ng/mL Microbiology - Last 24 Hours (Table) 12/28/21 20:58 Blood Culture Gram Stain - Final Blood Blood Culture - Final Staphylococcus haemolyticus 12/28/21 20:50 Blood Culture Gram Stain - Final Blood Blood Culture - Final Staphylococcus haemolyticus Assessment and Plan (1) SIRS (systemic inflammatory response syndrome) Current Visit: Yes Status: Acute Code(s): R65.10 - SIRS OF NON-INFECTIOUS ORIGIN W/O ACUTE ORGAN DYSFUNCTION SNOMED Code(s): 475832197 (2) Bacteremia Current Visit: Yes Status: Acute Code(s): R78.81 - BACTEREMIA SNOMED Code(s): 1322180 Plan: 1patient has been brought to the hospital with weakness patient was noticed to have elevated white count and elevated lactic acid patient also have hypotension requiring pressor support she did have a CT of the chest abdominal pelvis not showing any acute abnormality did have a right inguinal hernia but no evidence of any bowel herniation Was reported however clinical suspicious is high for possible abdominal source patient is clinically responded to Unasyn to continue CT will be reviewed with radiologist 2- Pt with evidence of gram-positive bacteremia questionable skin contaminant as has been finalized as staph epi vancomycin has been discontinued, repeat blood cultures has been obtained and those will be followed Time with Patient: Less than 30
--- NOTE | 2022-01-02 15:08 | P.PN ---
Subjective Progress Note Date: 01/02/22 Principal diagnosis: SIRS and bacteremia Patient is 85-year-old female with multiple comorbidities presenting to the ER yesterday afternoon for evaluation of weakness symptom has been going on for about 3 to 4 days before presentation to the hospital, patient was hypote nsive requiring admission to the ICU and subsequently did have a positive blood culture with gram-positive cocci finalizes staph epi. On today's evaluation that is 01/02/2022, The patient remains to be afebrile, the patient is breathing comfortably on room air patient denies any chest pain or shortness of the patient cough , Patient mentioning no Abdominal pain and vomiting or diarrhea has been improving nursing staff Objective - Vital Signs Vital signs: Vital Signs Temp 97.9 F 01/02/22 08:00 Pulse 93 01/02/22 10:02 Resp 12 01/02/22 02:00 BP 107/76 01/02/22 10:02 Pulse Ox 94 L 01/02/22 08:00 FiO2 Intake & Output 01/01/22 01/02/22 01/02/22 18:59 06:59 18:59 Intake Total 590 280 Output Total 189 0 Balance 401 280 Intake: IV 340 280 Ampicillin-Sulbactam 3 gm 200 In Sodium Chloride 0.9% 100 ml @ 200 mls/hr IVPB Q6HR RIKKI Rx#:[id number] Lactated Ringers 1,000 ml 340 80 @ 40 mls/hr IV .Q24H RIKKI Rx#:[id number] Oral 250 Output: Urine 189 0 Other: Voiding Method Indwelling Catheter Bedside Commode # Voids 1 1 # Bowel Movements 2 1 - Exam GENERAL DESCRIPTION: An elderly female lying in bed in no distress RESPIRATORY SYSTEM: Unlabored breathing , decreased breath sounds at bases HEART: S1 S2 regular rate and rhythm , ABDOMEN: Soft , Mild distention and tenderness EXTREMITIES: No edema feet - Labs CBC & Chem 7: 01/02/22 07:30 01/02/22 07:30 Labs: Abnormal Lab Results - Last 24 Hours (Table) 01/02/22 01/02/22 Range/Units 07:30 07:30 Lymphocytes # 0.6 L (1.0-4.8) k/uL Sodium 136 L (137-145) mmol/L Potassium 3.4 L (3.5-5.1) mmol/L Glucose 103 H (74-99) mg/dL Microbiology - Last 24 Hours (Table) 12/31/21 10:50 Blood Culture - Preliminary Blood No Growth after 24 hours 12/31/21 10:49 Blood Culture - Preliminary Blood No Growth after 24 hours Assessment and Plan (1) SIRS (systemic inflammatory response syndrome) Current Visit: Yes Status: Acute Code(s): R65.10 - SIRS OF NON-INFECTIOUS ORIGIN W/O ACUTE ORGAN DYSFUNCTION SNOMED Code(s): 191195989 (2) Bacteremia Current Visit: Yes Status: Acute Code(s): R78.81 - BACTEREMIA SNOMED Code(s): 2736947 Plan: 1Patient with positive blood culture with staph epi likely skin contaminant negative no need for vancomycin 2- patient has been brought to the hospital with weakness patient was noticed to have elevated white count and elevated lactic acid patient also have hypotension requiring pressor support she did have a CT of the chest abdominal pelvis not showing any acute abnormality In the impression section however there was mention of incarcerated small bowel and likely the source of her sepsis that has been discussed in detail with the admitting team will obtain General surgery evaluation for further recommendation and continue with the Unasyn and monitor clinical course closely Time with Patient: Less than 30
--- NOTE | 2022-01-02 15:42 | P.GSCN ---
History of Present Illness Consult date: 01/02/22 History of present illness: CHIEF COMPLAINT: Weakness and hypotension HISTORY OF PRESENT ILLNESS: This is a 86-year-old female who presented to the hospital on 12/28/2021 with weakness. She was found to be hypotensive, elevated white count and lactic acid. She required to be placed in the ICU. She did require Levophed for a short period of time. She also had A. fib with RVR. Patient had evidence of bacteremia of unclear source. Followed by infectious disease. Patient had a computed tomography scan of chest abdomen pelvis did show incarcerated small bowel. Infectious disease disease with history that patient source of sepsis could be related to the incarcerated small bowel. Therefore, surgical consult was placed for incarcerated small bowel. Patient has dementia. She has a bulge in the left groin area. Tender with palpation. No nausea or vomiting reported. Patient's last bowel movement was January 02. She did have a smear of a BM this morning. Patient is on Eliquis for anticoagulation. PAST MEDICAL HISTORY: Atrial Fibrillation, Dementia, Hearing Disorder / Deafness, Memory Impairment, Pneumonia, Respiratory Disorder. Pulmonary fibrosis, pulmonary HTN, O2 at HS, moderate to severe mitral valve regurgitation, severe tricuspid regurgitation, mild aortic stenosis, DDD, spondylosis, scoliosis, bulging discs, PE in lungs 15 yrs ago, superficial DVTs PAST SURGICAL HISTORY: Appendectomy, Heart Catheterization, Joint Replacement, Orthopedic Surgery, Tonsillectomy MEDICATIONS: See list. ALLERGIES: See list. SOCIAL HISTORY: No illicit drug use. REVIEW OF SYSTEMS: CONSTITUTIONAL: Denies fever or chills. HEENT: Denies blurred vision, vision changes, or eye pain. Denies hemoptysis CARDIOVASCULAR: Denies chest pain or pressure. RESPIRATORY: No shortness of breath. GASTROINTESTINAL: See HPI for pertinent findings HEMATOLOGIC: Denies bleeding disorders. GENITOURINARY: Denies any blood in urine or increased urinary frequency. SKIN: Denies pruitis. Denies rash. PHYSICAL EXAM: VITAL SIGNS: Reviewed GENERAL: Well-developed in no acute distress. HEENT: No sclera icterus. Extraocular movements grossly intact. Moist buccal mucosa. Head is atraumatic, normocephalic. No nasal drainage. ABDOMEN: Nondistended. Patient does have a bowl just on the left groin. Tender with palpation. NEUROLOGIC: Alert and oriented 1 LABORATORY DATA: WBC was 13.7 on admit down to 8.2 Hgb 12.2 platelets 227 Sodium 136 potassium 3.4 creatinine 0.59 Positive blood culture with Staphylococcus hemolyticus repeat blood cultures negative IMAGING: Computed tomography scan chest abdomen and pelvis severe cardiomegaly. Pulmonary interstitial fibrotic changes. No pleural fluid seen to suggest left heart failure. Atherosclerotic vascular disease. Large pulmonary arteries consistent with pulmonary hypertension. There is a large right ventricle. Sigmoid diverticulosis without diverticulitis. Large left inguinal hernia. No bowel obstruction. Left-sided inguinal hernia sniffly increased compared to old exam. Cardiac regular increased compared to old exam. Pulmonary fibrosis progress slightly compared to old exam. There is large left-sided inguinal hernia that appears to contain some incarcerated small bowel. ASSESSMENT: 1. Large left inguinal hernia with incarcerated small bowel 2. Bacteremia PLAN: -Patient scheduled for a left inguinal hernia repair tomorrow with Dr. Cardoza -Nothing by mouth after midnight -Clear liquids for dinner -Hold Eliquis -Potassium being replaced Thank you for this consultation Physician [employer] Specialist note has been reviewed by physician. Signing provider agrees with the documented findings, assessment, and plan of care. Past Medical History Past Medical History: Atrial Fibrillation, Dementia, Hearing Disorder / Deafness, Memory Impairment, Pneumonia, Respiratory Disorder Additional Past Medical History / Comment(s): Pulmonary fibrosis, pulmonary HTN, O2 at HS, moderate to severe mitral valve regurgitation, severe tricuspid regurgitation, mild aortic stenosis, DDD, spondylosis, scoliosis, bulging discs, PE in lungs 15 yrs ago, superficial DVTs, varicosities, mild dementia, [place] bilaterally History of Any Multi-Drug Resistant Organisms: None Reported Past Surgical History: Appendectomy, Heart Catheterization, Joint Replacement, Orthopedic Surgery, Tonsillectomy Additional Past Surgical History / Comment(s): L femur fracture with ORIF, L arm fracture with ORIF plate/screws, bilateral rotator cuff repairs, bilateral feet hammer toe corrections, epidural back injections, bilateral cataract removals with lens implants, colonoscopy Past Anesthesia/Blood Transfusion Reactions: No Reported Reaction Past Psychological History: Depression Smoking Status: Former smoker Past Alcohol Use History: Occasional Past Drug Use History: None Reported - Past Family History Father Family Medical History: Musculoskeletal Disorder, Neurologic Disorder Additional Family Medical History / Comment(s): Parkinson's disease. Mother Family Medical History: Cancer Additional Family Medical History / Comment(s): breast cancer Medications and Allergies Home Medications Medication Instructions Recorded Confirmed Type Furosemide [Lasix] 20 mg PO BID 03/04/15 12/28/21 History Sildenafil [Revatio] 20 mg PO TID 03/04/15 12/28/21 History Verapamil HCl [Verapamil ER] 180 mg PO BID 03/04/15 12/28/21 History Escitalopram [Lexapro] 5 mg PO DAILY 10/05/16 12/28/21 History Apixaban [Eliquis] 2.5 mg PO BID 02/18/18 12/28/21 History Memantine [Namenda] 10 mg PO BID 11/10/18 12/28/21 History Donepezil HCl [Aricept] 10 mg PO HS 11/19/19 12/28/21 History lisinopriL [Zestril] 2.5 mg PO DAILY 11/19/19 12/28/21 History atenoloL [Tenormin] 25 mg PO DAILY 12/28/21 12/28/21 History Allergies Allergy/AdvReac Type Severity Reaction Status Date / Time No Known Allergies Allergy Verified 12/28/21 17:37 Surgical - Exam Vital Signs Pulse Resp BP Pulse Ox 74 16 72/43 90 L 12/28/21 17:28 12/28/21 17:28 12/28/21 17:28 12/28/21 17:28 Results - Labs 01/02/22 07:30 01/02/22 07:30 Abnormal Lab Results - Last 24 Hours (Table) 01/02/22 01/02/22 Range/Units 07:30 07:30 Lymphocytes # 0.6 L (1.0-4.8) k/uL Sodium 136 L (137-145) mmol/L Potassium 3.4 L (3.5-5.1) mmol/L Glucose 103 H (74-99) mg/dL Microbiology - Last 24 Hours (Table) 01/01/22 09:47 Blood Culture - Preliminary Blood No Growth after 24 hours 12/31/21 10:50 Blood Culture - Preliminary Blood No Growth after 24 hours 12/31/21 10:49 Blood Culture - Preliminary Blood No Growth after 24 hours Diabetes panel 01/02/22 Range/Units 07:30 Sodium 136 L (137-145) mmol/L Potassium 3.4 L (3.5-5.1) mmol/L Chloride 102 (98-107) mmol/L Carbon Dioxide 26 (22-30) mmol/L BUN 9 (7-17) mg/dL Creatinine 0.59 (0.52-1.04) mg/dL Glucose 103 H (74-99) mg/dL Calcium 8.4 (8.4-10.2) mg/dL Calcium panel 01/02/22 Range/Units 07:30 Calcium 8.4 (8.4-10.2) mg/dL Pituitary panel 01/02/22 Range/Units 07:30 Sodium 136 L (137-145) mmol/L Potassium 3.4 L (3.5-5.1) mmol/L Chloride 102 (98-107) mmol/L Carbon Dioxide 26 (22-30) mmol/L BUN 9 (7-17) mg/dL Creatinine 0.59 (0.52-1.04) mg/dL Glucose 103 H (74-99) mg/dL Calcium 8.4 (8.4-10.2) mg/dL Adrenal panel 01/02/22 Range/Units 07:30 Sodium 136 L (137-145) mmol/L Potassium 3.4 L (3.5-5.1) mmol/L Chloride 102 (98-107) mmol/L Carbon Dioxide 26 (22-30) mmol/L BUN 9 (7-17) mg/dL Creatinine 0.59 (0.52-1.04) mg/dL Glucose 103 H (74-99) mg/dL Calcium 8.4 (8.4-10.2) mg/dL
[2022-01-02] MEDS: DONEPEZIL 10 MG TAB PO SCH (21:36)
[2022-01-03] MEDS: AMPICILLIN-SULBACTAM 3 GM in SODIUM CHLORIDE 0.9% 100 ML IVPB SCH ×5 (00:44→18:50)
[2022-01-03 07:04] LABS: Basophils % (A) 0 %; Eosinophils # (A) 0.4 k/uL (0-0.7); Eosinophils % (A) 5 %; HCT 39.5 % (34.0-46.0); HGB 12.4 gm/dL (11.4-16.0); Hypochromasia Slight; Lymphocytes # (A) 0.5 k/uL (1.0-4.8); Lymphocytes % (A) 6 %; MCH 30.4 pg (25.0-35.0); MCHC 31.5 g/dL (31.0-37.0); MCV 96.7 fL (80.0-100.0); Mean Platelet Volume 7.6; Monocytes # (A) 0.6 k/uL (0-1.0); Monocytes % (A) 8 %; Neutrophils # (A) 6.2 k/uL (1.3-7.7); Neutrophils % (A) 80 %; Platelet Count 250 k/uL (150-450); RBC 4.08 m/uL (3.80-5.40); WBC 7.7 k/uL (3.8-10.6)
[2022-01-03 09:20] LABS: African American GFR (CKD) 94.3 (60.0-200.0); Anion Gap 9.1 mmol/L (10.00-18.00); BUN/Creat Ratio 10.17 Ratio (12.00-20.00); Blood Urea Nitrogen 6.1 mg/dL (9.0-27.0); Calcium 8.7 mg/dL (8.7-10.3); Carbon Dioxide 28.9 mmol/L (20.0-27.5); Non-African American GFR(CKD) 81.4 (60.0-200.0); Potassium 3.6 mmol/L (3.5-5.5)
[2022-01-03] MEDS: LACTATED RINGERS 1,000 ML IV SCH (10:17)
[2022-01-03] MEDS: atenoloL 25 MG TAB PO SCH (10:30)
[2022-01-03] MEDS: ESCITALOPRAM 5 MG TAB PO SCH (10:30)
[2022-01-03] MEDS: PANTOPRAZOLE 40 MG/10 ML VIAL IV SCH (10:30)
[2022-01-03] MEDS: SILDENAFIL 20 MG TAB PO SCH ×3 (10:30→21:53)
[2022-01-03] MEDS: AMIODARONE 200 MG TAB PO SCH ×2 (10:30→21:53)
[2022-01-03] MEDS: SODIUM CHLORIDE 0.9% 1,000 ML IV SCH (13:48)
[2022-01-03 15:14] VITALS: BMI 23.2
--- NOTE | 2022-01-03 15:38 | P.PN ---
Subjective Progress Note Date: 01/03/22 Principal diagnosis: altered mentation On today's evaluation of 12/31/2021, the patient is lethargic, cannot hold a conversation. She has dementia with impairment of cognitive functions the CAT scan of the brain showed cerebral atrophy. The patient remains on a lactated Ringer running at the rate of 100 mL an hour. Overall fluid balance has been +3.5 L over the past 48 hours and 2.7 L over the past 24 hours. Echocardiogram showed a normal LV function, moderate to severe degree of pulmonary hypertension, moderate mitral regurgitation, moderate to severe tricuspid regurg itation. The patient is afebrile. The patient is hemodynamically stable. Blood cultures 2 has been negative. The white cell count 7.6 with a hemoglobin 15.5 and a platelet count of 180. He is at 7 with a creatinine of 0.58 and a sodium level is at 136. No other significant events overnight. The patient has been already switched to oral amiodarone 400 mg by mouth twice a day. The patient is currently on IV Unasyn. There are 4 out of 4 blood culture that showed gram-positive cocci in chains. The first culture showed staph hemolyticus and the second culture showed coagulase-negative staph. Infectious diseases on the case regarding antibiotic management. The patient was on vancomycin initially switched to Rocephin milligrams Unasyn. 01/01/2022, the patient is comfortable and she has no specific complaints. No fever or chills. As mentioned earlier, the patient has dementia and history provided by the patient is quite limited at this point in time. She is tolerating diet. She is hemodynamically stable. She remains on IV Zosyn. Repeat blood cultures of been ordered for this patient. Meanwhile, I blood work, the patient is a white cell count 9.5, and the patient's hemoglobin is at 15.1 with a platelet count of 196. Sodium level is at 137 be understanding of 4 and creatinine 0.9. The patient is in atrial fibrillation. The patient has a component of interstitial lung disease, moderate mitral regurgitation, severe tricuspid regurgitation, atrial fibrillation, severe pulmonary hypertension, and previous history of pulmonary embolism and the patient is maintained on anticoagulation with Eliquis 2.5 mg by mouth twice a day. She remains on sildenafil 20 mg by mouth 3 times a day. She is on oral amiodarone. 01/02/2022, condition essentially unchanged the patient is being transferred to a medical surgical floor. Mental status remains unchanged. She has advanced dementia. Repeat cultures are essentially negative for now. The blood work is also stable and the patient is afebrile hemodynamically stable. The white cell count is at 8.2 with hemoglobin of 12.6 and the sodium level is at 136 with a potassium of 3.4 chloride is 102 and a bicarb is 26 with a BUN of 9 and a creatinine of 0.5. The patient remains on IV Unasyn. The patient is on long-term and to coagulation with Eliquis regarding chronic atrial fibrillation and patient is also on amiodarone 200 mg by mouth twice a day and metoprolol 25 mg by mouth daily for rate control. She is tolerating diet. No nausea or emesis. No focal neurological deficit at this point in time. on 01/03/2022 patient seen in follow-up on medical surgical floor, she is awake and alert, confused, and at times lethargic, but easily arousable. She is sitting up in the recliner, her family is at the bedside, she does not appear to be in any acute distress, denies any difficulty breathing, no complaint of abdominal pain. Abdomen is soft. vital signs are stable, afebrile, she is on 3 L of oxygen pulse ox is 100%. patient remains on Unasyn, follow blood cultures have been negative. surgical consultation has been placed regarding the left- sided inguinal hernia without bowel obstruction. And patient is scheduled for surgery today. Objective - Vital Signs Vital signs: Vital Signs Temp 98.4 F 01/03/22 14:00 Pulse 83 01/03/22 14:00 Resp 14 01/03/22 14:00 BP 122/75 01/03/22 14:00 Pulse Ox 100 01/03/22 14:00 FiO2 Intake & Output 01/02/22 01/03/22 01/03/22 18:59 06:59 18:59 Intake Total 260 Output Total 350 Balance 260 -350 Weight 61.4 kg Intake: IV 260 Ampicillin-Sulbactam 3 gm 100 In Sodium Chloride 0.9% 100 ml @ 200 mls/hr IVPB Q6HR RIKKI Rx#:[id number] Lactated Ringers 1,000 ml 160 @ 40 mls/hr IV .Q24H RIKKI Rx#:[id number] Output: Urine 350 Other: Voiding Method Bedside Commode External Catheter # Voids 1 2 # Bowel Movements 1 1 - Exam GENERAL EXAM: easily arousable, 86-year-old white female, resting in bed on 3 L of oxygencomfortable in no apparent distress. HEAD: Normocephalic/atraumatic. EYES: Normal reaction of pupils, equal size. Conjunctiva pink, sclera white. NOSE: Clear with pink turbinates. THROAT: No erythema or exudates. NECK: No masses, no JVD, no thyroid enlargement, no adenopathy. CHEST: No chest wall deformity. Symmetrical expansion. LUNGS: Equal air entry with no crackles, wheeze, rhonchi or dullness. CVS: Regular rate and rhythm, normal S1 and S2, no gallops, no murmurs, no rubs ABDOMEN: Soft, nontender. No hepatosplenomegaly, normal bowel sounds, no guarding or rigidity. EXTREMITIES: No clubbing, no edema, no cyanosis, 2+ pulses and upper and lower extremities. MUSCULOSKELETAL: Muscle strength and tone normal. SPINE: No scoliosis or deformity SKIN: No rashes CENTRAL NERVOUS SYSTEM: Alert and oriented -1. No focal deficits, tone is normal in all 4 extremities. - Labs CBC & Chem 7: 01/03/22 06:41 01/03/22 06:41 Labs: Abnormal Lab Results - Last 24 Hours (Table) 01/03/22 01/03/22 Range/Units 06:41 06:41 Lymphocytes # 0.5 L (1.0-4.8) k/uL Carbon Dioxide 28.9 H (20.0-27.5) mmol/L Anion Gap 9.10 L (10.00-18.00) mmol/L BUN 6.1 L (9.0-27.0) mg/dL BUN/Creatinine Ratio 10.17 L (12.00-20.00) Ratio Microbiology - Last 24 Hours (Table) 12/31/21 10:49 Blood Culture - Preliminary Blood No Growth after 72 hours 12/31/21 10:50 Blood Culture - Preliminary Blood No Growth after 72 hours 01/01/22 09:47 Blood Culture - Preliminary Blood No Growth after 48 hours Assessment and Plan Plan: sepsis with hypotension, source unclear. Blood cultures positive for coag negative staphylococci. The patient has 4 out of 4 blood cultures are positive for coagulase-negative staph and the patient is currently on IV Unasyn, repeat cultures were obtained today. The patient is currently afebrile the patient is hemodynamically stable remains on IV Unasyn. Repeat cultures were sent and there are negative thus far and the patient remains on IV Unasyn. No fever. No leukocytosis. No hemodynamic instability at this point in time. Altered mental status most likely secondary to metabolic encephalopathy, secondary to above, slightly more alert compared to yesterday moving all 4 extremities without any limitation History of CVA. History of severe dementia. There has been progressive loss in her cognitive functions over the years based on my personal observation on this patient and this is attributed to her underlying dementia. Previous history of tobacco use, rule out COPD. History of atrial fibrillation. The patient's rate is currently controlled. The patient was on a Cardizem drip and this was switched to amiodarone drip and currently the patient is going to be switched to oral amiodarone. History of home oxygen use, at nighttime. Mild lactic acidosis, improved and her lactic acid level is down to 1.7 Mild leukocytosis with a white cell count of 12.1, recovered and improved Cardiomyopathy with an ejection fraction of 30-35% based on an earlier echocardiogram from 2019, repeat echocardiogram confirmed the presence of severe pulmonary hypertension, nevertheless, there has been improvement in the ventricular ejection fraction and LV function was reported to be within normal limits. Severe mitral regurgitation/valvular heart disease along with tricuspid regurgitation and severe pulmonary hypertension, and the patient has been maintained on sildenafil 20 mg by mouth 3 times a day for many years in addition to long-term anticoagulation with Eliquis. Previous history of pulmonary embolism, the patient is on long-term anticoagulation with Eliquis Chronic hypoxic respiratory failure maintained on O2 at 2 L per minute nasal cannula History of pulmonary fibrosis, mild History of scoliosis/spondylosis/degenerative arthritis Impaired hearing Sigmoid diverticulosis without diverticulitis Large left inguinal hernia without evidence of any bowel obstruction plan: Patient is breathing comfortably, signs are stable, follow blood cultures remain negative Patient is going for surgery today for repair of left inguinal hernia We'll follow the patient in the postoperative period for any pulmonary or critical care needs I have personally seen and examined the patient, performed the documentation and the assessment and plan as written. Number of minutes spent on the visit: [1] I have personally seen and examined the patient and reviewed the documentation. I performed a joint evaluation with the nurse practitioner in this evaluation was done more than 20 minutes. I fully agree with the documentation above and the plan of care. The patient got transferred out of the intensive care unit. The patient was seen by general surgery. The patient has an incarcerated abdominal/inguinal hernia and the patient will be taken to the operating room. There is a very poor prognosis based on her comorbid conditions and poor baseline performance and functional status. She has significant dementia at this point in time. Will be on standby should there be any issues postop. Time with Patient: Less than 30
[2022-01-03] MEDS ORDERED: ONDANSETRON 4 MG/2 ML VIAL ONE (17:40)
[2022-01-03] MEDS ORDERED: DEXAMETHASONE SOD PHOSPHATE 4 MG/ML 1 ML VIAL IV ONE (17:54)
[2022-01-03] MEDS ORDERED: LACTATED RINGERS 1,000 ML IV ONE (17:54)
[2022-01-03] MEDS ORDERED: ONDANSETRON 4 MG/2 ML VIAL IVP ONE (17:54)
--- NOTE | 2022-01-03 18:19 | P.PN ---
Subjective This is an 86 year old female with history of CVA, dementia, atrial fibrillation, CHF. She has been transitioned to oral amidarone, amiodarone gtt a nd cardizem gtt have been discontinued. Blood cultures showing staphylococcus haemolyticus and she continues on IV unasyn. Repeat cultures taken yesterday and also today. Pending clearance of bacteremia. Blood count today is normal, sodium 137, potassium 4.6. Procalcitonin 0.13. Patient is alert x 1, which is her baseline, she is pleasant, no acute complaints. She has been downgraded from the ICU today. Discharge planning for home with home care vs. SNF if patient requires IV antibiotics on discharge which family would like to avoid. 01/02/2022 Patient evaluated in intensive care unit as a medical surgical hold. Patient does have history of dementia she is alert x 1, pleasant. On exam abdomen is soft, and nontender with normoactive bowel sounds. Review of chest abdominal pelvis CT does show left side inguinal hernia with increased size from old exam with evidence for incarcerated small bowel. There is no bowel obstruction. Infectious disease requested surgical evaluation. Patient is scheduled for left inguinal hernia repair tomorrow with Dr Cardoza. Repeat blood culture preliminary so far negative. Patient continues on IV unasyn inpatient and recommendations for discharge on oral augmentin for 10 days post discharge. Patient remains afebrile, heart rate 93 she does have atrial fibrillation and remains on low dose eliquis which has been placed on hold. No white count, hgb 12.2, sodium 136, potassium 3.4, glucose 103, calcium 8.4. Patient is afebrile, blood pressure 107/76, 94% on 4L nasal cannula. Will order incentive spirometer. Subjective: Resuming the care of the patient today 01/03/2022 This is a pleasant 86 years old female who presents with evidence of sepsis and hypertension that she's been monitored in the ICU closely and after stabilization of her blood pressure she was transferred to the general medical floor. CT of the abdomen was showing intra-abdominal large left inguinal hernia with incarcerated small bowel. Patient is planned to undergo hernia repair by surgery team today. She is currently lying in bed comfortable, no distress, awake and alert, nonverbal at baseline as per daughter at bedside. She has some mild abdominal pain and currently she is nothing by mouth for surgery, she is on normal saline 40 mL/h. Eliquis on hold She is also on Unasyn Objective - Vital Signs Vital signs: Vital Signs Temp 98.4 F 01/03/22 07:10 Pulse 79 01/03/22 07:10 Resp 17 01/03/22 07:10 BP 129/75 01/03/22 07:10 Pulse Ox 97 01/03/22 07:10 FiO2 Intake & Output 01/02/22 01/03/22 01/03/22 18:59 06:59 18:59 Intake Total 260 Output Total 350 Balance 260 -350 Intake: IV 260 Ampicillin-Sulbactam 3 gm 100 In Sodium Chloride 0.9% 100 ml @ 200 mls/hr IVPB Q6HR RIKKI Rx#:[id number] Lactated Ringers 1,000 ml 160 @ 40 mls/hr IV .Q24H RIKKI Rx#:[id number] Output: Urine 350 Other: Voiding Method Bedside Commode External Catheter # Voids 1 2 # Bowel Movements 1 1 - Exam GENERAL: The patient is alert and and awake, nonverbal at baseline, follow-up, and not in any acute distress. Well developed, well nourished. HEENT: Pupils are round and equally reacting to light. EOMI. No scleral icterus. No conjunctival pallor. Normocephalic, atraumatic. No pharyngeal erythema. No thyromegaly. CARDIOVASCULAR: S1 and S2 present. No murmurs, rubs, or gallops. PULMONARY: Chest is clear to auscultation, no wheezing or crackles. -ABDOMEN: Soft, nontender, mild left inguinal tenderness, normoactive bowel sounds. No palpable organomegaly. MUSCULOSKELETAL: No joint swelling or deformity. EXTREMITIES: No cyanosis, clubbing, or pedal edema. NEUROLOGICAL: Gross neurological examination did not reveal any focal deficits. SKIN: No rashes. no petechiae. - Labs CBC & Chem 7: 01/03/22 06:41 01/03/22 06:41 Labs: Abnormal Lab Results - Last 24 Hours (Table) 01/03/22 01/03/22 Range/Units 06:41 06:41 Lymphocytes # 0.5 L (1.0-4.8) k/uL Carbon Dioxide 28.9 H (20.0-27.5) mmol/L Anion Gap 9.10 L (10.00-18.00) mmol/L BUN 6.1 L (9.0-27.0) mg/dL BUN/Creatinine Ratio 10.17 L (12.00-20.00) Ratio Microbiology - Last 24 Hours (Table) 12/31/21 10:49 Blood Culture - Preliminary Blood No Growth after 48 hours 12/31/21 10:50 Blood Culture - Preliminary Blood No Growth after 48 hours 01/01/22 09:47 Blood Culture - Preliminary Blood No Growth after 24 hours Assessment and Plan Assessment: Sepsis with hypotension and lactic acidosis, secondary to intra-abdominal infection and Large left inguinal hernia with evidence for bowel incarceration, pending surgical repair Staphylococcus hemolyticus bacteremia with unclear source of infection, repeat cultures are negative so far Altered mental status likely a metabolic encephalopathy, patient is alert x 1, pleasantly confused, does have history of dementia Atrial fibrillation with RVR, rate now controlled on oral amiodarone Mild renal/injury resolved History cardiomyopathy, with improved Ejection fraction History of atrial fibrillation, paroxysmal History of valvular heart disease, history of pulmonary hypertension Chronic hypoxic respiratory failure on home oxygen History of dementia History of CVA GI Prophylaxis: IV protonix DVT Prophylaxis: Eliquis on hold Plan: This is a pleasant 80 years old female with sepsis and left inguinal hernia Patient is planned to undergo hernia repair and bowels separation today with surgery team Continue with antibiotic Unasyn continue with gentle hydration normal saline at 40 Cardiology, pulmonary, infectious disease team on the case as well Continue with amiodarone per cardiology team Do Not Resuscitate Labs and medication were reviewed.. Continue same treatment. Continue with symptomatic treatment. Resume home medication. Monitor lytes and vitals. DVT and GI prophylaxis. Further recommendations as per clinical course of the patient DVT prophylaxis: Subcutaneous heparin GI Prophylaxis: Pepcid PT/OT: Pending Prognosis is guarded
[2022-01-03] MEDS ORDERED: ROCURONIUM 10 MG/ML (5 ML VIAL) IV ONE (18:34)
[2022-01-03] MEDS ORDERED: LIDOCAINE 2% INJ 20 MG/ML (2 ML VIAL) ONE (18:34)
[2022-01-03] MEDS ORDERED: PROPOFOL 10 MG/ML 20 ML VIAL IV ONE (18:34)
[2022-01-03] MEDS ORDERED: fentaNYL (PF) 50 MCG/ML 2 ML AMP ONE (18:34)
[2022-01-03] MEDS ORDERED: SUCCINYLCHOLINE CHLORIDE 200 MG/10 ML VIAL IV ONE (18:34)
[2022-01-03] MEDS ORDERED: NEOSTIGMINE 1 MG/ML 10 ML VIAL ONE (18:34)
[2022-01-03] MEDS ORDERED: GLYCOPYRROLATE 0.2 MG/ML 2 ML VIAL ONE (18:34)
[2022-01-03] MEDS ORDERED: BUPIVACAINE (PF) 0.25% 30 ML VIAL SQ ONE (19:01)
--- NOTE | 2022-01-03 19:18 | P.OP ---
Date of Procedure: 01/03/22 Preoperative Diagnosis: Incarcerated left inguinal hernia Postoperative Diagnosis: Incarcerated left inguinal hernia Procedure(s) Performed: Open repair of incarcerated left inguinal hernia with mesh Anesthesia: SHOSHANA Surgeon: Jimy Cardoza Estimated Blood Loss (ml): 5 Pathology: none sent Condition: stable Disposition: PACU Description of Procedure: The patient's placed on the operative table in the supine position where she received general endotracheal tube anesthesia. Her abdomen was prepped and draped usual sterile fashion. The skin was incised at the groin and then using left cautery the subcutaneous tissue divided. The hernia sac was dissected free. The fascia external oblique was exposed. A charleen the fascia and made a 15 blade. And then the fascial opening or metastases months scissors. The hernia sac contents were reduced. The round ligament was then transected and ligated with 0 silk tie. The hernia sac was inverted back into the pleural cavity. The prepared space opened. The Prolene hernia mesh plug was then placed into the peritoneal space. The extended size was used. The inferior leads expanded. The superior leaf was attached to the tubercle medially. And then the transversalis fascia laterally. The fascia of the external oblique was then closed using 0 Vicryl suture. Andre's fascia closed with 2-0 Vicryl suture. Skin was closed interrupted 3-0 Monocryl suture. Dermabond was applied. Patient top she will was sent to recovery room in stable condition.
[2022-01-03] MEDS ORDERED: MORPHINE SULFATE 4MG/4ML SYRG IV ONE (19:35)
[2022-01-03] MEDS: DONEPEZIL 10 MG TAB PO SCH (21:53)
[2022-01-04] MEDS: AMPICILLIN-SULBACTAM 3 GM in SODIUM CHLORIDE 0.9% 100 ML IVPB SCH ×4 (06:08→23:41)
--- NOTE | 2022-01-04 08:24 | P.PN ---
Subjective Progress Note Date: 01/03/22 Principal diagnosis: SIRS and bacteremia Patient is 85-year-old female with multiple comorbidities presenting to the ER yesterday afternoon for evaluation of weakness symptom has been going on for about 3 to 4 days before presentation to the hospital, patient was hypote nsive requiring admission to the ICU and subsequently did have a positive blood culture with gram-positive cocci finalizes staph epi. On today's evaluation that is 01/03/2022, The patient continues to be afebrile, the patient is breathing comfortably on room air , patient denies any chest pain or shortness of the patient cough , Patient abdominal pain is currently controlled and no nausea no vomiting and no diarrhea has been reported Objective - Vital Signs Vital signs: Vital Signs Temp 98.4 F 01/03/22 07:10 Pulse 79 01/03/22 07:10 Resp 17 01/03/22 07:10 BP 129/75 01/03/22 07:10 Pulse Ox 97 01/03/22 07:10 FiO2 Intake & Output 01/02/22 01/03/22 01/03/22 18:59 06:59 18:59 Intake Total 260 Output Total 350 Balance 260 -350 Intake: IV 260 Ampicillin-Sulbactam 3 gm 100 In Sodium Chloride 0.9% 100 ml @ 200 mls/hr IVPB Q6HR RIKKI Rx#:[id number] Lactated Ringers 1,000 ml 160 @ 40 mls/hr IV .Q24H RIKKI Rx#:[id number] Output: Urine 350 Other: Voiding Method Bedside Commode External Catheter # Voids 1 2 # Bowel Movements 1 1 - Exam GENERAL DESCRIPTION: An elderly female lying in bed in no distress RESPIRATORY SYSTEM: Unlabored breathing , decreased breath sounds at bases HEART: S1 S2 regular rate and rhythm , ABDOMEN: Soft , Mild distention and tenderness EXTREMITIES: No edema feet - Labs CBC & Chem 7: 01/03/22 06:41 01/03/22 06:41 Labs: Abnormal Lab Results - Last 24 Hours (Table) 01/03/22 01/03/22 Range/Units 06:41 06:41 Lymphocytes # 0.5 L (1.0-4.8) k/uL Carbon Dioxide 28.9 H (20.0-27.5) mmol/L Anion Gap 9.10 L (10.00-18.00) mmol/L BUN 6.1 L (9.0-27.0) mg/dL BUN/Creatinine Ratio 10.17 L (12.00-20.00) Ratio Microbiology - Last 24 Hours (Table) 12/31/21 10:49 Blood Culture - Preliminary Blood No Growth after 72 hours 12/31/21 10:50 Blood Culture - Preliminary Blood No Growth after 72 hours 01/01/22 09:47 Blood Culture - Preliminary Blood No Growth after 48 hours Assessment and Plan (1) SIRS (systemic inflammatory response syndrome) Current Visit: Yes Status: Acute Code(s): R65.10 - SIRS OF NON-INFECTIOUS ORIGIN W/O ACUTE ORGAN DYSFUNCTION SNOMED Code(s): 968529970 (2) Bacteremia Current Visit: Yes Status: Acute Code(s): R78.81 - BACTEREMIA SNOMED Code(s): 1527913 Plan: 1Patient with positive blood culture with staph epi likely skin contaminant negative no need for vancomycin 2- patient has been brought to the hospital with weakness patient was noticed to have elevated white count and elevated lactic acid patient also have hypotension requiring pressor support she did have a CT of the chest abdominal pelvis not showing any acute abnormality In the impression section however there was mention of incarcerated leg inguinal hernia and likely the source of her sepsis , patient scheduled for surgery this afternoon patient to continue with Unasyn, family member at the bedside questions concerned were answered Time with Patient: Less than 30
[2022-01-04] MEDS: AMIODARONE 200 MG TAB PO SCH ×2 (08:42→21:09)
[2022-01-04] MEDS: atenoloL 25 MG TAB PO SCH (08:42)
[2022-01-04] MEDS: SILDENAFIL 20 MG TAB PO SCH ×3 (08:43→21:57)
[2022-01-04] MEDS: ESCITALOPRAM 5 MG TAB PO SCH (08:43)
[2022-01-04] MEDS: SODIUM CHLORIDE 0.9% 1,000 ML IV SCH (08:44)
[2022-01-04] MEDS: PANTOPRAZOLE 40 MG/10 ML VIAL IV SCH (10:55)
[2022-01-04] MEDS ORDERED: HYDROmorphone 1 MG/ML 1 ML SYRINGE IVP PRN (11:16)
--- NOTE | 2022-01-04 14:20 | P.PN ---
Subjective Progress Note Date: 01/04/22 On today's evaluation of 12/31/2021, the patient is lethargic, cannot hold a conversation. She has dementia with impairment of cognitive functions the CAT scan of the brain showed cerebral atrophy. The patient remains on a lactated Ringer running at the rate of 100 mL an hour. Overall fluid balance has been +3.5 L over the past 48 hours and 2.7 L over the past 24 hours. Echocardiogram showed a normal LV function, moderate to severe degree of pulmonary hypertension, moderate mitral regurgitation, moderate to severe tricuspid regurgitation. The patient is afebrile. The patient is hemodynamically stable. Blood cultures 2 has been negative. The white cell count 7.6 with a hemoglobin 15.5 and a platelet count of 180. He is at 7 with a creatinine of 0.58 and a sodium level is at 136. No other significant events overnight. The patient has been already switched to oral amiodarone 400 mg by mouth twice a day. The patient is currently on IV Unasyn. There are 4 out of 4 blood culture that showed gram-positive cocci in chains. The first culture showed staph hemolyticus and the second culture showed coagulase-negative staph. Infectious diseases on the case regarding antibiotic management. The patient was on vancomycin initially switched to Rocephin milligrams Unasyn. 01/01/2022, the patient is comfortable and she has no specific complaints. No fever or chills. As mentioned earlier, the patient has dementia and history provided by the patient is quite limited at this point in time. She is tolerating diet. She is hemodynamically stable. She remains on IV Zosyn. Repeat blood cultures of been ordered for this patient. Meanwhile, I blood work, the patient is a white cell count 9.5, and the patient's hemoglobin is at 15.1 with a platelet count of 196. Sodium level is at 137 be understanding of 4 and creatinine 0.9. The patient is in atrial fibrillation. The patient has a component of interstitial lung disease, moderate mitral regurgitation, severe tricuspid regurgitation, atrial fibrillation, severe pulmonary hypertension, and previous history of pulmonary embolism and the patient is maintained on anticoagulation with Eliquis 2.5 mg by mouth twice a day. She remains on sildenafil 20 mg by mouth 3 times a day. She is on oral amiodarone. 01/02/2022, condition essentially unchanged the patient is being transferred to a medical surgical floor. Mental status remains unchanged. She has advanced dementia. Repeat cultures are essentially negative for now. The blood work is also stable and the patient is afebrile hemodynamically stable. The white cell count is at 8.2 with hemoglobin of 12.6 and the sodium level is at 136 with a potassium of 3.4 chloride is 102 and a bicarb is 26 with a BUN of 9 and a creatinine of 0.5. The patient remains on IV Unasyn. The patient is on long- term and to coagulation with Eliquis regarding chronic atrial fibrillation and patient is also on amiodarone 200 mg by mouth twice a day and metoprolol 25 mg by mouth daily for rate control. She is tolerating diet. No nausea or emesis. No focal neurological deficit at this point in time. on 01/03/2022 patient seen in follow-up on medical surgical floor, she is awake and alert, confused, and at times lethargic, but easily arousable. She is sitting up in the recliner, her family is at the bedside, she does not appear to be in any acute distress, denies any difficulty breathing, no complaint of abdominal pain. Abdomen is soft. vital signs are stable, afebrile, she is on 3 L of oxygen pulse ox is 100%. patient remains on Unasyn, follow blood cultures have been negative. surgical consultation has been placed regarding the left- sided inguinal hernia without bowel obstruction. And patient is scheduled for surgery today. the patient is seen today 01/04/2022 in follow-up on the regular medical floor. She is currently sitting up in a chair at the bedside. Awake and alert. Confused. Speech is garbled. Initial blood cultures revealed Staphylococcus he molyticus. Follow-up blood cultures are revealing no growth. She remains on Unasyn. Dilaudid for pain control. Receiving normal saline at 40 ML's per hour. Left groin incision clean dry well approximated. Some ecchymosis. Objective - Vital Signs Vital signs: Vital Signs Temp 97.7 F 01/04/22 07:10 Pulse 87 01/04/22 07:10 Resp 17 01/04/22 07:10 BP 125/80 01/04/22 07:10 Pulse Ox 88 L 01/04/22 08:37 FiO2 Intake & Output 01/03/22 01/04/22 01/04/22 18:59 06:59 18:59 Intake Total 400 50 Output Total 5 Balance 400 45 Weight 61.4 kg 61.4 kg Intake: IV 400 50 Output: Estimated Blood Loss 5 Other: Voiding Method Toilet # Voids 1 2 - Exam GENERAL EXAM: easily arousable, 86-year-old female, resting in the recliner on 3 L of oxygen, comfortable in no apparent distress. HEAD: Normocephalic/atraumatic. EYES: Normal reaction of pupils, equal size. Conjunctiva pink, sclera white. NOSE: Clear with pink turbinates. THROAT: No erythema or exudates. NECK: No masses, no JVD, no thyroid enlargement, no adenopathy. CHEST: No chest wall deformity. Symmetrical expansion. LUNGS: Equal air entry with no crackles, wheeze, rhonchi or dullness. CVS: Regular rate and rhythm, normal S1 and S2, no gallops, no murmurs, no rubs ABDOMEN: Soft, nontender. No hepatosplenomegaly, normal bowel sounds, no guarding or rigidity. EXTREMITIES: Left groin surgical site clean and dry. Ecchymosis.No clubbing, no edema, no cyanosis, 2+ pulses and upper and lower extremities. MUSCULOSKELETAL: Muscle strength and tone normal. SPINE: No scoliosis or deformity SKIN: No rashes CENTRAL NERVOUS SYSTEM: Alert and oriented -1. No focal deficits, tone is normal in all 4 extremities. - Labs CBC & Chem 7: 01/03/22 06:41 01/03/22 06:41 Labs: Microbiology - Last 24 Hours (Table) 12/31/21 10:49 Blood Culture - Preliminary Blood No Growth after 96 hours 12/31/21 10:50 Blood Culture - Preliminary Blood No Growth after 96 hours 01/01/22 09:47 Blood Culture - Preliminary Blood No Growth after 72 hours Assessment and Plan Assessment: Sepsis with hypotension, source unclear. Blood cultures positive for coag negative staphylococci. The patient has 4 out of 4 blood cultures are positive for coagulase-negative staph and the patient is currently on IV Unasyn, repeat cultures were obtained and reveal no growth thus. The patient is currently afebrile the patient is hemodynamically stable remains on IV Unasyn. No fever. No leukocytosis. No hemodynamic instability at this point in time. Altered mental status most likely secondary to metabolic encephalopathy, secondary to above, slightly more alert compared to yesterday moving all 4 extremities without any limitation History of CVA. History of severe dementia. There has been progressive loss in her cognitive functions over the years based on my personal observation on this patient and this is attributed to her underlying dementia. Previous history of tobacco use, rule out COPD. History of atrial fibrillation. The patient's rate is currently controlled. The patient was on a Cardizem drip and this was switched to amiodarone drip and currently the patient is going to be switched to oral amiodarone. History of home oxygen use, at nighttime. Mild lactic acidosis, improved and her lactic acid level is down to 1.7 Mild leukocytosis with a white cell count of 12.1, recovered and improved Cardiomyopathy with an ejection fraction of 30-35% based on an earlier echocardiogram from 2019, repeat echocardiogram confirmed the presence of severe pulmonary hypertension, nevertheless, there has been improvement in the ve ntricular ejection fraction and LV function was reported to be within normal limits. Severe mitral regurgitation/valvular heart disease along with tricuspid regurgitation and severe pulmonary hypertension, and the patient has been maintained on sildenafil 20 mg by mouth 3 times a day for many years in addition to long-term anticoagulation with Eliquis. Previous history of pulmonary embolism, the patient is on long-term anticoagulation with Eliquis Chronic hypoxic respiratory failure maintained on O2 at 2 L per minute nasal cannula History of pulmonary fibrosis, mild History of scoliosis/spondylosis/degenerative arthritis Impaired hearing Sigmoid diverticulosis without diverticulitis Large left inguinal hernia without evidence of any bowel obstruction, status post repair on 01/03/2022 Plan: The patient was seen and evaluated Currently stable from the pulmonary standpoint Remains on Unasyn Increase her activity as tolerated Advance her diet as tolerated I have personally seen and examined the patient, performed the documentation and the assessment and plan as written. Number of minutes spent on the visit: 10. I have personally seen and examined the patient and reviewed the documentation. I performed a joint evaluation with the nurse practitioner in this evaluation was done more than 20 minutes. I fully agree with the documentation above and the plan of care. The patient is postop day #1 patient is resting comfortably in bed. She is unable to communicate as the patient has significant cognitive impairments. Hemodynamically stable. Surgical wound site is dry clean and intact. Diet will be advanced. She'll be kept on medical floor for now.
[2022-01-04] MEDS ORDERED: traMADol 50 MG TAB PO PRN (14:26)
[2022-01-04] MEDS ORDERED: IBUPROFEN 600 MG TAB PO PRN (14:26)
--- NOTE | 2022-01-04 14:26 | P.PN ---
Subjective Progress Note Date: 01/04/22 Principal diagnosis: Inguinal hernia Patient confused today. Apparently that is her baseline. Only having mild discomfort. No nausea or vomiting. Tolerating liquids thus far. Objective - Vital Signs Vital signs: Vital Signs Temp 97.7 F 01/04/22 07:10 Pulse 87 01/04/22 07:10 Resp 17 01/04/22 07:10 BP 125/80 01/04/22 07:10 Pulse Ox 88 L 01/04/22 08:37 FiO2 Intake & Output 01/03/22 01/04/22 01/04/22 18:59 06:59 18:59 Intake Total 400 50 Output Total 5 Balance 400 45 Weight 61.4 kg 61.4 kg Intake: IV 400 50 Output: Estimated Blood Loss 5 Other: Voiding Method Toilet # Voids 1 2 - Exam Abdomen: Soft, nondistended, mild incisional tenderness, incision clean and dry - Labs CBC & Chem 7: 01/03/22 06:41 01/03/22 06:41 Labs: Microbiology - Last 24 Hours (Table) 12/31/21 10:49 Blood Culture - Preliminary Blood No Growth after 96 hours 12/31/21 10:50 Blood Culture - Preliminary Blood No Growth after 96 hours 01/01/22 09:47 Blood Culture - Preliminary Blood No Growth after 72 hours Assessment and Plan (1) Incarcerated inguinal hernia Narrative/Plan: Patient doing better today. Gradually advance diet as tolerated. Again oral pa in medications. Increase activity. Current Visit: Yes Status: Acute Code(s): K40.30 - UNIL INGUINAL HERNIA, W OBST, W/O GANGR, NOT SPCF RECUR SNOMED Code(s): 239904005
--- NOTE | 2022-01-04 19:33 | P.PN ---
Subjective This is an 86 year old female with history of CVA, dementia, atrial fibrillation, CHF. She has been transitioned to oral amidarone, amiodarone gtt a nd cardizem gtt have been discontinued. Blood cultures showing staphylococcus haemolyticus and she continues on IV unasyn. Repeat cultures taken yesterday and also today. Pending clearance of bacteremia. Blood count today is normal, sodium 137, potassium 4.6. Procalcitonin 0.13. Patient is alert x 1, which is her baseline, she is pleasant, no acute complaints. She has been downgraded from the ICU today. Discharge planning for home with home care vs. SNF if patient requires IV antibiotics on discharge which family would like to avoid. 01/02/2022 Patient evaluated in intensive care unit as a medical surgical hold. Patient does have history of dementia she is alert x 1, pleasant. On exam abdomen is soft, and nontender with normoactive bowel sounds. Review of chest abdominal pelvis CT does show left side inguinal hernia with increased size from old exam with evidence for incarcerated small bowel. There is no bowel obstruction. Infectious disease requested surgical evaluation. Patient is scheduled for left inguinal hernia repair tomorrow with Dr Cardoza. Repeat blood culture preliminary so far negative. Patient continues on IV unasyn inpatient and recommendations for discharge on oral augmentin for 10 days post discharge. Patient remains afebrile, heart rate 93 she does have atrial fibrillation and remains on low dose eliquis which has been placed on hold. No white count, hgb 12.2, sodium 136, potassium 3.4, glucose 103, calcium 8.4. Patient is afebrile, blood pressure 107/76, 94% on 4L nasal cannula. Will order incentive spirometer. Subjective: Resuming the care of the patient today 01/03/2022 This is a pleasant 86 years old female who presents with evidence of sepsis and hypertension that she's been monitored in the ICU closely and after stabilization of her blood pressure she was transferred to the general medical floor. CT of the abdomen was showing intra-abdominal large left inguinal hernia with incarcerated small bowel. Patient is planned to undergo hernia repair by surgery team today. She is currently lying in bed comfortable, no distress, awake and alert, nonverbal at baseline as per daughter at bedside. She has some mild abdominal pain and currently she is nothing by mouth for surgery, she is on normal saline 40 mL/h. Eliquis on hold She is also on Unasyn 01/05/2012 Patient clinically doing well, she is open. And back to her mental baseline. She is nonverbal but follow commands. No significant abdominal pain, she had 75% of her lung She is status post left inguinal hernia repair with mesh, today is postoperative day #1. Surgical wound is clear and healing. She remains on Unasyn with repeat blood culture are negative. Also she is on normal saline 40 mm/h, Eliquis 2.5 mg was started today Objective - Vital Signs Vital signs: Vital Signs Temp 97.7 F 01/04/22 07:10 Pulse 87 01/04/22 07:10 Resp 17 01/04/22 07:10 BP 125/80 01/04/22 07:10 Pulse Ox 88 L 01/04/22 08:37 FiO2 Intake & Output 01/03/22 01/04/22 01/04/22 18:59 06:59 18:59 Intake Total 400 50 Output Total 5 Balance 400 45 Weight 61.4 kg Intake: IV 400 50 Output: Estimated Blood Loss 5 Other: Voiding Method Toilet # Voids 1 2 - Exam GENERAL: The patient is alert and and awake, nonverbal at baseline, follow-up, and not in any acute distress. Well developed, well nourished. HEENT: Pupils are round and equally reacting to light. EOMI. No scleral icterus. No conjunctival pallor. Normocephalic, atraumatic. No pharyngeal erythema. No thyromegaly. CARDIOVASCULAR: S1 and S2 present. No murmurs, rubs, or gallops. PULMONARY: Chest is clear to auscultation, no wheezing or crackles. -ABDOMEN: Soft, nontender, mild left inguinal tenderness, normoactive bowel sounds. No palpable organomegaly. MUSCULOSKELETAL: No joint swelling or deformity. EXTREMITIES: No cyanosis, clubbing, or pedal edema. NEUROLOGICAL: Gross neurological examination did not reveal any focal deficits. SKIN: No rashes. no petechiae. - Labs CBC & Chem 7: 01/03/22 06:41 01/03/22 06:41 Labs: Microbiology - Last 24 Hours (Table) 01/01/22 09:47 Blood Culture - Preliminary Blood No Growth after 72 hours 12/31/21 10:49 Blood Culture - Preliminary Blood No Growth after 72 hours 12/31/21 10:50 Blood Culture - Preliminary Blood No Growth after 72 hours Assessment and Plan Assessment: Sepsis with hypotension and lactic acidosis, secondary to intra-abdominal infection , improving Large left inguinal hernia with evidence for bowel incarceration, status post open surgical hernia repair with the mesh Staphylococcus hemolyticus bacteremia with unclear source of infection, repeat cultures are negative so far Altered mental status likely a metabolic encephalopathy, patient is alert x 1, pleasantly confused, does have history of dementia Atrial fibrillation with RVR, rate now controlled on oral amiodarone Mild renal/injury resolved History cardiomyopathy, with improved Ejection fraction History of atrial fibrillation, paroxysmal History of valvular heart disease, history of pulmonary hypertension Chronic hypoxic respiratory failure on home oxygen History of dementia History of CVA GI Prophylaxis: IV protonix DVT Prophylaxis: Eliquis on hold Plan: This is a pleasant 80 years old female with sepsis and left inguinal hernia Resume liquids Continue with antibiotic Unasyn continue with gentle hydration normal saline at 40 Cardiology, pulmonary, infectious disease team on the case as well Continue with amiodarone per cardiology team Do Not Resuscitate Labs and medication were reviewed.. Continue same treatment. Continue with symptomatic treatment. Resume home medication. Monitor lytes and vitals. DVT and GI prophylaxis. Further recommendations as per clinical course of the patient DVT prophylaxis: Eliquis GI Prophylaxis: Pepcid Prognosis is guarded
[2022-01-04] MEDS: DONEPEZIL 10 MG TAB PO SCH (21:09)
[2022-01-04] MEDS: APIXABAN 2.5 MG TABLET PO SCH (21:09)
[2022-01-05] MEDS: AMPICILLIN-SULBACTAM 3 GM in SODIUM CHLORIDE 0.9% 100 ML IVPB SCH ×3 (06:31→17:46)
[2022-01-05] MEDS: APIXABAN 2.5 MG TABLET PO SCH ×2 (07:19→20:03)
[2022-01-05] MEDS: AMIODARONE 200 MG TAB PO SCH ×2 (07:19→20:02)
[2022-01-05] MEDS: atenoloL 25 MG TAB PO SCH (07:19)
[2022-01-05] MEDS: ESCITALOPRAM 5 MG TAB PO SCH (07:20)
[2022-01-05] MEDS: SILDENAFIL 20 MG TAB PO SCH ×3 (07:21→20:03)
--- NOTE | 2022-01-05 07:41 | P.PN ---
Subjective Progress Note Date: 01/04/22 Principal diagnosis: SIRS and bacteremia Patient is 85-year-old female with multiple comorbidities presenting to the ER yesterday afternoon for evaluation of weakness symptom has been going on for about 3 to 4 days before presentation to the hospital, patient was hypote nsive requiring admission to the ICU and subsequently did have a positive blood culture with gram-positive cocci finalizes staph epi. On today's evaluation that is 01/04/2022, The patient remains to be afebrile, the patient is breathing comfortably , patient denies any chest pain or shortness of the patient cough , Patient abdominal pain is controlled and no vomiting or diarrhea has been reported by the nursing staff Objective - Vital Signs Vital signs: Vital Signs Temp 97.7 F 01/04/22 07:10 Pulse 87 01/04/22 07:10 Resp 17 01/04/22 07:10 BP 125/80 01/04/22 07:10 Pulse Ox 88 L 01/04/22 08:37 FiO2 Intake & Output 01/03/22 01/04/22 01/04/22 18:59 06:59 18:59 Intake Total 400 50 Output Total 5 Balance 400 45 Weight 61.4 kg Intake: IV 400 50 Output: Estimated Blood Loss 5 Other: Voiding Method Toilet # Voids 1 2 - Exam GENERAL DESCRIPTION: An elderly female lying in bed in no distress RESPIRATORY SYSTEM: Unlabored breathing , decreased breath sounds at bases HEART: S1 S2 regular rate and rhythm , ABDOMEN: Soft , Mild distention and tenderness EXTREMITIES: No edema feet - Labs CBC & Chem 7: 01/03/22 06:41 01/03/22 06:41 Labs: Microbiology - Last 24 Hours (Table) 12/31/21 10:49 Blood Culture - Preliminary Blood No Growth after 96 hours 12/31/21 10:50 Blood Culture - Preliminary Blood No Growth after 96 hours 01/01/22 09:47 Blood Culture - Preliminary Blood No Growth after 72 hours Assessment and Plan (1) SIRS (systemic inflammatory response syndrome) Current Visit: Yes Status: Acute Code(s): R65.10 - SIRS OF NON-INFECTIOUS ORIGIN W/O ACUTE ORGAN DYSFUNCTION SNOMED Code(s): 937107071 (2) Bacteremia Current Visit: Yes Status: Acute Code(s): R78.81 - BACTEREMIA SNOMED Code(s): 5424930 Plan: 1Patient with positive blood culture with staph epi likely skin contaminant negative no need for vancomycin 2- patient has been brought to the hospital with weakness patient was noticed to have elevated white count and elevated lactic acid patient also have hypotension requiring pressor support source likely incarcerated leg inguinal hernia status post surgical repair on 01/03/2022, patient to continue with Unasyn and will monitor clinical course closely Time with Patient: Less than 30
[2022-01-05] MEDS: PANTOPRAZOLE 40 MG/10 ML VIAL IV SCH (09:15)
[2022-01-05] MEDS: SODIUM CHLORIDE 0.9% 1,000 ML IV SCH (10:27)
[2022-01-05] MEDS ORDERED: FUROSEMIDE 10 MG/ML 4 ML VIAL IV STA (10:42)
--- NOTE | 2022-01-05 12:11 | P.PN ---
Subjective Progress Note Date: 01/05/22 On today's evaluation of 12/31/2021, the patient is lethargic, cannot hold a conversation. She has dementia with impairment of cognitive functions the CAT scan of the brain showed cerebral atrophy. The patient remains on a lactated Ringer running at the rate of 100 mL an hour. Overall fluid balance has been +3.5 L over the past 48 hours and 2.7 L over the past 24 hours. Echocardiogram showed a normal LV function, moderate to severe degree of pulmonary hypertension, moderate mitral regurgitation, moderate to severe tricuspid regurgitation. The patient is afebrile. The patient is hemodynamically stable. Blood cultures 2 has been negative. The white cell count 7.6 with a hemoglobin 15.5 and a platelet count of 180. He is at 7 with a creatinine of 0.58 and a sodium level is at 136. No other significant events overnight. The patient has been already switched to oral amiodarone 400 mg by mouth twice a day. The patient is currently on IV Unasyn. There are 4 out of 4 blood culture that showed gram-positive cocci in chains. The first culture showed staph hemolyticus and the second culture showed coagulase-negative staph. Infectious diseases on the case regarding antibiotic management. The patient was on vancomycin initially switched to Rocephin milligrams Unasyn. 01/01/2022, the patient is comfortable and she has no specific complaints. No fever or chills. As mentioned earlier, the patient has dementia and history provided by the patient is quite limited at this point in time. She is tolerating diet. She is hemodynamically stable. She remains on IV Zosyn. Repeat blood cultures of been ordered for this patient. Meanwhile, I blood work, the patient is a white cell count 9.5, and the patient's hemoglobin is at 15.1 with a platelet count of 196. Sodium level is at 137 be understanding of 4 and creatinine 0.9. The patient is in atrial fibrillation. The patient has a component of interstitial lung disease, moderate mitral regurgitation, severe tricuspid regurgitation, atrial fibrillation, severe pulmonary hypertension, and previous history of pulmonary embolism and the patient is maintained on anticoagulation with Eliquis 2.5 mg by mouth twice a day. She remains on sildenafil 20 mg by mouth 3 times a day. She is on oral amiodarone. 01/02/2022, condition essentially unchanged the patient is being transferred to a medical surgical floor. Mental status remains unchanged. She has advanced dementia. Repeat cultures are essentially negative for now. The blood work is also stable and the patient is afebrile hemodynamically stable. The white cell count is at 8.2 with hemoglobin of 12.6 and the sodium level is at 136 with a potassium of 3.4 chloride is 102 and a bicarb is 26 with a BUN of 9 and a creatinine of 0.5. The patient remains on IV Unasyn. The patient is on long- term and to coagulation with Eliquis regarding chronic atrial fibrillation and patient is also on amiodarone 200 mg by mouth twice a day and metoprolol 25 mg by mouth daily for rate control. She is tolerating diet. No nausea or emesis. No focal neurological deficit at this point in time. on 01/03/2022 patient seen in follow-up on medical surgical floor, she is awake and alert, confused, and at times lethargic, but easily arousable. She is sitting up in the recliner, her family is at the bedside, she does not appear to be in any acute distress, denies any difficulty breathing, no complaint of abdominal pain. Abdomen is soft. vital signs are stable, afebrile, she is on 3 L of oxygen pulse ox is 100%. patient remains on Unasyn, follow blood cultures have been negative. surgical consultation has been placed regarding the left- sided inguinal hernia without bowel obstruction. And patient is scheduled for surgery today. the patient is seen today 01/04/2022 in follow-up on the regular medical floor. She is currently sitting up in a chair at the bedside. Awake and alert. Confused. Speech is garbled. Initial blood cultures revealed Staphylococcus he molyticus. Follow-up blood cultures are revealing no growth. She remains on Unasyn. Dilaudid for pain control. Receiving normal saline at 40 ML's per hour. Left groin incision clean dry well approximated. Some ecchymosis. 01/05/2022, the patient is resting comfortably and she has no specific c omplaints. Blood work was noted everything is stable for now and the patient has a white cell count of 7.7 with a hemoglobin 12.4. The sodium is at 141, BUN is at 6 with a creatinine of 0.6 and a potassium of 3.6. She is on IV fluids at the rate of 40 mL an hour of normal saline and oral home medications and resume the patient remains on IV Unasyn. Surgical wound site is dry clean and intact. Objective - Vital Signs Vital signs: Vital Signs Temp 97.8 F 01/05/22 08:00 Pulse 82 01/05/22 08:00 Resp 15 01/05/22 08:00 BP 125/80 01/05/22 08:00 Pulse Ox 98 01/05/22 08:31 FiO2 Intake & Output 01/04/22 01/05/22 01/05/22 18:59 06:59 18:59 Intake Total 540 Balance 540 Weight 61.4 kg Intake: Oral 540 Other: # Voids 3 # Bowel Movements 1 - Exam GENERAL EXAM: easily arousable, 86-year-old female, resting in the recliner on 3 L of oxygen, comfortable in no apparent distress. HEAD: Normocephalic/atraumatic. EYES: Normal reaction of pupils, equal size. Conjunctiva pink, sclera white. NOSE: Clear with pink turbinates. THROAT: No erythema or exudates. NECK: No masses, no JVD, no thyroid enlargement, no adenopathy. CHEST: No chest wall deformity. Symmetrical expansion. LUNGS: Equal air entry with no crackles, wheeze, rhonchi or dullness. CVS: Regular rate and rhythm, normal S1 and S2, no gallops, no murmurs, no rubs ABDOMEN: Soft, nontender. No hepatosplenomegaly, normal bowel sounds, no guarding or rigidity. EXTREMITIES: Left groin surgical site clean and dry. Ecchymosis.No clubbing, no edema, no cyanosis, 2+ pulses and upper and lower extremities. MUSCULOSKELETAL: Muscle strength and tone normal. SPINE: No scoliosis or deformity SKIN: No rashes CENTRAL NERVOUS SYSTEM: Alert and oriented -1. No focal deficits, tone is normal in all 4 extremities. - Labs CBC & Chem 7: 01/03/22 06:41 01/03/22 06:41 Labs: Microbiology - Last 24 Hours (Table) 12/31/21 10:49 Blood Culture - Preliminary Blood No Growth after 96 hours 12/31/21 10:50 Blood Culture - Preliminary Blood No Growth after 96 hours 01/01/22 09:47 Blood Culture - Preliminary Blood No Growth after 72 hours Assessment and Plan Plan: sepsis with hypotension, recovered Incarcerated left inguinal hernia post surgical repair insertion of a mesh Altered mental status most likely secondary to metabolic encephalopathy, secondary to above, slightly more alert compared to yesterday moving all 4 extremities without any limitation History of CVA. History of severe dementia. There has been progressive loss in her cognitive functions over the years based on my personal observation on this patient and this is attributed to her underlying dementia. Previous history of tobacco use, rule out COPD. History of atrial fibrillation. The patient's rate is currently controlled. The patient was on a Cardizem drip and this was switched to amiodarone drip and currently the patient is going to be switched to oral amiodarone. History of home oxygen use, at nighttime. Mild lactic acidosis, improved and her lactic acid level is down to 1.7 Mild leukocytosis with a white cell count of 12.1, recovered and improved Cardiomyopathy with an ejection fraction of 30-35% based on an earlier echocardiogram from 2019, repeat echocardiogram confirmed the presence of severe pulmonary hypertension, nevertheless, there has been improvement in the ventricular ejection fraction and LV function was reported to be within normal limits. Severe mitral regurgitation/valvular heart disease along with tricuspid regurgitation and severe pulmonary hypertension, and the patient has been maintained on sildenafil 20 mg by mouth 3 times a day for many years in addition to long-term anticoagulation with Eliquis. Previous history of pulmonary embolism, the patient is on long-term anticoagulation with Eliquis Chronic hypoxic respiratory failure maintained on O2 at 2 L per minute nasal cannula History of pulmonary fibrosis, mild History of scoliosis/spondylosis/degenerative arthritis Impaired hearing Sigmoid diverticulosis without diverticulitis plan: Continue supportive care Surgical wound is dry clean and intact Hemoglobin stable at 12.4 Severe dementia which remains unchanged
[2022-01-05] MEDS ORDERED: FUROSEMIDE 10 MG/ML 2 ML VIAL IV SCH (12:15)
--- NOTE | 2022-01-05 19:40 | P.PN ---
Subjective This is an 86 year old female with history of CVA, dementia, atrial fibrillation, CHF. She has been transitioned to oral amidarone, amiodarone gtt a nd cardizem gtt have been discontinued. Blood cultures showing staphylococcus haemolyticus and she continues on IV unasyn. Repeat cultures taken yesterday and also today. Pending clearance of bacteremia. Blood count today is normal, sodium 137, potassium 4.6. Procalcitonin 0.13. Patient is alert x 1, which is her baseline, she is pleasant, no acute complaints. She has been downgraded from the ICU today. Discharge planning for home with home care vs. SNF if patient requires IV antibiotics on discharge which family would like to avoid. 01/02/2022 Patient evaluated in intensive care unit as a medical surgical hold. Patient does have history of dementia she is alert x 1, pleasant. On exam abdomen is soft, and nontender with normoactive bowel sounds. Review of chest abdominal pelvis CT does show left side inguinal hernia with increased size from old exam with evidence for incarcerated small bowel. There is no bowel obstruction. Infectious disease requested surgical evaluation. Patient is scheduled for left inguinal hernia repair tomorrow with Dr Cardoza. Repeat blood culture preliminary so far negative. Patient continues on IV unasyn inpatient and recommendations for discharge on oral augmentin for 10 days post discharge. Patient remains afebrile, heart rate 93 she does have atrial fibrillation and remains on low dose eliquis which has been placed on hold. No white count, hgb 12.2, sodium 136, potassium 3.4, glucose 103, calcium 8.4. Patient is afebrile, blood pressure 107/76, 94% on 4L nasal cannula. Will order incentive spirometer. Subjective: Resuming the care of the patient today 01/03/2022 This is a pleasant 86 years old female who presents with evidence of sepsis and hypertension that she's been monitored in the ICU closely and after stabilization of her blood pressure she was transferred to the general medical floor. CT of the abdomen was showing intra-abdominal large left inguinal hernia with incarcerated small bowel. Patient is planned to undergo hernia repair by surgery team today. She is currently lying in bed comfortable, no distress, awake and alert, nonverbal at baseline as per daughter at bedside. She has some mild abdominal pain and currently she is nothing by mouth for surgery, she is on normal saline 40 mL/h. Eliquis on hold She is also on Unasyn 01/04/2022 Patient clinically doing well, she is open. And back to her mental baseline. She is nonverbal but follow commands. No significant abdominal pain, she had 75% of her lung She is status post left inguinal hernia repair with mesh, today is postoperative day #1. Surgical wound is clear and healing. She remains on Unasyn with repeat blood culture are negative. Also she is on normal saline 40 mm/h, Eliquis 2.5 mg was started today 01/05/2022 Patient is awake and alert and interactive however she still has poor appetite she is eating only 25% of her diet Surgical wound is improving, Patient has significant fluid overload today, IV fluids stopped and received 1 dose of IV Lasix. Continue with Unasyn on home dose of Eliquis Overall intermediate accountant diagnosis is still poor Objective - Vital Signs Vital signs: Vital Signs Temp 97.8 F 01/05/22 08:00 Pulse 82 01/05/22 08:00 Resp 15 01/05/22 08:00 BP 125/80 01/05/22 08:00 Pulse Ox 98 01/05/22 08:31 FiO2 Intake & Output 01/04/22 01/05/22 01/05/22 18:59 06:59 18:59 Intake Total 540 Balance 540 Weight 61.4 kg Intake: Oral 540 Other: # Voids 3 # Bowel Movements 1 - Exam GENERAL: The patient is alert and and awake, nonverbal at baseline, follow-up, and not in any acute distress. Well developed, well nourished. HEENT: Pupils are round and equally reacting to light. EOMI. No scleral icterus. No conjunctival pallor. Normocephalic, atraumatic. No pharyngeal erythema. No thyromegaly. CARDIOVASCULAR: S1 and S2 present. No murmurs, rubs, or gallops. PULMONARY: Chest is clear to auscultation, no wheezing or crackles. -ABDOMEN: Soft, nontender, mild left inguinal tenderness, normoactive bowel sounds. No palpable organomegaly. MUSCULOSKELETAL: No joint swelling or deformity. EXTREMITIES: No cyanosis, clubbing, or pedal edema. NEUROLOGICAL: Gross neurological examination did not reveal any focal deficits. SKIN: No rashes. no petechiae. - Labs CBC & Chem 7: 01/03/22 06:41 01/03/22 06:41 Labs: Microbiology - Last 24 Hours (Table) 12/31/21 10:49 Blood Culture - Preliminary Blood No Growth after 96 hours 12/31/21 10:50 Blood Culture - Preliminary Blood No Growth after 96 hours 01/01/22 09:47 Blood Culture - Preliminary Blood No Growth after 72 hours Assessment and Plan Assessment: Sepsis with hypotension and lactic acidosis, secondary to intra-abdominal infection , improving Large left inguinal hernia with evidence for bowel incarceration, status post open surgical hernia repair with the mesh Staphylococcus hemolyticus bacteremia with unclear source of infection, repeat cultures are negative so far Altered mental status likely a metabolic encephalopathy, patient is alert x 1, pleasantly confused, does have history of dementia Atrial fibrillation with RVR, rate now controlled on oral amiodarone Mild renal/injury resolved History cardiomyopathy, with improved Ejection fraction History of atrial fibrillation, paroxysmal History of valvular heart disease, history of pulmonary hypertension Chronic hypoxic respiratory failure on home oxygen History of dementia History of CVA GI Prophylaxis: IV protonix DVT Prophylaxis: Eliquis on hold Plan: This is a pleasant 80 years old female with sepsis and left inguinal hernia Resume Eliquis Stop IV fluids. Status post 1 dose of Lasix Continue with antibiotic Unasyn Cardiology, pulmonary, infectious disease team on the case as well Continue with amiodarone per cardiology team Do Not Resuscitate Labs and medication were reviewed.. Continue same treatment. Continue with symptomatic treatment. Resume home medication. Monitor lytes and vitals. DVT and GI prophylaxis. Further recommendations as per clinical course of the patient DVT prophylaxis: Eliquis GI Prophylaxis: Pepcid Prognosis is guarded
[2022-01-05] MEDS: DONEPEZIL 10 MG TAB PO SCH (20:02)
[2022-01-06] MEDS: AMPICILLIN-SULBACTAM 3 GM in SODIUM CHLORIDE 0.9% 100 ML IVPB SCH ×5 (00:01→23:37)
[2022-01-06] MEDS: SILDENAFIL 20 MG TAB PO SCH ×3 (08:59→20:01)
[2022-01-06] MEDS: APIXABAN 2.5 MG TABLET PO SCH ×2 (08:59→20:01)
[2022-01-06] MEDS: atenoloL 25 MG TAB PO SCH (08:59)
[2022-01-06] MEDS: AMIODARONE 200 MG TAB PO SCH ×2 (08:59→20:02)
[2022-01-06] MEDS: ESCITALOPRAM 5 MG TAB PO SCH (08:59)
[2022-01-06] MEDS: PANTOPRAZOLE 40 MG/10 ML VIAL IV SCH (09:07)
--- NOTE | 2022-01-06 10:30 | P.PN ---
Subjective Progress Note Date: 01/05/22 Principal diagnosis: SIRS and bacteremia Patient is 85-year-old female with multiple comorbidities presenting to the ER yesterday afternoon for evaluation of weakness symptom has been going on for about 3 to 4 days before presentation to the hospital, patient was hypote nsive requiring admission to the ICU and subsequently did have a positive blood culture with gram-positive cocci finalizes staph epi. On today's evaluation that is 01/05/2022, The patient continuous be afebrile, the patient is breathing comfortably on room air, patient denies any chest pain or shortness of the patient cough , Patient abdominal pain is controlled and no vomiting or diarrhea has been reported Objective - Vital Signs Vital signs: Vital Signs Temp 97.8 F 01/05/22 08:00 Pulse 82 01/05/22 08:00 Resp 15 01/05/22 08:00 BP 125/80 01/05/22 08:00 Pulse Ox 98 01/05/22 08:31 FiO2 Intake & Output 01/04/22 01/05/22 01/05/22 18:59 06:59 18:59 Intake Total 540 Balance 540 Weight 61.4 kg Intake: Oral 540 Other: # Voids 3 # Bowel Movements 1 - Exam GENERAL DESCRIPTION: An elderly female lying in bed in no distress RESPIRATORY SYSTEM: Unlabored breathing , decreased breath sounds at bases HEART: S1 S2 regular rate and rhythm , ABDOMEN: Soft , Mild distention and tenderness EXTREMITIES: No edema feet - Labs CBC & Chem 7: 01/03/22 06:41 01/03/22 06:41 Labs: Microbiology - Last 24 Hours (Table) 12/31/21 10:49 Blood Culture - Preliminary Blood No Growth after 120 hours 12/31/21 10:50 Blood Culture - Preliminary Blood No Growth after 120 hours 01/01/22 09:47 Blood Culture - Preliminary Blood No Growth after 96 hours Assessment and Plan (1) SIRS (systemic inflammatory response syndrome) Current Visit: Yes Status: Acute Code(s): R65.10 - SIRS OF NON-INFECTIOUS ORIGIN W/O ACUTE ORGAN DYSFUNCTION SNOMED Code(s): 321074575 (2) Bacteremia Current Visit: Yes Status: Acute Code(s): R78.81 - BACTEREMIA SNOMED Code(s): 7397840 Plan: 1Patient with positive blood culture with staph epi likely skin contaminant negative no need for vancomycin 2- patient has been brought to the hospital with weakness patient was noticed to have elevated white count and elevated lactic acid patient also have hypotension requiring pressor support source likely incarcerated leg inguinal hernia status post surgical repair on 01/03/2022, patient history and clinical improvement and will continue with Unasyn and will monitor clinical course closely Time with Patient: Less than 30
--- NOTE | 2022-01-06 10:46 | P.PN ---
Subjective Progress Note Date: 01/05/22 CHIEF COMPLAINT: Left inguinal hernia HISTORY OF PRESENT ILLNESS: The patient is a 86-year-old female status post left inguinal hernia repair. She is tolerating diet. She is having bowel movements. ROS: No reports of nausea and vomiting. No fevers or chills. No new chest pain. No productive sputum PHYSICAL EXAM: VITAL SIGNS: Reviewed CONSTITUTIONAL: Well developed and in no acute distress. EYES: Conjuctivae without sclera icterus. Extraocular movements grossly intact. HEAD, EARS, NOSE, THROAT: Moist buccal mucosa. Head is atraumatic, normocephalic. Hears conversational speech. No nasal drainage. RESPIRATORY: Non-labored respirations and equal bilateral excursions. CARDIOVASCULAR: Palpable 2+ radial pulses. ABDOMEN: No peritonitis. MUSCULOSKELETAL: No gross deformity of the lower extremities noted. No clubbing. No cyanosis. SKIN: Good skin turgor. Well perfused. NEUROLOGIC: Cranial nerves II through XII grossly intact. No focal or lateralizing signs. PSYCH: Appropriate affect. Alert and oriented to person, place and time. CLINICAL LABS: Reviewed. No new labs. WBC 7.7. Creatinine normal 0.6. Hemoglobin 12.4. STUDIES: CT of the abdomen pelvis reviewed demonstrating small bowel incarcerated left inguinal hernia. This is my independent interpretation. ASSESSMENT: 1. Left inguinal hernia with incarceration PLAN: 1. Diet as tolerated. 2. Recommend physical therapy and occupational therapy Objective - Vital Signs Vital signs: Vital Signs Temp 97.8 F 01/05/22 19:43 Pulse 89 01/05/22 19:43 Resp 19 01/05/22 19:43 BP 147/84 01/05/22 19:43 Pulse Ox 95 01/05/22 19:43 FiO2 Intake & Output 01/05/22 01/05/22 01/06/22 06:59 18:59 06:59 Other: # Voids 3 5 2 # Bowel Movements 1 1 - Labs CBC & Chem 7: 01/03/22 06:41 01/03/22 06:41 Labs: Microbiology - Last 24 Hours (Table) 12/31/21 10:49 Blood Culture - Preliminary Blood No Growth after 120 hours 12/31/21 10:50 Blood Culture - Preliminary Blood No Growth after 120 hours 01/01/22 09:47 Blood Culture - Preliminary Blood No Growth after 96 hours
[2022-01-06 11:11] LABS: Basophils # (A) 0.1 k/uL (0-0.2); Basophils % (A) 1 %; Eosinophils # (A) 0.2 k/uL (0-0.7); Eosinophils % (A) 3 %; HCT 38.1 % (34.0-46.0); HGB 12.1 gm/dL (11.4-16.0); Hypochromasia Slight; Lymphocytes # (A) 0.7 k/uL (1.0-4.8); Lymphocytes % (A) 11 %; MCH 30.5 pg (25.0-35.0); MCHC 31.6 g/dL (31.0-37.0); MCV 96.4 fL (80.0-100.0); Mean Platelet Volume 7.5; Monocytes # (A) 0.5 k/uL (0-1.0); Monocytes % (A) 7 %; Neutrophils # (A) 5.1 k/uL (1.3-7.7); Neutrophils % (A) 77 %; Platelet Count 321 k/uL (150-450); RBC 3.95 m/uL (3.80-5.40); RDW 13.5 % (11.5-15.5); WBC 6.7 k/uL (3.8-10.6)
[2022-01-06 11:28] LABS: ALT 18 U/L (4-34); AST 24 U/L (14-36); African American GFR (CKD) >90 (>60 ml/min/1.73 sqM); Albumin 2.8 g/dL (3.5-5.0); Albumin/Globulin Ratio 1.3; Alkaline Phosphatase 57 U/L (38-126); Anion Gap 5 mmol/L; Blood Urea Nitrogen 8 mg/dL (7-17); Calcium 8.1 mg/dL (8.4-10.2); Carbon Dioxide 34 mmol/L (22-30); Chloride 101 mmol/L (98-107); Globulin 2.2 g/dL; Glucose 107 mg/dL (74-99); Non-African American GFR(CKD) 82 (>60 ml/min/1.73 sqM); Potassium 2.9 mmol/L (3.5-5.1); Sodium 140 mmol/L (137-145); Total Bilirubin 0.3 mg/dL (0.2-1.3)
--- NOTE | 2022-01-06 11:43 | P.PN ---
Subjective Progress Note Date: 01/06/22 On today's evaluation of 12/31/2021, the patient is lethargic, cannot hold a conversation. She has dementia with impairment of cognitive functions the CAT scan of the brain showed cerebral atrophy. The patient remains on a lactated Ringer running at the rate of 100 mL an hour. Overall fluid balance has been +3.5 L over the past 48 hours and 2.7 L over the past 24 hours. Echocardiogram showed a normal LV function, moderate to severe degree of pulmonary hypertension, moderate mitral regurgitation, moderate to severe tricuspid regurgitation. The patient is afebrile. The patient is hemodynamically stable. Blood cultures 2 has been negative. The white cell count 7.6 with a hemoglobin 15.5 and a platelet count of 180. He is at 7 with a creatinine of 0.58 and a sodium level is at 136. No other significant events overnight. The patient has been already switched to oral amiodarone 400 mg by mouth twice a day. The patient is currently on IV Unasyn. There are 4 out of 4 blood culture that showed gram-positive cocci in chains. The first culture showed staph hemolyticus and the second culture showed coagulase-negative staph. Infectious diseases on the case regarding antibiotic management. The patient was on vancomycin initially switched to Rocephin milligrams Unasyn. 01/01/2022, the patient is comfortable and she has no specific complaints. No fever or chills. As mentioned earlier, the patient has dementia and history provided by the patient is quite limited at this point in time. She is tolerating diet. She is hemodynamically stable. She remains on IV Zosyn. Repeat blood cultures of been ordered for this patient. Meanwhile, I blood work, the patient is a white cell count 9.5, and the patient's hemoglobin is at 15.1 with a platelet count of 196. Sodium level is at 137 be understanding of 4 and creatinine 0.9. The patient is in atrial fibrillation. The patient has a component of interstitial lung disease, moderate mitral regurgitation, severe tricuspid regurgitation, atrial fibrillation, severe pulmonary hypertension, and previous history of pulmonary embolism and the patient is maintained on anticoagulation with Eliquis 2.5 mg by mouth twice a day. She remains on sildenafil 20 mg by mouth 3 times a day. She is on oral amiodarone. 01/02/2022, condition essentially unchanged the patient is being transferred to a medical surgical floor. Mental status remains unchanged. She has advanced dementia. Repeat cultures are essentially negative for now. The blood work is also stable and the patient is afebrile hemodynamically stable. The white cell count is at 8.2 with hemoglobin of 12.6 and the sodium level is at 136 with a potassium of 3.4 chloride is 102 and a bicarb is 26 with a BUN of 9 and a creatinine of 0.5. The patient remains on IV Unasyn. The patient is on long- term and to coagulation with Eliquis regarding chronic atrial fibrillation and patient is also on amiodarone 200 mg by mouth twice a day and metoprolol 25 mg by mouth daily for rate control. She is tolerating diet. No nausea or emesis. No focal neurological deficit at this point in time. on 01/03/2022 patient seen in follow-up on medical surgical floor, she is awake and alert, confused, and at times lethargic, but easily arousable. She is sitting up in the recliner, her family is at the bedside, she does not appear to be in any acute distress, denies any difficulty breathing, no complaint of abdominal pain. Abdomen is soft. vital signs are stable, afebrile, she is on 3 L of oxygen pulse ox is 100%. patient remains on Unasyn, follow blood cultures have been negative. surgical consultation has been placed regarding the left- sided inguinal hernia without bowel obstruction. And patient is scheduled for surgery today. the patient is seen today 01/04/2022 in follow-up on the regular medical floor. She is currently sitting up in a chair at the bedside. Awake and alert. Confused. Speech is garbled. Initial blood cultures revealed Staphylococcus he molyticus. Follow-up blood cultures are revealing no growth. She remains on Unasyn. Dilaudid for pain control. Receiving normal saline at 40 ML's per hour. Left groin incision clean dry well approximated. Some ecchymosis. 01/05/2022, the patient is resting comfortably and she has no specific c omplaints. Blood work was noted everything is stable for now and the patient has a white cell count of 7.7 with a hemoglobin 12.4. The sodium is at 141, BUN is at 6 with a creatinine of 0.6 and a potassium of 3.6. She is on IV fluids at the rate of 40 mL an hour of normal saline and oral home medications and resume the patient remains on IV Unasyn. Surgical wound site is dry clean and intact. 01/06/2022, no new complaints, the patient did have a bowel movement. She is tolerating diet. Surgical wound site dry clean and intact. No signs of respiratory distress. She does have some edema in the lower extremities. Blood work from today shows a white cell count 6.7 with a hemoglobin of 12.1 and the creatinine is at 8 with a creatinine of 0.5 and the sodium level is at 140 with a potassium level of 2.90 is to be replaced. She may need placement as the patient has advanced dementia. She is currently on anticoagulation with Eliquis. Cardiac rhythm is atrial fibrillation. Objective - Vital Signs Vital signs: Vital Signs Temp 98.6 F 01/06/22 07:57 Pulse 105 H 01/06/22 07:57 Resp 18 01/06/22 07:57 BP 163/94 01/06/22 07:57 Pulse Ox 95 01/06/22 07:57 FiO2 Intake & Output 01/05/22 01/06/22 01/06/22 18:59 06:59 18:59 Other: Voiding Method Toilet # Voids 5 2 # Bowel Movements 1 - Exam GENERAL EXAM: easily arousable, 86-year-old female, resting in the recliner on 3 L of oxygen, comfortable in no apparent distress. HEAD: Normocephalic/atraumatic. EYES: Normal reaction of pupils, equal size. Conjunctiva pink, sclera white. NOSE: Clear with pink turbinates. THROAT: No erythema or exudates. NECK: No masses, no JVD, no thyroid enlargement, no adenopathy. CHEST: No chest wall deformity. Symmetrical expansion. LUNGS: Equal air entry with no crackles, wheeze, rhonchi or dullness. CVS: Regular rate and rhythm, normal S1 and S2, no gallops, no murmurs, no rubs ABDOMEN: Soft, nontender. No hepatosplenomegaly, normal bowel sounds, no guarding or rigidity. EXTREMITIES: Left groin surgical site clean and dry. Ecchymosis.No clubbing, no edema, no cyanosis, 2+ pulses and upper and lower extremities. MUSCULOSKELETAL: Muscle strength and tone normal. SPINE: No scoliosis or deformity SKIN: No rashes CENTRAL NERVOUS SYSTEM: Alert and oriented -1. No focal deficits, tone is normal in all 4 extremities. - Labs CBC & Chem 7: 01/06/22 10:53 01/06/22 10:53 Labs: Microbiology - Last 24 Hours (Table) 12/31/21 10:49 Blood Culture - Preliminary Blood No Growth after 120 hours 12/31/21 10:50 Blood Culture - Preliminary Blood No Growth after 120 hours 01/01/22 09:47 Blood Culture - Preliminary Blood No Growth after 96 hours Assessment and Plan Plan: sepsis with hypotension, recovered Incarcerated left inguinal hernia post surgical repair insertion of a mesh, the patient has recovered and the patient is tolerating diet. Blood work essentially stable Hypokalemia and the potassium level needs to be replaced Altered mental status most likely secondary to metabolic encephalopathy, secondary to above, slightly more alert compared to yesterday moving all 4 extremities without any limitation History of CVA. History of severe dementia. There has been progressive loss in her cognitive functions over the years based on my personal observation on this patient and this is attributed to her underlying dementia. Previous history of tobacco use, rule out COPD. History of atrial fibrillation. The patient's rate is currently controlled. The patient was on a Cardizem drip and this was switched to amiodarone drip and currently the patient is going to be switched to oral amiodarone. History of home oxygen use, at nighttime. Mild lactic acidosis, improved and her lactic acid level is down to 1.7 Mild leukocytosis with a white cell count of 12.1, recovered and improved Cardiomyopathy with an ejection fraction of 30-35% based on an earlier echocardiogram from 2019, repeat echocardiogram confirmed the presence of severe pulmonary hypertension, nevertheless, there has been improvement in the ventricular ejection fraction and LV function was reported to be within normal limits. Severe mitral regurgitation/valvular heart disease along with tricuspid regu rgitation and severe pulmonary hypertension, and the patient has been maintained on sildenafil 20 mg by mouth 3 times a day for many years in addition to long- term anticoagulation with Eliquis. Previous history of pulmonary embolism, the patient is on long-term anticoagulation with Eliquis Chronic hypoxic respiratory failure maintained on O2 at 2 L per minute nasal cannula History of pulmonary fibrosis, mild History of scoliosis/spondylosis/degenerative arthritis Impaired hearing Sigmoid diverticulosis without diverticulitis plan: Replace potassium Continue supportive care Surgical wound is dry clean and intact Hemoglobin stable at 12.1 Severe dementia which remains unchanged She is ambulating with the help of a walker we'll continue to follow, likely needs placement at discharge planning
[2022-01-06] MEDS ORDERED: Potassium Replacement Protocol 1 EACH MISC MISCELLANE PRN (12:36)
[2022-01-06 12:39] LABS: African American GFR (CKD) 100.2 (60.0-200.0); BUN/Creat Ratio 14.8 Ratio (12.00-20.00); Blood Urea Nitrogen 7.4 mg/dL (9.0-27.0); Calcium 8.3 mg/dL (8.7-10.3); Magnesium 1.9 mg/dL (1.5-2.4); Non-African American GFR(CKD) 86.4 (60.0-200.0); Potassium 3.1 mmol/L (3.5-5.5)
--- NOTE | 2022-01-06 12:42 | P.PN ---
Subjective This is an 86 year old female with history of CVA, dementia, atrial fibrillation, CHF. She has been transitioned to oral amidarone, amiodarone gtt a nd cardizem gtt have been discontinued. Blood cultures showing staphylococcus haemolyticus and she continues on IV unasyn. Repeat cultures taken yesterday and also today. Pending clearance of bacteremia. Blood count today is normal, sodium 137, potassium 4.6. Procalcitonin 0.13. Patient is alert x 1, which is her baseline, she is pleasant, no acute complaints. She has been downgraded from the ICU today. Discharge planning for home with home care vs. SNF if patient requires IV antibiotics on discharge which family would like to avoid. 01/02/2022 Patient evaluated in intensive care unit as a medical surgical hold. Patient does have history of dementia she is alert x 1, pleasant. On exam abdomen is soft, and nontender with normoactive bowel sounds. Review of chest abdominal pelvis CT does show left side inguinal hernia with increased size from old exam with evidence for incarcerated small bowel. There is no bowel obstruction. Infectious disease requested surgical evaluation. Patient is scheduled for left inguinal hernia repair tomorrow with Dr Cardoza. Repeat blood culture preliminary so far negative. Patient continues on IV unasyn inpatient and recommendations for discharge on oral augmentin for 10 days post discharge. Patient remains afebrile, heart rate 93 she does have atrial fibrillation and remains on low dose eliquis which has been placed on hold. No white count, hgb 12.2, sodium 136, potassium 3.4, glucose 103, calcium 8.4. Patient is afebrile, blood pressure 107/76, 94% on 4L nasal cannula. Will order incentive spirometer. Subjective: Resuming the care of the patient today 01/03/2022 This is a pleasant 86 years old female who presents with evidence of sepsis and hypertension that she's been monitored in the ICU closely and after stabilization of her blood pressure she was transferred to the general medical floor. CT of the abdomen was showing intra-abdominal large left inguinal hernia with incarcerated small bowel. Patient is planned to undergo hernia repair by surgery team today. She is currently lying in bed comfortable, no distress, awake and alert, nonverbal at baseline as per daughter at bedside. She has some mild abdominal pain and currently she is nothing by mouth for surgery, she is on normal saline 40 mL/h. Eliquis on hold She is also on Unasyn 01/04/2022 Patient clinically doing well, she is open. And back to her mental baseline. She is nonverbal but follow commands. No significant abdominal pain, she had 75% of her lung She is status post left inguinal hernia repair with mesh, today is postoperative day #1. Surgical wound is clear and healing. She remains on Unasyn with repeat blood culture are negative. Also she is on normal saline 40 mm/h, Eliquis 2.5 mg was started today 01/05/2022 Patient is awake and alert and interactive however she still has poor appetite she is eating only 25% of her diet Surgical wound is improving, Patient has significant fluid overload today, IV fluids stopped and received 1 dose of IV Lasix. Continue with Unasyn on home dose of Eliquis Overall intermediate designer diagnosis is still poor 01/06/2022 patient is awake and alert. Abdominal surgical wound is healing gradually. She still with poor appetite she is eating only 25% of her diet however she had regular bowel movement today, she is walking to the restroom with the help of the staff. She is demented at baseline area however clinically she is improving slowly. Surgical wound is healing, drain into place and looks empty. Flexible and significantly improved after 1 dose of Lasix yesterday. Low potassium replaced Check electrolytes in the morning PT/OT are evaluated the patient, patient is not a candidate for rehab as she does not understand concepts or follow commands but she might benefit from placement if family wish Currently she remains on Unasyn and home dose of Eliquis 2.5 mg Possible discharge in 24-48 hours if she keeps improving Objective - Vital Signs Vital signs: Vital Signs Temp 98.6 F 01/06/22 07:57 Pulse 105 H 01/06/22 07:57 Resp 18 01/06/22 08:00 BP 163/94 01/06/22 07:57 Pulse Ox 95 01/06/22 07:57 FiO2 Intake & Output 01/05/22 01/06/22 01/06/22 18:59 06:59 18:59 Other: Voiding Method Toilet Toilet # Voids 5 2 # Bowel Movements 1 - Exam GENERAL: The patient is alert and and awake, nonverbal at baseline, follow-up, and not in any acute distress. Well developed, well nourished. HEENT: Pupils are round and equally reacting to light. EOMI. No scleral icterus. No conjunctival pallor. Normocephalic, atraumatic. No pharyngeal erythema. No thyromegaly. CARDIOVASCULAR: S1 and S2 present. No murmurs, rubs, or gallops. PULMONARY: Chest is clear to auscultation, no wheezing or crackles. -ABDOMEN: Soft, nontender, mild left inguinal tenderness, normoactive bowel sounds. No palpable organomegaly. MUSCULOSKELETAL: No joint swelling or deformity. EXTREMITIES: No cyanosis, clubbing, or pedal edema. NEUROLOGICAL: Gross neurological examination did not reveal any focal deficits. SKIN: No rashes. no petechiae. - Labs CBC & Chem 7: 01/06/22 10:53 01/06/22 10:53 Labs: Abnormal Lab Results - Last 24 Hours (Table) 01/06/22 01/06/22 01/06/22 Range/Units 07:05 10:53 10:53 Lymphocytes # 0.7 L (1.0-4.8) k/uL Potassium 3.1 L 2.9 L (3.5-5.5) mmol/L Carbon Dioxide 32.0 H 34 H (20.0-27.5) mmol/L Anion Gap 8.00 L (10.00-18.00) mmol/L BUN 7.4 L (9.0-27.0) mg/dL Creatinine 0.5 L (0.6-1.5) mg/dL Glucose 107 H (74-99) mg/dL Calcium 8.3 L 8.1 L (8.7-10.3) mg/dL Total Protein 5.0 L (6.3-8.2) g/dL Albumin 2.8 L (3.5-5.0) g/dL Microbiology - Last 24 Hours (Table) 01/01/22 09:47 Blood Culture - Preliminary Blood No Growth after 120 hours 12/31/21 10:49 Blood Culture - Preliminary Blood No Growth after 120 hours 12/31/21 10:50 Blood Culture - Preliminary Blood No Growth after 120 hours Assessment and Plan Assessment: Sepsis with hypotension and lactic acidosis, secondary to intra-abdominal infection , improving Large left inguinal hernia with evidence for bowel incarceration, status post open surgical hernia repair with the mesh Staphylococcus hemolyticus bacteremia with unclear source of infection, repeat cultures are negative so far Altered mental status likely a metabolic encephalopathy, patient is alert x 1, pleasantly confused, does have history of dementia Atrial fibrillation with RVR, rate now controlled on oral amiodarone Mild renal/injury resolved History cardiomyopathy, with improved Ejection fraction History of atrial fibrillation, paroxysmal History of valvular heart disease, history of pulmonary hypertension Chronic hypoxic respiratory failure on home oxygen History of dementia History of CVA GI Prophylaxis: IV protonix DVT Prophylaxis: Eliquis on hold Plan: This is a pleasant 80 years old female with sepsis and left inguinal hernia Resume Eliquis Stop IV fluids. Continue with antibiotic Unasyn Cardiology, pulmonary, infectious disease team on the case as well Continue with amiodarone per cardiology team Do Not Resuscitate Labs and medication were reviewed.. Continue same treatment. Continue with symptomatic treatment. Resume home medication. Monitor lytes and vitals. DVT and GI prophylaxis. Further recommendations as per clinical course of the patient DVT prophylaxis: Eliquis GI Prophylaxis: Pepcid Prognosis is guarded
[2022-01-06] MEDS: DONEPEZIL 10 MG TAB PO SCH (20:02)
--- NOTE | 2022-01-06 22:04 | P.PN ---
Subjective Progress Note Date: 01/06/22 CHIEF COMPLAINT: Left inguinal hernia HISTORY OF PRESENT ILLNESS: The patient is a 86-year-old female status post left inguinal hernia repair. Family is at bedside. She is tolerating diet. She is passing flatus and having bowel movements. ROS: No reports of nausea and vomiting. No fevers or chills. No new chest pain. No productive sputum PHYSICAL EXAM: VITAL SIGNS: Reviewed CONSTITUTIONAL: Well developed and in no acute distress. EYES: Conjuctivae without sclera icterus. Extraocular movements grossly intact. HEAD, EARS, NOSE, THROAT: Moist buccal mucosa. Head is atraumatic, normoce phalic. Hears conversational speech. No nasal drainage. RESPIRATORY: Non-labored respirations and equal bilateral excursions. CARDIOVASCULAR: Palpable 2+ radial pulses. ABDOMEN: No peritonitis. Incision intact. MUSCULOSKELETAL: No gross deformity of the lower extremities noted. No clubbing. No cyanosis. SKIN: Good skin turgor. Well perfused. NEUROLOGIC: Cranial nerves II through XII grossly intact. No focal or lateralizing signs. PSYCH: Appropriate affect. Alert and oriented to person, place and time. CLINICAL LABS: Reviewed. WBC normal 6.7. Potassium low at 2.9, hypokalemia ASSESSMENT: 1. Left inguinal hernia with incarceration 2. Hypokalemia PLAN: 1. Correction of hypokalemia with potassium replacement 2. Diet as tolerated 3. Agree with discharge home with home health care services Objective - Vital Signs Vital signs: Vital Signs Temp 98.6 F 01/06/22 07:57 Pulse 105 H 01/06/22 07:57 Resp 18 01/06/22 08:00 BP 163/94 01/06/22 07:57 Pulse Ox 95 01/06/22 07:57 FiO2 Intake & Output 01/05/22 01/06/22 01/06/22 18:59 06:59 18:59 Other: Voiding Method Toilet Toilet # Voids 5 2 # Bowel Movements 1 - Labs CBC & Chem 7: 01/06/22 10:53 01/06/22 10:53 Labs: Abnormal Lab Results - Last 24 Hours (Table) 01/06/22 01/06/22 01/06/22 Range/Units 07:05 10:53 10:53 Lymphocytes # 0.7 L (1.0-4.8) k/uL Potassium 3.1 L 2.9 L (3.5-5.5) mmol/L Carbon Dioxide 32.0 H 34 H (20.0-27.5) mmol/L Anion Gap 8.00 L (10.00-18.00) mmol/L BUN 7.4 L (9.0-27.0) mg/dL Creatinine 0.5 L (0.6-1.5) mg/dL Glucose 107 H (74-99) mg/dL Calcium 8.3 L 8.1 L (8.7-10.3) mg/dL Total Protein 5.0 L (6.3-8.2) g/dL Albumin 2.8 L (3.5-5.0) g/dL Microbiology - Last 24 Hours (Table) 12/31/21 10:49 Blood Culture - Final Blood No Growth after 144 hours 12/31/21 10:50 Blood Culture - Final Blood No Growth after 144 hours 01/01/22 09:47 Blood Culture - Preliminary Blood No Growth after 120 hours
[2022-01-07] MEDS: AMPICILLIN-SULBACTAM 3 GM in SODIUM CHLORIDE 0.9% 100 ML IVPB SCH ×2 (05:32→12:59)
--- NOTE | 2022-01-07 08:04 | P.PN ---
Subjective Progress Note Date: 01/06/22 Principal diagnosis: SIRS and bacteremia Patient is 85-year-old female with multiple comorbidities presenting to the ER yesterday afternoon for evaluation of weakness symptom has been going on for about 3 to 4 days before presentation to the hospital, patient was hypote nsive requiring admission to the ICU and subsequently did have a positive blood culture with gram-positive cocci finalizes staph epi. On today's evaluation that is 01/06/2022, The patient remains be afebrile, the patient is breathing comfortably on room air, patient denies chest pain or shortness of the breath no significant cough , Patient abdominal pain is controlled and no vomiting or diarrhea has been reported Objective - Vital Signs Vital signs: Vital Signs Temp 98.6 F 01/06/22 07:57 Pulse 105 H 01/06/22 07:57 Resp 18 01/06/22 08:00 BP 163/94 01/06/22 07:57 Pulse Ox 95 01/06/22 07:57 FiO2 Intake & Output 01/05/22 01/06/22 01/06/22 18:59 06:59 18:59 Other: Voiding Method Toilet Toilet # Voids 5 2 # Bowel Movements 1 - Exam GENERAL DESCRIPTION: An elderly female lying in bed in no distress RESPIRATORY SYSTEM: Unlabored breathing , decreased breath sounds at bases HEART: S1 S2 regular rate and rhythm , ABDOMEN: Soft , Mild distention and tenderness EXTREMITIES: No edema feet - Labs CBC & Chem 7: 01/06/22 10:53 01/06/22 10:53 Labs: Abnormal Lab Results - Last 24 Hours (Table) 01/06/22 01/06/22 01/06/22 Range/Units 07:05 10:53 10:53 Lymphocytes # 0.7 L (1.0-4.8) k/uL Potassium 3.1 L 2.9 L (3.5-5.5) mmol/L Carbon Dioxide 32.0 H 34 H (20.0-27.5) mmol/L Anion Gap 8.00 L (10.00-18.00) mmol/L BUN 7.4 L (9.0-27.0) mg/dL Creatinine 0.5 L (0.6-1.5) mg/dL Glucose 107 H (74-99) mg/dL Calcium 8.3 L 8.1 L (8.7-10.3) mg/dL Total Protein 5.0 L (6.3-8.2) g/dL Albumin 2.8 L (3.5-5.0) g/dL Microbiology - Last 24 Hours (Table) 12/31/21 10:49 Blood Culture - Final Blood No Growth after 144 hours 12/31/21 10:50 Blood Culture - Final Blood No Growth after 144 hours 01/01/22 09:47 Blood Culture - Preliminary Blood No Growth after 120 hours Assessment and Plan (1) SIRS (systemic inflammatory response syndrome) Current Visit: Yes Status: Acute Code(s): R65.10 - SIRS OF NON-INFECTIOUS ORIGIN W/O ACUTE ORGAN DYSFUNCTION SNOMED Code(s): 492508596 (2) Bacteremia Current Visit: Yes Status: Acute Code(s): R78.81 - BACTEREMIA SNOMED Code(s): 7585999 Plan: 1Patient with positive blood culture with staph epi likely skin contaminant negative no need for vancomycin 2- patient has been brought to the hospital with weakness patient was noticed to have elevated white count and elevated lactic acid patient also have hypotension requiring pressor support source likely incarcerated leg inguinal hernia status post surgical repair on 01/03/2022, patient has shown clinical improvement and will continue with Unasyn and plan to finish therapy with oral Augmentin Time with Patient: Less than 30
[2022-01-07 09:40] LABS: African American GFR (CKD) 100.7 (60.0-200.0); Anion Gap 6.8 mmol/L (10.00-18.00); BUN/Creat Ratio 11.69 Ratio (12.00-20.00); Blood Urea Nitrogen 5.8 mg/dL (9.0-27.0); Carbon Dioxide 32.6 mmol/L (20.0-27.5); Magnesium 1.8 mg/dL (1.5-2.4); Non-African American GFR(CKD) 86.9 (60.0-200.0)
[2022-01-07] MEDS: AMIODARONE 200 MG TAB PO SCH ×2 (09:40→20:07)
[2022-01-07] MEDS: APIXABAN 2.5 MG TABLET PO SCH ×2 (09:40→20:07)
[2022-01-07] MEDS: PANTOPRAZOLE 40 MG/10 ML VIAL IV SCH (09:41)
[2022-01-07] MEDS: atenoloL 25 MG TAB PO SCH (09:41)
[2022-01-07] MEDS: ESCITALOPRAM 5 MG TAB PO SCH (09:41)
[2022-01-07] MEDS: SILDENAFIL 20 MG TAB PO SCH ×3 (09:41→20:08)
[2022-01-07] MEDS ORDERED: POTASSIUM CHLORIDE 20 MEQ in WATER FOR INJECTION 1 100ML.BAG IVPB STA (12:26)
[2022-01-07] MEDS ORDERED: MAGNESIUM SULFATE-D5W PMX 1 GM in DEXTROSE/WATER 1 100ML.BAG IVPB ONE (12:26)
[2022-01-07] MEDS ORDERED: POTASSIUM CHLORIDE ER 20 MEQ TAB.ER PO STA (12:26)
[2022-01-07] MEDS ORDERED: FUROSEMIDE 10 MG/ML 4 ML VIAL IV STA (12:27)
--- NOTE | 2022-01-07 13:07 | P.PN ---
Subjective Progress Note Date: 01/07/22 On today's evaluation of 12/31/2021, the patient is lethargic, cannot hold a conversation. She has dementia with impairment of cognitive functions the CAT scan of the brain showed cerebral atrophy. The patient remains on a lactated Ringer running at the rate of 100 mL an hour. Overall fluid balance has been +3.5 L over the past 48 hours and 2.7 L over the past 24 hours. Echocardiogram showed a normal LV function, moderate to severe degree of pulmonary hypertension, moderate mitral regurgitation, moderate to severe tricuspid regurgitation. The patient is afebrile. The patient is hemodynamically stable. Blood cultures 2 has been negative. The white cell count 7.6 with a hemoglobin 15.5 and a platelet count of 180. He is at 7 with a creatinine of 0.58 and a sodium level is at 136. No other significant events overnight. The patient has been already switched to oral amiodarone 400 mg by mouth twice a day. The patient is currently on IV Unasyn. There are 4 out of 4 blood culture that showed gram-positive cocci in chains. The first culture showed staph hemolyticus and the second culture showed coagulase-negative staph. Infectious diseases on the case regarding antibiotic management. The patient was on vancomycin initially switched to Rocephin milligrams Unasyn. 01/01/2022, the patient is comfortable and she has no specific complaints. No fever or chills. As mentioned earlier, the patient has dementia and history provided by the patient is quite limited at this point in time. She is tolerating diet. She is hemodynamically stable. She remains on IV Zosyn. Repeat blood cultures of been ordered for this patient. Meanwhile, I blood work, the patient is a white cell count 9.5, and the patient's hemoglobin is at 15.1 with a platelet count of 196. Sodium level is at 137 be understanding of 4 and creatinine 0.9. The patient is in atrial fibrillation. The patient has a component of interstitial lung disease, moderate mitral regurgitation, severe tricuspid regurgitation, atrial fibrillation, severe pulmonary hypertension, and previous history of pulmonary embolism and the patient is maintained on anticoagulation with Eliquis 2.5 mg by mouth twice a day. She remains on sildenafil 20 mg by mouth 3 times a day. She is on oral amiodarone. 01/02/2022, condition essentially unchanged the patient is being transferred to a medical surgical floor. Mental status remains unchanged. She has advanced dementia. Repeat cultures are essentially negative for now. The blood work is also stable and the patient is afebrile hemodynamically stable. The white cell count is at 8.2 with hemoglobin of 12.6 and the sodium level is at 136 with a potassium of 3.4 chloride is 102 and a bicarb is 26 with a BUN of 9 and a creatinine of 0.5. The patient remains on IV Unasyn. The patient is on long- term and to coagulation with Eliquis regarding chronic atrial fibrillation and patient is also on amiodarone 200 mg by mouth twice a day and metoprolol 25 mg by mouth daily for rate control. She is tolerating diet. No nausea or emesis. No focal neurological deficit at this point in time. on 01/03/2022 patient seen in follow-up on medical surgical floor, she is awake and alert, confused, and at times lethargic, but easily arousable. She is sitting up in the recliner, her family is at the bedside, she does not appear to be in any acute distress, denies any difficulty breathing, no complaint of abdominal pain. Abdomen is soft. vital signs are stable, afebrile, she is on 3 L of oxygen pulse ox is 100%. patient remains on Unasyn, follow blood cultures have been negative. surgical consultation has been placed regarding the left- sided inguinal hernia without bowel obstruction. And patient is scheduled for surgery today. the patient is seen today 01/04/2022 in follow-up on the regular medical floor. She is currently sitting up in a chair at the bedside. Awake and alert. Confused. Speech is garbled. Initial blood cultures revealed Staphylococcus he molyticus. Follow-up blood cultures are revealing no growth. She remains on Unasyn. Dilaudid for pain control. Receiving normal saline at 40 ML's per hour. Left groin incision clean dry well approximated. Some ecchymosis. 01/05/2022, the patient is resting comfortably and she has no specific co mplaints. Blood work was noted everything is stable for now and the patient has a white cell count of 7.7 with a hemoglobin 12.4. The sodium is at 141, BUN is at 6 with a creatinine of 0.6 and a potassium of 3.6. She is on IV fluids at the rate of 40 mL an hour of normal saline and oral home medications and resume the patient remains on IV Unasyn. Surgical wound site is dry clean and intact. 01/06/2022, no new complaints, the patient did have a bowel movement. She is tolerating diet. Surgical wound site dry clean and intact. No signs of respiratory distress. She does have some edema in the lower extremities. Blood work from today shows a white cell count 6.7 with a hemoglobin of 12.1 and the creatinine is at 8 with a creatinine of 0.5 and the sodium level is at 140 with a potassium level of 2.90 is to be replaced. She may need placement as the patient has advanced dementia. She is currently on anticoagulation with Eliquis. Cardiac rhythm is atrial fibrillation. The patient is seen today 01/07/2022 in follow-up on the regular medical floor. She is currently sitting up in a chair at the bedside. Awake and alert in no acute distress. She remains quite altered due to her advanced dementia. She is maintaining good O2 saturations in the 90s on 3 L/m per nasal cannula. Follow- up blood cultures revealed no growth. Initial cultures were positive for Staphylococcus hemolyticus. Sodium 143. Potassium 3.0. Chloride 103. BUN 6. Creatinine 0.5. She is continued on Unasyn. Anticoagulated with Eliquis. Potassium being replaced. Objective - Vital Signs Vital signs: Vital Signs Temp 97.7 F 01/07/22 07:55 Pulse 70 01/07/22 07:55 Resp 18 01/07/22 07:55 BP 158/95 01/07/22 07:55 Pulse Ox 98 01/07/22 07:55 FiO2 Intake & Output 01/06/22 01/07/22 01/07/22 18:59 06:59 18:59 Other: Voiding Method Toilet Toilet Toilet # Voids 4 5 1 # Bowel Movements 1 1 - Exam GENERAL EXAM: Awake, alert, confused 86-year-old female, resting in the recliner, on 3 L of oxygen, comfortable in no apparent distress. HEAD: Normocephalic/atraumatic. EYES: Normal reaction of pupils, equal size. Conjunctiva pink, sclera white. NOSE: Clear with pink turbinates. THROAT: No erythema or exudates. NECK: No masses, no JVD, no thyroid enlargement, no adenopathy. CHEST: No chest wall deformity. Symmetrical expansion. LUNGS: Equal air entry with no crackles, wheeze, rhonchi or dullness. CVS: Regular rate and rhythm, normal S1 and S2, no gallops, no murmurs, no rubs ABDOMEN: Soft, nontender. No hepatosplenomegaly, normal bowel sounds, no guarding or rigidity. EXTREMITIES: Left groin surgical site clean and dry. Ecchymosis.No clubbing, no edema, no cyanosis, 2+ pulses and upper and lower extremities. MUSCULOSKELETAL: Muscle strength and tone normal. SPINE: No scoliosis or deformity SKIN: No rashes CENTRAL NERVOUS SYSTEM: Alert and oriented -1. No focal deficits, tone is normal in all 4 extremities. - Labs CBC & Chem 7: 01/06/22 10:53 01/07/22 05:47 Labs: Abnormal Lab Results - Last 24 Hours (Table) 01/07/22 Range/Units 05:47 Potassium 3.0 L (3.5-5.5) mmol/L Carbon Dioxide 32.6 H (20.0-27.5) mmol/L Anion Gap 6.80 L (10.00-18.00) mmol/L BUN 5.8 L (9.0-27.0) mg/dL Creatinine 0.5 L (0.6-1.5) mg/dL BUN/Creatinine Ratio 11.69 L (12.00-20.00) Ratio Calcium 8.0 L (8.7-10.3) mg/dL Microbiology - Last 24 Hours (Table) 01/01/22 09:47 Blood Culture - Final Blood No Growth after 144 hours 12/31/21 10:49 Blood Culture - Final Blood No Growth after 144 hours 12/31/21 10:50 Blood Culture - Final Blood No Growth after 144 hours Assessment and Plan Assessment: Sepsis with hypotension, source unclear. Blood cultures positive for coag negative staphylococci. The patient has 4 out of 4 blood cultures are positive for coagulase-negative staph and the patient is currently on IV Unasyn, repeat cultures were obtained and reveal no growth thus. The patient is currently afebrile the patient is hemodynamically stable remains on IV Unasyn. No fever. No leukocytosis. No hemodynamic instability at this point in time. Altered mental status most likely secondary to metabolic encephalopathy, secondary to above, slightly more alert compared to yesterday moving all 4 extremities without any limitation History of CVA. History of severe dementia. There has been progressive loss in her cognitive functions over the years based on my personal observation on this patient and this is attributed to her underlying dementia. Previous history of tobacco use, rule out COPD. History of atrial fibrillation. The patient's rate is currently controlled. The patient was on a Cardizem drip and this was switched to amiodarone drip and currently the patient is going to be switched to oral amiodarone. History of home oxygen use, at nighttime. Mild lactic acidosis, improved and her lactic acid level is down to 1.7 Mild leukocytosis with a white cell count of 12.1, recovered and improved Cardiomyopathy with an ejection fraction of 30-35% based on an earlier echocardiogram from 2019, repeat echocardiogram confirmed the presence of severe pulmonary hypertension, nevertheless, there has been improvement in the ventricular ejection fraction and LV function was reported to be within normal limits. Severe mitral regurgitation/valvular heart disease along with tricuspid regurgitation and severe pulmonary hypertension, and the patient has been maintained on sildenafil 20 mg by mouth 3 times a day for many years in addition to long-term anticoagulation with Eliquis. Previous history of pulmonary embolism, the patient is on long-term anticoagulation with Eliquis Chronic hypoxic respiratory failure maintained on O2 at 2 L per minute nasal cannula History of pulmonary fibrosis, mild History of scoliosis/spondylosis/degenerative arthritis Impaired hearing Sigmoid diverticulosis without diverticulitis Large left inguinal hernia without evidence of any bowel obstruction, status post repair on 01/03/2022 Plan: The patient was seen and evaluated Currently stable from the pulmonary standpoint Antibiotics per infectious disease We will see the patient on as-needed basis I have personally seen and examined the patient, performed the documentation and the assessment and plan as written. Number of minutes spent on the visit: 10.
--- NOTE | 2022-01-07 14:08 | P.PN ---
Subjective Progress Note Date: 01/07/22 CHIEF COMPLAINT: Left inguinal hernia HISTORY OF PRESENT ILLNESS: Patient is status post left inguinal hernia repair. She is tolerating diet. She's having bowel movements. She is sitting at bedside chair. Afebrile. WBC is 143 potassium is 3.0 creatinine 0.5 PHYSICAL EXAM: VITAL SIGNS: Reviewed GENERAL: Well-developed in no acute distress. HEENT: No sclera icterus. Extraocular movements grossly intact. Moist buccal mucosa. Head is atraumatic, normocephalic. Hears conversational speech. No nasal drainage. NECK: Supple without lymphadenopathy. CHEST: Non-labored respirations and equal bilateral excursions. CARDIOVASCULAR: Palpable 2+ radial pulses. ABDOMEN: Soft. Nondistended. Nontender. Left inguinal Incision site clean dry and intact MUSCULOSKELETAL: No clubbing or cyanosis. NEUROLOGIC: No focal or lateralizing signs. Cranial nerves II through XII grossly intact. PSYCH: Appropriate affect. Alert and oriented to person, place and time. SKIN: Well perfused. Good skin turgor. ASSESSMENT: 1. Left inguinal hernia with incarceration status post open repair of left in guinal hernia with mesh placement 2. Hypokalemia PLAN: -Patient is stable from surgical standpoint for discharge when medically cleared -Potassium replacement per medicine service -Continue Tylenol as needed for pain -Eliquis for DVT prophylaxis and GI prophylaxis Protonix Physician Manager Investigations note has been reviewed by physician. Signing provider agrees with the documented findings, assessment, and plan of care. Objective - Vital Signs Vital signs: Vital Signs Temp 97.7 F 01/07/22 07:55 Pulse 70 01/07/22 07:55 Resp 18 01/07/22 07:55 BP 158/95 01/07/22 07:55 Pulse Ox 98 01/07/22 07:55 FiO2 Intake & Output 01/06/22 01/07/22 01/07/22 18:59 06:59 18:59 Weight 61.4 kg Other: Voiding Method Toilet Toilet Toilet # Voids 4 5 1 # Bowel Movements 1 1 - Labs CBC & Chem 7: 01/06/22 10:53 01/07/22 05:47 Labs: Abnormal Lab Results - Last 24 Hours (Table) 01/07/22 Range/Units 05:47 Potassium 3.0 L (3.5-5.5) mmol/L Carbon Dioxide 32.6 H (20.0-27.5) mmol/L Anion Gap 6.80 L (10.00-18.00) mmol/L BUN 5.8 L (9.0-27.0) mg/dL Creatinine 0.5 L (0.6-1.5) mg/dL BUN/Creatinine Ratio 11.69 L (12.00-20.00) Ratio Calcium 8.0 L (8.7-10.3) mg/dL Microbiology - Last 24 Hours (Table) 01/01/22 09:47 Blood Culture - Final Blood No Growth after 144 hours 12/31/21 10:49 Blood Culture - Final Blood No Growth after 144 hours 12/31/21 10:50 Blood Culture - Final Blood No Growth after 144 hours
[2022-01-07] MEDS ORDERED: Magnesium Replacement Protocol 1 EACH MISC MISCELLANE PRN (16:13)
[2022-01-07] MEDS ORDERED: Potassium Replacement Protocol 1 EACH MISC MISCELLANE PRN (16:43)
[2022-01-07] MEDS: POTASSIUM BICARBONATE/CIT AC 20 MEQ TABLET.EFF NG-TUBE SCH ×2 (18:09→20:08)
[2022-01-07 19:01] LABS: Magnesium 1.7 mg/dL (1.6-2.3)
--- NOTE | 2022-01-07 19:35 | P.PN ---
Subjective This is an 86 year old female with history of CVA, dementia, atrial fibrillation, CHF. She has been transitioned to oral amidarone, amiodarone gtt a nd cardizem gtt have been discontinued. Blood cultures showing staphylococcus haemolyticus and she continues on IV unasyn. Repeat cultures taken yesterday and also today. Pending clearance of bacteremia. Blood count today is normal, sodium 137, potassium 4.6. Procalcitonin 0.13. Patient is alert x 1, which is her baseline, she is pleasant, no acute complaints. She has been downgraded from the ICU today. Discharge planning for home with home care vs. SNF if patient requires IV antibiotics on discharge which family would like to avoid. 01/02/2022 Patient evaluated in intensive care unit as a medical surgical hold. Patient does have history of dementia she is alert x 1, pleasant. On exam abdomen is soft, and nontender with normoactive bowel sounds. Review of chest abdominal pelvis CT does show left side inguinal hernia with increased size from old exam with evidence for incarcerated small bowel. There is no bowel obstruction. Infectious disease requested surgical evaluation. Patient is scheduled for left inguinal hernia repair tomorrow with Dr Cardoza. Repeat blood culture preliminary so far negative. Patient continues on IV unasyn inpatient and recommendations for discharge on oral augmentin for 10 days post discharge. Patient remains afebrile, heart rate 93 she does have atrial fibrillation and remains on low dose eliquis which has been placed on hold. No white count, hgb 12.2, sodium 136, potassium 3.4, glucose 103, calcium 8.4. Patient is afebrile, blood pressure 107/76, 94% on 4L nasal cannula. Will order incentive spirometer. Subjective: Resuming the care of the patient today 01/03/2022 This is a pleasant 86 years old female who presents with evidence of sepsis and hypertension that she's been monitored in the ICU closely and after stabilization of her blood pressure she was transferred to the general medical floor. CT of the abdomen was showing intra-abdominal large left inguinal hernia with incarcerated small bowel. Patient is planned to undergo hernia repair by surgery team today. She is currently lying in bed comfortable, no distress, awake and alert, nonverbal at baseline as per daughter at bedside. She has some mild abdominal pain and currently she is nothing by mouth for surgery, she is on normal saline 40 mL/h. Eliquis on hold She is also on Unasyn 01/04/2022 Patient clinically doing well, she is open. And back to her mental baseline. She is nonverbal but follow commands. No significant abdominal pain, she had 75% of her lung She is status post left inguinal hernia repair with mesh, today is postoperative day #1. Surgical wound is clear and healing. She remains on Unasyn with repeat blood culture are negative. Also she is on normal saline 40 mm/h, Eliquis 2.5 mg was started today 01/05/2022 Patient is awake and alert and interactive however she still has poor appetite she is eating only 25% of her diet Surgical wound is improving, Patient has significant fluid overload today, IV fluids stopped and received 1 dose of IV Lasix. Continue with Unasyn on home dose of Eliquis Overall termite helper diagnosis is still poor 01/06/2022 patient is awake and alert. Abdominal surgical wound is healing gradually. She still with poor appetite she is eating only 25% of her diet however she had regular bowel movement today, she is walking to the restroom with the help of the staff. She is demented at baseline area however clinically she is improving slowly. Surgical wound is healing, drain into place and looks empty. Flexible and significantly improved after 1 dose of Lasix yesterday. Low potassium replaced Check electrolytes in the morning PT/OT are evaluated the patient, patient is not a candidate for rehab as she does not understand concepts or follow commands but she might benefit from placement if family wish Currently she remains on Unasyn and home dose of Eliquis 2.5 mg Possible discharge in 24-48 hours if she keeps improving 01/07/2022 Patient is doing well clinically she has been a stable for more than 48 hours, she is awake and pleasant and follow command, she is confused at baseline and nonverbal. She is tolerating diet well eating about 50% of her meals, minimal abdominal pain was used control. And she is having bowel movement. Hemodynamically stable. She has bilateral leg swelling and received one-time dose of Lasix IV 40 mg, low potassium and magnesium as expected with Lasix and then replace per protocol. Patient was cleared for discharge by all consultants including infectious disease and recommended to Augmentin upon discharge, by surgery team and pulmonary team when I discussed the case with them. Patient is medically stable for discharge. However family wanted to keep her one day in the hospital for placement, as per staff they are providing bedside nurse for her at home Objective - Vital Signs Vital signs: Vital Signs Temp 97.6 F 01/07/22 14:00 Pulse 85 01/07/22 14:00 Resp 18 01/07/22 14:00 BP 150/73 01/07/22 14:00 Pulse Ox 99 01/07/22 14:00 FiO2 Intake & Output 01/06/22 01/07/22 01/07/22 18:59 06:59 18:59 Weight 61.4 kg Other: Voiding Method Toilet Toilet Toilet # Voids 4 5 1 # Bowel Movements 1 1 - Exam GENERAL: The patient is alert and and awake, nonverbal at baseline, follow-up, and not in any acute distress. Well developed, well nourished. HEENT: Pupils are round and equally reacting to light. EOMI. No scleral icterus. No conjunctival pallor. Normocephalic, atraumatic. No pharyngeal erythema. No thyromegaly. CARDIOVASCULAR: S1 and S2 present. No murmurs, rubs, or gallops. PULMONARY: Chest is clear to auscultation, no wheezing or crackles. -ABDOMEN: Soft, nontender, mild left inguinal tenderness, normoactive bowel sounds. No palpable organomegaly. MUSCULOSKELETAL: No joint swelling or deformity. EXTREMITIES: No cyanosis, clubbing, or pedal edema. NEUROLOGICAL: Gross neurological examination did not reveal any focal deficits. SKIN: No rashes. no petechiae. - Labs CBC & Chem 7: 01/06/22 10:53 01/07/22 18:38 Labs: Abnormal Lab Results - Last 24 Hours (Table) 01/07/22 Range/Units 05:47 Potassium 3.0 L (3.5-5.5) mmol/L Carbon Dioxide 32.6 H (20.0-27.5) mmol/L Anion Gap 6.80 L (10.00-18.00) mmol/L BUN 5.8 L (9.0-27.0) mg/dL Creatinine 0.5 L (0.6-1.5) mg/dL BUN/Creatinine Ratio 11.69 L (12.00-20.00) Ratio Calcium 8.0 L (8.7-10.3) mg/dL Microbiology - Last 24 Hours (Table) 01/01/22 09:47 Blood Culture - Final Blood No Growth after 144 hours 12/31/21 10:49 Blood Culture - Final Blood No Growth after 144 hours 12/31/21 10:50 Blood Culture - Final Blood No Growth after 144 hours Assessment and Plan Assessment: Sepsis with hypotension and lactic acidosis, secondary to intra-abdominal infection , improving Large left inguinal hernia with evidence for bowel incarceration, status post open surgical hernia repair with the mesh Staphylococcus hemolyticus bacteremia with unclear source of infection, repeat cultures are negative so far Altered mental status likely a metabolic encephalopathy, patient is alert x 1, pleasantly confused, does have history of dementia Atrial fibrillation with RVR, rate now controlled on oral amiodarone Mild renal/injury resolved History cardiomyopathy, with improved Ejection fraction History of atrial fibrillation, paroxysmal History of valvular heart disease, history of pulmonary hypertension Chronic hypoxic respiratory failure on home oxygen History of dementia History of CVA GI Prophylaxis: IV protonix DVT Prophylaxis: Eliquis on hold Plan: This is a pleasant 80 years old female with sepsis and left inguinal hernia Resume Eliquis Stop IV fluids. Continue with antibiotic Unasyn Cardiology, pulmonary, infectious disease team on the case as well, SO TENSE. THE PATIENT FOR DISCHARGE Continue with amiodarone per cardiology team Do Not Resuscitate Labs and medication were reviewed.. Continue same treatment. Continue with symptomatic treatment. Resume home medication. Monitor lytes and vitals. DVT and GI prophylaxis. Further recommendations as per clinical course of the patient DVT prophylaxis: Eliquis GI Prophylaxis: Pepcid Long-term prognosis is guarded Medically stable for discharge pending placement
[2022-01-07] MEDS: DONEPEZIL 10 MG TAB PO SCH (20:07)
[2022-01-07] MEDS: AMOXIC-POT CLAV 875-125MG 1 EACH TAB PO SCH (20:07)
[2022-01-07] MEDS: MAGNESIUM OXIDE 400 MG TAB PO SCH (20:07)
[2022-01-08] MEDS: POTASSIUM BICARBONATE/CIT AC 20 MEQ TABLET.EFF NG-TUBE SCH (05:29)
[2022-01-08 06:27] LABS: Magnesium 1.8 mg/dL (1.6-2.3); Potassium 2.8 mmol/L (3.5-5.1)
[2022-01-08] MEDS ORDERED: POTASSIUM CHLORIDE ER 20 MEQ TAB.ER PO SCH (08:00)
--- NOTE | 2022-01-08 08:10 | P.PN ---
Subjective Progress Note Date: 01/07/22 Principal diagnosis: SIRS and bacteremia Patient is 85-year-old female with multiple comorbidities presenting to the ER yesterday afternoon for evaluation of weakness symptom has been going on for about 3 to 4 days before presentation to the hospital, patient was hypote nsive requiring admission to the ICU and subsequently did have a positive blood culture with gram-positive cocci finalizes staph epi. On today's evaluation that is 01/07/2022, The patient continues be afebrile, the patient is breathing comfortably on nasal cannula oxygen, patient denies chest pain or shortness of the breath no significant cough , Patient abdominal pain is controlled and no vomiting or diarrhea has been reported by the nursing staff Objective - Vital Signs Vital signs: Vital Signs Temp 97.7 F 01/07/22 07:55 Pulse 70 01/07/22 07:55 Resp 18 01/07/22 07:55 BP 158/95 01/07/22 07:55 Pulse Ox 98 01/07/22 07:55 FiO2 Intake & Output 01/06/22 01/07/22 01/07/22 18:59 06:59 18:59 Other: Voiding Method Toilet Toilet Toilet # Voids 4 5 1 # Bowel Movements 1 1 - Exam GENERAL DESCRIPTION: An elderly female lying in bed in no distress RESPIRATORY SYSTEM: Unlabored breathing , decreased breath sounds at bases HEART: S1 S2 regular rate and rhythm , ABDOMEN: Soft , Mild distention and tenderness EXTREMITIES: No edema feet - Labs CBC & Chem 7: 01/06/22 10:53 01/08/22 05:38 Labs: Abnormal Lab Results - Last 24 Hours (Table) 01/06/22 01/07/22 Range/Units 07:05 05:47 Potassium 3.1 L 3.0 L (3.5-5.5) mmol/L Carbon Dioxide 32.0 H 32.6 H (20.0-27.5) mmol/L Anion Gap 8.00 L 6.80 L (10.00-18.00) mmol/L BUN 7.4 L 5.8 L (9.0-27.0) mg/dL Creatinine 0.5 L 0.5 L (0.6-1.5) mg/dL BUN/Creatinine Ratio 11.69 L (12.00-20.00) Ratio Calcium 8.3 L 8.0 L (8.7-10.3) mg/dL Microbiology - Last 24 Hours (Table) 01/01/22 09:47 Blood Culture - Final Blood No Growth after 144 hours 12/31/21 10:49 Blood Culture - Final Blood No Growth after 144 hours 12/31/21 10:50 Blood Culture - Final Blood No Growth after 144 hours Assessment and Plan (1) SIRS (systemic inflammatory response syndrome) Current Visit: Yes Status: Acute Code(s): R65.10 - SIRS OF NON-INFECTIOUS ORIGIN W/O ACUTE ORGAN DYSFUNCTION SNOMED Code(s): 708113710 (2) Bacteremia Current Visit: Yes Status: Acute Code(s): R78.81 - BACTEREMIA SNOMED Code(s): 0560327 Plan: 1Patient with positive blood culture with staph epi likely skin contaminant negative no need for vancomycin 2- patient has been brought to the hospital with weakness patient was noticed to have elevated white count and elevated lactic acid patient also have hypotension requiring pressor support source likely incarcerated leg inguinal hernia status post surgical repair on 01/03/2022, patient has shown clinical improvement with Unasyn and plan to finish therapy with oral Augmentin 7-10 days on discharge Time with Patient: Less than 30
[2022-01-08] MEDS: MAGNESIUM OXIDE 400 MG TAB PO SCH (08:22)
[2022-01-08] MEDS: AMIODARONE 200 MG TAB PO SCH (08:22)
[2022-01-08] MEDS: APIXABAN 2.5 MG TABLET PO SCH (08:22)
[2022-01-08] MEDS: atenoloL 25 MG TAB PO SCH (08:23)
[2022-01-08] MEDS: AMOXIC-POT CLAV 875-125MG 1 EACH TAB PO SCH (08:23)
[2022-01-08] MEDS: POTASSIUM CHLORIDE ER 10 MEQ TAB.ER.PRT PO SCH ×3 (08:23→11:56)
[2022-01-08] MEDS: ESCITALOPRAM 5 MG TAB PO SCH (08:23)
[2022-01-08] MEDS: SILDENAFIL 20 MG TAB PO SCH ×2 (08:24→17:01)
[2022-01-08] MEDS: PANTOPRAZOLE 40 MG/10 ML VIAL IV SCH (09:36)
--- NOTE | 2022-01-08 13:22 | P.PN ---
Subjective Progress Note Date: 01/08/22 CHIEF COMPLAINT: Left inguinal hernia HISTORY OF PRESENT ILLNESS: Patient is status post left inguinal hernia repair. She is tolerating diet. She's having bowel movements. Medicine service anticipate discharge today. Afebrile. Potassium 2.8 magnesium 1.8 PHYSICAL EXAM: VITAL SIGNS: Reviewed GENERAL: Well-developed in no acute distress. HEENT: No sclera icterus. Extraocular movements grossly intact. Moist buccal mucosa. Head is atraumatic, normocephalic. Hears conversational speech. No nasal drainage. NECK: Supple without lymphadenopathy. CHEST: Non-labored respirations and equal bilateral excursions. CARDIOVASCULAR: Palpable 2+ radial pulses. ABDOMEN: Soft. Nondistended. Nontender. Left inguinal Incision site clean dry and intact MUSCULOSKELETAL: No clubbing or cyanosis. NEUROLOGIC: No focal or lateralizing signs. Cranial nerves II through XII grossly intact. PSYCH: Appropriate affect. Alert and oriented to person, place and time. SKIN: Well perfused. Good skin turgor. ASSESSMENT: 1. Left inguinal hernia with incarceration status post open repair of left ingu inal hernia with mesh placement 2. Hypokalemia PLAN: -Patient is stable from surgical standpoint for discharge when medically cleared -Potassium and magnesium replacement per medicine service -Continue Tylenol as needed for pain -Eliquis for DVT prophylaxis and GI prophylaxis Protonix Physician Flight Test Shop Mechanic note has been reviewed by physician. Signing provider agrees with the documented findings, assessment, and plan of care. Objective - Vital Signs Vital signs: Vital Signs Temp 97.9 F 01/08/22 07:55 Pulse 81 01/08/22 07:55 Resp 17 01/08/22 07:55 BP 159/90 01/08/22 07:55 Pulse Ox 92 L 01/08/22 07:55 FiO2 Intake & Output 01/07/22 01/08/22 01/08/22 18:59 06:59 18:59 Intake Total 400 Balance 400 Weight 61.4 kg Intake: Oral 400 Other: Voiding Method Toilet Toilet # Voids 6 5 # Bowel Movements 1 - Labs CBC & Chem 7: 01/06/22 10:53 01/08/22 05:38 Labs: Abnormal Lab Results - Last 24 Hours (Table) 01/07/22 01/08/22 Range/Units 18:38 05:38 Potassium 3.0 L 2.8 L (3.5-5.1) mmol/L Microbiology - Last 24 Hours (Table) 01/01/22 09:47 Blood Culture - Final Blood No Growth after 144 hours
[2022-01-08 13:39] VITALS: BP 129/87; PULSE 76; RESP 16; TEMP 98.4
[2022-01-08] MEDS ORDERED: POTASSIUM CHLORIDE ER 20 MEQ TAB.ER PO STA (16:19)
[2022-01-08] MEDS ORDERED: POTASSIUM CHLORIDE ER 10 MEQ TAB.ER.PRT PO STA (16:34)
--- NOTE | 2022-01-08 22:26 | P.DS ---
Providers Date of admission: 12/28/21 21:10 Attending physician: Andrea Horan MD Consults: 12/28/21 21:10 Consult Physician Routine Consulting Provider: Poornima Buitrago Consult Reason/Comments: sirs Do you want consulting provider notified?: Yes Consult Physician Stat Consulting Provider: Kyle Santizo Consult Reason/Comments: icu patient Do you want consulting provider notified?: Already Contacted 01/02/22 11:34 Consult Physician Routine Consulting Provider: Jimy Cardoza Consult Reason/Comments: possible incarcerated bowel Do you want consulting provider notified?: Yes Primary care physician: Viola Robledo [facility] Course: Diagnoses: Sepsis with hypotension and lactic acidosis, secondary to intra-abdominal infection , improved Large left inguinal hernia with evidence for bowel incarceration, status post open surgical hernia repair with the mesh Staphylococcus hemolyticus bacteremia with unclear source of infection, repeat cultures are negative Altered mental status likely a metabolic encephalopathy, patient is alert x 1, pleasantly confused, nonverbal at baseline does have history of dementia . Patient is back to mental baseline Atrial fibrillation with RVR, rate now controlled on oral amiodarone Mild renal/injury resolved History cardiomyopathy, with improved Ejection fraction History of atrial fibrillation, paroxysmal History of valvular heart disease, history of pulmonary hypertension Chronic hypoxic respiratory failure on home oxygen History of dementia History of CVA Hospital course: This is an 86 year old female with history of CVA, dementia, atrial fibril lation, CHF. She presents with multiple problems found to have sepsis secondary to intra- abdominal source and she has been seen by infectious and surgery team. Patient found to have left inguinal hernia and she underwent hernia repair and she tolerated the procedure well. Patient treated also with Unasyn, gentle hydration and her home dose of Eliquis. Patient also evaluated by trim machine operator and loaf counter. Patient showed interval improvement and she was awake and back to baseline. She tolerates diet well, abdominal pain controlled on minimal. And she is noticed to have regular bowel movement. She has bilateral leg swelling and she is on Lasix. Also she has evidence of hypokalemia and hypomagnesemia which are replaced per protocol. Potassium was 3.5 prior to discharge which is normal as well as magnesium 1.9. Patient is provided with prescription for electrolytes, also appointment made for her with her PCP [facility] Talia in 2 days to check her electrolytes. Patient was cleared for discharge by all consultants including pulmonary, cardiology, infectious disease team and surgery team. Patient will be discharged on short course of oral antibiotics. Family was taken patient at home. Today I called the daughter Suzette On the number provided informed computer at [phone] and her cell phone [phone] and the left the message to call back. Patient was found stable and can be discharged home in guarded prognosis however he needs follow-up as an outpatient. Patient was instructed to follow up with PCP Dr. Viola eric within one week and patient agrees, and appointment made for her with her PCP and [facility] Talia on 01/10, with instruction to check her potassium, magnesium and other blood test. Also an appointment made for the patient with Dr. Santizo on 02/20 and with the surgeon Dr. Zamudio on 01/17 Of note long-term prognosis is guarded, patient is high-risk for complication, infection and hospital readmission Physical exam -Gen: patient is a awake, follows commands, nonverbal at baseline, no distress CVS: S1-S2, RRR, no murmur Lungs: B/L CTA, no wheezing -Abdomen: soft, no distention, no tenderness, positive bowel sounds. Left inguinal wound is healing and closed Extremity: no leg edema or induration Time spent more than 35 minutes Patient Condition at Discharge: Fair Plan - Discharge Summary Discharge Rx Participant: No New Discharge Prescriptions: New Amoxic-Pot Clav 875-125Mg [Augmentin 875-125] 1 tab PO BID 14 Days #7 tab Amiodarone [Cordarone] 200 mg PO BID #60 tab Magnesium Oxide [Mag-Ox] 400 mg PO DAILY #10 tablet Potassium Chloride ER [K-Dur 10] 15 meq PO DAILY #10 tab Continue Furosemide [Lasix] 20 mg PO BID Sildenafil [Revatio] 20 mg PO TID Escitalopram [Lexapro] 5 mg PO DAILY Apixaban [Eliquis] 2.5 mg PO BID Memantine [Namenda] 10 mg PO BID Donepezil HCl [Aricept] 10 mg PO HS atenoloL [Tenormin] 25 mg PO DAILY Discontinued Verapamil HCl [Verapamil ER] 180 mg PO BID lisinopriL [Zestril] 2.5 mg PO DAILY Discharge Medication List Furosemide [Lasix] 20 mg PO BID 03/04/15 [History] Sildenafil [Revatio] 20 mg PO TID 03/04/15 [History] Escitalopram [Lexapro] 5 mg PO DAILY 10/05/16 [History] Apixaban [Eliquis] 2.5 mg PO BID 02/18/18 [History] Memantine [Namenda] 10 mg PO BID 11/10/18 [History] Donepezil HCl [Aricept] 10 mg PO HS 11/19/19 [History] atenoloL [Tenormin] 25 mg PO DAILY 12/28/21 [History] Amiodarone [Cordarone] 200 mg PO BID #60 tab 01/07/22 [Rx] Amoxic-Pot Clav 875-125Mg [Augmentin 875-125] 1 tab PO BID 14 Days #7 tab 01/07/22 [Rx] Magnesium Oxide [Mag-Ox] 400 mg PO DAILY #10 tablet 01/07/22 [Rx] Potassium Chloride ER [K-Dur 10] 15 meq PO DAILY #10 tab 01/07/22 [Rx] Follow up Appointment(s)/Referral(s): Viola Robledo MD [Primary Care Provider] - 01/10/22 2:00 pm ( we recommend to check your blood test with your doctor including your potassium and magnesium level within one weekNP with [facility]) Kyle Santizo DO [Doctor of Osteopathic Medicine] - 02/20/22 2:15 pm (lung doctor we recommend to check your blood test of basic metabolic panel (BMP) & (Magnesium/Potassium) level in 2-3 days) [facility] Visiting Nurse, [NON-STAFF] - 1-2 Days Jimy Cardoza MD [STAFF PHYSICIAN] - 01/17/22 1:00 pm (surgeon) Ambulatory/Diagnostic Orders: Basic Metabolic Panel [LAB.AMB] Location: None Selected Magnesium [LAB.AMB] Location: None Selected Patient Instructions/Handouts: Urinary Tract Infection in Women (DC), Hypotension (DC) Activity/Diet/Wound Care/Special Instructions: DISCHARGE INSTRUCTIONS Heart healthy diet Activity is restricted till you see your doctor we recommend to check your blood test with your doctor including your potassium and magnesium level within one week we recommend to check your blood test of basic metabolic panel (BMP) & (Magnesium/Potassium) level in 2-3 days Discharge/Stand Alone Forms: Community Resources, Help In The Home, Personal Ground Control Approach Technician Discharge Disposition: HOME WITH HOME HEALTH SERVICES
== END 2022-01-08 17:36 | disposition home health service (06) | DRG 853 ==
LOC: EC 17:14 → 2SICU 21:10 → 4SSUR 01-02 18:07
PROVIDERS: ADMIT Internal Medicine; ATTEND Internal Medicine
PROC: 02HV33Z Insertion of Infusion Device into Superior Vena Cava, Percutaneous Approach (ICD-10-PCS; 2021-12-28)
PROC: 3E043XZ Introduction of Vasopressor into Central Vein, Percutaneous Approach (ICD-10-PCS; 2021-12-28)
PROC: 0YU60JZ Supplement Left Inguinal Region with Synthetic Substitute, Open Approach (ICD-10-PCS; principal; 2022-01-03 07:30)
DX: A41.9 Sepsis, unspecified organism (principal); G93.41 Metabolic encephalopathy; K40.30 Unilateral inguinal hernia, with obstruction, without gangrene, not specified as recurrent; E87.2 Acidosis; J96.11 Chronic respiratory failure with hypoxia; I48.21 Permanent atrial fibrillation; I42.9 Cardiomyopathy, unspecified; I95.9 Hypotension, unspecified; E83.42 Hypomagnesemia; E86.0 Dehydration; E87.6 Hypokalemia; I27.20 Pulmonary hypertension, unspecified; N28.9 Disorder of kidney and ureter, unspecified; I11.0 Hypertensive heart disease with heart failure; I50.9 Heart failure, unspecified; I08.3 Combined rheumatic disorders of mitral, aortic and tricuspid valves; K57.30 Diverticulosis of large intestine without perforation or abscess without bleeding; B95.7 Other staphylococcus as the cause of diseases classified elsewhere; F03.90 Unspecified dementia, unspecified severity, without behavioral disturbance, psychotic disturbance, mood disturbance, and anxiety; F32.A Depression, unspecified; J84.10 Pulmonary fibrosis, unspecified; Z66 Do not resuscitate; J44.9 Chronic obstructive pulmonary disease, unspecified; Z20.822 Contact with and (suspected) exposure to COVID-19; M41.9 Scoliosis, unspecified; M19.90 Unspecified osteoarthritis, unspecified site; Z99.81 Dependence on supplemental oxygen; H91.93 Unspecified hearing loss, bilateral; Z96.1 Presence of intraocular lens; Z96.60 Presence of unspecified orthopedic joint implant; Z87.01 Personal history of pneumonia (recurrent); Z79.899 Other long term (current) drug therapy; Z79.01 Long term (current) use of anticoagulants; Z98.42 Cataract extraction status, left eye; Z98.41 Cataract extraction status, right eye; Z87.891 Personal history of nicotine dependence; Z86.711 Personal history of pulmonary embolism; Z86.73 Personal history of transient ischemic attack (TIA), and cerebral infarction without residual deficits; Z86.718 Personal history of other venous thrombosis and embolism; Z80.3 Family history of malignant neoplasm of breast; Z82.0 Family history of epilepsy and other diseases of the nervous system
CPT/HCPCS: 36415; 36556; 70450; 71045; 71260; 74177; 80048; 80053; 81001; 82330; 82533; 82550; 83605; 83735; 84132; 84145; 84484; 85025; 85027; 85610; 85730; 87040; 87077; 87186; 87636; 93005; 93306; 94760; 96361; 96365; 96366; 96368; 99291

== ENCOUNTER 2022-02-07 11:50 | Inpatient (IN) | payer MEDICARE ==
--- NOTE | 2022-02-07 12:23 | ED ---
Fall HPI - General Source: family, EMS, RN notes reviewed Mode of arrival: EMS - History of Present Illness MD Complaint: fall Fall From: standing Fall Witnessed: yes, by family Place Fall Occurred: home Loss of Consciousness: none Prolonged Down Time?: no Context: tripped/slipped <Tiffanie Brooks - Last Filed: 02/07/22 16:10> <Julio Clark - Last Filed: 02/07/22 17:37> - General Chief Complaint: Fall Stated Complaint: Fall-L hip injury Time Seen by Provider: 02/07/22 11:54 - History of Present Illness Initial Comments: This is an 86-year-old female who presents to the emergency department for a fall. Per family, she was carrying a tray of food from the kitchen to the living room, when she tripped over the couch. EMS brought her to the emergency department. Patient is nonverbal from a prior stroke and history is provided by her family. She does have obvious shortening and external rotation to the left leg as well as swelling to the left ankle. The patient did not hit her head or have any loss of consciousness. (Tiffanie Brooks) - Related Data Home Medications Medication Instructions Recorded Confirmed Furosemide [Lasix] 20 mg PO BID 03/04/15 02/07/22 Sildenafil [Revatio] 20 mg PO TID 03/04/15 02/07/22 Escitalopram [Lexapro] 5 mg PO DAILY 10/05/16 02/07/22 Apixaban [Eliquis] 2.5 mg PO BID 02/18/18 02/07/22 Memantine [Namenda] 10 mg PO BID 11/10/18 02/07/22 Donepezil HCl [Aricept] 10 mg PO HS 11/19/19 02/07/22 atenoloL [Tenormin] 25 mg PO DAILY 12/28/21 02/07/22 Allergies Allergy/AdvReac Type Severity Reaction Status Date / Time No Known Allergies Allergy Verified 02/07/22 13:45 Review of Systems ROS Other: All systems not noted in ROS Statement are negative. Limitations: ROS unobtainable due to patients medical condition (nonverbal) <Tiffanie Brooks - Last Filed: 02/07/22 16:10> ROS Other: All systems not noted in ROS Statement are negative. <Julio Clark - Last Filed: 02/07/22 17:37> ROS Statement: Those systems with pertinent positive or pertinent negative responses have been documented in the HPI. Past Medical History Past Medical History: Atrial Fibrillation, Dementia, Hearing Disorder / Deafness, Memory Impairment, Pneumonia, Respiratory Disorder Additional Past Medical History / Comment(s): Pulmonary fibrosis, pulmonary HTN, O2 at HS, moderate to severe mitral valve regurgitation, severe tricuspid regurgitation, mild aortic stenosis, DDD, spondylosis, scoliosis, bulging discs, PE in lungs 15 yrs ago, superficial DVTs, varicosities, mild dementia, [place] bilaterally History of Any Multi-Drug Resistant Organisms: None Reported Past Surgical History: Appendectomy, Heart Catheterization, Joint Replacement, Orthopedic Surgery, Tonsillectomy Additional Past Surgical History / Comment(s): L femur fracture with ORIF, L arm fracture with ORIF plate/screws, bilateral rotator cuff repairs, bilateral feet hammer toe corrections, epidural back injections, bilateral cataract removals with lens implants, colonoscopy Past Anesthesia/Blood Transfusion Reactions: No Reported Reaction Past Psychological History: Depression Smoking Status: Former smoker Past Alcohol Use History: Occasional Past Drug Use History: None Reported - Past Family History Father Family Medical History: Musculoskeletal Disorder, Neurologic Disorder Additional Family Medical History / Comment(s): Parkinson's disease. Mother Family Medical History: Cancer Additional Family Medical History / Comment(s): breast cancer <Tiffanie Brooks - Last Filed: 02/07/22 16:10> General Exam Limitations: no limitations General appearance: alert, in no apparent distress Head exam: Present: atraumatic, normocephalic, normal inspection Respiratory exam: Present: normal lung sounds bilaterally. Absent: respiratory distress, wheezes, rales, rhonchi, stridor Cardiovascular Exam: Present: regular rate, normal rhythm, normal heart sounds. Absent: systolic murmur, diastolic murmur, rubs, gallop, clicks Extremities exam: Present: other (Shortening and external rotation to the left leg. Swelling over the medial malleolus. No obvious ecchymosis.) Neurological exam: Present: alert, oriented X3, CN II-XII intact Psychiatric exam: Present: normal affect, normal mood Skin exam: Present: warm, dry, intact, normal color. Absent: rash <Tiffanie Brooks - Last Filed: 02/07/22 16:10> Course Vital Signs 02/07/22 02/07/22 12:01 17:04 Temperature 97.5 F L Pulse Rate 65 75 Respiratory 18 18 Rate Blood Pressure 94/54 94/66 O2 Sat by Pulse 94 L 93 L Oximetry Medical Decision Making - Lab Data Result diagrams: 02/07/22 13:51 02/07/22 13:51 - Radiology Data Radiology results: report reviewed, image reviewed <Tiffanie Brooks - Last Filed: 02/07/22 16:10> - Lab Data Result diagrams: 02/07/22 13:51 02/07/22 13:51 <Julio Clark - Last Filed: 02/07/22 17:37> - Medical Decision Making This is an 86-year-old female who presents to the emergency department for a fall. X-ray of the left hip and femur reveals an acute comminuted displaced intertrochanteric fracture of the left proximal femur. X-ray of the left ankle revealed no acute irregularities. Preop lab work was obtained, revealing no acute process. She does have very mild hypokalemia and was subsequently given 10 mEq of K-dur. EKG does reveal that the patient is in rate controlled atrial fibrillation. (Tiffanie Brooks) Family reports that patient had knee replacement procedure performed by a [facility]. Spoke with Dr. Reyes who is willing to accept patients care for admission and likely surgical care. (Julio Clark) - Lab Data Lab Results 02/07/22 02/07/22 02/07/22 Range/Units 13:51 13:51 13:51 WBC 6.5 (3.8-10.6) k/uL RBC 4.08 (3.80-5.40) m/uL Hgb 12.1 (11.4-16.0) gm/dL Hct 39.9 (34.0-46.0) % MCV 97.6 (80.0-100.0) fL MCH 29.7 (25.0-35.0) pg MCHC 30.4 L (31.0-37.0) g/dL RDW 14.1 (11.5-15.5) % Plt Count 216 (150-450) k/uL MPV 7.9 Neutrophils % 79 % Lymphocytes % 12 % Monocytes % 5 % Eosinophils % 2 % Basophils % 1 % Neutrophils # 5.1 (1.3-7.7) k/uL Lymphocytes # 0.8 L (1.0-4.8) k/uL Monocytes # 0.4 (0-1.0) k/uL Eosinophils # 0.1 (0-0.7) k/uL Basophils # 0.1 (0-0.2) k/uL Hypochromasia Moderate PT 11.5 (9.0-12.0) sec INR 1.1 (<1.2) APTT 22.3 (22.0-30.0) sec Sodium 141 (137-145) mmol/L Potassium 3.4 L (3.5-5.1) mmol/L Chloride 100 (98-107) mmol/L Carbon Dioxide 31 H (22-30) mmol/L Anion Gap 10 mmol/L BUN 14 (7-17) mg/dL Creatinine 0.80 (0.52-1.04) mg/dL Est GFR (CKD-EPI)AfAm 76 (>60 ml/min/1.73 sqM) Est GFR (CKD-EPI)NonAf 66 (>60 ml/min/1.73 sqM) Glucose 128 H (74-99) mg/dL Calcium 8.8 (8.4-10.2) mg/dL Total Bilirubin 0.5 (0.2-1.3) mg/dL AST 27 (14-36) U/L ALT 16 (4-34) U/L Alkaline Phosphatase 70 (38-126) U/L Total Protein 5.8 L (6.3-8.2) g/dL Albumin 3.7 (3.5-5.0) g/dL - EKG Data EKG Comments: Atrial fibrillation. Ventricular rate 74 bpm, QRS duration 105 ms, QTC 463 ms. (Tiffanie Brooks) Disposition <Tiffanie Brooks - Last Filed: 02/07/22 16:10> <Julio Clark - Last Filed: 02/07/22 17:37> Clinical Impression: Intertrochanteric fracture of left femur Disposition: ADMITTED IP TO THIS HOSP Referrals: Viola Robledo MD [Primary Care Provider] - 1-2 days
--- NOTE | 2022-02-07 13:15 | XR ---
EXAMINATION TYPE: XR Hip Complete LT, XR femur LT DATE OF EXAM: 02/07/2022 CLINICAL HISTORY: Pain after fall injury. TECHNIQUE: AP and frogleg views of the left hip and femur are obtained. COMPARISON: None. FINDINGS: Acute comminuted displaced intertrochanteric fracture left proximal femur with several smal l fracture fragments involving the greater and lesser trochanters. No hip joint dislocation. Mild axi al joint space loss is present. Teller osseous structures are demineralized with healed fracture defo rmity of the midshaft noted. There is partial visualization of metallic hardware left knee level. The re is mild posterior arterial vascular calcification. IMPRESSION: There is acute comminuted displaced intertrochanteric fracture left proximal femur
--- NOTE | 2022-02-07 13:16 | XR ---
EXAMINATION TYPE: XR ankle limited LT DATE OF EXAM: 02/07/2022 CLINICAL HISTORY: Fall injury with pain TECHNIQUE: Frontal and lateral images of the left ankle are obtained. COMPARISON: None. FINDINGS: There is no acute displaced fracture evident in the left ankle. Demineralization is presen t which is noted to the radiographic sensitivity. The ankle mortise appears within normal limits. Ove rlying blanket material is present. IMPRESSION: There is no acute fracture or dislocation in the left ankle.
--- NOTE | 2022-02-07 13:18 | XR ---
EXAMINATION TYPE: XR chest 1V DATE OF EXAM: 02/07/2022 COMPARISON: 12/28/2021 HISTORY: 86-year-old female with pain after fall TECHNIQUE: Single frontal view of the chest is obtained. FINDINGS: Heart moderately enlarged. Hyperinflation. Interstitial density redemonstrated. Dextro convex scolios is. Loss of the subacromial space on the right compatible chronic full-thickness rotator cuff tear. N o kia consolidation, sizable effusion, or developing consolidation. IMPRESSION: Moderate cardiomegaly and COPD. Dextroconvex scoliosis. 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 There are chronic changes without definite acute process.
[2022-02-07 14:00] LABS: Basophils # (A) 0.1 k/uL (0-0.2); Basophils % (A) 1 %; Eosinophils # (A) 0.1 k/uL (0-0.7); Eosinophils % (A) 2 %; HCT 39.9 % (34.0-46.0); HGB 12.1 gm/dL (11.4-16.0); Hypochromasia Moderate; Lymphocytes # (A) 0.8 k/uL (1.0-4.8); Lymphocytes % (A) 12 %; MCH 29.7 pg (25.0-35.0); MCHC 30.4 g/dL (31.0-37.0); MCV 97.6 fL (80.0-100.0); Mean Platelet Volume 7.9; Monocytes # (A) 0.4 k/uL (0-1.0); Monocytes % (A) 5 %; Neutrophils # (A) 5.1 k/uL (1.3-7.7); Neutrophils % (A) 79 %; Platelet Count 216 k/uL (150-450); RBC 4.08 m/uL (3.80-5.40); RDW 14.1 % (11.5-15.5); WBC 6.5 k/uL (3.8-10.6)
[2022-02-07 14:06] LABS: INR 1.1 (<1.2); Partial Thromboplastin Time 22.3 sec (22.0-30.0); Prothrombin Time 11.5 sec (9.0-12.0)
[2022-02-07 14:11] LABS: Albumin 3.7 g/dL (3.5-5.0); Calcium 8.8 mg/dL (8.4-10.2); Potassium 3.4 mmol/L (3.5-5.1); Total Bilirubin 0.5 mg/dL (0.2-1.3); Total Protein 5.8 g/dL (6.3-8.2)
[2022-02-07] MEDS ORDERED: HYDROmorphone 0.5 MG/0.5 ML SYRINGE IVP STA (14:43)
[2022-02-07] MEDS ORDERED: POTASSIUM CHLORIDE ER 10 MEQ TAB.ER.PRT PO STA (16:13)
[2022-02-07] MEDS ORDERED: NALOXONE 0.4 MG/ML 1 ML VIAL IV PRN (16:46)
[2022-02-07] MEDS ORDERED: MORPHINE SULFATE 4 MG/ML SYRINGE IV PRN (16:46)
[2022-02-07] MEDS ORDERED: ONDANSETRON 4 MG/2 ML VIAL IVP PRN (16:46)
--- NOTE | 2022-02-07 18:21 | CT ---
EXAMINATION TYPE: CT brain marian grimes DATE OF EXAM: 02/07/2022 COMPARISON: 12/28/2021 HISTORY: Pt tripped and fell over couch today. Pt is non verbal from a previous stroke CT DLP: 1221.2 mGycm Automated exposure control for dose reduction was used. TECHNIQUE: CT scan of the head and cervical spine are performed without contrast. FINDINGS: There is no acute intracranial hemorrhage, mass effect, or midline shift identified. The re is moderate white matter disease and parenchymal volume loss. The ventricles and sulci are within normal limits in size. The globes are intact and the visualized sinuses are clear. Cervical spine is visualized in its entirety from C1 through upper thoracic levels and demonstrates s atisfactory alignment without evidence of acute fracture or dislocation. There is multilevel moderat e to severe cervical spondylosis. Prevertebral soft tissue appears within normal limits. The C1-C2 a rticulation is unremarkable. IMPRESSION: No acute intracranial or cervical spine abnormality.
[2022-02-07] MEDS: ACETAMINOPHEN TAB 325 MG TAB PO PRN (19:18)
[2022-02-07] MEDS: FUROSEMIDE 20 MG TAB PO SCH (19:20)
[2022-02-07] MEDS: ENOXAPARIN 40 MG/0.4 ML SYRINGE SQ SCH (19:20)
[2022-02-07] MEDS: SILDENAFIL 20 MG TAB PO SCH (21:23)
[2022-02-07] MEDS: SODIUM CHLORIDE 0.9% 1,000 ML IV SCH (21:23)
[2022-02-07] MEDS: DONEPEZIL 10 MG TAB PO SCH (21:24)
[2022-02-07] MEDS: MEMANTINE 10 MG TAB PO SCH (21:24)
[2022-02-08] MEDS: ACETAMINOPHEN TAB 325 MG TAB PO PRN (09:38)
[2022-02-08] MEDS: FUROSEMIDE 20 MG TAB PO SCH ×2 (10:07→17:11)
[2022-02-08] MEDS: ESCITALOPRAM 5 MG TAB PO SCH (10:08)
[2022-02-08] MEDS: SILDENAFIL 20 MG TAB PO SCH ×3 (10:08→22:02)
[2022-02-08] MEDS: MEMANTINE 10 MG TAB PO SCH ×2 (10:08→22:02)
[2022-02-08] MEDS: atenoloL 25 MG TAB PO SCH ×2 (10:08→14:27)
[2022-02-08 10:28] LABS: Basophils # (A) 0.1 k/uL (0-0.2); Basophils % (A) 1 %; Eosinophils % (A) 0 %; HCT 35.3 % (34.0-46.0); HGB 10.8 gm/dL (11.4-16.0); Hypochromasia Moderate; Lymphocytes # (A) 0.8 k/uL (1.0-4.8); Lymphocytes % (A) 7 %; MCH 30.2 pg (25.0-35.0); MCHC 30.7 g/dL (31.0-37.0); MCV 98.3 fL (80.0-100.0); Mean Platelet Volume 7.7; Monocytes # (A) 0.7 k/uL (0-1.0); Monocytes % (A) 6 %; Neutrophils # (A) 9.5 k/uL (1.3-7.7); Neutrophils % (A) 85 %; Platelet Count 221 k/uL (150-450); RBC 3.59 m/uL (3.80-5.40); RDW 14.2 % (11.5-15.5); WBC 11.2 k/uL (3.8-10.6)
[2022-02-08 10:38] LABS: African American GFR (CKD) 79 (>60 ml/min/1.73 sqM); Anion Gap 8 mmol/L; Blood Urea Nitrogen 14 mg/dL (7-17); Calcium 8.7 mg/dL (8.4-10.2); Carbon Dioxide 33 mmol/L (22-30); Chloride 102 mmol/L (98-107); Glucose 129 mg/dL (74-99); Non-African American GFR(CKD) 68 (>60 ml/min/1.73 sqM); Potassium 3.7 mmol/L (3.5-5.1); Sodium 143 mmol/L (137-145)
[2022-02-08] MEDS: SODIUM CHLORIDE 0.9% 1,000 ML IV SCH (12:23)
[2022-02-08] MEDS: ACETAMINOPHEN IV (For NPO) 1,000 MG in EMPTY BAG 1 BAG IVPB SCH ×2 (12:23→17:49)
--- NOTE | 2022-02-08 13:12 | P.HPOR ---
History of Present Illness H&P Date: 02/08/22 This patient is an 86-year-old female with past medical history of atrial fibrillation on Eliquis, pulmonary fibrosis, dementia, history of CVA that presented to [facility] emergency department on 02/07/22 with complaints of left hip pain following a fall at home. The patient is nonverbal due to prior CVA and all history is obtained from the chart and nursing. Family is not bedside at the time exam. Patient apparently fell while walking in the home yesterday. EMS was called and the patient was transported to the emergency department. X-rays in the emergency department revealed an intertrochanteric left hip fracture. The patient does have history of prior left femur fracture that was treated nonoperatively. She also has history of a left total knee arthroplasty. Patient was admitted under the care of orthopedic surgery with a consult placed to internal medicine for preoperative medical clearance. Patient is examined bedside this morning. She has no complaints of pain. She is nonverbal. Vital signs stable. Past Medical History Past Medical History: Atrial Fibrillation, Dementia, Hearing Disorder / Deafness, Memory Impairment, Pneumonia, Respiratory Disorder Additional Past Medical History / Comment(s): Pulmonary fibrosis, pulmonary HTN, O2 at HS, moderate to severe mitral valve regurgitation, severe tricuspid regurgitation, mild aortic stenosis, DDD, spondylosis, scoliosis, bulging discs, PE in lungs 15 yrs ago, superficial DVTs, varicosities, mild dementia, [place] bilaterally History of Any Multi-Drug Resistant Organisms: None Reported Past Surgical History: Appendectomy, Heart Catheterization, Joint Replacement, Orthopedic Surgery, Tonsillectomy Additional Past Surgical History / Comment(s): L femur fracture with ORIF, L arm fracture with ORIF plate/screws, bilateral rotator cuff repairs, bilateral feet hammer toe corrections, epidural back injections, bilateral cataract removals with lens implants, colonoscopy Past Anesthesia/Blood Transfusion Reactions: No Reported Reaction Past Psychological History: Depression Additional Psychological History / Comment(s): Pt resides with her spouse. She uses no assistive device. She no longer drives. She receives her medication in blister packs and spouse assists her with medications too. She wears oxygen at HS. Normally, she is able to perform her own hygiene and dress herself. Smoking Status: Former smoker Past Alcohol Use History: Occasional Additional Past Alcohol Use History / Comment(s): Pt started smoking in 1949 and quit in 1974. Past Drug Use History: None Reported - Past Family History Father Family Medical History: Musculoskeletal Disorder, Neurologic Disorder Additional Family Medical History / Comment(s): Parkinson's disease. Mother Family Medical History: Cancer Additional Family Medical History / Comment(s): breast cancer Medications and Allergies Home Medications Medication Instructions Recorded Confirmed Type Furosemide [Lasix] 20 mg PO BID 03/04/15 02/07/22 History Sildenafil [Revatio] 20 mg PO TID 03/04/15 02/07/22 History Escitalopram [Lexapro] 5 mg PO DAILY 10/05/16 02/07/22 History Apixaban [Eliquis] 2.5 mg PO BID 02/18/18 02/07/22 History Memantine [Namenda] 10 mg PO BID 11/10/18 02/07/22 History Donepezil HCl [Aricept] 10 mg PO HS 11/19/19 02/07/22 History atenoloL [Tenormin] 25 mg PO DAILY 12/28/21 02/07/22 History Allergies Allergy/AdvReac Type Severity Reaction Status Date / Time No Known Allergies Allergy Verified 02/07/22 13:45 Physical Examination On examination, patient is lying in bed in no apparent distress. She is nonverbal. She appears confused and agitated. Her head appears normocephalic and atraumatic. Her breathing appears nonlabored. On inspection of her bilateral upper extremities, there are no obvious deformities or signs of trauma. On inspection of her right lower extremity, there are no obvious deformities or signs of trauma. On inspection of her left lower extremity, there is diffuse swelling of the left thigh. Thigh soft and compressible. The left lower extremity shortened and externally rotated. Healed incision of anterior left knee consistent with a prior TKA. There is diffuse pain on palpation of the left hip. No pain on palpation of the left knee, lower leg, ankle, foot. Dorsalis pedis pulses palpable, left lower extremity warm well perfused. Results Left hip x-ray 02/07/22: Left intertrochanteric hip fracture. Prior healed midshaft femur fracture. Prior left total knee arthroplasty. - Labs Labs: Abnormal Lab Results - Last 24 Hours (Table) 02/07/22 02/07/22 02/08/22 Range/Units 13:51 13:51 10:02 WBC 11.2 H (3.8-10.6) k/uL RBC 3.59 L (3.80-5.40) m/uL Hgb 10.8 L (11.4-16.0) gm/dL MCHC 30.4 L 30.7 L (31.0-37.0) g/dL Neutrophils # 9.5 H (1.3-7.7) k/uL Lymphocytes # 0.8 L 0.8 L (1.0-4.8) k/uL Potassium 3.4 L (3.5-5.1) mmol/L Carbon Dioxide 31 H (22-30) mmol/L Glucose 128 H (74-99) mg/dL Total Protein 5.8 L (6.3-8.2) g/dL 02/08/22 Range/Units 10:02 WBC (3.8-10.6) k/uL RBC (3.80-5.40) m/uL Hgb (11.4-16.0) gm/dL MCHC (31.0-37.0) g/dL Neutrophils # (1.3-7.7) k/uL Lymphocytes # (1.0-4.8) k/uL Potassium (3.5-5.1) mmol/L Carbon Dioxide 33 H (22-30) mmol/L Glucose 129 H (74-99) mg/dL Total Protein (6.3-8.2) g/dL H & H 02/07/22 02/08/22 Range/Units 13:51 10:02 Hgb 12.1 10.8 L (11.4-16.0) gm/dL Hct 39.9 35.3 (34.0-46.0) % Coagulation 02/07/22 Range/Units 13:51 INR 1.1 (<1.2) Result Diagrams: 02/08/22 10:02 02/08/22 10:02 Assessment and Plan Assessment: Acute left intertrochanteric hip fracture Prior healed left femur fracture Prior left total knee arthroplasty Plan: - Clinical and imaging findings were discussed with the patient, nursing. The patient was discussed with Dr. Bourne. Recommend closed reduction and insertion short gamma nail left hip this afternoon or tomorrow morning depending on OR availability, pending medical clearance and consent. - Strict non-weight bearing left lower extremity. Bedrest. - Pain management as needed. - Internal medicine for pre-operative medical evaluation. - NPO diet.
--- NOTE | 2022-02-08 13:41 | P.CONS ---
History of Present Illness - Reason for Consult Consult date: 02/08/22 Preop clearance medical, orthopedic left hip fracture from a fall - History of Present Illness This is an 86-year-old female who follows with Dr. Viola Robledo in the outpatient setting and lives with her spouse at home and was brought here via EMS is apparently patient had slipped and fallen with left hip and leg deformity and admitted under orthopedic services for possible surgical intervention secondary to an acute left intertrochanteric hip fracture. Patient with an extensive past medical history of atrial fibrillation, dementia, hearing disorders with deafness, memory impairment, pulmonary fibrosis, pulmonary hypertension, chronically wears oxygen at home, moderate to severe mitral valve regurgitation with severe tricuspid regurgitation and mild aortic stenosis, degenerative disc disease, scoliosis, history of PE and superficial DVTs with varicose ascites. Per her at the bedside patient's gait is not that study and does use a walker although she left her walker to hold the dinner tray and subsequently tripped and fell. Patient is nonverbal with a dementia history and unable to give much of a history. Son and at the bedside gave most of the history along with the medical record. Risks versus benefits explained to the patient's family and patient is considered moderate to high risk given all her comorbidities although agreeable with surgery as this will ultimately improve her functionality and overall quality of life. Patient is currently nothing by mouth and recommend telemetry monitoring and also recommend to avoid IV narcotics or [employer] agents as patient all agree with a history of dementia and confusion. Have added IV Tylenol until patient is a by mouth status again. Possible plans for surgical intervention in a.m. Patient is currently medically stable for surgical intervention. Given the fall patient underwent CT of the brain which showed no acute intracranial cervical spine abnormality. The left hip shows an acute comminuted displaced intertrochanteric fracture of the left proximal femur, left ankle showed no acute fracture or dislocation, and chest x-ray shows moderate cardiomegaly and COPD dextroconvex scoliosis with no acute process noted. Review Of Systems: Unable to obtain as patient is confused and mostly nonverbal PHYSICAL EXAMINATION: GENERAL: The patient is alert and oriented x1, thin built elderly female, nonverbal HEENT: Pupils are round and equally reacting to light. EOMI. no scleral icterus. No conjunctival pallor. Normocephalic, atraumatic. No pharyngeal erythema. No thyromegaly. CARDIOVASCULAR: S1 and S2 muffled , irregularly irregular PULMONARY: diminished breath sounds bilaterally with no wheezing or rhonchi noted. ABDOMEN: soft. Nontender on exam. Scaphoid. non-distended, normoactive bowel sounds. No palpable organomegaly. MUSCULOSKELETAL: No joint swelling or deformity. EXTREMITIES: No cyanosis, clubbing, or pedal edema. Right lower extremity within normal limits, left lower extremity externally rotated and shortened with some swelling of the left thigh noted NEUROLOGICAL: Gross neurological examination did not reveal any focal deficits. Diffuse weakness SKIN: No rashes. Intact with no breaks in the skin Assessment: Fall resulting in acute left intertrochanteric hip fracture with external rota tion and shortening of the left extremity History of atrial fibrillation Dementia Pulmonary fibrosis and pulmonary hypertension history Chronically wears oxygen at home of 3 L secondary to above Moderate to severe mitral valve regurgitation with severe tricuspid regurgitation and mild aortic stenosis history Degenerative disc disease Remote history of PE in the lungs along with DVTs Depression Past medical history of tobacco use quit in 1974 GI prophylaxis DVT prophylaxis Full code Plan: Recommend to continue with current medications and management per orthopedic services. Patient is currently nothing by mouth and scheduled for surgical intervention of the left hip fracture in the a.m. Recommend telemetry monitoring as patient does have history of atrial fibrillation. Patient chronically wears oxygen is currently maintained on 3 L via nasal cannula. Son and spouse at the bedside and risks versus benefits were explained in detail and patient is considered moderate to high risk for surgery given her comorbidities although agreeable with the surgery if family wishes to proceed as this will ultimately help improve her functionality and quality of life. Recommend resuming home medications after surgery and continued telemetry monitoring. Recommend follow-up labs in the a.m. patient with a history of dementia and given her age of 86 years strongly recommend avoiding IV narcotics and [employer] agents and have added IV Tylenol to the medication regimen. We will continue to follow with orthopedics during hospitalization. Thank you for this consultation. The impression and plan of care has been dictated by Zoë Goodwin, nurse practitioner as directed. Dr. Aimee ORTIZ I have performed a history and examination and MDM of this patient, discussed the same with the dictator, and agree with the dictator's assessment and plan as written ,documented as a scribe. Based on total visit time, I have performed more than 50% of the visit. Any additional findings or plans will be noted. Past Medical History Past Medical History: Atrial Fibrillation, Dementia, Hearing Disorder / Deafness, Memory Impairment, Pneumonia, Respiratory Disorder Additional Past Medical History / Comment(s): Pulmonary fibrosis, pulmonary HTN, O2 at HS, moderate to severe mitral valve regurgitation, severe tricuspid regurgitation, mild aortic stenosis, DDD, spondylosis, scoliosis, bulging discs, PE in lungs 15 yrs ago, superficial DVTs, varicosities, mild dementia, [place] bilaterally History of Any Multi-Drug Resistant Organisms: None Reported Past Surgical History: Appendectomy, Heart Catheterization, Joint Replacement, Orthopedic Surgery, Tonsillectomy Additional Past Surgical History / Comment(s): L femur fracture with ORIF, L arm fracture with ORIF plate/screws, bilateral rotator cuff repairs, bilateral feet hammer toe corrections, epidural back injections, bilateral cataract removals with lens implants, colonoscopy Past Anesthesia/Blood Transfusion Reactions: No Reported Reaction Past Psychological History: Depression Smoking Status: Former smoker Past Alcohol Use History: Occasional Past Drug Use History: None Reported - Past Family History Father Family Medical History: Musculoskeletal Disorder, Neurologic Disorder Additional Family Medical History / Comment(s): Parkinson's disease. Mother Family Medical History: Cancer Additional Family Medical History / Comment(s): breast cancer Medications and Allergies Home Medications Medication Instructions Recorded Confirmed Type Furosemide [Lasix] 20 mg PO BID 03/04/15 02/07/22 History Sildenafil [Revatio] 20 mg PO TID 03/04/15 02/07/22 History Escitalopram [Lexapro] 5 mg PO DAILY 10/05/16 02/07/22 History Apixaban [Eliquis] 2.5 mg PO BID 02/18/18 02/07/22 History Memantine [Namenda] 10 mg PO BID 11/10/18 02/07/22 History Donepezil HCl [Aricept] 10 mg PO HS 11/19/19 02/07/22 History atenoloL [Tenormin] 25 mg PO DAILY 12/28/21 02/07/22 History Allergies Allergy/AdvReac Type Severity Reaction Status Date / Time No Known Allergies Allergy Verified 02/07/22 13:45 Physical Exam Vitals: Vital Signs Temp Pulse Resp BP Pulse Ox 02/08/22 07:19 85 17 117/83 98 02/08/22 00:04 73 16 90/58 94 L 02/07/22 23:34 78 16 97/72 95 02/07/22 22:52 75 16 100/66 94 L 02/07/22 21:33 88 16 119/78 88 L 02/07/22 19:24 86 18 105/72 94 L 02/07/22 17:04 75 18 94/66 93 L 02/07/22 12:01 97.5 F L 65 18 94/54 94 L Results CBC & Chem 7: 02/08/22 10:02 02/08/22 10:02 Labs: Abnormal Lab Results - Last 24 Hours (Table) 02/07/22 02/07/22 Range/Units 13:51 13:51 MCHC 30.4 L (31.0-37.0) g/dL Lymphocytes # 0.8 L (1.0-4.8) k/uL Potassium 3.4 L (3.5-5.1) mmol/L Carbon Dioxide 31 H (22-30) mmol/L Glucose 128 H (74-99) mg/dL Total Protein 5.8 L (6.3-8.2) g/dL
[2022-02-08] MEDS: ENOXAPARIN 40 MG/0.4 ML SYRINGE SQ SCH (17:11)
[2022-02-08] MEDS: MORPHINE SULFATE 2 MG/ML SYRINGE IV PRN ×2 (17:14→21:30)
[2022-02-08] MEDS: DONEPEZIL 10 MG TAB PO SCH (21:32)
[2022-02-08] MEDS ORDERED: HYDROmorphone 0.5 MG/0.5 ML SYRINGE IVP STA (22:15)
[2022-02-09] MEDS: SODIUM CHLORIDE 0.9% 1,000 ML IV SCH ×3 (00:07→21:58)
[2022-02-09] MEDS: ACETAMINOPHEN IV (For NPO) 1,000 MG in EMPTY BAG 1 BAG IVPB SCH ×2 (00:08→06:23)
[2022-02-09] MEDS: MORPHINE SULFATE 2 MG/ML SYRINGE IV PRN (04:02)
[2022-02-09] MEDS: FUROSEMIDE 20 MG TAB PO SCH ×2 (09:11→21:46)
[2022-02-09] MEDS: atenoloL 25 MG TAB PO SCH (09:11)
[2022-02-09] MEDS: SILDENAFIL 20 MG TAB PO SCH ×3 (09:12→21:49)
[2022-02-09] MEDS: ESCITALOPRAM 5 MG TAB PO SCH (09:12)
[2022-02-09] MEDS: MEMANTINE 10 MG TAB PO SCH ×2 (09:12→21:50)
--- NOTE | 2022-02-09 12:53 | P.PN ---
Subjective Progress Note Date: 02/09/22 This is an 86-year-old female who follows with Dr. Viola Robledo in the outpatient setting and lives with her spouse at home and was brought here via EMS is apparently patient had slipped and fallen with left hip and leg deformity and admitted under orthopedic services for possible surgical intervention secondary to an acute left intertrochanteric hip fracture. Patient with an extensive past medical history of atrial fibrillation, dementia, hearing disorders with deafness, memory impairment, pulmonary fibrosis, pulmonary hypertension, chronically wears oxygen at home, moderate to severe mitral valve regurgitation with severe tricuspid regurgitation and mild aortic stenosis, degenerative disc disease, scoliosis, history of PE and superficial DVTs with varicose ascites. Per her at the bedside patient's gait is not that study and does use a walker although she left her walker to hold the dinner tray and subsequently tripped and fell. Patient is nonverbal with a dementia history and unable to give much of a history. Son and at the bedside gave most of the history along with the medical record. Risks versus benefits explained to the patient's family and patient is considered moderate to high risk given all her comorbidities although agreeable with surgery as this will ultimately improve her functionality and overall quality of life. Patient is currently nothing by mouth and recommend telemetry monitoring and also recommend to avoid IV narcotics or [employer] agents as patient all agree with a history of dementia and confusion. Have added IV Tylenol until patient is a by mouth status again. Possible plans for surgical intervention in a.m. Patient is currently medically stable for surgical intervention. Given the fall patient underwent CT of the brain which showed no acute intracranial cervical spine abnormality. The left hip shows an acute comminuted displaced intertrochanteric fracture of the left proximal femur, left ankle showed no acute fracture or dislocation, and chest x- ray shows moderate cardiomegaly and COPD dextroconvex scoliosis with no acute process noted. 02/09/2022 Patient is evaluated today resting in bed. She was moaning and agitated throu ghout the night and staff felt her pain was not controlled with 2 mg IV morphine and also IV tylenol. Did give a small 0.25 mg dose of IV dilaudid which staff reports helped some. Would recommend conservative management of pain and avoid IV narcotics if possible due to advanced age. She is currently pending surgical repair for left hip and left deformity. She is afebrile, heart rate 86, blood pressure 111/68, 94% 3 L nasal cannula. She is nonverbal and lethargic. Review Of Systems: Unable to obtain as patient is confused and mostly nonverbal PHYSICAL EXAMINATION: GENERAL: The patient is alert and oriented x1, thin built elderly female, nonverbal HEENT: Pupils are round and equally reacting to light. EOMI. no scleral icterus. No conjunctival pallor. Normocephalic, atraumatic. No pharyngeal erythema. No thyromegaly. CARDIOVASCULAR: S1 and S2 muffled , irregularly irregular PULMONARY: diminished breath sounds bilaterally with no wheezing or rhonchi noted. ABDOMEN: soft. Nontender on exam. Scaphoid. non-distended, normoactive bowel sounds. No palpable organomegaly. MUSCULOSKELETAL: No joint swelling or deformity. EXTREMITIES: No cyanosis, clubbing, or pedal edema. Right lower extremity within normal limits, left lower extremity externally rotated and shortened with some swelling of the left thigh noted NEUROLOGICAL: Gross neurological examination did not reveal any focal deficits. Diffuse weakness SKIN: No rashes. Intact with no breaks in the skin Assessment: Fall resulting in acute left intertrochanteric hip fracture with external rotation and shortening of the left extremity History of atrial fibrillation Dementia Pulmonary fibrosis and pulmonary hypertension history Chronically wears oxygen at home of 3 L secondary to above Moderate to severe mitral valve regurgitation with severe tricuspid regurgitation and mild aortic stenosis history Degenerative disc disease Remote history of PE in the lungs along with DVTs Depression Past medical history of tobacco use quit in 1974 GI prophylaxis DVT prophylaxis Full code Plan: Recommend to continue with current medications and management per orthopedic services. Patient is currently nothing by mouth and scheduled for surgical intervention of the left hip fracture today has been scheduled for 1 pm. R ecommend telemetry monitoring as patient does have history of atrial fibrillation. Patient chronically wears oxygen is currently maintained on 3 L via nasal cannula. Son and spouse at the bedside and risks versus benefits were explained in detail and patient is considered moderate to high risk for surgery given her comorbidities although agreeable with the surgery if family wishes to proceed as this will ultimately help improve her functionality and quality of life. Recommend resuming home medications after surgery and continued telemetry monitoring. Recommend follow-up labs in the a.m. patient with a history of dementia and given her age of 86 years strongly recommend avoiding IV narcotics and [employer] agents and have added IV Tylenol to the medication regimen. We will continue to follow with orthopedics during hospitalization. Thank you for this consultation. The impression and plan of care has been dictated by Jess Benjamin, Nurse Practitioner as directed. Dr. Aimee MD I have performed a history and physical examination and medical decision making of this patient, discussed the same with the dictator, and agree with the dictators assessment and plan as written, documented as a scribe. Based on total visit time, I have performed more than 50% of this visit. Objective - Vital Signs Vital signs: Vital Signs Temp 98.1 F 02/09/22 04:03 Pulse 86 02/09/22 04:03 Resp 18 02/09/22 04:03 BP 111/68 02/09/22 04:03 Pulse Ox 94 L 02/09/22 04:03 FiO2 Intake & Output 02/08/22 02/09/22 02/09/22 18:59 06:59 18:59 Intake Total 525 1040 Output Total 600 Balance 525 440 Weight 56 kg Intake: Intake, IV Titration 525 800 Amount ACETAMINOPHEN IV (For NPO 200 ) 1,000 mg In Empty Bag 1 bag @ 400 mls/hr IVPB Q6HR RIKKI Rx#:[id number] Sodium Chloride 0.9% 1, 525 600 000 ml @ 75 mls/hr IV . [id number] Rx#:[id number] Oral 240 Output: Urine 600 Other: Voiding Method Indwelling Catheter Indwelling Catheter Indwelling Catheter - Labs CBC & Chem 7: 02/08/22 10:02 02/08/22 10:02 Assessment and Plan Time with Patient: Less than 30
[2022-02-09] MEDS ORDERED: LIDOCAINE 2% INJ 20 MG/ML (2 ML VIAL) ONE (13:12)
[2022-02-09] MEDS ORDERED: ETOMIDATE 2 MG/ML 10 ML VIAL ONE (13:12)
[2022-02-09] MEDS ORDERED: SODIUM CHLORIDE 0.9% 1,000 ML IV ONE (13:12)
[2022-02-09] MEDS ORDERED: PHENYLEPHRINE-0.9% NACL SYG 1,000 MCG/10 ML SYRINGE ONE (13:12)
[2022-02-09] MEDS ORDERED: fentaNYL (PF) 50 MCG/ML 2 ML AMP ONE (13:12)
[2022-02-09] MEDS ORDERED: SODIUM CHLORIDE 0.9% 50 ML with ceFAZolin 2,000 MG IV ONE ×2 (13:31)
[2022-02-09] MEDS ORDERED: LACTATED RINGERS 1,000 ML IV ONE (14:01)
[2022-02-09] MEDS ORDERED: HYDROcodone/APAP 5-325MG 1 EACH TAB PO PRN (14:46)
[2022-02-09] MEDS ORDERED: HYDROmorphone 0.5 MG/0.5 ML SYRINGE IVP PRN ×3 (14:46)
--- NOTE | 2022-02-09 14:54 | P.OP ---
Date of Procedure: 02/09/22 Preoperative Diagnosis: 1. Left intertrochanteric hip fracture 2. Advanced dementia 3. Nonverbal 4. History stroke 5. History of fibrillation Postoperative Diagnosis: Same Procedure(s) Performed: Operative fixation of left intertrochanteric hip fracture with short intramedullary hip screw Anesthesia: SHOSHANA Surgeon: Fermin Bourne [employer] Judge #1: Leann Khan Estimated Blood Loss (ml): 30 IV fluids (ml): 500 Urine output (ml): 30 Pathology: none sent Condition: stable Disposition: PACU Indications for Procedure: I met with the patient and their family preoperatively to discuss their injury and treatment options. They have an extra-capsular, intertrochanteric hip fracture and my recommendation was to stabilize the fracture with an intramedullary hip screw to facilitate early mobilization. We discussed the potential risks and complications of this surgical procedure including but certainly not limited to risks from anesthesia, superficial infection, deep infection, fracture nonunion, fracture malunion, hardware failure including broken hardware, varus collapse with lag screw cut out of the femoral head, progression of hip arthritis, limb length discrepancy, symptomatic hardware, need for further surgery including hardware removal and conversion to arthroplasty, DVT, PE, acute coronary event, pressure ulcers, urinary tract infection, failure to thrive, an inability to regain preinjury level of function, and possibly . The patient and their family understand these potential complications and also awknowledge that other less common complications are possible. They provided both their verbal and written consent to go forward with operative fixation of their hip fracture with an intramedullary hip screw. Description of Procedure: The patient was identified in preoperative holding and the correct operative extremity was marked with my initials. I reviewed the consent form with the patient and their family and all of their questions were answered. The patient was then brought back to the operating room by anesthesia. Anesthesia, preoperative antibiotics, and tranexamic acid were given by the anesthesia team while on the [facility]. Both ankles were padded with webril and boots for the [place] table were applied. The patient was then carefully transferred onto the [place] table. A perineal post was immediately placed. The contralateral arm was secured on a well-padded arm gonzalez. The ipsilateral arm was draped across the chest and secured with a pillow, foam, and paper tape to allow access to the proximal femur. Nonsterile drapes were applied to the operative extremity. The height of the table was elevated and the contralateral extremity was dropped towards the floor to facilitate imaging. A timeout was performed identifying the correct patient, operative extremity, and procedure. Fluoroscopy was brought in to assess the fracture. A provisional reduction was performed using longitudinal traction, adduction, and internal rotation. An AP and lateral view were obtained to assess the reduction. The operative extremity was then prepped and draped in the standard sterile fashion. A straight incision was made at the tip of the greater trochanter and extended proximally for 3 cm. Skin and subcutaneous tissues were incised sharply. The underlying fascia was incised in line with the skin incision. An awl was pl aced just medial to the tip of the greater trochanter on the AP view and colinear with the canal on the lateral view. A 3.2 mm guide pin was then advanced into the proximal femur. The position of the guidepin was verified with fluoroscopy. An opening reamer and soft tissue cannula were placed over the guidepin and used to open the proximal femur to the level of the lesser trochanter. The 3.2 mm guide pin and opening reamer were removed. A short gamma nail was dispensed, hooked up to the targeting arm and I verified that the trochar through the targeting arm lined up with the slots on the nail. The nail was then impacted into the proximal femur until the appropriate depth had been reached. A small stab incision was made over the lateral aspect of the femur using the targeting arm as a reference for the lag screw. Incision was carried down to the skin and fascia down to the lateral cortex of the femur. The trocar was then placed up to the lateral cortex of the femur and a guidepin was placed in the low center position on the AP view and centered in the femoral head on the lateral view. Once the position of the guidewire was verified, we reamed to appropriate depth and placed a lag screw over the guidewire and into the femoral head. The position of the lag screw was assessed with fluoroscopy. The guidewire was then removed from the femoral head. The set screw was placed proximally, brought fully down and then released a quarter turn to allow compression. A final stab incision was made over the lateral femur at the site of the distal interlocking screw, again using the targeting arm as a reference. The trocar and sleeve were placed to the lateral cortex of the femur. We then drilled and placed a distal interlocking screw. Final fluoroscopic images were taken showing excellent reduction of the fracture and appropriate position of the implants. All wounds were thoroughly irrigated and closed in layers. Sterile dressings were applied. The drapes were taken down, the patient was transferred off the [place] table, and was brought to recovery having tolerated the procedure well. Leann Khan PA-C was required as a skilled licensed sales assistant for patient positioning, retraction, placement of implants, closure of wounds, and application of dressings. PLAN: The patient can weight-bear as tolerated on their operative extremity. 2 doses of postoperative antibiotics. Ok to resume Eliquis for DVT prophylaxis. Dressing change on postoperative day #2. Appreciate Internal Medical assistance with perioperative medical management. Discharge planning in process.
--- NOTE | 2022-02-09 15:32 | XR ---
EXAMINATION TYPE: XR Hip Complete LT, FL guidance operating room DATE OF EXAM: 02/09/2022 COMPARISON: NONE HISTORY: 86 year-old female left hip gamma nail FINDINGS: Imaging during placement of gamma nail and screw fixation across the patient's left-sided proximal fe mur intertrochanteric fracture. FLUOROSCOPY Fluoroscopy time of 1 minute 32 seconds was used during left IT fracture fixation. 7 image/s documen t/s the procedure. IMPRESSION: Intraoperative fluoroscopy as above.
[2022-02-09 17:13] LABS: Basophils % (A) 0 %; Eosinophils % (A) 0 %; HCT 30.3 % (34.0-46.0); HGB 9.4 gm/dL (11.4-16.0); Hypochromasia Marked; Lymphocytes # (A) 0.7 k/uL (1.0-4.8); Lymphocytes % (A) 11 %; MCHC 31.1 g/dL (31.0-37.0); MCV 99.8 fL (80.0-100.0); Macrocytosis Slight; Mean Platelet Volume 8.2; Monocytes # (A) 0.5 k/uL (0-1.0); Monocytes % (A) 8 %; Neutrophils # (A) 5.5 k/uL (1.3-7.7); Neutrophils % (A) 79 %; Platelet Count 190 k/uL (150-450); RBC 3.03 m/uL (3.80-5.40); RDW 14.2 % (11.5-15.5)
[2022-02-09] MEDS: HYDROcodone/APAP 5-325MG 1 EACH TAB PO PRN (21:49)
[2022-02-09] MEDS: DONEPEZIL 10 MG TAB PO SCH (21:49)
[2022-02-09] MEDS: APIXABAN 2.5 MG TABLET PO SCH (21:49)
[2022-02-09] MEDS: SENNOSIDES-DOCUSATE SODIUM 1 EACH TAB PO SCH (21:49)
[2022-02-10] MEDS: HYDROcodone/APAP 5-325MG 1 EACH TAB PO PRN ×2 (05:39→21:38)
[2022-02-10] MEDS: SILDENAFIL 20 MG TAB PO SCH ×3 (08:56→21:38)
[2022-02-10] MEDS: MEMANTINE 10 MG TAB PO SCH ×2 (08:56→21:38)
[2022-02-10] MEDS: ESCITALOPRAM 5 MG TAB PO SCH (08:56)
[2022-02-10] MEDS: atenoloL 25 MG TAB PO SCH (08:56)
[2022-02-10] MEDS: APIXABAN 2.5 MG TABLET PO SCH ×2 (08:56→21:38)
[2022-02-10] MEDS: SODIUM CHLORIDE 0.9% 1,000 ML IV SCH (08:56)
[2022-02-10] MEDS: FUROSEMIDE 20 MG TAB PO SCH ×2 (09:06→18:15)
[2022-02-10 09:22] LABS: Basophils # (A) 0.02 X 10*3/uL (0.00-0.10); Basophils % (A) 0.2 %; Eosinophils # (A) 0.01 X 10*3/uL (0.04-0.35); Eosinophils % (A) 0.1 %; HCT 27.9 % (37.2-46.3); HGB 8.5 g/dL (12.0-15.0); Immature Grans, Automated 0.2 %; Lymphocytes # (A) 0.58 X 10*3/uL (0.90-5.00); Lymphocytes % (A) 6.7 %; MCH 30.4 pg (27.0-32.0); MCHC 30.5 g/dL (32.0-37.0); MCV 99.6 fL (80.0-97.0); Monocytes # (A) 0.75 X 10*3/uL (0.20-1.00); Monocytes % (A) 8.6 %; NRBC Per 100 WBC 0 /100 WBCS (0.0-0.0); Neutrophils # (A) 7.32 X 10*3/uL (1.80-7.70); Neutrophils % (A) 84.2 %; Platelet Count 202 X 10*3/uL (140-440); RDW 15.4 % (11.5-14.5)
--- NOTE | 2022-02-10 09:24 | P.PN ---
Subjective Progress Note Date: 02/10/22 No acute events overnight. The patient appears comfortable this morning. Objective - Vital Signs Vital signs: Vital Signs Temp 98.1 F 02/10/22 05:00 Pulse 86 02/10/22 05:00 Resp 16 02/10/22 05:00 BP 102/64 02/10/22 05:00 Pulse Ox 91 L 02/10/22 05:00 FiO2 Intake & Output 02/09/22 02/10/22 02/10/22 18:59 06:59 18:59 Intake Total 1030 1480 Output Total 560 450 Balance 470 1030 Intake: IV 550 Intake, IV Titration 480 1000 Amount Sodium Chloride 0.9% 1, 480 900 000 ml @ 75 mls/hr IV . [id number] RIKKI Rx#:[id number] ceFAZolin 2 gm In Sodium 100 Chloride 0.9% 50 ml @ 100 mls/hr IVPB Q8H RIKKI Rx#: [id number] Oral 480 Output: Urine 530 450 Stool 0 0 Estimated Blood Loss 30 Other: Voiding Method Indwelling Catheter Indwelling Catheter # Bowel Movements 0 - Exam The patient is resting comfortably in her bed. She suffers from severe dementia and is nonverbal at baseline. Her dressings over the left hip are intact. Her thigh is soft. She is moving her ankle and her toes on the left side. - Labs CBC & Chem 7: 02/09/22 16:55 02/08/22 10:02 Labs: Abnormal Lab Results - Last 24 Hours (Table) 02/09/22 Range/Units 16:55 RBC 3.03 L (3.80-5.40) m/uL Hgb 9.4 L (11.4-16.0) gm/dL Hct 30.3 L (34.0-46.0) % Lymphocytes # 0.7 L (1.0-4.8) k/uL Assessment and Plan Assessment: Postoperative day #1 status post short intramedullary hip screw for displaced intertrochanteric hip fracture Multiple medical comorbidities Advanced dementia Plan: 1. Weight as tolerated left lower extremity 2. Mobilize out of bed to chair, up with assistance and a walker 3. We'll defer DVT prophylaxis to internal medicine 4. Discharge planning in process Time with Patient: Less than 30
[2022-02-10 10:09] LABS: African American GFR (CKD) 79.8 (60.0-200.0); Anion Gap 9.1 mmol/L (10.00-18.00); BUN/Creat Ratio 22.44 Ratio (12.00-20.00); Blood Urea Nitrogen 17.3 mg/dL (9.0-27.0); Calcium 8.7 mg/dL (8.7-10.3); Carbon Dioxide 29.1 mmol/L (20.0-27.5); Non-African American GFR(CKD) 68.8 (60.0-200.0); Potassium 3.6 mmol/L (3.5-5.5)
[2022-02-10] MEDS: DEXTROSE 5% IN WATER 1,000 ML IV SCH (11:24)
--- NOTE | 2022-02-10 14:54 | P.PN ---
Subjective Progress Note Date: 02/10/22 This is an 86-year-old female who follows with Dr. Viola Robledo in the outpatient setting and lives with her spouse at home and was brought here via EMS is apparently patient had slipped and fallen with left hip and leg deformity and admitted under orthopedic services for possible surgical intervention secondary to an acute left intertrochanteric hip fracture. Patient with an extensive past medical history of atrial fibrillation, dementia, hearing disorders with deafness, memory impairment, pulmonary fibrosis, pulmonary hypertension, chronically wears oxygen at home, moderate to severe mitral valve regurgitation with severe tricuspid regurgitation and mild aortic stenosis, degenerative disc disease, scoliosis, history of PE and superficial DVTs with varicose ascites. Per her at the bedside patient's gait is not that study and does use a walker although she left her walker to hold the dinner tray and subsequently tripped and fell. Patient is nonverbal with a dementia history and unable to give much of a history. Son and at the bedside gave most of the history along with the medical record. Risks versus benefits explained to the patient's family and patient is considered moderate to high risk given all her comorbidities although agreeable with surgery as this will ultimately improve her functionality and overall quality of life. Patient is currently nothing by mouth and recommend telemetry monitoring and also recommend to avoid IV narcotics or MACHINE GUN MECHANIC agents as patient all agree with a history of dementia and confusion. Have added IV Tylenol until patient is a by mouth status again. Possible plans for surgical intervention in a.m. Patient is currently medically stable for surgical intervention. Given the fall patient underwent CT of the brain which showed no acute intracranial cervical spine abnormality. The left hip shows an acute comminuted displaced intertrochanteric fracture of the left proximal femur, left ankle showed no acute fracture or dislocation, and chest x- ray shows moderate cardiomegaly and COPD dextroconvex scoliosis with no acute process noted. 02/09/2022 Patient is evaluated today resting in bed. She was moaning and agitated throu ghout the night and staff felt her pain was not controlled with 2 mg IV morphine and also IV tylenol. Did give a small 0.25 mg dose of IV dilaudid which staff reports helped some. Would recommend conservative management of pain and avoid IV narcotics if possible due to advanced age. She is currently pending surgical repair for left hip and left deformity. She is afebrile, heart rate 86, blood pressure 111/68, 94% 3 L nasal cannula. She is nonverbal and lethargic. 02/10/2022 Patient evaluated today resting in bed. She is more awake than yesterday. She is postoperative day #1 surgical repair of left hip fracture with short intramedullary nailing. She continues to be nonverbal. She is in bed resting with indwelling catheter in place. Recommend to limit the use of narcotics for pain management given age and history of dementa. She will see PT/OT tomorrow. She had some clear liquid diet today. Labs today showing white count 8.70, hgb 8.5, sodium 153. Normal saline was discontinued and patient started on D5. Creatinine stable. Heart rate has improved currently 85. 99% on 2L nasal cannula. Review Of Systems: Unable to obtain as patient is confused and mostly nonverbal PHYSICAL EXAMINATION: GENERAL: The patient is alert and oriented x1, thin built elderly female, nonverbal HEENT: Pupils are round and equally reacting to light. EOMI. no scleral icterus. No conjunctival pallor. Normocephalic, atraumatic. No pharyngeal erythema. No thyromegaly. CARDIOVASCULAR: S1 and S2 muffled , irregularly irregular PULMONARY: diminished breath sounds bilaterally with no wheezing or rhonchi noted. ABDOMEN: soft. Nontender on exam. Scaphoid. non-distended, normoactive bowel sounds. No palpable organomegaly. MUSCULOSKELETAL: No joint swelling or deformity. EXTREMITIES: No cyanosis, clubbing, or pedal edema. Right lower extremity within normal limits some swelling of left thigh noted. Post surgical dressing intact. NEUROLOGICAL: Gross neurological examination did not reveal any focal deficits. Diffuse weakness SKIN: No rashes. Intact with no breaks in the skin Assessment: Fall resulting in acute left intertrochanteric hip fracture with external rotation and shortening of the left extremity Post operative day #1 surgical repair of left hip fracture with intramedullary nailing. History of atrial fibrillation currently rate controlled Dementia Pulmonary fibrosis and pulmonary hypertension history Chronically wears oxygen at home of 3 L secondary to above Moderate to severe mitral valve regurgitation with severe tricuspid regurgitation and mild aortic stenosis history Degenerative disc disease Remote history of PE in the lungs along with DVTs Depression Past medical history of tobacco use quit in 1974 GI prophylaxis DVT prophylaxis resumed on eliquis postoperatively Full code Plan: Recommend to continue with current medications and management per orthopedic services. Patient is postoperative surgical repair of left hip fracture. PT/OT will evaluate the patient tomorrow. Recommend telemetry monitoring as patient does have history of atrial fibrillation heart rate is currently controlled. Patient chronically wears oxygen is currently maintained on 3 L via nasal cannula. IV fluids have been changed to D5 as patient became hypernatremic on normal saline. Repeat labs tomorrow. She has been resumed on eliquis. Continue with pain management and encourage diet and incentive spirometer use. Recommend follow-up labs in the a.m. patient with a history of dementia and given her age of 86 years strongly recommend avoiding IV narcotics and MACHINE GUN MECHANIC agents and have added IV Tylenol to the medication regimen. We will continue to follow with orthopedics during hospitalization. Thank you for this consultation. The impression and plan of care has been dictated by Jess Benjamin, Nurse Practitioner as directed. Dr. Aimee MD I have performed a history and physical examination and medical decision making of this patient, discussed the same with the dictator, and agree with the dictators assessment and plan as written, documented as a scribe. Based on total visit time, I have performed more than 50% of this visit. Objective - Vital Signs Vital signs: Vital Signs Temp 98.3 F 02/10/22 12:58 Pulse 85 02/10/22 12:58 Resp 16 02/10/22 12:58 BP 132/82 02/10/22 12:58 Pulse Ox 99 02/10/22 12:58 FiO2 Intake & Output 02/09/22 02/10/22 02/10/22 18:59 06:59 18:59 Intake Total 1030 1480 Output Total 560 450 Balance 470 1030 Intake: IV 550 Intake, IV Titration 480 1000 Amount Sodium Chloride 0.9% 1, 480 900 000 ml @ 75 mls/hr IV . [id number] RIKKI Rx#:[id number] ceFAZolin 2 gm In Sodium 100 Chloride 0.9% 50 ml @ 100 mls/hr IVPB Q8H RIKKI Rx#: [id number] Oral 480 Output: Urine 530 450 Stool 0 0 Estimated Blood Loss 30 Other: Voiding Method Indwelling Catheter Indwelling Catheter Indwelling Catheter # Bowel Movements 0 - Labs CBC & Chem 7: 02/10/22 05:12 02/10/22 05:12 Labs: Abnormal Lab Results - Last 24 Hours (Table) 02/09/22 02/10/22 02/10/22 Range/Units 16:55 05:12 05:12 RBC 3.03 L 2.80 L (3.80-5.40) m/uL Hgb 9.4 L 8.5 L (11.4-16.0) gm/dL Hct 30.3 L 27.9 L (34.0-46.0) % MCV 99.6 H (80.0-97.0) fL MCHC 30.5 L (32.0-37.0) g/dL RDW 15.4 H (11.5-14.5) % Lymphocytes # 0.7 L 0.58 L (1.0-4.8) k/uL Eosinophils # 0.01 L (0.04-0.35) X 10*3/uL Sodium 153 H (135-145) mmol/L Chloride 114 H (96-109) mmol/L Carbon Dioxide 29.1 H (20.0-27.5) mmol/L Anion Gap 9.10 L (10.00-18.00) mmol/L BUN/Creatinine Ratio 22.44 H (12.00-20.00) Ratio Glucose 121 H (70-110) mg/dL Assessment and Plan Time with Patient: Less than 30
[2022-02-10] MEDS: DONEPEZIL 10 MG TAB PO SCH (21:38)
[2022-02-10] MEDS: SENNOSIDES-DOCUSATE SODIUM 1 EACH TAB PO SCH (21:38)
[2022-02-11] MEDS: HYDROcodone/APAP 5-325MG 1 EACH TAB PO PRN ×2 (09:02→20:41)
[2022-02-11] MEDS: SILDENAFIL 20 MG TAB PO SCH ×3 (09:03→20:42)
[2022-02-11] MEDS: APIXABAN 2.5 MG TABLET PO SCH ×2 (09:03→20:42)
[2022-02-11] MEDS: FUROSEMIDE 20 MG TAB PO SCH (09:03)
[2022-02-11] MEDS: atenoloL 25 MG TAB PO SCH (09:03)
[2022-02-11] MEDS: ESCITALOPRAM 5 MG TAB PO SCH (09:03)
[2022-02-11] MEDS: MEMANTINE 10 MG TAB PO SCH ×2 (09:04→20:41)
[2022-02-11] MEDS: DEXTROSE 5% IN WATER 1,000 ML IV SCH (09:11)
[2022-02-11 09:34] LABS: African American GFR (CKD) 89.7 (60.0-200.0); Anion Gap 5.8 mmol/L (10.00-18.00); BUN/Creat Ratio 17.57 Ratio (12.00-20.00); Blood Urea Nitrogen 12.3 mg/dL (9.0-27.0); Calcium 8.3 mg/dL (8.7-10.3); Carbon Dioxide 32.2 mmol/L (20.0-27.5); Non-African American GFR(CKD) 77.4 (60.0-200.0); Potassium 3.3 mmol/L (3.5-5.5)
--- NOTE | 2022-02-11 12:39 | P.PN ---
Subjective Progress Note Date: 02/11/22 This patient is an 86-year-old female who is status-post short intramedullary hip screw for displaced intertrochanteric hip fracture on 02/09/22. Today is post-operative day #2. Patient is examined bedside. She is nonverbal, she does not appear in pain at this time. She has not yet been up with physical therapy. Per nursing, no acute events overnight. Vital signs stable. Objective - Vital Signs Vital signs: Vital Signs Temp 97.8 F 02/11/22 11:51 Pulse 81 02/11/22 11:51 Resp 15 02/11/22 11:51 BP 90/59 02/11/22 11:51 Pulse Ox 99 02/11/22 11:51 FiO2 Intake & Output 02/10/22 02/11/22 02/11/22 18:59 06:59 18:59 Output Total 600 200 Balance -600 -200 Output: Urine 600 200 Other: Voiding Method Indwelling Catheter External Catheter External Catheter # Bowel Movements 0 - Exam On examination, patient is lying in bed in no apparent distress. She is nonverbal. On inspection of the left hip, there are clean, dry, intact surgical dressings in place. No bleeding or drainage through the dressings. There is mild swelling of the thigh, the thigh is soft and compressible. Patient is able to move ankle and toes appropriately. Left lower extremity warm and well perfused. - Labs CBC & Chem 7: 02/10/22 05:12 02/11/22 04:56 Labs: Abnormal Lab Results - Last 24 Hours (Table) 02/11/22 Range/Units 04:56 Sodium 150 H (135-145) mmol/L Potassium 3.3 L (3.5-5.5) mmol/L Chloride 112 H (96-109) mmol/L Carbon Dioxide 32.2 H (20.0-27.5) mmol/L Anion Gap 5.80 L (10.00-18.00) mmol/L Glucose 115 H (70-110) mg/dL Calcium 8.3 L (8.7-10.3) mg/dL Assessment and Plan Assessment: Status-post short intramedullary hip screw for displaced intertrochanteric hip fracture on 02/09/22. Post-operative day #2. Plan: - Weight-bear to tolerance on operative extremity with a walker. Up with assistance. Fall precautions. - Physical therapy to increase mobilization. - Keep operative dressings intact. - Pain management as needed. - DVT prophylaxis with Eliquis. - Internal medicine for mary-operative medical management. - Anticipate discharge to rehab.
[2022-02-11 15:15] LABS: Basophils % (A) 0 %; Eosinophils # (A) 0.1 k/uL (0-0.7); Eosinophils % (A) 1 %; HCT 27.4 % (34.0-46.0); HGB 8.5 gm/dL (11.4-16.0); Hypochromasia Marked; Lymphocytes # (A) 0.7 k/uL (1.0-4.8); Lymphocytes % (A) 11 %; MCH 31.3 pg (25.0-35.0); MCHC 31.1 g/dL (31.0-37.0); MCV 100.6 fL (80.0-100.0); Macrocytosis Slight; Mean Platelet Volume 8.4; Monocytes # (A) 0.5 k/uL (0-1.0); Monocytes % (A) 7 %; Neutrophils % (A) 78 %; Platelet Count 243 k/uL (150-450); RBC 2.72 m/uL (3.80-5.40); RDW 14.7 % (11.5-15.5); WBC 6.3 k/uL (3.8-10.6)
[2022-02-11] MEDS: ACETAMINOPHEN IV (For NPO) 1,000 MG in EMPTY BAG 1 BAG IVPB SCH ×2 (17:01→23:49)
[2022-02-11] MEDS: DONEPEZIL 10 MG TAB PO SCH (20:41)
[2022-02-11] MEDS: SENNOSIDES-DOCUSATE SODIUM 1 EACH TAB PO SCH (20:42)
[2022-02-11] MEDS ORDERED: Potassium Replacement Protocol 1 EACH MISC MISCELLANE PRN (23:45)
--- NOTE | 2022-02-12 00:07 | P.PN ---
Subjective Progress Note Date: 02/11/22 This is an 86-year-old female who follows with Dr. Viola Robledo in the outpatient setting and lives with her spouse at home and was brought here via EMS is apparently patient had slipped and fallen with left hip and leg deformity and admitted under orthopedic services for possible surgical intervention secondary to an acute left intertrochanteric hip fracture. Patient with an extensive past medical history of atrial fibrillation, dementia, hearing disorders with deafness, memory impairment, pulmonary fibrosis, pulmonary hypertension, chronically wears oxygen at home, moderate to severe mitral valve regurgitation with severe tricuspid regurgitation and mild aortic stenosis, degenerative disc disease, scoliosis, history of PE and superficial DVTs with varicose ascites. Per her at the bedside patient's gait is not that study and does use a walker although she left her walker to hold the dinner tray and subsequently tripped and fell. Patient is nonverbal with a dementia history and unable to give much of a history. Son and at the bedside gave most of the history along with the medical record. Risks versus benefits explained to the patient's family and patient is considered moderate to high risk given all her comorbidities although agreeable with surgery as this will ultimately improve her functionality and overall quality of life. Patient is currently nothing by mouth and recommend telemetry monitoring and also recommend to avoid IV narcotics or SHANK TURNER agents as patient all agree with a history of dementia and confusion. Have added IV Tylenol until patient is a by mouth status again. Possible plans for surgical intervention in a.m. Patient is currently medically stable for surgical intervention. Given the fall patient underwent CT of the brain which showed no acute intracranial cervical spine abnormality. The left hip shows an acute comminuted displaced intertrochanteric fracture of the left proximal femur, left ankle showed no acute fracture or dislocation, and chest x- ray shows moderate cardiomegaly and COPD dextroconvex scoliosis with no acute process noted. 02/09/2022 Patient is evaluated today resting in bed. She was moaning and agitated throu ghout the night and staff felt her pain was not controlled with 2 mg IV morphine and also IV tylenol. Did give a small 0.25 mg dose of IV dilaudid which staff reports helped some. Would recommend conservative management of pain and avoid IV narcotics if possible due to advanced age. She is currently pending surgical repair for left hip and left deformity. She is afebrile, heart rate 86, blood pressure 111/68, 94% 3 L nasal cannula. She is nonverbal and lethargic. 02/10/2022 Patient evaluated today resting in bed. She is more awake than yesterday. She is postoperative day #1 surgical repair of left hip fracture with short intramedullary nailing. She continues to be nonverbal. She is in bed resting with indwelling catheter in place. Recommend to limit the use of narcotics for pain management given age and history of dementa. She will see PT/OT tomorrow. She had some clear liquid diet today. Labs today showing white count 8.70, hgb 8.5, sodium 153. Normal saline was discontinued and patient started on D5. Creatinine stable. Heart rate has improved currently 85. 99% on 2L nasal cannula. 02/11/2022 Patient is seen this morning and is post op of the left hip and admitted under orthopedic services working on discharge planning to [facility]. PT consulted for today and awaiting evaluation. Patient is lethargic and minimally arousable at times. Patient is receiving oral narcotics and strongly recommend holding these and will re-add IV tylenol. Patient with unchewed food in her mouth on exam and sleeping and extremely high risk for aspiration. Recommend NPO and will consult speech. Potassium is 3.3 today and will replace per IV. Recommend aspiration precautions. Sodium is also elevated at 150 and will continue Review Of Systems: Unable to obtain as patient is confused and mostly nonverbal PHYSICAL EXAMINATION: GENERAL: The patient is alert and oriented x1, thin built elderly female, nonverbal HEENT: Pupils are round and equally reacting to light. EOMI. no scleral icterus. No conjunctival pallor. Normocephalic, atraumatic. No pharyngeal erythema. No thyromegaly. CARDIOVASCULAR: S1 and S2 muffled , irregularly irregular PULMONARY: diminished breath sounds bilaterally with no wheezing or rhonchi noted. ABDOMEN: soft. Nontender on exam. Scaphoid. non-distended, normoactive bowel sounds. No palpable organomegaly. MUSCULOSKELETAL: No joint swelling or deformity. EXTREMITIES: No cyanosis, clubbing, or pedal edema. Right lower extremity within normal limits some swelling of left thigh noted. Post surgical dressing intact. NEUROLOGICAL: Gross neurological examination did not reveal any focal deficits. Diffuse weakness SKIN: No rashes. Intact with no breaks in the skin Assessment: Fall resulting in acute left intertrochanteric hip fracture with external rotation and shortening of the left extremity Hypernatremia hypokalemia Post operative day #2 surgical repair of left hip fracture with intramedullary nailing. History of atrial fibrillation currently rate controlled Dementia Pulmonary fibrosis and pulmonary hypertension history Chronically wears oxygen at home of 3 L secondary to above Moderate to severe mitral valve regurgitation with severe tricuspid regurgitation and mild aortic stenosis history Degenerative disc disease Remote history of PE in the lungs along with DVTs Depression Past medical history of tobacco use quit in 1974 GI prophylaxis DVT prophylaxis resumed on eliquis postoperatively Full code Plan: Recommend to continue with current medications and management per orthopedic services. Patient is postoperative surgical repair of left hip fracture. PT/OT will evaluate the patient today. Recommend telemetry monitoring as patient does have history of atrial fibrillation heart rate is currently controlled. Patient chronically wears oxygen is currently maintained on 3 L via nasal cannula. IV fluids have been changed to D5 as patient became hypernatremic on normal saline and sodium is up to 150 today. Will dc lasix and repeat labs tomorrow. Replace potassium per protocol. She has been resumed on eliquis. Continue with pain management although strongly recommend against narcotics and encourage incentive spirometer use. Will make patient NPO and consult speech for eval as patient is high risk for aspiration. Recommend aspiration precautions. Recommend rehab and case management to follow. We will continue to follow with orthopedics during hospitalization. Thank you for this consultation. The impression and plan of care has been dictated by Zoë Goodwin, Nurse Practitioner as directed. Dr. Aimee MD I have performed a history and examination and MDM of this patient, discussed the same with the dictator, and agree with the dictator's assessment and plan as written ,documented as a scribe. Based on total visit time, I have performed more than 50% of the visit. Objective - Vital Signs Vital signs: Vital Signs Temp 97.6 F 02/11/22 04:13 Pulse 89 02/11/22 04:13 Resp 14 02/11/22 04:13 BP 96/60 02/11/22 04:13 Pulse Ox 92 L 02/11/22 04:13 FiO2 Intake & Output 02/10/22 02/11/22 02/11/22 18:59 06:59 18:59 Output Total 600 200 Balance -600 -200 Output: Urine 600 200 Other: Voiding Method Indwelling Catheter External Catheter # Bowel Movements 0 - Labs CBC & Chem 7: 02/11/22 14:58 02/11/22 04:56 Labs: Abnormal Lab Results - Last 24 Hours (Table) 02/11/22 Range/Units 04:56 Sodium 150 H (135-145) mmol/L Potassium 3.3 L (3.5-5.5) mmol/L Chloride 112 H (96-109) mmol/L Carbon Dioxide 32.2 H (20.0-27.5) mmol/L Anion Gap 5.80 L (10.00-18.00) mmol/L Glucose 115 H (70-110) mg/dL Calcium 8.3 L (8.7-10.3) mg/dL
[2022-02-12] MEDS: POTASSIUM CHLORIDE 10 MEQ in WATER FOR INJECTION 1 100ML.BAG IVPB SCH ×4 (00:26→03:27)
[2022-02-12] MEDS: DEXTROSE 5% IN WATER 1,000 ML IV SCH (03:26)
[2022-02-12] MEDS: ACETAMINOPHEN IV (For NPO) 1,000 MG in EMPTY BAG 1 BAG IVPB SCH ×2 (05:13→11:53)
[2022-02-12 05:51] LABS: African American GFR (CKD) >90 (>60 ml/min/1.73 sqM); Anion Gap 6 mmol/L; Blood Urea Nitrogen 11 mg/dL (7-17); Calcium 8.3 mg/dL (8.4-10.2); Carbon Dioxide 30 mmol/L (22-30); Chloride 101 mmol/L (98-107); Glucose 94 mg/dL (74-99); Non-African American GFR(CKD) 82 (>60 ml/min/1.73 sqM); Sodium 137 mmol/L (137-145)
--- NOTE | 2022-02-12 09:21 | P.PN ---
Subjective Progress Note Date: 02/12/22 This patient is an 86-year-old female who is status-post short intramedullary hip screw for displaced intertrochanteric hip fracture on 02/09/22. Today is post-operative day #3. Patient is examined bedside. She is nonverbal, she does not appear in pain at this time. Speech therapy has been consulted for a swallow eval, there is concern for aspiration. Vital signs stable. Objective - Vital Signs Vital signs: Vital Signs Temp 97.7 F 02/12/22 07:18 Pulse 87 02/12/22 07:18 Resp 16 02/12/22 07:18 BP 120/79 02/12/22 07:18 Pulse Ox 99 02/12/22 04:30 FiO2 Intake & Output 02/11/22 02/12/22 02/12/22 18:59 06:59 18:59 Intake Total 600 Output Total 300 0 Balance 300 0 Intake: Intake, IV Titration 600 Amount Dextrose 5% in Water 1, 600 000 ml @ 50 mls/hr IV . Q20H [facility] Rx#:[id number] Output: Urine 300 Stool 0 Other: Voiding Method External Catheter External Catheter Diaper Incontinent # Voids 1 2 - Exam On examination, patient is lying in bed in no apparent distress. She is nonv erbal. On inspection of the left hip, there are clean, dry, intact surgical dressings in place. No bleeding or drainage through the dressings. There is mild swelling of the thigh, the thigh is soft and compressible. Patient is able to move ankle and toes appropriately. Left lower extremity warm and well perfused. - Labs CBC & Chem 7: 02/11/22 14:58 02/12/22 04:51 Labs: Abnormal Lab Results - Last 24 Hours (Table) 02/11/22 02/11/22 02/12/22 Range/Units 04:56 14:58 04:51 RBC 2.72 L (3.80-5.40) m/uL Hgb 8.5 L (11.4-16.0) gm/dL Hct 27.4 L (34.0-46.0) % MCV 100.6 H (80.0-100.0) fL Lymphocytes # 0.7 L (1.0-4.8) k/uL Sodium 150 H (135-145) mmol/L Potassium 3.3 L (3.5-5.5) mmol/L Chloride 112 H (96-109) mmol/L Carbon Dioxide 32.2 H (20.0-27.5) mmol/L Anion Gap 5.80 L (10.00-18.00) mmol/L Glucose 115 H (70-110) mg/dL Calcium 8.3 L 8.3 L (8.7-10.3) mg/dL Assessment and Plan Assessment: Status-post short intramedullary hip screw for displaced intertrochanteric hip fracture on 02/09/22. Post-operative day #3. Plan: - Weight-bear to tolerance on operative extremity with a walker. Up with assistance. Fall precautions. - Physical therapy to increase mobilization. - Keep operative dressings intact. - Pain management as needed. - DVT prophylaxis with Eliquis. - Internal medicine for mary-operative medical management. - Anticipate discharge to rehab when medically cleared.
--- NOTE | 2022-02-12 09:42 | CDI ---
Documentation Clarification Form Date: 02/12/2022 09:25:52 AM From: Martha Kenney CCS, CCDS Admit Date: 02/07/2022 04:46:00 PM Patient Name: Jewels Jackson Visit Number: [id number] Discharge Date: ATTENTION: The Clinical Documentation Specialists (CDI) and [facility] Coding Staff appreciate your assistance in clarifying documentation. Please respond to the clarification below the line at the bottom and electronically sign. The CDI & [facility] Coding staff will review the response and follow-up if needed. Please note: Queries are made part of the Legal Health Record. If you have any questions, please contact the author of this message via ITS. Dr. Dread Yu: Per the 02/07 ED Note, the patient is nonverbal from a prior stroke. Per the 02/08 Medical Management Consult, the 02/08 Orthopedic H/P and subsequent Progress notes, the patient is confused and has a history of dementia. Recommend to avoid IV narcotics or UTILITY MECHANIC agents as patient has history of dementia and confusion and advanced age. Additional clarification regarding the patient's confusion is requested. History/Risk Factors per the 02/08 History & Physical: CVA, nonverbal; Atrial Fibrillation on Eliquis, Pulmonary Fibrosis on Home O2, Dementia, Hearing Disorder: [place] bilaterally, Memory Impairment, Pneumonia, Moderate to Severe Mitral Valve Regurgitation, Severe Tricuspid Regurgitation, Mild Aortic Stenosis, DDD, Spondylosis, Scoliosis, Bulging Discs, PE, Superficial DVTs, Varicosities, Depression, Former smoker. Clinical Indicators: Presented to the ED on 02/07 after a fall at home, tripped over furniture, had obvious shortening and external rotation of the left leg & swelling of the left ankle. No LOC. Admit with Left Intertrochanteric Femur Fracture. 02/09 Procedure: ORIF Left Intertrochanteric Hip Fracture with Short IM Hip Screw under general anesthesia. 02/07 VS: T 97.5, P 65, R 18, BP 94/54, PO 94 RA. 02/10 VS: T 98.3, P 85, R 16, BP 132/82, PO 91 - 99 2Lnc 02/07 LAB: WBC 6.5, Hgb 12.1, Neut 5.1, Lymph 0.8; K 3.4, CO2 31, Glucose 128, Total protein 5.8 02/10: WBC 8.70, Hgb 8.5, Hct 27.9, Neut 7.32, Lymph 0.58; Na 153, K 3.6, Chloride 114, CO2 29.1, Anion Gap 9.10, BUN/Cr Ratio 22.44, Glucose 121 02/07 CT Head: No acute intracranial or cervical spine abnormality. Treatment 02/07: Telemetry, O2 2Lnc, IV Dilaudid 0.5 mg x1, po K-Dur 10 meq x1, po Tylenol 650 mg q6H/prn, IV Morphine 4 mg q4H/prn, IV Zofran 4 mg q8H/prn, IV Na Chl 1,000 mls @ 75 mls/hr q13H, po Aricept 10 mg claudia, po Namenda 10 mg BID claudia Please clarify the cause of the patient's confusion if known and specify if Present on Admission: [ ] Metabolic Encephalopathy [ x] Toxic Encephalopathy [ ] Other Encephalopathy, please specify: [ ] Other cause of confusion, please specify [ ] Unable to determine (Template Last Revised: July 2020) MTDD
[2022-02-12] MEDS: MEMANTINE 10 MG TAB PO SCH ×2 (09:56→20:35)
[2022-02-12] MEDS: ESCITALOPRAM 5 MG TAB PO SCH (09:56)
[2022-02-12] MEDS: SILDENAFIL 20 MG TAB PO SCH ×3 (09:56→23:10)
[2022-02-12] MEDS: APIXABAN 2.5 MG TABLET PO SCH ×2 (09:56→20:35)
[2022-02-12] MEDS: atenoloL 25 MG TAB PO SCH (09:57)
--- NOTE | 2022-02-12 10:20 | P.PN ---
Subjective Progress Note Date: 02/12/22 This is an 86-year-old female who follows with Dr. Viola Robledo in the outpatient setting and lives with her spouse at home and was brought here via EMS is apparently patient had slipped and fallen with left hip and leg deformity and admitted under orthopedic services for possible surgical intervention secondary to an acute left intertrochanteric hip fracture. Patient with an extensive past medical history of atrial fibrillation, dementia, hearing disorders with deafness, memory impairment, pulmonary fibrosis, pulmonary hypertension, chronically wears oxygen at home, moderate to severe mitral valve regurgitation with severe tricuspid regurgitation and mild aortic stenosis, degenerative disc disease, scoliosis, history of PE and superficial DVTs with varicose ascites. Per her at the bedside patient's gait is not that study and does use a walker although she left her walker to hold the dinner tray and subsequently tripped and fell. Patient is nonverbal with a dementia history and unable to give much of a history. Son and at the bedside gave most of the history along with the medical record. Risks versus benefits explained to the patient's family and patient is considered moderate to high risk given all her comorbidities although agreeable with surgery as this will ultimately improve her functionality and overall quality of life. Patient is currently nothing by mouth and recommend telemetry monitoring and also recommend to avoid IV narcotics or FBI SPECIAL AGENT agents as patient all agree with a history of dementia and confusion. Have added IV Tylenol until patient is a by mouth status again. Possible plans for surgical intervention in a.m. Patient is currently medically stable for surgical intervention. Given the fall patient underwent CT of the brain which showed no acute intracranial cervical spine abnormality. The left hip shows an acute comminuted displaced intertrochanteric fracture of the left proximal femur, left ankle showed no acute fracture or dislocation, and chest x- ray shows moderate cardiomegaly and COPD dextroconvex scoliosis with no acute process noted. 02/09/2022 Patient is evaluated today resting in bed. She was moaning and agitated throu ghout the night and staff felt her pain was not controlled with 2 mg IV morphine and also IV tylenol. Did give a small 0.25 mg dose of IV dilaudid which staff reports helped some. Would recommend conservative management of pain and avoid IV narcotics if possible due to advanced age. She is currently pending surgical repair for left hip and left deformity. She is afebrile, heart rate 86, blood pressure 111/68, 94% 3 L nasal cannula. She is nonverbal and lethargic. 02/10/2022 Patient evaluated today resting in bed. She is more awake than yesterday. She is postoperative day #1 surgical repair of left hip fracture with short intramedullary nailing. She continues to be nonverbal. She is in bed resting with indwelling catheter in place. Recommend to limit the use of narcotics for pain management given age and history of dementa. She will see PT/OT tomorrow. She had some clear liquid diet today. Labs today showing white count 8.70, hgb 8.5, sodium 153. Normal saline was discontinued and patient started on D5. Creatinine stable. Heart rate has improved currently 85. 99% on 2L nasal cannula. 02/11/2022 Patient is seen this morning and is post op of the left hip and admitted under orthopedic services working on discharge planning to [facility]. PT consulted for today and awaiting evaluation. Patient is lethargic and minimally arousable at times. Patient is receiving oral narcotics and strongly recommend holding these and will re-add IV tylenol. Patient with unchewed food in her mouth on exam and sleeping and extremely high risk for aspiration. Recommend NPO and will consult speech. Potassium is 3.3 today and will replace per IV. Recommend aspiration precautions. Sodium is also elevated at 150 and will continue 02/12/2022 Patient is seen in follow-up today has been maintained on D5 in water and sodium significantly improved at 137. Patient was evaluated by speech therapy started on pured diet and highly recommend continue with aspiration precautions and supervision with meals. Recommend continuing with Tylenol and occasional [place] as needed for severe pain. Patient does have significant dementia recommend continue with home medications. Patient is weak and family unable to care for her and recommending rehab along with physical therapy recommending rehab. Orthopedics working on discharge planning and plan is to go to [facility] once accepted. Patient is currently rate controlled and maintaining controlled rates and recommend to continue with oral anticoagulation. Surgical site is dry and intact with some minimal ecchymosis although soft on palpation. Patient is afebrile with no chest pain or shortness of breath. Patient does chronically wear oxygen at night and recommend continue with supplemental oxygen as needed. Patient needs encouragement with incentive spirometer and encouraged to continue using at least 10 times every hour. Review Of Systems: Unable to obtain as patient is confused and mostly nonverbal PHYSICAL EXAMINATION: GENERAL: The patient is alert and oriented x1, thin built elderly female, nonverbal HEENT: Pupils are round and equally reacting to light. EOMI. no scleral icterus. No conjunctival pallor. Normocephalic, atraumatic. No pharyngeal erythema. No thyromegaly. CARDIOVASCULAR: S1 and S2 muffled , irregularly irregular PULMONARY: diminished breath sounds bilaterally with no wheezing or rhonchi noted. ABDOMEN: soft. Nontender on exam. Scaphoid. non-distended, normoactive bowel sounds. No palpable organomegaly. MUSCULOSKELETAL: No joint swelling or deformity. EXTREMITIES: No cyanosis, clubbing, or pedal edema. Right lower extremity within normal limits some swelling of left thigh noted. Post surgical dressing intact. NEUROLOGICAL: Gross neurological examination did not reveal any focal deficits. Diffuse weakness SKIN: No rashes. Intact with no breaks in the skin Assessment: Fall resulting in acute left intertrochanteric hip fracture with external rotation and shortening of the left extremity Acute confusion, most likely a component of her dementia also possibly related to toxic encephalopathy from narcotic use Hypernatremia hypokalemia Post operative day #2 surgical repair of left hip fracture with intramedullary nailing. History of atrial fibrillation currently rate controlled Dementia Pulmonary fibrosis and pulmonary hypertension history Chronically wears oxygen at home of 3 L secondary to above Moderate to severe mitral valve regurgitation with severe tricuspid regurgitation and mild aortic stenosis history Degenerative disc disease Remote history of PE in the lungs along with DVTs Depression Past medical history of tobacco use quit in 1974 GI prophylaxis DVT prophylaxis resumed on eliquis postoperatively Full code Plan: Recommend to continue with current medications and management per orthopedic services. Patient is postoperative surgical repair of left hip fracture. PT/OT recommending rehab and patient's family is agreeable as she lives alone with her elderly spouse who is unable to care for her at this time. Patient chronically wears oxygen is currently maintained on 3 L via nasal cannula. Recommend on discontinuing D5 in water as sodium has improved. Continue holding Lasix and follow-up with repeat labs in the next 2-3 days. . She has been resumed on e liquis. Continue with pain management although strongly recommend against narcotics and encourage incentive spirometer use. Recommend pured diet as patient was seen by speech therapy and is high risk for aspiration. Recommend aspiration precautions head of the bed elevated and supervision with meals. Recommend rehab and case management to follow patient will be going to [facility]. We will continue to follow with orthopedics during hospitalization. Patient is medically stable and ready for transfer to [facility] for continued PT/OT therapy. Thank you for this consultation. The impression and plan of care has been dictated by Zoë Goodwin, Nurse Practitioner as directed. Dr. Aimee MD I have performed a history and examination and MDM of this patient, discussed the same with the dictator, and agree with the dictator's assessment and plan as written ,documented as a scribe. Based on total visit time, I have performed more than 50% of the visit. Objective - Vital Signs Vital signs: Vital Signs Temp 97.7 F 02/12/22 07:18 Pulse 87 02/12/22 07:18 Resp 16 02/12/22 07:18 BP 120/79 02/12/22 07:18 Pulse Ox 99 02/12/22 04:30 FiO2 Intake & Output 02/11/22 02/12/22 02/12/22 18:59 06:59 18:59 Intake Total 600 Output Total 300 0 0 Balance 300 0 0 Intake: Intake, IV Titration 600 Amount Dextrose 5% in Water 1, 600 000 ml @ 50 mls/hr IV . Q20H [facility] Rx#:[id number] Output: Urine 300 Stool 0 0 Other: Voiding Method External Catheter External Catheter Diaper Incontinent # Voids 1 2 - Labs CBC & Chem 7: 02/11/22 14:58 02/12/22 04:51 Labs: Abnormal Lab Results - Last 24 Hours (Table) 02/11/22 02/12/22 Range/Units 14:58 04:51 RBC 2.72 L (3.80-5.40) m/uL Hgb 8.5 L (11.4-16.0) gm/dL Hct 27.4 L (34.0-46.0) % MCV 100.6 H (80.0-100.0) fL Lymphocytes # 0.7 L (1.0-4.8) k/uL Calcium 8.3 L (8.4-10.2) mg/dL
[2022-02-12] MEDS: DONEPEZIL 10 MG TAB PO SCH (20:35)
[2022-02-12] MEDS: SENNOSIDES-DOCUSATE SODIUM 1 EACH TAB PO SCH (20:35)
[2022-02-12] MEDS: HYDROcodone/APAP 5-325MG 1 EACH TAB PO PRN (20:36)
[2022-02-13] MEDS: HYDROcodone/APAP 5-325MG 1 EACH TAB PO PRN (03:55)
[2022-02-13 07:07] VITALS: RESP 18
[2022-02-13] MEDS: APIXABAN 2.5 MG TABLET PO SCH (09:32)
[2022-02-13] MEDS: SILDENAFIL 20 MG TAB PO SCH (09:32)
[2022-02-13] MEDS: MEMANTINE 10 MG TAB PO SCH (09:32)
[2022-02-13] MEDS: ESCITALOPRAM 5 MG TAB PO SCH (09:32)
--- NOTE | 2022-02-13 10:18 | P.DS ---
Providers Date of admission: 02/07/22 16:46 Expected date of discharge: 02/13/22 Attending physician: Fermin Bourne Consults: 02/07/22 16:46 Consult Physician Routine Consulting Provider: Noble Reece Consult Reason/Comments: medicine consult Do you want consulting provider notified?: Yes Primary care physician: Viola Miriam Hospital Course: This is an 86-year-old female who sustained a ground level fall resulting in a left intertrochanteric hip fracture. Patient was admitted under the care of Dr. Bourne with a consult placed to internal medicine for pre-operative medical clearance. Patient underwent operative fixation of left intertrochanteric hip fracture with a short intramedullary hip screw on 02/09/22. The procedure was performed without complication or sequelae. The patient is doing fairly well postoperatively. Vital signs and labs are stable on postoperative day #4. Patient was examined bedside today. She is currently up to the bedside chair. She is non-verbal. Patient appears comfortable at this time. Vital signs stable. On examination, the patient is sitting up in the bedside chair. On inspection of the left lower extremity, there is a clean, dry, intact Opsite dressings intact at the left hip. Mild swelling of the thigh, the thigh is soft and compressible. Motor and sensory function intact LLE. Dorsalis pedis pulse easily palpable. Calf non-tender. Patient is discharged to rehab today in good condition, pending medical clearance. Patient will follow-up with Dr. Bourne in the office in 2 weeks. Please see med rec for accurate list of discharge medication. Plan - Discharge Summary Discharge Rx Participant: Yes New Discharge Prescriptions: New Sennosides-Docusate Sodium [Senokot-S] 2 each PO HS tab Acetaminophen Tab [Tylenol] 650 mg PO Q6HR PRN tab PRN Reason: Mild Pain Or Fever > 100.5 HYDROcodone/APAP 5-325MG [[place] 5-325] 1 tab PO Q12HR PRN 7 Days #12 tab PRN Reason: Pain Continue Furosemide [Lasix] 20 mg PO BID Sildenafil [Revatio] 20 mg PO TID Escitalopram [Lexapro] 5 mg PO DAILY Apixaban [Eliquis] 2.5 mg PO BID Memantine [Namenda] 10 mg PO BID Donepezil HCl [Aricept] 10 mg PO HS atenoloL [Tenormin] 25 mg PO DAILY Discharge Medication List Furosemide [Lasix] 20 mg PO BID 03/04/15 [History] Sildenafil [Revatio] 20 mg PO TID 03/04/15 [History] Escitalopram [Lexapro] 5 mg PO DAILY 10/05/16 [History] Apixaban [Eliquis] 2.5 mg PO BID 02/18/18 [History] Memantine [Namenda] 10 mg PO BID 11/10/18 [History] Donepezil HCl [Aricept] 10 mg PO HS 11/19/19 [History] atenoloL [Tenormin] 25 mg PO DAILY 12/28/21 [History] HYDROcodone/APAP 5-325MG [[place] 5-325] 1 tab PO Q12HR PRN 7 Days #12 tab 02/11/22 [Rx] Acetaminophen Tab [Tylenol] 650 mg PO Q6HR PRN tab 02/13/22 [Rx] Sennosides-Docusate Sodium [Senokot-S] 2 each PO HS tab 02/13/22 [Rx] Follow up Appointment(s)/Referral(s): Viola Robledo MD [Primary Care Provider] - 1-2 days Activity/Diet/Wound Care/Special Instructions: Patient will be going to [facility] Follow-up with orthopedics as scheduled Follow-up primary care provider on discharge Continue aspiration precautions with head of the bed elevated and supervision with meals Continue dysphagia pure diet Continue medications as prescribed Discharge Disposition: TRANSFER TO SNF/ECF
[2022-02-13] MEDS: atenoloL 25 MG TAB PO SCH (11:54)
[2022-02-13 12:41] VITALS: BP 120/79; PULSE 63; TEMP 99.1
--- NOTE | 2022-02-13 13:06 | P.PN ---
Subjective Progress Note Date: 02/13/22 This is an 86-year-old female who follows with Dr. Viola Robledo in the outpatient setting and lives with her spouse at home and was brought here via EMS is apparently patient had slipped and fallen with left hip and leg deformity and admitted under orthopedic services for possible surgical intervention secondary to an acute left intertrochanteric hip fracture. Patient with an extensive past medical history of atrial fibrillation, dementia, hearing disorders with deafness, memory impairment, pulmonary fibrosis, pulmonary hypertension, chronically wears oxygen at home, moderate to severe mitral valve regurgitation with severe tricuspid regurgitation and mild aortic stenosis, degenerative disc disease, scoliosis, history of PE and superficial DVTs with varicose ascites. Per her at the bedside patient's gait is not that study and does use a walker although she left her walker to hold the dinner tray and subsequently tripped and fell. Patient is nonverbal with a dementia history and unable to give much of a history. Son and at the bedside gave most of the history along with the medical record. Risks versus benefits explained to the patient's family and patient is considered moderate to high risk given all her comorbidities although agreeable with surgery as this will ultimately improve her functionality and overall quality of life. Patient is currently nothing by mouth and recommend telemetry monitoring and also recommend to avoid IV narcotics or [employer] agents as patient all agree with a history of dementia and confusion. Have added IV Tylenol until patient is a by mouth status again. Possible plans for surgical intervention in a.m. Patient is currently medically stable for surgical intervention. Given the fall patient underwent CT of the brain which showed no acute intracranial cervical spine abnormality. The left hip shows an acute comminuted displaced intertrochanteric fracture of the left proximal femur, left ankle showed no acute fracture or dislocation, and chest x- ray shows moderate cardiomegaly and COPD dextroconvex scoliosis with no acute process noted. 02/09/2022 Patient is evaluated today resting in bed. She was moaning and agitated throu ghout the night and staff felt her pain was not controlled with 2 mg IV morphine and also IV tylenol. Did give a small 0.25 mg dose of IV dilaudid which staff reports helped some. Would recommend conservative management of pain and avoid IV narcotics if possible due to advanced age. She is currently pending surgical repair for left hip and left deformity. She is afebrile, heart rate 86, blood pressure 111/68, 94% 3 L nasal cannula. She is nonverbal and lethargic. 02/10/2022 Patient evaluated today resting in bed. She is more awake than yesterday. She is postoperative day #1 surgical repair of left hip fracture with short intramedullary nailing. She continues to be nonverbal. She is in bed resting with indwelling catheter in place. Recommend to limit the use of narcotics for pain management given age and history of dementa. She will see PT/OT tomorrow. She had some clear liquid diet today. Labs today showing white count 8.70, hgb 8.5, sodium 153. Normal saline was discontinued and patient started on D5. Creatinine stable. Heart rate has improved currently 85. 99% on 2L nasal cannula. 02/11/2022 Patient is seen this morning and is post op of the left hip and admitted under orthopedic services working on discharge planning to [facility]. PT consulted for today and awaiting evaluation. Patient is lethargic and minimally arousable at times. Patient is receiving oral narcotics and strongly recommend holding these and will re-add IV tylenol. Patient with unchewed food in her mouth on exam and sleeping and extremely high risk for aspiration. Recommend NPO and will consult speech. Potassium is 3.3 today and will replace per IV. Recommend aspiration precautions. Sodium is also elevated at 150 and will continue 02/12/2022 Patient is seen in follow-up today has been maintained on D5 in water and sodium significantly improved at 137. Patient was evaluated by speech therapy started on pured diet and highly recommend continue with aspiration precautions and supervision with meals. Recommend continuing with Tylenol and occasional [place] as needed for severe pain. Patient does have significant dementia recommend continue with home medications. Patient is weak and family unable to care for her and recommending rehab along with physical therapy recommending rehab. Orthopedics working on discharge planning and plan is to go to [facility] once accepted. Patient is currently rate controlled and maintaining controlled rates and recommend to continue with oral anticoagulation. Surgical site is dry and intact with some minimal ecchymosis although soft on palpation. Patient is afebrile with no chest pain or shortness of breath. Patient does chronically wear oxygen at night and recommend continue with supplemental oxygen as needed. Patient needs encouragement with incentive spirometer and encouraged to continue using at least 10 times every hour. 02/13/2022 Patient is seen and evaluated in follow-up this morning sitting up in the chair working with physical therapy daily. Patient is mostly nonverbal and is maintained on 2 L via nasal cannula. Patient is tolerating the pured diet and continued on aspiration precautions. Patient not reporting any increasing pain and recommend to continue limiting the use of narcotics given her age and dementia history. Heart rate in the 50s and 60s and patient is maintained on atenolol and medication was held today recommend continue 25 mg daily. Patient is asymptomatic. Patient is afebrile with no reports of chest pain or shortness of breath. Review Of Systems: Unable to obtain as patient is confused and mostly nonverbal PHYSICAL EXAMINATION: GENERAL: The patient is alert and oriented x1, thin built elderly female, nonverbal HEENT: Pupils are round and equally reacting to light. EOMI. no scleral icterus. No conjunctival pallor. Normocephalic, atraumatic. No pharyngeal erythema. No thyromegaly. CARDIOVASCULAR: S1 and S2 muffled , irregularly irregular PULMONARY: diminished breath sounds bilaterally with no wheezing or rhonchi noted. ABDOMEN: soft. Nontender on exam. Scaphoid. non-distended, normoactive bowel sounds. No palpable organomegaly. MUSCULOSKELETAL: No joint swelling or deformity. EXTREMITIES: No cyanosis, clubbing, or pedal edema. Right lower extremity within normal limits some swelling of left thigh noted. Post surgical dressing intact. NEUROLOGICAL: Gross neurological examination did not reveal any focal deficits. Diffuse weakness SKIN: No rashes. Intact with no breaks in the skin Assessment: Fall resulting in acute left intertrochanteric hip fracture with external rotation and shortening of the left extremity Acute confusion, most likely a component of her dementia also possibly related to toxic encephalopathy from narcotic use Hypernatremia hypokalemia Post surgical repair of left hip fracture with intramedullary nailing. History of atrial fibrillation currently rate controlled Dementia Pulmonary fibrosis and pulmonary hypertension history Chronically wears oxygen at home of 3 L secondary to above Moderate to severe mitral valve regurgitation with severe tricuspid regurgitation and mild aortic stenosis history Degenerative disc disease Remote history of PE in the lungs along with DVTs Depression Past medical history of tobacco use quit in 1974 GI prophylaxis DVT prophylaxis resumed on eliquis postoperatively Full code Plan: Recommend to continue with current medications and management per orthopedic services. Patient is postoperative surgical repair of left hip fracture. PT/OT recommending rehab and patient's family is agreeable as she lives alone with her elderly spouse who is unable to care for her at this time. Patient chronically wears oxygen is currently maintained on 3 L via nasal cannula. She has been resumed on eliquis and recommend to continue. Continue with pain management although strongly recommend against narcotics and encourage incentive spirometer use. Recommend pured diet as patient was seen by speech therapy and is high risk for aspiration. Recommend aspiration precautions head of the bed elevated and supervision with meals. Plan is for discharge to [facility] for continued PT/OT therapy and authorization has been obtained today. Most likely discharge today. We will continue to follow with orthopedics during hospitalization. Patient is medically stable and ready for transfer to [facility] for continued PT/OT therapy. Thank you for this consultation. The impression and plan of care has been dictated by Zoë Goodwin, Nurse Practitioner as directed. Dr. Aimee MD I have performed a history and examination and MDM of this patient, discussed the same with the dictator, and agree with the dictator's assessment and plan as written ,documented as a scribe. Based on total visit time, I have performed more than 50% of the visit. Objective - Vital Signs Vital signs: Vital Signs Temp 98.0 F 02/13/22 07:06 Pulse 94 02/13/22 07:06 Resp 18 02/13/22 07:06 BP 107/71 02/13/22 05:00 Pulse Ox 92 L 02/13/22 05:00 FiO2 Intake & Output 02/12/22 02/13/22 02/13/22 18:59 06:59 18:59 Output Total 500 800 Balance -500 -800 Output: Urine 500 800 Stool 0 0 Other: Voiding Method External Catheter External Catheter # Voids 2 - Labs CBC & Chem 7: 02/11/22 14:58 02/12/22 04:51
== END 2022-02-13 14:48 | DRG 480 ==
LOC: EC 11:50 → 4SSUR 16:46 → 5NMEDONC 02-08 03:06
PROVIDERS: ADMIT Orthopaedic Surgery; ATTEND Orthopaedic Surgery
PROC: 0QS736Z Reposition Left Upper Femur with Intramedullary Internal Fixation Device, Percutaneous Approach (ICD-10-PCS; principal; 2022-02-09 12:00)
DX: S72.142A Displaced intertrochanteric fracture of left femur, initial encounter for closed fracture (principal); G92.9 Unspecified toxic encephalopathy; E87.0 Hyperosmolality and hypernatremia; W01.0XXA Fall on same level from slipping, tripping and stumbling without subsequent striking against object, initial encounter; Y93.01 Activity, walking, marching and hiking; T40.605A Adverse effect of unspecified narcotics, initial encounter; E87.6 Hypokalemia; F03.90 Unspecified dementia, unspecified severity, without behavioral disturbance, psychotic disturbance, mood disturbance, and anxiety; F32.A Depression, unspecified; H91.93 Unspecified hearing loss, bilateral; I08.3 Combined rheumatic disorders of mitral, aortic and tricuspid valves; I27.20 Pulmonary hypertension, unspecified; I48.91 Unspecified atrial fibrillation; J84.10 Pulmonary fibrosis, unspecified; M41.9 Scoliosis, unspecified; M47.9 Spondylosis, unspecified; R26.9 Unspecified abnormalities of gait and mobility; I69.320 Aphasia following cerebral infarction; Z20.822 Contact with and (suspected) exposure to COVID-19; Z79.01 Long term (current) use of anticoagulants; Z79.899 Other long term (current) drug therapy; Z82.0 Family history of epilepsy and other diseases of the nervous system; Z86.711 Personal history of pulmonary embolism; Z87.891 Personal history of nicotine dependence; Z96.652 Presence of left artificial knee joint; Z87.81 Personal history of (healed) traumatic fracture
CPT/HCPCS: 36415; 51702; 70450; 71045; 72125; 73502; 80048; 80053; 85025; 85610; 85730; 86850; 86900; 86901; 87635; 93005; 96361; 96372; 96374; 96375; 99285

== ENCOUNTER 2022-05-01 15:28 | Emergency (ER) | payer MEDICARE ==
[2022-05-01 15:52] VITALS: TEMP 97.5
--- NOTE | 2022-05-01 16:21 | ED ---
Altered Mental Status HPI - General Chief Complaint: Altered Mental Status Stated Complaint: AMS, rt hip pain Time Seen by Provider: 05/01/22 15:49 Source: patient, family, EMS Mode of arrival: EMS Limitations: altered mental status - History of Present Illness Initial Comments: This patient is an 86-year-old woman brought by ambulance to have evaluation for altered mental status. All of the history is given by the patient's daughter and some by the son as well. The patient has some moderate to severe underlying dementia. She does not speak. Today was a deviation from her usual in that the patient would not get up and walk around the home. She usually will ambulate with her caregiver. Today she refused. He'll addition she seemed to be holding the area of her right hip. The patient did have left hip replacement approximately 2 months ago and had been doing fairly well. She had physical therapy yesterday and reportedly did all of the PT exercises. Caregiver also noted that there was odor to the urine. MD Complaint: altered mental status Onset/Timin -: days(s) Severity: moderate - Related Data Home Medications Medication Instructions Recorded Confirmed Furosemide [Lasix] 20 mg PO BID@0900,1400 03/04/15 05/01/22 Sildenafil [Revatio] 20 mg PO TID 03/04/15 05/01/22 Escitalopram [Lexapro] 5 mg PO DAILY 10/05/16 05/01/22 Apixaban [Eliquis] 2.5 mg PO AC-BID 02/18/18 05/01/22 Memantine [Namenda] 10 mg PO AC-BID 11/10/18 05/01/22 atenoloL [Tenormin] 25 mg PO DAILY 12/28/21 05/01/22 Ascorbic Acid [Vitamin C] 1,000 mg PO DAILY 05/01/22 05/01/22 Cholecalciferol [Vitamin D3 (25 50 mcg PO DAILY 05/01/22 05/01/22 Mcg = 1000 Iu)] Zinc Gluconate [Zinc] 50 mg PO DAILY 05/01/22 05/01/22 Allergies Allergy/AdvReac Type Severity Reaction Status Date / Time No Known Allergies Allergy Verified 05/01/22 17:56 Review of Systems ROS Statement: Those systems with pertinent positive or pertinent negative responses have been documented in the HPI. ROS Other: All systems not noted in ROS Statement are negative. Limitations: ROS unobtainable due to patients medical condition Constitutional: Denies: fever Respiratory: Denies: cough, dyspnea Gastrointestinal: Denies: vomiting, diarrhea Genitourinary: Reports: other (Odor to the urine) Musculoskeletal: Reports: as per HPI, arthralgia (Hip pain) Skin: Denies: rash Past Medical History Past Medical History: Atrial Fibrillation, Dementia, Hearing Disorder / Deafness, Memory Impairment, Pneumonia, Respiratory Disorder Additional Past Medical History / Comment(s): Pulmonary fibrosis, pulmonary HTN, O2 at HS, moderate to severe mitral valve regurgitation, severe tricuspid regurgitation, mild aortic stenosis, DDD, spondylosis, scoliosis, bulging discs, PE in lungs 15 yrs ago, superficial DVTs, varicosities, mild dementia, [place] bilaterally History of Any Multi-Drug Resistant Organisms: ESBL Date of last positivie culture/infection: 03/01/22 MDRO Source:: Urine Past Surgical History: Appendectomy, Heart Catheterization, Joint Replacement, Orthopedic Surgery, Tonsillectomy Additional Past Surgical History / Comment(s): L femur fracture with ORIF, L arm fracture with ORIF plate/screws, bilateral rotator cuff repairs, bilateral feet hammer toe corrections, epidural back injections, bilateral cataract removals with lens implants, colonoscopy Past Anesthesia/Blood Transfusion Reactions: No Reported Reaction Past Psychological History: Depression Smoking Status: Former smoker Past Alcohol Use History: Occasional Past Drug Use History: None Reported - Past Family History Father Family Medical History: Musculoskeletal Disorder, Neurologic Disorder Additional Family Medical History / Comment(s): Parkinson's disease. Mother Family Medical History: Cancer Additional Family Medical History / Comment(s): breast cancer General Exam Limitations: no limitations General appearance: alert, in no apparent distress Head exam: Present: atraumatic, normocephalic Eye exam: Present: normal appearance. Absent: scleral icterus, conjunctival injection Neck exam: Present: full ROM. Absent: normal inspection, tenderness Respiratory exam: Present: normal lung sounds bilaterally. Absent: respiratory distress, wheezes, rales, rhonchi, stridor, chest wall tenderness Cardiovascular Exam: Present: regular rate, normal rhythm, normal heart sounds. Absent: systolic murmur, diastolic murmur, rubs, gallop GI/Abdominal exam: Present: soft. Absent: distended, tenderness, guarding, rebound, rigid, mass Extremities exam: Present: normal inspection, normal capillary refill. Absent: pedal edema, calf tenderness Back exam: Present: normal inspection Neurological exam: Present: alert, other (Patient is nonverbal. She does follow the examiner with her eyes. She does follow some simple commands. No evident focal weakness.). Absent: motor sensory deficit Skin exam: Present: warm, dry, intact, normal color. Absent: rash Course Vital Signs 05/01/22 05/01/22 05/01/22 15:44 18:00 18:30 Temperature 97.5 F L Pulse Rate 82 89 76 Respiratory 16 15 20 Rate Blood Pressure 112/85 113/85 121/87 O2 Sat by Pulse 95 97 98 Oximetry 05/01/22 05/01/22 19:00 20:12 Temperature Pulse Rate 84 72 Respiratory 14 18 Rate Blood Pressure 104/84 124/86 O2 Sat by Pulse 98 96 Oximetry Medical Decision Making - Lab Data Result diagrams: 05/01/22 16:37 05/01/22 16:37 Lab Results 05/01/22 05/01/22 05/01/22 Range/Units 16:37 16:37 16:37 WBC 5.7 (3.8-10.6) k/uL RBC 4.49 (3.80-5.40) m/uL Hgb 13.1 (11.4-16.0) gm/dL Hct 41.1 (34.0-46.0) % MCV 91.5 (80.0-100.0) fL MCH 29.2 (25.0-35.0) pg MCHC 31.9 (31.0-37.0) g/dL RDW 14.6 (11.5-15.5) % Plt Count 127 L (150-450) k/uL MPV 7.9 Neutrophils % 75 % Lymphocytes % 16 % Monocytes % 6 % Eosinophils % 2 % Basophils % 1 % Neutrophils # 4.3 (1.3-7.7) k/uL Lymphocytes # 0.9 L (1.0-4.8) k/uL Monocytes # 0.3 (0-1.0) k/uL Eosinophils # 0.1 (0-0.7) k/uL Basophils # 0.0 (0-0.2) k/uL Hypochromasia Slight PT (9.0-12.0) sec INR (<1.2) APTT (22.0-30.0) sec Sodium 140 (137-145) mmol/L Potassium 4.4 (3.5-5.1) mmol/L Chloride 105 (98-107) mmol/L Carbon Dioxide 31 H (22-30) mmol/L Anion Gap 4 mmol/L BUN 16 (7-17) mg/dL Creatinine 0.62 (0.52-1.04) mg/dL Est GFR (CKD-EPI)AfAm >90 (>60 ml/min/1.73 sqM) Est GFR (CKD-EPI)NonAf 81 (>60 ml/min/1.73 sqM) Glucose 90 (74-99) mg/dL Calcium 8.8 (8.4-10.2) mg/dL Total Bilirubin 0.7 (0.2-1.3) mg/dL AST 32 (14-36) U/L ALT 15 (4-34) U/L Alkaline Phosphatase 97 (38-126) U/L Troponin I <0.012 (0.000-0.034) ng/mL Total Protein 6.8 (6.3-8.2) g/dL Albumin 3.9 (3.5-5.0) g/dL Urine Color Urine Appearance (Clear) Urine pH (5.0-8.0) Ur Specific [place] (1.001-1.035) Urine Protein (Negative) Urine Glucose (UA) (Negative) Urine Ketones (Negative) Urine Blood (Negative) Urine Nitrite (Negative) Urine Bilirubin (Negative) Urine Urobilinogen (<2.0) mg/dL Ur Leukocyte Esterase (Negative) 05/01/22 05/01/22 Range/Units 18:00 18:00 WBC (3.8-10.6) k/uL RBC (3.80-5.40) m/uL Hgb (11.4-16.0) gm/dL Hct (34.0-46.0) % MCV (80.0-100.0) fL MCH (25.0-35.0) pg MCHC (31.0-37.0) g/dL RDW (11.5-15.5) % Plt Count (150-450) k/uL MPV Neutrophils % % Lymphocytes % % Monocytes % % Eosinophils % % Basophils % % Neutrophils # (1.3-7.7) k/uL Lymphocytes # (1.0-4.8) k/uL Monocytes # (0-1.0) k/uL Eosinophils # (0-0.7) k/uL Basophils # (0-0.2) k/uL Hypochromasia PT 11.5 (9.0-12.0) sec INR 1.1 (<1.2) APTT 23.3 (22.0-30.0) sec Sodium (137-145) mmol/L Potassium (3.5-5.1) mmol/L Chloride (98-107) mmol/L Carbon Dioxide (22-30) mmol/L Anion Gap mmol/L BUN (7-17) mg/dL Creatinine (0.52-1.04) mg/dL Est GFR (CKD-EPI)AfAm (>60 ml/min/1.73 sqM) Est GFR (CKD-EPI)NonAf (>60 ml/min/1.73 sqM) Glucose (74-99) mg/dL Calcium (8.4-10.2) mg/dL Total Bilirubin (0.2-1.3) mg/dL AST (14-36) U/L ALT (4-34) U/L Alkaline Phosphatase (38-126) U/L Troponin I (0.000-0.034) ng/mL Total Protein (6.3-8.2) g/dL Albumin (3.5-5.0) g/dL Urine Color Light Yellow Urine Appearance Clear (Clear) Urine pH 6.0 (5.0-8.0) Ur Specific [place] 1.013 (1.001-1.035) Urine Protein Negative (Negative) Urine Glucose (UA) Negative (Negative) Urine Ketones Negative (Negative) Urine Blood Negative (Negative) Urine Nitrite Negative (Negative) Urine Bilirubin Negative (Negative) Urine Urobilinogen <2.0 (<2.0) mg/dL Ur Leukocyte Esterase Negative (Negative) - EKG Data -: EKG Interpreted by Pr EKG shows normal: axis (Borderline right axis deviation), intervals (Normal), QRS complexes (Incomplete right bundle branch block. Low voltage QRS complex.) Interpretation: other (Atrial fibrillation, rate 86 bpm) Disposition Clinical Impression: Altered mental status Disposition: HOME SELF-CARE Condition: Fair Instructions (If sedation given, give patient instructions): Altered Mental Status (ED) Is patient prescribed a controlled substance at d/c from ED?: No Referrals: Viola Robledo MD [Primary Care Provider] - 1-2 days
--- NOTE | 2022-05-01 16:52 | CT ---
EXAMINATION TYPE: CT brain wo con DATE OF EXAM: 05/01/2022 COMPARISON: 11/19/2019 and 02/07/2022 HISTORY: AMS CT DLP: 1090.4 mGycm Automated exposure control for dose reduction was used. There is moderate diffuse cerebral cortical atrophy. There is no mass effect or midline shift. No sig n of intracranial hemorrhage. There is mucosal thickening in the left sphenoid sinus. There is some h ypodensity in the periventricular white matter. The calvarium is intact. Skull base is intact. IMPRESSION: Cerebral atrophy and chronic small vessel ischemia. No acute intracranial abnormality. No change comp ared to old exam. There is left-sided sphenoid sinusitis which is new compared to 02/07/2022.
--- NOTE | 2022-05-01 17:27 | XR ---
EXAMINATION TYPE: XR Hip Bilateral and AP pelvis DATE OF EXAM: 05/01/2022 COMPARISON: 02/09/2022 HISTORY: Pain TECHNIQUE: 5 views FINDINGS: The pelvic ring is intact. The hip joint spaces are fairly normal. There is intramedullary samy and transverse screw fixing the intertrochanteric fracture of the left femur. There is a large le sser trochanteric chip fracture. There is also greater trochanteric chip fracture. Sacroiliac joints are intact IMPRESSION: No acute abnormality of the pelvis and both hips. There is satisfactory fixation of the i ntertrochanteric fracture of the left femur compared to old exam. There are chip fractures of the lesser trochanter and greater trochanter also present on old exam.
--- NOTE | 2022-05-01 17:29 | XR ---
EXAMINATION TYPE: XR chest 2V DATE OF EXAM: 05/01/2022 COMPARISON: 02/07/2022 HISTORY: Pain. Fall TECHNIQUE: 2 views FINDINGS: Heart is moderately enlarged. There is mild pulmonary congestion. There is coarse interstit ial density in the lungs. No pleural effusion. Thoracic aorta is atheromatous. IMPRESSION: Moderate cardiomegaly. Pulmonary fibrotic changes. Minimal congestion but no evidence of any significant heart failure. Inspiration decreased slightly compared to old exam.
[2022-05-01 17:51] LABS: ALT 15 U/L (4-34); AST 32 U/L (14-36); African American GFR (CKD) >90 (>60 ml/min/1.73 sqM); Albumin 3.9 g/dL (3.5-5.0); Alkaline Phosphatase 97 U/L (38-126); Anion Gap 4 mmol/L; Blood Urea Nitrogen 16 mg/dL (7-17); Calcium 8.8 mg/dL (8.4-10.2); Carbon Dioxide 31 mmol/L (22-30); Chloride 105 mmol/L (98-107); Glucose 90 mg/dL (74-99); Non-African American GFR(CKD) 81 (>60 ml/min/1.73 sqM); Potassium 4.4 mmol/L (3.5-5.1); Sodium 140 mmol/L (137-145); Total Bilirubin 0.7 mg/dL (0.2-1.3); Total Protein 6.8 g/dL (6.3-8.2)
[2022-05-01 18:06] LABS: Basophils % (A) 1 %; Eosinophils # (A) 0.1 k/uL (0-0.7); Eosinophils % (A) 2 %; HCT 41.1 % (34.0-46.0); HGB 13.1 gm/dL (11.4-16.0); Hypochromasia Slight; Lymphocytes # (A) 0.9 k/uL (1.0-4.8); Lymphocytes % (A) 16 %; MCH 29.2 pg (25.0-35.0); MCHC 31.9 g/dL (31.0-37.0); MCV 91.5 fL (80.0-100.0); Mean Platelet Volume 7.9; Monocytes # (A) 0.3 k/uL (0-1.0); Monocytes % (A) 6 %; Neutrophils # (A) 4.3 k/uL (1.3-7.7); Neutrophils % (A) 75 %; Platelet Count 127 k/uL (150-450); RBC 4.49 m/uL (3.80-5.40); RDW 14.6 % (11.5-15.5); WBC 5.7 k/uL (3.8-10.6)
[2022-05-01 18:33] LABS: Appearance,Urine Clear (Clear); Bilirubin,Urine Negative (Negative); Blood,Urine Negative (Negative); Color,Urine Light Yellow; Glucose,Urine (UA) Negative (Negative); Ketones,Urine Negative (Negative); Leukocyte Esterase,Urine Negative (Negative); Nitrite,Urine Negative (Negative); Protein,Urine Negative (Negative); Specific Gravity,Urine 1.013 (1.001-1.035); Urobilinogen,Urine <2.0 mg/dL (<2.0)
[2022-05-01 19:23] LABS: INR 1.1 (<1.2); Partial Thromboplastin Time 23.3 sec (22.0-30.0); Prothrombin Time 11.5 sec (9.0-12.0)
[2022-05-01 20:13] VITALS: BP 124/86; PULSE 72; RESP 18
== END 2022-05-01 20:12 | disposition home or self-care (01) ==
LOC: EC 15:28
DX: R41.82 Altered mental status, unspecified (principal); I48.91 Unspecified atrial fibrillation; F32.A Depression, unspecified; Z87.891 Personal history of nicotine dependence; Z79.01 Long term (current) use of anticoagulants
CPT/HCPCS: 36415; 70450; 71046; 73521; 80053; 81003; 84484; 85025; 85610; 85730; 93005; 99285